=== PATIENT | female | born 1940 | race Caucasian/White ===

== ENCOUNTER → 2017-08-14 05:00 | Outpatient (REF) | payer MEDICARE, MEDICAID, SELFPAY ==
[2017-08-14 09:18] LABS: Color, Urine Yellow (Yellow); Glucose, Dipstick Normal (Normal); Ketone-Dipstick 5 mg/dl (Negative); Leukocyte Esterase-Dipstick 500 /ul (Negative); Nitrite-Dipstick Negative (Negative); Occult Blood-Urine 10 /ul (Negative); Protein-Dipstick 15 mg/dl (Negative); Urine Bilirubin Dipstick Negative (Negative); Urine Clarity Sl. Cloudy (Clear); Urine Urobilinogen Normal (Normal)
== END ==
LOC: OLS.WCC 05:00
PROVIDERS: Visit Provider Family Medicine
DX: I10 Essential (primary) hypertension (principal); E78.5 Hyperlipidemia, unspecified; R30.0 Dysuria
CPT/HCPCS: 81002; 87077; 87086; 87088; 87186

== ENCOUNTER → 2018-01-22 10:41 | Outpatient (CLI) | payer MEDICARE, MEDICAID, SELFPAY ==
--- NOTE | 2018-01-22 10:45 | BI_ITS ---
MAMMOGRAPHY - BILATERAL SCREENING REASON FOR EXAM: Female, 77 years old. Routine annual screening examination. PERTINENT HISTORY: Non-contributory. TECHNIQUE: Digital bilateral breast cristopher (3D mammographic acquisition) in the CC and MLO projections. 2-D mediolateral oblique (MLO) and craniocaudad (CC) views of both breasts were obtained. CAD: Full Field Digital Mammography with Computer Added Detection was performed. COMPARISON: Comparison is made with prior study dated January 08, 2017 and January 02, 2016. FINDINGS: Breast Composition: There are scattered areas of fibroglandular density. There are no dominant masses or suspicious calcifications. Stable appearance of the secretory calcifications bilaterally. No other significant abnormalities are identified. There has been no significant change since the prior study. BI/SCREENING MAMM (CAD), BILAT IMPRESSION: Stable bilateral screening mammogram. Yearly follow-up mammogram recommended. (A) ASSESSMENT CATEGORY: BIRADS Category 2: Benign. A letter regarding these results will be sent to the patient by the facility within 30 days. Approximately 10% of breast cancers are not detected by mammography. A normal mammogram should not delay biopsy of a clinically suspicious abnormality. [id number] Electronically Signed: Jose Barakat MD at 13:39 EDT Tel [phone], Service support ,
== END ==
PROVIDERS: Family Provider Family Medicine; PCP Family Medicine; Visit Provider Family Medicine
DX: Z12.31 Encounter for screening mammogram for malignant neoplasm of breast (principal)
CPT/HCPCS: 77063; 77067

== ENCOUNTER → 2018-01-29 04:00 | Outpatient (REF) | payer MEDICARE, MEDICAID, SELFPAY ==
[2018-01-29 07:17] LABS: Hematocrit 38.9 % (37-47); Hemoglobin 12.6 g/dl (12.0-15.0); Mean Corp Hgb Conc 32.4 g/gl (32-36); Mean Corpuscular Hgb 27.7 pg (27.0-32.0); Mean Corpuscular Volume 85.5 fL (81-99); Mean Platelet Vol. 10.7 fl (6.2-12.0); Platelet Count 328 K/mm3 (150-450); RBC Distribution Width CV 14.8 % (11.6-14.6); RBC Distribution Width SD 46.2 fl (35.1-43.9); Red Blood Count 4.55 M/mm3 (4.2-5.4)
[2018-01-29 07:23] LABS: Scan Indicated on CBC? Y/N NO
[2018-01-29 07:42] LABS: Anion Gap 10 (5-15); BUN 12 mg/dL (7-18); BUN/Creat Ratio 19.8 RATIO (10-20); Chloride 101 mmol/L (98-107); Cholesterol 125 mg/dL (200); Creatinine, Serum 0.61 mg/dL (0.55-1.02); EST Glomerular Filtration Rate 101 mL/min (>60); Est Glom Filt Rate - Afr Amer 123 mL/min (>60); Glucose 137 mg/dL (74-106); High Density Lipoprotein 48 mg/dL; Potassium 4.1 mmol/L (3.5-5.1); Sodium Level 136 mmol/L (136-145); Triglycerides 92 mg/dL; Very Low Density Lipoprotein 18 mg/dL (5-40)
[2018-01-29 08:39] LABS: Hemoglobin A1c 7.5 % (4.2-6.3)
== END ==
LOC: OLS.WCC 04:00
PROVIDERS: Visit Provider Family Medicine
DX: E11.9 Type 2 diabetes mellitus without complications (principal); I10 Essential (primary) hypertension; E78.5 Hyperlipidemia, unspecified; Z79.899 Other long term (current) drug therapy
CPT/HCPCS: 36415; 80048; 80061; 83036; 85027

== ENCOUNTER → 2018-04-28 05:00 | Outpatient (REF) | payer MEDICARE, MEDICAID, SELFPAY ==
[2018-04-28 09:55] LABS: Absolute Lymphocyte Count 1.49 X10^3/ul (0.83-4.51); Absolute Neutrophil Count 5.7 X10^3/uL (2.0-7.7); Basophil# 0.02 X10^3/uL; Basophil% 0.2 % (0-1); Eosinophil# 0.46 X10^3/uL; Eosinophils% 5.5 % (0-5); Hematocrit 36.9 % (37-47); Lymphocyte # 1.49 X10^3/ul (4.0); Mean Corp Hgb Conc 32.5 g/gl (32-36); Mean Corpuscular Hgb 28.3 pg (27.0-32.0); Mean Platelet Vol. 11.2 fl (6.2-12.0); Monocyte# 0.61 X10^3/uL; Monocyte% 7.4 % (0-10); Neutrophil # 5.69 X10^3/uL (2.7-7.7); Neutrophil % 68.7 % (47-70); Platelet Count 319 K/mm3 (150-450); RBC Distribution Width CV 14.9 % (11.6-14.6); RBC Distribution Width SD 46.7 fl (35.1-43.9); Red Blood Count 4.24 M/mm3 (4.2-5.4); White Blood Count 8.3 K/mm3 (4.4-11.0)
[2018-04-28 09:59] LABS: POSITIVE COUNT NO; POSITIVE DIFFERENTIAL NO; POSITIVE MORPHOLOGY NO
[2018-04-28 10:11] LABS: Thyroid Stim Hormone (TSH) 2.16 uIU/mL (0.358-3.74)
== END ==
LOC: OLS.WCC 05:00
PROVIDERS: Visit Provider Family Medicine
DX: R53.83 Other fatigue (principal)
CPT/HCPCS: 36415; 84443; 85025

== ENCOUNTER → 2018-07-15 05:00 | Outpatient (REF) | payer MEDICARE, SELFPAY ==
[2018-07-15 07:58] LABS: Hematocrit 38.3 % (37-47); Hemoglobin 12.5 g/dl (12.0-15.0); Mean Corp Hgb Conc 32.6 g/gl (32-36); Mean Corpuscular Hgb 28.2 pg (27.0-32.0); Mean Corpuscular Volume 86.3 fL (81-99); Mean Platelet Vol. 10.9 fl (6.2-12.0); Platelet Count 306 K/mm3 (150-450); RBC Distribution Width CV 14.6 % (11.6-14.6); RBC Distribution Width SD 45.1 fl (35.1-43.9); Red Blood Count 4.44 M/mm3 (4.2-5.4); White Blood Count 9.2 K/mm3 (4.4-11.0)
[2018-07-15 07:59] LABS: Scan Indicated on CBC? Y/N NO
[2018-07-15 08:14] LABS: Anion Gap 9 (5-15); BUN 16 mg/dL (7-18); BUN/Creat Ratio 22.7 RATIO (10-20); Calcium,Total 8.8 mg/dL (8.5-10.1); Chloride 103 mmol/L (98-107); Cholesterol 118 mg/dL (200); EST Glomerular Filtration Rate 85 mL/min (>60); Est Glom Filt Rate - Afr Amer 103 mL/min (>60); Glucose 170 mg/dL (74-106); High Density Lipoprotein 41 mg/dL; Potassium 4.2 mmol/L (3.5-5.1); Sodium Level 139 mmol/L (136-145); Triglycerides 91 mg/dL; Very Low Density Lipoprotein 18 mg/dL (5-40)
[2018-07-15 08:56] LABS: Hemoglobin A1c 8.5 % (4.2-6.3)
== END ==
LOC: OLS.WCC 05:00
PROVIDERS: Visit Provider Family Medicine
DX: E11.9 Type 2 diabetes mellitus without complications (principal); I10 Essential (primary) hypertension; E78.5 Hyperlipidemia, unspecified; Z79.899 Other long term (current) drug therapy
CPT/HCPCS: 36415; 80048; 80061; 83036; 85027

== ENCOUNTER 2018-07-27 18:11 | Emergency (ER) | payer MEDICARE, SELFPAY ==
[2018-07-27 18:12] VITALS: BP 158/76; PULSE 100; RESP 16; TEMP 36.4; O2SAT 97; BMI 25.1
--- NOTE | 2018-07-27 18:25 | ED.VISSUMM ---
- ER Visit Summary Date of Service: 07/27/18 Chief Complaint: Right wrist injury History of Present Illness: The patient is a 78 F presents to the emergency department with right wrist injury. Patient was trying walk with a walker. She lost her balance and fell. She caught herself with an outstretched right wrist. She does not think she had her head. She did not lose consciousness. She describes the fall as mechanical. The patient does have a history of dementia and is currently at [facility]. She is comfort care only. She is not on anticoagulants. She has had prior surgery on her right wrist for removal of a cyst and trigger finger release. Physical Examination: Exam is relatively unremarkable. She does have some swelling of the right wrist. There is no pain to the shoulder elbow or forearm. Her pulses are normal. Anterior interosseous, posterior interosseous, ulnar nerve preserved. The skin is intact. Test Results: [] Emergency Department Course and Treatment: X-rays were obtained of the right wrist. Patient has a dorsally displaced distal radius fracture. Hematoma block was done. The wrist was reduced and placed in a splint. Post x-rays demonstrate improvement of the fracture patient is resting comfortably. She has no evidence of nerve entrapment. She will be discharged to follow-up with orthopedics. Treatment Plan: [] Disposition: Discharge Impression: 1. Distal radius fracture 2. Fracture reduction 3. Splint by ED physician This note was generated with [employer] dictation software. It may contain incorrect words, spelling, and punctuation that were not noted in review of the chart prior to signing ED Disposition - Plan for ED Patient: Disposition: Home or Assisted Living Chief Complaint: Upper Extremity Injury Instructions: ED Fx Colles Wrist Redu Requ Referrals: Garo Waddell MD [STAFF PHYSICIAN] - 2 Days
--- NOTE | 2018-07-27 18:36 | RAD_ITS ---
STUDY: X-RAY - RIGHT WRIST REASON FOR EXAM: Female, 78 years old. Fell. Pain. TECHNIQUE: 3 view(s) of the wrist were obtained. COMPARISON: None. FINDINGS: There is a comminuted impacted and intra-articular fracture of the distal radius there is dorsal angulation of the distal radius. Normal distal radioulnar articulation. Normal carpal bones. Normal carpal articulations. There is degenerative arthrosis of the carpometacarpal articulation of the thumb. Normal second through fifth carpometacarpal articulations. Normal visualized metacarpal bones. There are vascular calcifications. RAD/Wrist min 3 Views IMPRESSION: Comminuted distal radial fracture. Electronically Signed: Alexa Parra MD at 19:39 EST Tel , Service support ,
--- NOTE | 2018-07-27 19:15 | RAD_ITS ---
STUDY: X-RAY - RIGHT WRIST REASON FOR EXAM: Female, 78 years old. Post reduction right wrist TECHNIQUE: 2 view(s) of the wrist were obtained. COMPARISON: 6:38 PM today FINDINGS: Fractures of the distal radius and ulna appear essentially unchanged although detail is obscured by a new plaster splint. Normal radiocarpal articulation. Normal distal radioulnar articulation. Normal carpal bones. Normal carpal articulations. Normal carpometacarpal articulation of the thumb. Normal second through fifth carpometacarpal articulations. Normal visualized metacarpal bones. The soft tissue structures are unremarkable. RAD/Wrist 2 Views IMPRESSION: Distal radial and ulnar fractures as above Electronically Signed: Markie Finney MD at 20:26 EST , Service support ,
[2018-07-27 19:45] VITALS: PULSE 98; RESP 16
== END 2018-07-27 19:47 | disposition home or self-care (01) ==
LOC: ED 19:22
PROVIDERS: Emergency Provider Emergency Medicine; Family Provider Family Medicine; PCP Family Medicine
DX: S52.571A Other intraarticular fracture of lower end of right radius, initial encounter for closed fracture (principal); W18.30XA Fall on same level, unspecified, initial encounter; Y93.01 Activity, walking, marching and hiking; Y92.9 Unspecified place or not applicable; Y99.9 Unspecified external cause status; F03.90 Unspecified dementia, unspecified severity, without behavioral disturbance, psychotic disturbance, mood disturbance, and anxiety; Z79.4 Long term (current) use of insulin; Z79.899 Other long term (current) drug therapy
CPT/HCPCS: 25605; 73100; 73110; 99282

== ENCOUNTER → 2018-08-31 13:45 | Outpatient (REF) | payer MEDICARE, SELFPAY | LOC: OLS.WCC 13:45 | PROVIDERS: Visit Provider Family Medicine | DX: N39.0 Urinary tract infection, site not specified (principal) | CPT/HCPCS: 87086; 87088; 87186 ==

== ENCOUNTER → 2019-01-23 | Outpatient (REF) | payer MEDICARE, SELFPAY ==
[2019-01-23 08:09] LABS: Hematocrit 41.5 % (37-47); Hemoglobin 13.6 g/dl (12.0-15.0); Mean Corp Hgb Conc 32.8 g/gl (32-36); Mean Corpuscular Hgb 28.7 pg (27.0-32.0); Mean Corpuscular Volume 87.6 fL (81-99); Mean Platelet Vol. 10.6 fl (6.2-12.0); Platelet Count 340 K/mm3 (150-450); RBC Distribution Width CV 14.2 % (11.6-14.6); RBC Distribution Width SD 45.5 fl (35.1-43.9); Red Blood Count 4.74 M/mm3 (4.2-5.4); White Blood Count 9.1 K/mm3 (4.4-11.0)
[2019-01-23 08:15] LABS: Scan Indicated on CBC? Y/N NO
[2019-01-23 08:35] LABS: Anion Gap 8 (5-15); BUN 15 mg/dL (7-18); BUN/Creat Ratio 19.2 RATIO (10-20); Calcium,Total 9.1 mg/dL (8.5-10.1); Chloride 103 mmol/L (98-107); Cholesterol 142 mg/dL (200); Creatinine, Serum 0.78 mg/dL (0.55-1.02); EST Glomerular Filtration Rate 76 mL/min (>60); Est Glom Filt Rate - Afr Amer 91 mL/min (>60); Glucose 175 mg/dL (74-106); High Density Lipoprotein 50 mg/dL; Potassium 4.1 mmol/L (3.5-5.1); Sodium Level 138 mmol/L (136-145); Triglycerides 115 mg/dL; Very Low Density Lipoprotein 23 mg/dL (5-40)
[2019-01-23 08:41] LABS: Hemoglobin A1c 8.4 % (4.2-6.3)
== END | disposition home or self-care (01) ==
LOC: OLS.WCC 05:00
PROVIDERS: Visit Provider Family Medicine
DX: E11.9 Type 2 diabetes mellitus without complications (principal); I10 Essential (primary) hypertension; E78.5 Hyperlipidemia, unspecified; Z79.899 Other long term (current) drug therapy; N32.81 Overactive bladder
CPT/HCPCS: 36415; 80048; 80061; 83036; 85027

== ENCOUNTER → 2019-02-17 | Outpatient (CLI) | payer MEDICARE, SELFPAY ==
--- NOTE | 2019-02-17 07:45 | BI_ITS ---
MAMMOGRAPHY - BILATERAL SCREENING REASON FOR EXAM: Female, 78 years old. Routine annual screening examination. PERTINENT HISTORY: Non-contributory. TECHNIQUE: Digital bilateral breast eulalia (3D mammographic acquisition) in the CC and MLO projections. 2-D mediolateral oblique (MLO) and craniocaudad (CC) views of both breasts were obtained. CAD: Full Field Digital Mammography with Computer Added Detection was performed. COMPARISON: Comparison is made with prior study dated January 22, 2018 and January 08, 2017. FINDINGS: Breast Composition: There are scattered areas of fibroglandular density. There are no dominant masses or suspicious calcifications. No other significant abnormalities are identified. There has been no significant change since the prior study. BI/SCREEN MAMM (CAD) W/EULALIA BILAT IMPRESSION: Stable bilateral screening mammogram. Yearly follow-up mammogram recommended. (A) ASSESSMENT CATEGORY: BIRADS Category 1: Negative. A letter regarding these results will be sent to the patient by the facility within 30 days. Approximately 10% of breast cancers are not detected by mammography. A normal mammogram should not delay biopsy of a clinically suspicious abnormality. [id number] Electronically Signed: Jose Barakat, at 9:15 EDT , Service support ,
== END | disposition home or self-care (01) ==
LOC: OPBI 07:44
PROVIDERS: PCP Family Medicine; Visit Provider Family Medicine
DX: Z12.31 Encounter for screening mammogram for malignant neoplasm of breast (principal)
CPT/HCPCS: 77063; 77067

== ENCOUNTER 2019-04-17 14:32 | Emergency (ER) | payer MEDICARE, SELFPAY ==
[2019-04-17 14:33] VITALS: BP 137/70; PULSE 99; RESP 18; TEMP 37.2; O2SAT 95; BMI 24.3
--- NOTE | 2019-04-17 14:39 | ED.DCSUM_ITS ---
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 Patient denies headache. She denies loss of conscious. Is not amnestic. She denies neck pain. Denies paresthesia, anesthesia or motor weakness. Prior similar symptoms: No Recent Illness/Hospitalization: No - Past Medical History (1) Closed left hip fracture Status: Acute Comment: Dr. Majano. OR 02/17/17 s/p L hip cephalomedullary nailing (2) Hyperlipidemia Status: Chronic (3) Hypertension Status: Chronic (4) Type 2 diabetes mellitus Status: Chronic Past Medical History - Allergies and Home Meds Allergies/Adverse Reactions: Allergies codeine Allergy (Verified 02/16/17 12:18) Other morphine Allergy (Verified 02/17/17 06:25) Vomiting tramadol Allergy (Verified 02/16/17 12:18) Other Primary Care Physician: Jake Waddell MD [Primary Care Provider] - Prior records reviewed: Yes Surgical History: appendectomy, - - History of left olecranon process fracture repair. Lives: [facility] Smoking Status: Never smoker Alcohol: None Drugs: None - Family History Maternal Family History: Reports: No pertinent history Paternal Family History: Reports: No pertinent history Review of Systems General: Denies: Chills, Fever, Sweats Eyes: Denies: Visual changes - bilaterally, Diplopia ENT: Denies: Bilateral ear pain, Rhinorrhea, Sore throat Cardiovascular: Denies: Chest pain, Palpitations Respiratory: Denies: Dyspnea, Cough, Dyspnea on exertion Gastrointestinal: Denies: Abdominal pain, Nausea, Vomiting, Diarrhea, Melena, Hematochezia Genitourinary: Denies: Dysuria, Hematuria, Frequency Musculoskeletal: Reports: Swelling - Left parietal occipital. Denies: Myalgias, Arthralgias, Neck pain, Back pain, Extremity Pain Skin: Denies: Rash, Abscess, Abrasions, Wounds Neurological: Denies: Headache, Weakness, Numbness Hematologic: Denies: Easy bruising, Easy bleeding Allergy: Denies: Uticaria, Swelling of the mouth Physical Exam Vital Signs/Narrative: Vital Signs Temp Pulse Resp BP Pulse Ox 04/17/19 14:33 98.9 F 99 18 137/70 H 95 Inital Vital Signs reviewed: Yes General: Well nourished, Well developed, No Acute Distress Head: Trauma - Subcutaneous hematoma left parietal occipital area. There is no palpable depression. There is no clinical findings of basal skull fracture. Eyes: Perrl, EOMI. Negative for: Pale conjunctiva, Scleral icterus ENT: Moist mucous membranes, No rhinorrhea, TM's clear, - - No hemotympanum. No CSF otorrhea or rhinorrhea. Neck: Supple, Nontender. Negative for: No lymphadenopathy, No JVD, - - C-spine was cleared per Nexus criteria Cardiovascular: Regular rate, Regular rhythm, No murmurs, Normal S1, Normal S2 Respiratory: No distress, CTA bilaterally, Chest nontender Abdomen: Soft, Nontender, Nondistended, Normal bowel sounds Back: Nontender, Normal Inspection Extremities: Nontender, No edema Skin: Normal color, No rash, Trauma - Cutaneous scalp hematoma. Negative for: Cyanosis, Diaphoresis, Jaundice Neurological: Alert, Oriented x3, Cranial nerves II-XII grossly intact, Normal Strength, Normal Sensation, Normal DTR - No clonus or Babinski sign. Psychological: Normal affect, Normal Mood Diagnostic/Tx/Re-eval - Medical Decision Making Patient has a signed DNR comfort care sheet and there is no loss of conscious or being dazed and on no anticoagulant per the [place] CT head rule radiologic imaging is not indicated. Patient was discharged to return to nursing facility. ED Disposition - Plan for ED Patient: Disposition: Home or Assisted Living Diagnosis: Hematoma of right parietal scalp, Fall at shelter Instructions: SCALP CONTUSION, No Wake Up Referrals: Jake Waddell MD [Primary Care Provider] - As Needed
--- NOTE | 2019-04-17 14:54 | ED.RN ---
[facility] called due to ED not receiving report. Spoke with Danna the director at the care center. Updated that patient does not meet criteria for CT and that she was being discharged a back to ECF. Staff there verbalized their concern that patient is in AL and not monitored over night. Explained pt is DNR CC and does not meet criteria per MD. ECF staff frustrated over the phone states well i guess we will just have to schedule checks on her over night Denies any further questions or needs. Yolanda (pt's sister) at bedside, verbalizes understanding of situation and states she is able to take patient back to ECF. Discharge instructions reviewed, both patient and sister denies questions. Pt taken out of ED in wheelchair to [employer] vehicle.
== END 2019-04-17 15:08 | disposition home or self-care (01) ==
LOC: ED 14:56
PROVIDERS: Emergency Provider Emergency Medicine; Family Provider Family Medicine; PCP Family Medicine
DX: S00.03XA Contusion of scalp, initial encounter (principal); W19.XXXA Unspecified fall, initial encounter; Y93.9 Activity, unspecified; Y92.129 Unspecified place in nursing home as the place of occurrence of the external cause; Y99.9 Unspecified external cause status; E11.9 Type 2 diabetes mellitus without complications; I10 Essential (primary) hypertension; E78.5 Hyperlipidemia, unspecified; Z66 Do not resuscitate; Z79.4 Long term (current) use of insulin; Z79.899 Other long term (current) drug therapy; Z88.8 Allergy status to other drugs, medicaments and biological substances; Z88.5 Allergy status to narcotic agent
CPT/HCPCS: 99284

== ENCOUNTER → 2019-04-20 17:00 | Outpatient (REF) | payer MEDICARE, SELFPAY ==
[2019-04-17 14:33] VITALS: BMI 24.3
[2019-04-21 08:14] LABS: Mucous, Urine 0 SEEN /hpf (<or=2+)
[2019-04-21 08:42] LABS: Color, Urine Yellow (Yellow); Glucose, Dipstick Normal (Normal); Ketone-Dipstick Negative (Negative); Leukocyte Esterase-Dipstick 500 /ul (Negative); Nitrite-Dipstick Negative (Negative); Occult Blood-Urine 50 /ul (Negative); Protein-Dipstick 100 mg/dl (Negative); Urine Bilirubin Dipstick Negative (Negative); Urine Clarity Sl. Cloudy (Clear); Urine Urobilinogen Normal (Normal)
[2019-04-21 08:48] LABS: Bacteria 2+ /hpf (None Seen); Red Blood Cells-Urine 0-5 SEEN /hpf (0-5); Squamous Epithelial Cells - UA 0-5 SEEN /hpf (5-10); White Blood Cells 25-50 SEEN /hpf (0-5)
== END ==
LOC: OLS.WCC 17:00
PROVIDERS: Visit Provider Family Medicine
DX: N39.0 Urinary tract infection, site not specified (principal); R50.9 Fever, unspecified
CPT/HCPCS: 81001; 87077; 87086; 87088; 87186

== ENCOUNTER 2019-05-15 06:43 | Observation (INO) | payer MEDICARE, SELFPAY ==
[2019-05-15] VITALS (8 sets, daily range): BP systolic 129–185; BP diastolic 63–86; PULSE 83–97; RESP 16–18; TEMP 36.4–37.2; O2SAT 96–98; BMI 22.4; BMI 23.9
--- NOTE | 2019-05-15 06:59 | RAD_ITS ---
HISTORY: FALL. PIN RIGHT SHOULDER ADDITIONAL HISTORY: None provided. COMPARISON: None TECHNIQUE: Right shoulder 2 views Number of images including paperwork: 2 FINDINGS: Evaluation limited by positioning and projection. BONES: There appears to be angulation of the humeral head neck junction on the scapular Y view with suspected overriding fracture on the AP view. JOINTS: No definite subluxation. SOFT TISSUES: No distinct foreign body. RAD/Shoulder min 2 Views IMPRESSION: Appearance concerning for humeral neck fracture, suboptimally evaluated due to positioning and projection. at 5929 Reported and signed by: Ashley Jones MD Electronically Signed: Ashley Jones MD at 7:28 EDT Tel , Service support ,
[2019-05-15] MEDS: HYDROmorphone 0.5 MG/0.5 ML SYRINGE SC (07:13)
--- NOTE | 2019-05-15 07:13 | ED.DCSUM_ITS ---
- ER Visit Summary Date of Service: 05/15/19 Chief Complaint: Shoulder injury History of Present Illness: The patient is a 78 F who presents from [facility]. She is DNR Comfort Care only. She fell today when making her bed and landed on her right shoulder. She complains of pain to the area. She did not hit her head or neck. Denies loss of consciousness. She is not on blood thinners. Denies any other pain or symptoms. Physical Examination: Head and neck atraumatic. Right shoulder is tender to palpation. Sensation intact. Neurovascular intact distally. Chest is nontender. Normal heart sounds and lung sounds. Abdomen soft and nontender. Hips and legs unremarkable. Left arm unremarkable. Test Results: X-rays show a proximal humerus fracture. This does not appear to be dislocated. Emergency Department Course and Treatment: Patient treated with subcutaneous Dilaudid while awaiting x-ray results. X-rays show a proximal humerus fracture without dislocation. Patient will be placed in a sling. Will prescribe pain meds. She is known to Dr. Majano and will be referred to that group for follow-up. I spoke with her family. She normally uses a walker to get around. It sounds like she can be moved to room at ground level and she can use a wheelchair at her care center, otherwise she will need placement for a higher level of care. Will call to confirm. pest control worker and at the care center said that patient will need to be admitted to the skilled unit. She will need a 72-hour hospitalization. Hospitalist was contacted for further care. Treatment Plan: As above Disposition: Admit Impression: 1. Right proximal humerus fracture This note was generated with [employer] dictation software. It may contain incorrect words, spelling, and punctuation that were not noted in review of the chart prior to signing ED Disposition - Plan for ED Patient: Instructions: Sling And Swathe Prescriptions: Oxycodone HCl/Acetaminophen [Percocet 5/325] 1 tab PO Q6H PRN PRN 3 Days #12 tab PRN Reason: Pain Prescription Printed Referrals: Carmen Weldon DO [STAFF PHYSICIAN] -
--- NOTE | 2019-05-15 07:52 | ED.DEP ---
ED Disposition - Plan for ED Patient: Instructions: Sling And Swathe Prescriptions: Oxycodone HCl/Acetaminophen [Percocet 5/325] 1 tab PO Q6H PRN PRN 3 Days #12 tab PRN Reason: Pain Prescription Printed Referrals: Carmen Weldon DO [STAFF PHYSICIAN] -
--- NOTE | 2019-05-15 09:07 | HP.PCM_ITS ---
History of Present Illness Date of Admission: 05/15/19 Chief Complaint: mechanical fall The patient is a 78 year old F with a past medical history as listed. She was admitted from her assisted living facility on 05/15/2019 with a complaint of mechanical fall. Patient states she was making her bed and slipped and tripped on the edge of her mat and fell down and landed on her right shoulder. She had severe pain in the right shoulder area. She denied any loss of consciousness, any dizziness or palpitations beforehand. Xrays done in the ED showed proximal right humerus fracture. The right upper extremity was placed in a sling. foundry worker general at her assisted living facility after discussion with the ED doctor stated the patient would need to be admitted to the skilled unit and will need a 72-hour hospitalization. She is therefore been admitted for right upper arm fracture due to mechanical fall. [] Past Medical History Past Medical History (Chronic Problems): Chronic Problems Hyperlipidemia (Chronic) Hypertension (Chronic) Type 2 diabetes mellitus (Chronic) Allergies codeine Allergy (Verified 02/16/17 12:18) Other morphine Allergy (Verified 02/17/17 06:25) Vomiting tramadol Allergy (Verified 02/16/17 12:18) Other Home Medications: Ambulatory Orders Medication Instructions Recorded Atorvastatin Calcium [Lipitor] 20 mg PO QHS 03/07/15 Amlodipine/Benazepril [Lotrel 1 capsule PO DAILY 03/16/15 10-20 MG Capsule] metFORMIN HCl [Glucophage] 500 mg PO BIDCM 03/16/15 Mirabegron [Myrbetriq] 50 mg PO DAILY 02/16/17 Duloxetine HCl 60 mg PO DAILY 04/29/17 Linagliptin [Tradjenta] 5 mg PO DAILY 07/27/18 Vit A/Vit C/Vit E/Zinc/Copper 1 each PO BID 07/27/18 [Preservision Areds Softgel] Acetaminophen 1 - 2 tab PO Q4H PRN PRN 05/15/19 Acetaminophen [Pain Relief] 650 mg PO QHS 05/15/19 Dextrose [Glutose 15] 37.5 gm PO X1 PRN 05/15/19 Glucagon,Human Recombinant 1 mg IJ X1 PRN 05/15/19 [Glucagon Emergency Kit] Insulin Detemir [Levemir FlexPen] 14 units SUBCUT BID 05/15/19 Sennosides/Docusate Sodium [Senna 2 ea PO DAILY PRN 05/15/19 Plus Tablet] Surgical History: appendectomy, - - History of left olecranon process fracture repair. 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 Smoking Status: Never smoker - *Family History Maternal History Items: No pertinent history Paternal History Items: No pertinent history Review of Systems Constitutional: Denies: Chills, Fever, Malaise, Weakness, Weight Change, Fatigue Eyes: Denies: Blurred vision HEENT: Denies: Head Aches, Sinus Congestion, Sinus Drainage Cardiovascular: Denies: Chest Pain, Palpitations Respiratory: Denies: Cough, Shortness of Breath, Shortness of breath at rest, Shortness of breath upon exertion, Sputum production Gastrointestinal: Denies: Abdominal Pain, Nausea, Vomiting Genitourinary: Denies: Dysuria Musculoskeletal: Reports: Arm Pain - RUE pain from fracture, Muscle pain. Denies: Foot Pain, Hand Pain, Joint Pain Skin: Denies: Rash, Wounds Neurological: Denies: Numbness, Tingling, Focal weakness Psychiatric: Denies: Anxiety, Depression, Homicidal Ideations, Suicidal Ideations Hematologic/ Lymphatic: Denies: Easy Bruising, Easy Bleeding VTE Information - Inpt Only VTE Present on Admission: No VTE Pharm Prophylaxis ordered?: Yes - Physical Exam General: Alert, Oriented x3, Cooperative, Lethargic HEENT: Atraumatic, PERRLA, EOMI, Normocephalic Oral: Dry Mucosa Neck: Supple, No JVD, Negative Carotid Bruits Lungs: Clear to auscultation, Normal air movement, No rhonchi, No wheeze, No rales Cardiovascular: Regular rate, Regular Rhythm, Normal S1, Normal S2, No murmurs Abdomen: Bowel Sounds Present, Soft, Non Tender, Non-Distended, No Hepato- splenomegaly Extremities: No edema, Capillary Refill Less than 3 Seconds Skin: No rashes, No breakdown Musculoskeletal: - - RUE in sling; able to resistor coater fingers with right hand; right radial pulse intact Lymphatic: No Cervical, Supraclavicular, or Inguinal Adenopathy Neurological: Cranial nerves II-XII grossly intact Psych/Mental Status: Normal Affect, Appropriate, Alert and oriented to time, place, person, mood and affect Vital Signs Temp Pulse Resp BP Pulse Ox 98.4 F 85 17 129/67 H 98 05/15/19 06:46 05/15/19 07:17 05/15/19 07:17 05/15/19 07:17 05/15/19 07:17 Oxygen Delivery Method Room Air Weight: 143 lb 8.335 oz Body Mass Index (BMI) 22.4 Finger Stick Blood Glucose 174 Diagnostic Data Shoulder X-Ray 05/15/19 06:59 IMPRESSION: Appearance concerning for humeral neck fracture, suboptimally evaluated due to positioning and projection. at 0729 Reported and signed by: Ashley Jones MD Electronically Signed: Ashley Jones MD at 7:28 EDT Tel , Service support , Assessment/Plan All Active Problems Closed left hip fracture (Acute) 38-year-old female admitted with complaint of mechanical fall and found to have a right proximal humeral fracture. 1. RIght traumatic proximal humeral fracture * due to mechanical fall * pain poorly controlled * patient not interested in having surgery; counselled that humeral fractures usually are treated conservatively,a nd she is ok with that, as she would rather avoid surgery if possible. * IV morphine and pO oxycodone as well as tylenol prn for pain * PT/OT consult * fall precautions * to follow up with orthopedic surgery on outpatient basis * 2. Debility due to mechanical fall: as under 1. 3. Type 2 diabetes mellitus: * On Levemir 14 units twice daily and linagliptin 5 mg daily as well as metformin 500mg bid. * Accu-Cheks before meals at bedtime. * Insulin sliding scale. * DVT prophylaxis: heparin Code status: DNRCC. * Patient counseled extensively about different types of CODE STATUS including full code, DNR CCA and DNR CCA. Patient elects to be DNRCC. This was confirmed by paperwork from SNF. * Total ptft-co-rwpe time 16 minutes. Code Visit OBSV E&M: 79858 Initial observation care L3 Procedures: 77775 Advncd Care Plan 30 Min
[2019-05-15] MEDS: HYDROmorphone 0.5 MG/0.5 ML SYRINGE IV (09:30)
[2019-05-15 10:10] LABS: Bedside Glucose 278 mg/dL (70-110)
--- NOTE | 2019-05-15 11:20 | CASEMGMT ---
Social Work Note WAI reviewed notes, pt is from [facility] side and plan is for pt to return to [facility] skilled side. WAI ordered PT/OT and asked PT/OT to evaluate pt early as pre-cert will be needed. Plan: Return to [facility] skilled pending pre-cert Amisha King MANAGING JEWELER, AGRICULTURE SCIENTIST
--- NOTE | 2019-05-15 11:57 | CASEMGMT ---
Addendum entered by Helena Jordan 05/15/19 12:29: SW faxed referral including PT/OT to [facility] so they can start precert. SW will fax H&P when completed. SW completed PAS/RR, attained results. SW will continue to follow. VERNON Acosta Original Note: SW met w/pt in room, pt just finished w/PT and OT. Pt confirmed that she is from [facility] assisted living, and is agreeable to go to the group home side for rehab at [facility]. Pt states she has been there before. SW explained that we will need a precert from insurance in order for her to go to the group home side for rehab, and SW will call [facility] to speak w/sancho in regard to this. SW asked pt if her family is aware or if there is anyone she would like SW to call in her family. She states her sister Yolanda just left and is aware of what is going on. WAI called [facility], spoke w/Yenny in admissions/social service. WAI let Yenny know that from here the plan would be for pt to return to the group home side rather than assisted living, they are in agreement with this. WAI educated Yenny that pt will need a precert in order to go to the group home side as she has [facility](she had communicated to someone in the ER that pt needed a 3 day stay). Yenny states understanding. WAI explained will fax over the clinicals once the PT/OT evaluations are completed so precert can be started. VERNON Acosta
[2019-05-15 12:06] LABS: Bedside Glucose 287 mg/dL (70-110)
[2019-05-15] MEDS: Insulin Lispro 100 UNIT/ML INSULN.PEN SC ×3 (13:20→22:44)
--- NOTE | 2019-05-15 13:47 | CASEMGMT ---
Social Work Note SW faxed completed H+P to [facility]. Plan: [facility] skilled pending pre-cert Amisha King SEWING PATTERN LAYOUT TECHNICIAN, VACUUM DRUM DRIER OPERATOR
[2019-05-15 16:10] LABS: Bedside Glucose 374 mg/dL (70-110)
[2019-05-15] MEDS: Glucerna Shake 120 ML LIQUID PO (16:39)
[2019-05-15] MEDS: metFORMIN HCl 500 MG Tablet PO (16:39)
[2019-05-15] MEDS: Atorvastatin Calcium 20 MG Tablet PO (22:31)
[2019-05-15] MEDS: Multivitamin (Healthy Eyes) Capsule 1 CAP PO (22:31)
[2019-05-15] MEDS: Acetaminophen 325 MG Tablet 650 MG PO (22:31)
[2019-05-15] MEDS: Heparin Injection (Vial) 5,000 UNIT/ML VIAL 5000 UNIT SC (22:46)
[2019-05-15 22:56] LABS: Bedside Glucose 367 mg/dL (70-110)
[2019-05-15] MEDS: oxyCODONE 5 MG Tablet PO (23:43)
[2019-05-16 02:43] VITALS: BP 171/66; PULSE 87; RESP 16; TEMP 36.9; O2SAT 96
[2019-05-16] MEDS: Insulin Lispro 100 UNIT/ML INSULN.PEN SC ×4 (05:56→21:39)
[2019-05-16 06:15] LABS: Bedside Glucose 247 mg/dL (70-110)
[2019-05-16 07:39] VITALS: BP 140/66; PULSE 84; RESP 14; TEMP 36.9; O2SAT 97
[2019-05-16] MEDS: Glucerna Shake 120 ML LIQUID PO (07:45)
[2019-05-16] MEDS: oxyCODONE 5 MG Tablet PO ×3 (07:45→21:43)
[2019-05-16] MEDS: metFORMIN HCl 500 MG Tablet PO ×2 (07:47→17:07)
[2019-05-16] MEDS: Mirabegron 50 MG TAB.ER.24H PO (07:47)
[2019-05-16] MEDS: DULoxetine Hcl 60 MG Capsule PO (07:47)
[2019-05-16] MEDS: amLODIPine 10 MG Tablet PO (07:47)
[2019-05-16] MEDS: Multivitamin (Healthy Eyes) Capsule 1 CAP PO ×2 (07:47→21:39)
[2019-05-16] MEDS: Lisinopril 20 MG Tablet PO (07:47)
[2019-05-16] MEDS: LINAGLIPTIN 5 MG TABLET PO (07:48)
[2019-05-16 08:08] LABS: Absolute Lymphocyte Count 1.44 X10^3/uL (0.83-4.51); Absolute Neutrophil Count 14.5 X10^3/uL (2.0-7.7); Basophil# 0.03 X10^3/uL; Basophil% 0.2 % (0-1); Eosinophil# 0.04 X10^3/uL; Eosinophils% 0.2 % (0-5); Hematocrit 35.5 % (37-47); Hemoglobin 11.4 g/dL (12.0-15.0); Lymphocyte # 1.44 X10^3/ul (4.0); Lymphocyte % 8.4 % (19-41); Mean Corp Hgb Conc 32.1 g/dL (32-36); Mean Corpuscular Hgb 27.7 pg (27.0-32.0); Mean Corpuscular Volume 86.2 fL (81-99); Monocyte# 1.05 X10^3/uL; Monocyte% 6.1 % (0-10); NRBC Flagged by Analyzer 0 % (0-5); Neutrophil # 14.54 X10^3/uL (2.7-7.7); Neutrophil % 84.7 % (47-70); Platelet Count 321 K/mm3 (150-450); RBC Distribution Width CV 15.1 % (11.6-14.6); RBC Distribution Width SD 47.6 fl (35.1-43.9); Red Blood Count 4.12 M/mm3 (4.2-5.4); White Blood Count 17.2 K/mm3 (4.4-11.0)
[2019-05-16 08:24] LABS: Anion Gap 7 (5-15); BUN 16 mg/dL (7-18); BUN/Creat Ratio 24.3 RATIO (10-20); Calcium,Total 8.7 mg/dL (8.5-10.1); Chloride 102 mmol/L (98-107); Creatinine, Serum 0.66 mg/dL (0.55-1.02); EST Glomerular Filtration Rate 92 mL/min (>60); Est Glom Filt Rate - Afr Amer 111 mL/min (>60); Estimated Creatinine Clearance 39.39 ml/min; Glucose 225 mg/dL (74-106); Potassium 3.7 mmol/L (3.5-5.1); Sodium Level 136 mmol/L (136-145)
--- NOTE | 2019-05-16 10:00 | PN_ITS ---
Subjective: Patient seen and examined. She has no complaints. Pain is well controlled. Review of systems otherwise negative. She is awaiting placement. Labs and vitals reviewed. Vitals/I&O's: Vital Signs Temp Pulse Resp BP Pulse Ox 98.5 F 84 14 140/66 H 97 05/16/19 07:39 05/16/19 07:39 05/16/19 07:39 05/16/19 07:39 05/16/19 07:39 Oxygen Delivery Method Room Air Weight: 139 lb 5.314 oz Body Mass Index (BMI) 23.9 Finger Stick Blood Glucose 174 Intake and Output for Last 24 Hours 05/14/19 05/15/19 05/16/19 23:59 23:59 23:59 Intake Total 950 / 1100 250 / 250 Balance 950 / 1100 250 / 250 General: Alert, Oriented x3, Cooperative, HEENT: Atraumatic, PERRLA, EOMI, Normocephalic Oral: Dry Mucosa Neck: Supple, No JVD, Negative Carotid Bruits Lungs: Clear to auscultation, Normal air movement, No rhonchi, No wheeze, No rales Cardiovascular: Regular rate, Regular Rhythm, Normal S1, Normal S2, No murmurs Abdomen: Bowel Sounds Present, Soft, Non Tender, Non-Distended, No Hepato- splenomegaly Extremities: No edema, Capillary Refill Less than 3 Seconds Skin: No rashes, No breakdown Musculoskeletal: - - RUE in sling; able to owner/photographer fingers with right hand; right radial pulse intact Lymphatic: No Cervical, Supraclavicular, or Inguinal Adenopathy Neurological: Cranial nerves II-XII grossly intact Psych/Mental Status: Normal Affect, Appropriate, Alert and oriented to time, place, person, mood and affect Laboratory Results 05/15/19 10:00: POC Glucose 278 H 05/15/19 12:02: POC Glucose 287 H 05/15/19 16:04: POC Glucose 374 H 05/15/19 22:38: POC Glucose 367 H 05/16/19 05:53: POC Glucose 247 H 05/16/19 06:55: WBC 17.2 H, RBC 4.12 L, Hgb 11.4 L, Hct 35.5 L, MCV 86.2, MCH 27.7, MCHC 32.1, RDW Std Deviation 47.6 H, RDW Coeff of Lata 15.1 H, Plt Count 321, MPV 11.0, Immature Gran % (Auto) 0.400, Neut % (Auto) 84.7 H, Lymph % (Auto) 8.4 L, Zavala % (Auto) 6.1, Eos % (Auto) 0.2, Baso % (Auto) 0.2, Absolute Neuts (auto) 14.5 H, Absolute Lymphs (auto) 1.44, Nucleated RBC % 0 05/16/19 06:55: Sodium 136, Potassium 3.7, Chloride 102, Carbon Dioxide 27.0, Anion Gap 7, BUN 16, Creatinine 0.66, Estim Creat Clear Calc 39.39, Est GFR (MDRD) Af Amer 111, Est GFR (MDRD) Non-Af 92, BUN/Creatinine Ratio 24.3 H, Glucose 225 H, Calcium 8.7 Diagnostic Data Shoulder X-Ray 05/15/19 06:59 IMPRESSION: Appearance concerning for humeral neck fracture, suboptimally evaluated due to positioning and projection. at 0729 Reported and signed by: Ashley Jones MD Electronically Signed: Ashley Jones MD at 7:28 EDT Tel , Service support , Current Medications Acetaminophen (Tylenol) 650 mg PO QHS [facility] Last Admin: 05/15/19 22:31 Dose: 650 mg Documented by: Amlodipine Besylate (Norvasc) 10 mg PO DAILY [facility] Last Admin: 05/16/19 07:47 Dose: 10 mg Documented by: Atorvastatin Calcium (Lipitor) 20 mg PO QHS [facility] Last Admin: 05/15/19 22:31 Dose: 20 mg Documented by: Dextrose (D50w Syringe) 0 gm IV X1 PRN; Protocol PRN Reason: Hypoglycemia Duloxetine HCl (Cymbalta) 60 mg PO DAILY [facility] Last Admin: 05/16/19 07:47 Dose: 60 mg Documented by: Glucagon () 1 mg IM .X1 PRN PRN Reason: Hypoglycemia Heparin Sodium (Porcine) (Heparin Na) 5,000 unit SC Q12 [facility] Last Admin: 05/15/19 22:46 Dose: 5,000 unit Documented by: Insulin Glargine (Lantus (Bk)) 14 units SC BID [facility] Last Admin: 05/15/19 22:44 Dose: 14 u Documented by: Insulin Human Lispro (Humalog Kwikpen ([facility])) 0 unit SC ACHS [facility]; Protocol Last Admin: 05/16/19 05:56 Dose: 3 units Documented by: Linagliptin (Tradjenta) 5 mg PO DAILY [facility] Last Admin: 05/16/19 07:48 Dose: 5 mg Documented by: Lisinopril (Zestril) 20 mg PO DAILY [facility] Last Admin: 05/16/19 07:47 Dose: 20 mg Documented by: [facility] Last Admin: 05/16/19 07:47 Dose: 500 mg Documented by: Mirabegron (Myrbetriq) 50 mg PO DAILY [facility] Last Admin: 05/16/19 07:47 Dose: 50 mg Documented by: Morphine Sulfate () 2 mg IV Q3H PRN PRN PRN Reason: Severe pain (7-10/10) Multivitamins/Minerals (Healthy Eyes) 1 capsule PO BID [facility] Last Admin: 05/16/19 07:47 Dose: 1 capsule Documented by: Nutritional Formula (Lactose Free) (Glucerna Shake) 120 ml PO TIDCM [facility] Last Admin: 05/16/19 07:45 Dose: 120 ml Documented by: Ondansetron HCl (Zofran) 4 mg IV Q8H PRN PRN PRN Reason: NAUSEA/VOMITING Oxycodone HCl (Oxyir) 5 mg PO Q4H PRN PRN PRN Reason: Moderate Pain (4-6/10) Last Admin: 05/16/19 07:45 Dose: 5 mg Documented by: Sodium Chloride () 10 - 40 ml IV UD PRN PRN Reason: SALINE FLUSH Medical Necessity - Tobacco Use Smoking Status: Never smoker Assessment/Plan All Active Problems Closed left hip fracture (Acute) 38-year-old female admitted with complaint of mechanical fall and found to have a right proximal humeral fracture. 1. RIght traumatic proximal humeral fracture * due to mechanical fall * pain better controlled today * on IV morphine nad PO oxycodone as well as tylenol prn for pain. * PT/OT consult * fall precautions * to follow up with orthopedic surgery on outpatient basis * 2. Debility due to mechanical fall: as under 1. 3. Type 2 diabetes mellitus: * On Levemir 14 units twice daily and linagliptin 5 mg daily as well as metformin 500mg bid. * Accu-CheksACHS * Insulin sliding scale. * DVT prophylaxis: heparin Disposition: awaiting SNF Code Visit OBSV E&M: 42454 Subsequent observation care L2
[2019-05-16 11:45] LABS: Bedside Glucose 312 mg/dL (70-110)
[2019-05-16] MEDS: Heparin Injection (Vial) 5,000 UNIT/ML VIAL 5000 UNIT SC ×2 (12:24→21:38)
[2019-05-16 13:40] VITALS: BP 173/76; PULSE 87; RESP 14; TEMP 36.9; O2SAT 95
[2019-05-16 16:00] VITALS: BP 131/59; PULSE 82; RESP 16; TEMP 36.8; O2SAT 96
[2019-05-16 17:35] LABS: Bedside Glucose 380 mg/dL (70-110)
[2019-05-16 20:25] VITALS: BP 128/62; PULSE 88; RESP 18; TEMP 36.8; O2SAT 96
[2019-05-16] MEDS: Acetaminophen 325 MG Tablet 650 MG PO (21:40)
[2019-05-16] MEDS: Atorvastatin Calcium 20 MG Tablet PO (21:40)
[2019-05-16 21:46] LABS: Bedside Glucose 374 mg/dL (70-110)
[2019-05-17 02:25] VITALS: BP 139/60; PULSE 84; RESP 18; TEMP 36.2; O2SAT 96
[2019-05-17] MEDS: Insulin Lispro 100 UNIT/ML INSULN.PEN SC ×4 (07:24→21:28)
[2019-05-17] MEDS: metFORMIN HCl 500 MG Tablet PO ×2 (07:25→16:59)
[2019-05-17] MEDS: DULoxetine Hcl 60 MG Capsule PO (07:25)
[2019-05-17] MEDS: Multivitamin (Healthy Eyes) Capsule 1 CAP PO ×2 (07:26→21:23)
[2019-05-17] MEDS: amLODIPine 10 MG Tablet PO (07:27)
[2019-05-17] MEDS: Mirabegron 50 MG TAB.ER.24H PO (07:27)
[2019-05-17] MEDS: LINAGLIPTIN 5 MG TABLET PO (07:27)
[2019-05-17] MEDS: Lisinopril 20 MG Tablet PO (07:28)
--- NOTE | 2019-05-17 07:34 | NURSING ---
am meds all given at this time per pts request as she normally does at home
[2019-05-17 08:00] VITALS: BP 145/75; PULSE 85; RESP 14; TEMP 36.9; O2SAT 95
[2019-05-17 08:16] LABS: Bedside Glucose 257 mg/dL (70-110)
--- NOTE | 2019-05-17 09:28 | PN_ITS ---
Subjective: Patient seen and examined. Pain is well controlled. He is wondering when she will be able to go home. Patient counseled that we are awaiting pre-CERT for her to go to the intermediate home. Review of systems otherwise negative. Vitals/I&O's: Vital Signs Temp Pulse Resp BP Pulse Ox 97.2 F L 84 18 139/60 H 96 05/17/19 02:25 05/17/19 02:25 05/17/19 02:25 05/17/19 02:25 05/17/19 02:25 Oxygen Delivery Method Room Air Weight: 139 lb 5.314 oz Body Mass Index (BMI) 23.9 Finger Stick Blood Glucose 174 Intake and Output for Last 24 Hours 05/15/19 05/16/19 05/17/19 23:59 23:59 23:59 Intake Total 950 / 1100 930 / 930 Balance 950 / 1100 930 / 930 General: Alert, Oriented x3, Cooperative, HEENT: Atraumatic, PERRLA, EOMI, Normocephalic Oral: Dry Mucosa Neck: Supple, No JVD, Negative Carotid Bruits Lungs: Clear to auscultation, Normal air movement, No rhonchi, No wheeze, No rales Cardiovascular: Regular rate, Regular Rhythm, Normal S1, Normal S2, No murmurs Abdomen: Bowel Sounds Present, Soft, Non Tender, Non-Distended, No Hepato- splenomegaly Extremities: No edema, Capillary Refill Less than 3 Seconds Skin: No rashes, No breakdown Musculoskeletal: - - RUE in sling; able to bearing maker fingers with right hand; right radial pulse intact Lymphatic: No Cervical, Supraclavicular, or Inguinal Adenopathy Neurological: Cranial nerves II-XII grossly intact Psych/Mental Status: Normal Affect, Appropriate, Alert and oriented to time, place, person, mood and affect Laboratory Results 05/16/19 11:40: POC Glucose 312 H 05/16/19 17:04: POC Glucose 380 H 05/16/19 21:37: POC Glucose 374 H 05/17/19 07:23: POC Glucose 257 H Current Medications Acetaminophen (Tylenol) 650 mg PO QHS [facility] Last Admin: 05/16/19 21:40 Dose: 650 mg Documented by: Amlodipine Besylate (Norvasc) 10 mg PO DAILY [facility] Last Admin: 05/17/19 07:27 Dose: 10 mg Documented by: Atorvastatin Calcium (Lipitor) 20 mg PO QHS [facility] Last Admin: 05/16/19 21:40 Dose: 20 mg Documented by: Dextrose (D50w Syringe) 0 gm IV X1 PRN; Protocol PRN Reason: Hypoglycemia Duloxetine HCl (Cymbalta) 60 mg PO DAILY [facility] Last Admin: 05/17/19 07:25 Dose: 60 mg Documented by: Glucagon () 1 mg IM .X1 PRN PRN Reason: Hypoglycemia Heparin Sodium (Porcine) (Heparin Na) 5,000 unit SC Q12 [facility] Last Admin: 05/16/19 21:38 Dose: 5,000 unit Documented by: Insulin Glargine (Lantus ([facility])) 14 units SC BID [facility] Last Admin: 05/17/19 07:26 Dose: 14 u Documented by: Insulin Human Lispro (Humalog Kwikpen ([facility])) 0 unit SC ACHS [facility]; Protocol Last Admin: 05/17/19 07:24 Dose: 3 units Documented by: Linagliptin (Tradjenta) 5 mg PO DAILY [facility] Last Admin: 05/17/19 07:27 Dose: 5 mg Documented by: Lisinopril (Zestril) 20 mg PO DAILY [facility] Last Admin: 05/17/19 07:28 Dose: 20 mg Documented by: [facility] Admin: 05/17/19 07:25 Dose: 500 mg Documented by: Mirabegron (Myrbetriq) 50 mg PO DAILY [facility] Last Admin: 05/17/19 07:27 Dose: 50 mg Documented by: Morphine Sulfate () 2 mg IV Q3H PRN PRN PRN Reason: Severe pain (7-10/10) Multivitamins/Minerals (Healthy Eyes) 1 capsule PO BID [facility] Last Admin: 05/17/19 07:26 Dose: 1 capsule Documented by: Ondansetron HCl (Zofran) 4 mg IV Q8H PRN PRN PRN Reason: NAUSEA/VOMITING Oxycodone HCl (Oxyir) 5 mg PO Q4H PRN PRN PRN Reason: Moderate Pain (4-6/10) Last Admin: 05/16/19 21:43 Dose: 5 mg Documented by: Sodium Chloride () 10 - 40 ml IV UD PRN PRN Reason: SALINE FLUSH Medical Necessity - Tobacco Use Smoking Status: Never smoker Assessment/Plan All Active Problems Closed left hip fracture (Acute) 38-year-old female admitted with complaint of mechanical fall and found to have a right proximal humeral fracture. 1. RIght traumatic proximal humeral fracture * due to mechanical fall * pain better controlled * on IV morphine and PO oxycodone as well as tylenol prn for pain. * PT/OT consult * fall precautions * to follow up with orthopedic surgery on outpatient basis * 2. Debility due to mechanical fall: as under 1. 3. Type 2 diabetes mellitus: * On Levemir 14 units twice daily and linagliptin 5 mg daily as well as metformin 500mg bid. * blod sugars have been poorly controlled, in the mid 200s and 300s * Accu-Checks ACHS * Insulin sliding scale; will increase sliding scale to high dose sliding scale * DVT prophylaxis: heparin Disposition: awaiting SNF Code Visit Inpatient E&M: 03109 Subs Hosp L2
[2019-05-17] MEDS: Heparin Injection (Vial) 5,000 UNIT/ML VIAL 5000 UNIT SC ×2 (10:07→21:27)
[2019-05-17] MEDS: oxyCODONE 5 MG Tablet PO ×2 (10:07→20:12)
[2019-05-17 12:26] LABS: Bedside Glucose 252 mg/dL (70-110)
[2019-05-17 13:55] VITALS: BP 125/58; PULSE 88; RESP 16; TEMP 37.1; O2SAT 94
[2019-05-17 17:05] LABS: Bedside Glucose 272 mg/dL (70-110)
[2019-05-17 20:00] VITALS: BP 136/61; PULSE 85; RESP 18; TEMP 36.8; O2SAT 95
[2019-05-17] MEDS: Atorvastatin Calcium 20 MG Tablet PO (21:23)
[2019-05-17] MEDS: Acetaminophen 325 MG Tablet 650 MG PO (21:27)
[2019-05-17 21:40] LABS: Bedside Glucose 322 mg/dL (70-110)
[2019-05-18] MEDS: oxyCODONE 5 MG Tablet PO (01:28)
[2019-05-18 02:00] VITALS: BP 166/67; PULSE 82; RESP 18; TEMP 36.5; O2SAT 98
[2019-05-18] MEDS: Insulin Lispro 100 UNIT/ML INSULN.PEN SC ×4 (06:59→16:27)
[2019-05-18 07:11] LABS: Bedside Glucose 228 mg/dL (70-110)
[2019-05-18 09:25] VITALS: BP 149/64; PULSE 86; RESP 18; TEMP 36.7; O2SAT 95
[2019-05-18] MEDS: Mirabegron 50 MG TAB.ER.24H PO (09:27)
[2019-05-18] MEDS: amLODIPine 10 MG Tablet PO (09:27)
[2019-05-18] MEDS: LINAGLIPTIN 5 MG TABLET PO (09:27)
[2019-05-18] MEDS: Lisinopril 20 MG Tablet PO (09:27)
[2019-05-18] MEDS: DULoxetine Hcl 60 MG Capsule PO (09:27)
[2019-05-18] MEDS: Multivitamin (Healthy Eyes) Capsule 1 CAP PO (09:27)
[2019-05-18] MEDS: metFORMIN HCl 500 MG Tablet PO (09:27)
[2019-05-18] MEDS: Heparin Injection (Vial) 5,000 UNIT/ML VIAL 5000 UNIT SC (09:28)
--- NOTE | 2019-05-18 10:34 | CASEMGMT ---
Addendum entered by Amisha King 05/18/19 11:31: Pt's sister Yolanda present at [facility]. SW met with pt, Yolanda and Yolanda's . SW informed Yolanda on insurance issues with pt returning to [facility] skilled and explained that pt could go to SNF in network and receive more therapy than if pt returns to [facility] skilled. Pt and Yolanda agreeable to pt going to an in network SNF and requested [facility]. SW explained referral process and that pt will need pre-cert. Yolanda's asked about transportation to SNF. SW explained that transportation could be arranged but pt would have to be transported via wheelchair van and that pt would get a bill as her insurance doesn't cover wheelchair van transportation. Yolanda states that she will likely be able to transport pt on discharge. SW placed a call to Robina at [facility] and left message regarding referral. SW faxed referral. Plan: [facility] pending acceptance and pre-cert Amisha King BUSHEL GIRL, SLOT TAG INSERTER Original Note: Social Work Note SW received message from Marcus at [facility] stating they are not in network with pt's insurance and pt has no out of network benefits. Marcus states that pt does have medicaid and states that this worker can do a prior-authorization for pt to return on medicaid. WAI discussed case with Tommy who states she spoke with Moe Ryder at [facility]. Pt does have medicaid and could return to [facility] skilled on her medicaid but [facility] would have to submit for the pre-cert under pt's medicaid. [facility] also [facility] to [facility] as they do accept pt's insurance. If pt were to return to [facility] skilled pt would only get around 15 minutes of therapy a day compared to if pt went to a facility in network with pt's insurance. WAI met with pt to discuss discharge plans. WAI introduced self and role at [facility]. Pt is alert and orientated. Pt confirms that she is from [facility] and feels she needs to reuturn to [facility] skilled for extra rehabilitation. WAI explained that if pt returns to [facility] skilled then pt would only receive around 15 minutes of therapy a day compared to if pt went to a SNF in network with her insurance, she would receive around at an hour of therapy a day. SW provided pt with list of area SNF that accept pt's insurance. SW also explained that pt could return to [facility] with [facility] but that [facility] would also come to [facility] around 2 times a day. Pt asked this worker to call her sister Yolanda to discuss discharge plans. SW placed a call to pt's sister Yolanda. Yolanda states she is on her way to [facility]. SW to speak with Yolanda once she is at [facility] to discuss discharge plans. Amisha King BUSHEL GIRL, SLOT TAG INSERTER
[2019-05-18 11:06] LABS: Bedside Glucose 347 mg/dL (70-110)
--- NOTE | 2019-05-18 11:30 | PN_ITS ---
Subjective: No acute events overnight, right arm is little bit sore but is doing well in the sling Vitals/I&O's: Vital Signs Temp Pulse Resp BP Pulse Ox 98.1 F 86 18 149/64 H 95 05/18/19 09:25 05/18/19 09:25 05/18/19 09:25 05/18/19 09:25 05/18/19 09:25 Oxygen Delivery Method Room Air Weight: 139 lb 5.314 oz Body Mass Index (BMI) 23.9 Finger Stick Blood Glucose 174 Intake and Output for Last 24 Hours 05/16/19 05/17/19 05/18/19 23:59 23:59 23:59 Intake Total 930 / 930 500 / 740 360 / 360 Balance 930 / 930 500 / 740 360 / 360 General: Alert, Oriented x3, Cooperative, No apparent distress HEENT: Atraumatic, PERRLA, EOMI, Normocephalic Oral: Moist Mucosa Neck: Supple, No JVD Lungs: Clear to auscultation, Normal air movement, No rhonchi, No wheeze, No rales Cardiovascular: Regular rate, Regular Rhythm, Normal S1, Normal S2, No murmurs Abdomen: Soft, Non Tender, Non-Distended, No Hepato-splenomegaly Extremities: No edema, Capillary Refill Less than 3 Seconds Skin: No rashes, No breakdown Musculoskeletal: - - Right upper extremity in the sling, good front desk host Neurological: Neuro grossly intact, Sensory exam intact to light touch and pain Psych/Mental Status: Normal Affect, Appropriate Laboratory Results 05/17/19 12:07: POC Glucose 252 H 05/17/19 16:57: POC Glucose 272 H 05/17/19 21:26: POC Glucose 322 H 05/18/19 06:58: POC Glucose 228 H 05/18/19 10:58: POC Glucose 347 H Current Medications Acetaminophen (Tylenol) 650 mg PO QHS [facility] Last Admin: 05/17/19 21:27 Dose: 650 mg Documented by: Amlodipine Besylate (Norvasc) 10 mg PO DAILY [facility] Last Admin: 05/18/19 09:27 Dose: 10 mg Documented by: Atorvastatin Calcium (Lipitor) 20 mg PO QHS [facility] Last Admin: 05/17/19 21:23 Dose: 20 mg Documented by: Dextrose (D50w Syringe) 0 gm IV X1 PRN; Protocol PRN Reason: Hypoglycemia Duloxetine HCl (Cymbalta) 60 mg PO DAILY [facility] Last Admin: 05/18/19 09:27 Dose: 60 mg Documented by: Glucagon () 1 mg IM .X1 PRN PRN Reason: Hypoglycemia Heparin Sodium (Porcine) (Heparin Na) 5,000 unit SC Q12 [facility] Last Admin: 05/18/19 09:28 Dose: 5,000 unit Documented by: Insulin Glargine (Lantus ([facility])) 14 units SC BID [facility] Last Admin: 05/18/19 09:28 Dose: 14 u Documented by: Insulin Human Lispro (Humalog Kwikpen ([facility])) 0 unit SC ACHS [facility]; Protocol Last Admin: 05/18/19 10:59 Dose: 12 units Documented by: Linagliptin (Tradjenta) 5 mg PO DAILY [facility] Last Admin: 05/18/19 09:27 Dose: 5 mg Documented by: Lisinopril (Zestril) 20 mg PO DAILY [facility] Last Admin: 05/18/19 09:27 Dose: 20 mg Documented by: Metformin HCl (Glucophage) 500 mg PO BIDCM [facility] Last Admin: 05/18/19 09:27 Dose: 500 mg Documented by: Mirabegron (Myrbetriq) 50 mg PO DAILY [facility] Last Admin: 05/18/19 09:27 Dose: 50 mg Documented by: Morphine Sulfate () 2 mg IV Q3H PRN PRN PRN Reason: Severe pain (7-10/10) Multivitamins/Minerals (Healthy Eyes) 1 capsule PO BID [facility] Last Admin: 05/18/19 09:27 Dose: 1 capsule Documented by: Ondansetron HCl (Zofran) 4 mg IV Q8H PRN PRN PRN Reason: NAUSEA/VOMITING Oxycodone HCl (Oxyir) 5 mg PO Q4H PRN PRN PRN Reason: Moderate Pain (4-6/10) Last Admin: 05/18/19 01:28 Dose: 5 mg Documented by: Sodium Chloride () 10 - 40 ml IV UD PRN PRN Reason: SALINE FLUSH Medical Necessity - Tobacco Use Smoking Status: Never smoker Assessment/Plan All Active Problems Closed left hip fracture (Acute) 1. Right traumatic proximal humeral fracture due to fall and debility -She is from an assisted living however the long-term facility attached that assisted living does not accept her insurance therefore will see if she can go back to her assisted living with PT/OT or if we need to place a different long-term facility -Pain management PRN -PT/OT -Fracture is nonoperative continue with sling -She will need to follow-up with outpatient orthopedic surgery in 2 to 4 weeks 2. DM 2 -We will hold her home oral hypoglycemics -Increase Levemir to 18 units twice daily, and will start a 5 units 3 times daily with meals. Continue with sliding scale insulin and Accu-Cheks AC at bedtime 3. HTN/HLD -Blood pressure stable -Continue with Norvasc and BENJAMÍN inhibitor -Continue with Lipitor 4. Anxiety/depression -Stable -Continue with Cymbalta 5. Leukocytosis -No signs of infection she is afebrile we will repeat CBC in the morning DVT: Heparin Code Visit OBSV E&M: 95413 Subsequent observation care L2
--- NOTE | 2019-05-18 13:32 | CASEMGMT ---
Social Work Note WAI received call from Robina at [facility] stating she is able to accept pt and sill submit for pre-cert. WAI informed Robina that pt is medically cleared once pre-cert is obtained. WAI placed a call to Marcus at [facility] and updated her that pt chose to go to [facility] for short term rehabilitation at discharge. Plan: [facility] pending pre-cert Amisha King SWEDGER, AGRICULTURE MANAGER
--- NOTE | 2019-05-18 14:42 | DCINST_ITS ---
Instructions: Sling And Swathe Allergies/Adverse Reactions: Allergies codeine Allergy (Verified 02/16/17 12:18) Other morphine Allergy (Verified 02/17/17 06:25) Vomiting tramadol Allergy (Verified 02/16/17 12:18) Other Medications to take at Discharge Atorvastatin Calcium [Lipitor] 20 mg PO QHS 03/07/15 Amlodipine/Benazepril [Lotrel 10-20 MG Capsule] 1 capsule PO DAILY 03/16/15 metFORMIN HCl [Glucophage] 500 mg PO BIDCM 03/16/15 Mirabegron [Myrbetriq] 50 mg PO DAILY 02/16/17 Duloxetine HCl 60 mg PO DAILY 04/29/17 Linagliptin [Tradjenta] 5 mg PO DAILY 07/27/18 Vit A/Vit C/Vit E/Zinc/Copper [Preservision Areds Softgel] 1 each PO BID 07/27/18 Acetaminophen 1 - 2 tab PO Q4H PRN PRN 05/15/19 Acetaminophen [Pain Relief] 650 mg PO QHS 05/15/19 Dextrose [Glutose-15] 37.5 gm PO X1 PRN 05/15/19 Glucagon,Human Recombinant [Glucagon Emergency Kit] 1 mg IJ X1 PRN 05/15/19 Insulin Detemir [Levemir FlexPen] 14 units SUBCUT BID 05/15/19 Sennosides/Docusate Sodium [Senna Plus Tablet] 2 ea PO DAILY PRN 05/15/19 Primary Care Physician: Carmen Weldon DO [STAFF PHYSICIAN] - Test Results: Test results from this visit will be discussed in further detail at your follow- up appointment, if applicable.
--- NOTE | 2019-05-18 14:47 | CASEMGMT ---
Intro role of CM to patient and [employer] form explained re: Observation status for treatment of R Humeral Fracture. Explained hospitalization will be paid per? insurance policy for Outpatient billing?and condition will continue to be evaluated for Inpt necessity. Also let pt know that [facility] sends paper in the billing packet with their phone number if questions arise. Discussed Pharmacy section of [employer] form and self administered medication guideline.? Pt verbalizes understanding and does not have further questions. Form signed and placed in chart, copy to pt. LAURENT HERNANDEZ BSN CM
[2019-05-18 14:50] VITALS: BP 156/73; PULSE 81; RESP 16; TEMP 36.9; O2SAT 98
[2019-05-18 15:18] LABS: Absolute Lymphocyte Count 1.61 X10^3/uL (0.83-4.51); Absolute Neutrophil Count 10.3 X10^3/uL (2.0-7.7); Basophil# 0.04 X10^3/uL; Basophil% 0.3 % (0-1); Eosinophil# 0.28 X10^3/uL; Eosinophils% 2.1 % (0-5); Hematocrit 33.8 % (37-47); Hemoglobin 11.1 g/dL (12.0-15.0); Lymphocyte # 1.61 X10^3/ul (4.0); Lymphocyte % 12.1 % (19-41); Mean Corp Hgb Conc 32.8 g/dL (32-36); Mean Corpuscular Hgb 28.6 pg (27.0-32.0); Mean Corpuscular Volume 87.1 fL (81-99); Mean Platelet Vol. 10.1 fl (6.2-12.0); Monocyte# 0.98 X10^3/uL; Monocyte% 7.4 % (0-10); NRBC Flagged by Analyzer 0 % (0-5); Neutrophil # 10.27 X10^3/uL (2.7-7.7); Neutrophil % 77.4 % (47-70); Platelet Count 271 K/mm3 (150-450); RBC Distribution Width CV 14.6 % (11.6-14.6); RBC Distribution Width SD 46.5 fl (35.1-43.9); Red Blood Count 3.88 M/mm3 (4.2-5.4); White Blood Count 13.3 K/mm3 (4.4-11.0)
--- NOTE | 2019-05-18 15:46 | PCM.TXEXTCAR ---
- Diet 05/15/19 12:35 Diet: Calorie Controlled Food consistency:: Regular Liquid Consistency:: Regular/Thin Type of Dietary Supplement:: Ensure Complete How many daily calories?: 1800 calorie - Routine Orders/Code Status Code Status: DNRCC - Therapies Extremity Affected:: Right Upper Physical Therapy: Eval and Treat Occupational Therapy: Eval and Treat - Allergies/Procedures Done in Hospital Allergies/Adverse Reactions: Allergies codeine Allergy (Verified 02/16/17 12:18) Other morphine Allergy (Verified 02/17/17 06:25) Vomiting tramadol Allergy (Verified 02/16/17 12:18) Other - Type of Care/Length of Stay Estimated LOS: Convalescent Care Less Than 30 days Type of Care Needed: Skilled Rehab Potential: Good Prognosis: Good - Additional Orders/Day of Discharge Day of Discharge: 05/18/19 - Follow Up Care Primary Care Physician: Carmen Weldon DO [STAFF PHYSICIAN] - Please follow up with your Primary Care Physician in: 3-5 days
--- NOTE | 2019-05-18 15:47 | PCM.DC.SUM ---
Discharge Date and Diagnosis Date of Admission: 05/15/19 Date of Discharge: 05/18/19 - Secondary Discharge Diagnosis Chronic Problems Hyperlipidemia (Chronic) Hypertension (Chronic) Type 2 diabetes mellitus (Chronic) Hospital Course and Treatment Imaging Results: Shoulder XR Right: IMPRESSION: Appearance concerning for humeral neck fracture, suboptimally evaluated due to positioning and projection. Operations: None Procedures: None Summary of Care Provided: Per HPI: The patient is a 78 year old F with a past medical history as listed. She was admitted from her assisted living facility on 05/15/2019 with a complaint of mechanical fall. Patient states she was making her bed and slipped and tripped on the edge of her mat and fell down and landed on her right shoulder. She had severe pain in the right shoulder area. She denied any loss of consciousness, any dizziness or palpitations beforehand. Xrays done in the ED showed proximal right humerus fracture. The right upper extremity was placed in a sling. 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 She is therefore been admitted for right upper arm fracture due to mechanical fall. Hospital Course: 1. Right traumatic proximal humeral fracture due to fall and debility -She is from an assisted living however the fpc facility attached that assisted living does not accept her insurance therefore will see if she can go back to her assisted living with PT/OT or if we need to place a different fpc facility -Pain management PRN -PT/OT -Fracture is nonoperative continue with sling -She will need to follow-up with outpatient orthopedic surgery in 2 to 4 weeks 2. DM 2 -BG was not well controlled while here she was increased to 18 U BID and with 5 U with meals as well as a slidingscale -She can resume her 14 Units BID of lantus at the SNF and would also try a SSI on top of her Tradjenta and metformin and see if better control can be obtained -HEr last A1c was 8.4 and should be below 8 3. HTN/HLD -Blood pressure stable -Continue with Norvasc and BENJAMÍN inhibitor -Continue with Lipitor 4. Anxiety/depression -Stable -Continue with Cymbalta 5. Leukocytosis -No signs of infection she is afebrile -Repeat CBC this afternoon demonstrated a decrease in WBC from 17k to 13.3k - Physical Exam Vital Signs Temp Pulse Resp BP Pulse Ox 98.5 F 81 16 156/73 H 98 05/18/19 14:50 05/18/19 14:50 05/18/19 14:50 05/18/19 14:50 05/18/19 14:50 Oxygen Delivery Method Room Air Weight: 139 lb 5.314 oz Body Mass Index (BMI) 23.9 Finger Stick Blood Glucose 174 Intake and Output for Last 24 Hours 05/16/19 05/17/19 05/18/19 23:59 23:59 23:59 Intake Total 930 / 930 500 / 740 810 / 810 Balance 930 / 930 500 / 740 810 / 810 Laboratory Tests Past 24 Hrs 05/18/19 15:08 WBC 13.3 H RBC 3.88 L Hgb 11.1 L Hct 33.8 L MCV 87.1 MCH 28.6 MCHC 32.8 RDW Std Deviation 46.5 H RDW Coeff of Lata 14.6 Plt Count 271 MPV 10.1 Immature Gran % (Auto) 0.700 Neut % (Auto) 77.4 H Lymph % (Auto) 12.1 L [place] % (Auto) 7.4 Eos % (Auto) 2.1 Baso % (Auto) 0.3 Absolute Neuts (auto) 10.3 H Absolute Lymphs (auto) 1.61 Nucleated RBC % 0 POC Glucose 05/18/19 05/18/19 05/17/19 10:58 06:58 21:26 POC Glucose 347 H 228 H 322 H 05/17/19 16:57 POC Glucose 272 H Home Medications: Medications to take at Discharge Atorvastatin Calcium [Lipitor] 20 mg PO QHS 03/07/15 Amlodipine/Benazepril [Lotrel 10-20 MG Capsule] 1 capsule PO DAILY 03/16/15 metFORMIN HCl [Glucophage] 500 mg PO BIDCM 03/16/15 Mirabegron [Myrbetriq] 50 mg PO DAILY 02/16/17 Duloxetine HCl 60 mg PO DAILY 04/29/17 Linagliptin [Tradjenta] 5 mg PO DAILY 07/27/18 Vit A/Vit C/Vit E/Zinc/Copper [Preservision Areds Softgel] 1 each PO BID 07/27/18 Acetaminophen 1 - 2 tab PO Q4H PRN PRN 05/15/19 Acetaminophen [Pain Relief] 650 mg PO QHS 05/15/19 Dextrose [Glutose-15] 37.5 gm PO X1 PRN 05/15/19 Glucagon,Human Recombinant [Glucagon Emergency Kit] 1 mg IJ X1 PRN 05/15/19 Insulin Detemir [Levemir FlexPen] 14 units SUBCUT BID 05/15/19 Sennosides/Docusate Sodium [Senna Plus Tablet] 2 ea PO DAILY PRN 05/15/19 Primary Care Physician: Carmen Weldon DO [STAFF PHYSICIAN] - Please follow up with your Primary Care Physician in: 3-5 days Patient Instructions: [facility] Disposition: Shelter facility Minutes spent on discharge:: 35 Patient Condition:: Stable Medical Necessity - Tobacco Use Smoking Status: Never smoker Meaningful Use Info Meaningful Use Diagnoses (Choose all that apply): None applicable Code Visit OBSV E&M: 43008 Observation care discharge
--- NOTE | 2019-05-18 16:30 | CASEMGMT ---
Social Work Note WAI received call from Robina at [facility] stating pre-cert has been obtained today and pt can discharge today. WAI updated physician and RN. RN updated pt and pt's sister Yolanda on acceptance and approval to go to [facility] today. WAI faxed discharge paperwork to [facility] including transfer to extended care facility, signed medication list and any scripts. Original in SNF folder and copy on pt's chart. PAS/RR was submitted Saturday for [facility] so this worker faxed paper copy of PAS/RR to [facility] and emailed [facility] help Desk to change SNF on PAS/RR. Original PAS/RR in SNF folder and copy on pt's chart. WAI met with pt and pt's sister Yolanda and Yolanda's present in room. Pt and Yolanda confirm that they were updated on approval to go to [facility]. Yolanda states that she will be transporting pt to [facility] in about an hour. WAI updated RN and Robina at [facility] on transportation time. Plan: [facility] skilled with pt's family transporting via family vehicle Amisha King [employer], [employer]TER
[2019-05-18 17:00] LABS: Bedside Glucose 220 mg/dL (70-110)
--- NOTE | 2019-05-18 17:23 | NURSING ---
report called to the [facility] for patient discharge.
== END 2019-05-18 17:34 | disposition skilled nursing facility (03) ==
LOC: ED 07:25 → MS3 10:42
PROVIDERS: Admitting Provider Student in an Organized Health Care Education/Training Program; Emergency Provider Emergency Medicine; Family Provider Family Medicine; PCP Family Medicine; Visit Provider Family Medicine
DX: S42.201A Unspecified fracture of upper end of right humerus, initial encounter for closed fracture (principal); W01.0XXA Fall on same level from slipping, tripping and stumbling without subsequent striking against object, initial encounter; Y93.E9 Activity, other interior property and clothing maintenance; Y92.099 Unspecified place in other non-institutional residence as the place of occurrence of the external cause; E78.5 Hyperlipidemia, unspecified; I10 Essential (primary) hypertension; E11.9 Type 2 diabetes mellitus without complications; F41.9 Anxiety disorder, unspecified; F32.9 Major depressive disorder, single episode, unspecified; Z79.899 Other long term (current) drug therapy; Z79.4 Long term (current) use of insulin; R32 Unspecified urinary incontinence; D72.829 Elevated white blood cell count, unspecified
CPT/HCPCS: 36415; 73030; 80048; 82962; 85025; 96372; 96374; 97110; 97116; 97163; 97166; 97530; 99218; 99285; A4216; G0378

== ENCOUNTER → 2019-07-06 05:00 | Outpatient (REF) | payer MEDICARE, SELFPAY ==
[2019-05-15 09:46] VITALS: BMI 23.9
[2019-07-06 08:04] LABS: Hematocrit 42.2 % (37-47); Hemoglobin 13.4 g/dL (12.0-15.0); Mean Corp Hgb Conc 31.8 g/dL (32-36); Mean Corpuscular Hgb 28.2 pg (27.0-32.0); Mean Corpuscular Volume 88.7 fL (81-99); Mean Platelet Vol. 11.3 fl (6.2-12.0); Platelet Count 309 K/mm3 (150-450); RBC Distribution Width CV 15.4 % (11.6-14.6); RBC Distribution Width SD 49.9 fl (35.1-43.9); Red Blood Count 4.76 M/mm3 (4.2-5.4); White Blood Count 10.3 K/mm3 (4.4-11.0)
[2019-07-06 08:25] LABS: Anion Gap 9 (5-15); BUN 11 mg/dL (7-18); BUN/Creat Ratio 18.1 RATIO (10-20); Calcium,Total 9.3 mg/dL (8.5-10.1); Chloride 103 mmol/L (98-107); Cholesterol 131 mg/dL (200); Creatinine, Serum 0.61 mg/dL (0.55-1.02); EST Glomerular Filtration Rate 101 mL/min (>60); Est Glom Filt Rate - Afr Amer 122 mL/min (>60); Glucose 115 mg/dL (74-106); High Density Lipoprotein 50 mg/dL; Potassium 4.1 mmol/L (3.5-5.1); Sodium Level 139 mmol/L (136-145); Triglycerides 107 mg/dL; Very Low Density Lipoprotein 21 mg/dL (5-40)
[2019-07-06 08:42] LABS: Hemoglobin A1c 7.9 % (4.2-6.3)
== END ==
LOC: OLS.WCC 05:00
PROVIDERS: Visit Provider Family Medicine
DX: E11.9 Type 2 diabetes mellitus without complications (principal); I10 Essential (primary) hypertension; E78.5 Hyperlipidemia, unspecified; Z79.899 Other long term (current) drug therapy
CPT/HCPCS: 36415; 80048; 80061; 83036; 85027

== ENCOUNTER → 2019-11-01 19:35 | Outpatient (REF) | payer MEDICARE, MEDICAID, SELFPAY ==
[2019-05-15 09:46] VITALS: BMI 23.9
== END ==
LOC: OLS.WCC 19:35
PROVIDERS: PCP Family Medicine; Visit Provider Family Medicine
DX: N39.0 Urinary tract infection, site not specified (principal); R50.9 Fever, unspecified
CPT/HCPCS: 87077; 87086; 87088; 87186

== ENCOUNTER → 2020-01-13 05:00 | Outpatient (REF) | payer MEDICARE, MEDICAID, SELFPAY ==
[2019-05-15 09:46] VITALS: BMI 23.9
[2020-01-13 08:19] LABS: Hematocrit 39.7 % (37-47); Hemoglobin 12.7 g/dL (12.0-15.0); Mean Corpuscular Hgb 28.6 pg (27.0-32.0); Mean Corpuscular Volume 89.4 fL (81-99); Platelet Count 288 K/mm3 (150-450); RBC Distribution Width CV 14.3 % (11.6-14.6); RBC Distribution Width SD 46.5 fl (35.1-43.9); Red Blood Count 4.44 M/mm3 (4.2-5.4); White Blood Count 8.8 K/mm3 (4.4-11.0)
[2020-01-13 08:37] LABS: Anion Gap 4 (5-15); BUN 15 mg/dL (7-18); BUN/Creat Ratio 19.8 RATIO (10-20); Chloride 103 mmol/L (98-107); Cholesterol 132 mg/dL (200); Creatinine, Serum 0.76 mg/dL (0.55-1.02); EST Glomerular Filtration Rate 78 mL/min (>60); Est Glom Filt Rate - Afr Amer 94 mL/min (>60); Glucose 161 mg/dL (74-106); High Density Lipoprotein 49 mg/dL; Potassium 4.4 mmol/L (3.5-5.1); Sodium Level 136 mmol/L (136-145); Triglycerides 99 mg/dL; Very Low Density Lipoprotein 20 mg/dL (5-40)
[2020-01-13 08:47] LABS: Hemoglobin A1c 8.8 % (4.2-6.3)
== END ==
LOC: OLS.WCC 05:00
PROVIDERS: PCP Family Medicine; Visit Provider Family Medicine
DX: E11.9 Type 2 diabetes mellitus without complications (principal); I10 Essential (primary) hypertension; E78.5 Hyperlipidemia, unspecified; Z79.899 Other long term (current) drug therapy
CPT/HCPCS: 36415; 80048; 80061; 83036; 85027

== ENCOUNTER → 2020-01-17 14:00 | Outpatient (REF) | payer MEDICARE, MEDICAID, SELFPAY ==
[2019-05-15 09:46] VITALS: BMI 23.9
[2020-01-18 07:47] LABS: Mucous, Urine 0 SEEN /hpf (<or=2+)
[2020-01-18 08:13] LABS: Color, Urine Yellow (Yellow); Glucose, Dipstick 1000 mg/dl (Normal); Ketone-Dipstick Negative (Negative); Leukocyte Esterase-Dipstick 500 /ul (Negative); Nitrite-Dipstick Negative (Negative); Occult Blood-Urine 25 /ul (Negative); Protein-Dipstick 30 mg/dl (Negative); Specific Gravity, Urine 1.015 (1.002-1.030); Urine Bilirubin Dipstick Negative (Negative); Urine Clarity Sl. Cloudy (Clear); Urine Urobilinogen Normal (Normal)
[2020-01-18 08:22] LABS: Bacteria 2+ /hpf (None Seen); Red Blood Cells-Urine 0-5 SEEN /hpf (0-5); Squamous Epithelial Cells - UA 0-5 SEEN /hpf (5-10); White Blood Cells 25-50 SEEN /hpf (0-5)
== END ==
LOC: OLS.WCC 14:00
PROVIDERS: PCP Family Medicine; Visit Provider Family Medicine
DX: N39.0 Urinary tract infection, site not specified (principal)
CPT/HCPCS: 81001; 87077; 87086; 87088; 87186

== ENCOUNTER → 2020-04-27 13:00 | Outpatient (REF) | payer MEDICARE, MEDICAID, SELFPAY ==
[2019-05-15 09:46] VITALS: BMI 23.9
== END ==
LOC: OLS.WCC 13:00
PROVIDERS: PCP Family Medicine; Referring Provider Family Medicine; Visit Provider Family Medicine
DX: Z20.828 Contact with and (suspected) exposure to other viral communicable diseases (principal)
CPT/HCPCS: 87635; U0003

== ENCOUNTER → 2020-05-04 19:55 | Outpatient (REF) | payer MEDICARE, MEDICAID, SELFPAY ==
[2019-05-15 09:46] VITALS: BMI 23.9
== END ==
LOC: OLS.WCC 19:55
PROVIDERS: PCP Family Medicine; Referring Provider Family Medicine; Visit Provider Family Medicine
DX: Z20.828 Contact with and (suspected) exposure to other viral communicable diseases (principal)
CPT/HCPCS: 87635; U0003

== ENCOUNTER → 2020-05-08 15:00 | Outpatient (REF) | payer MEDICARE, MEDICAID, SELFPAY ==
[2019-05-15 09:46] VITALS: BMI 23.9
[2020-05-08 18:31] LABS: Mucous, Urine 0 SEEN /hpf (<or=2+)
[2020-05-08 19:37] LABS: Color, Urine Straw (Yellow); Glucose, Dipstick 250 mg/dl (Normal); Ketone-Dipstick Negative (Negative); Leukocyte Esterase-Dipstick 500 /ul (Negative); Nitrite-Dipstick Negative (Negative); Occult Blood-Urine 150 /ul (Negative); Protein-Dipstick 30 mg/dl (Negative); Urine Bilirubin Dipstick Negative (Negative); Urine Clarity Sl. Cloudy (Clear); Urine Urobilinogen Normal (Normal)
[2020-05-08 19:48] LABS: Bacteria 2+ /hpf (None Seen); Red Blood Cells-Urine 0-5 SEEN /hpf (0-5); Renal Epithelial Cells 0-5 SEEN /hpf (0-5); Squamous Epithelial Cells - UA 0-5 SEEN /hpf (5-10); White Blood Cells >100 SEEN /hpf (0-5)
== END ==
LOC: OLS.WCC 15:00
PROVIDERS: PCP Family Medicine; Referring Provider Family Medicine; Visit Provider Family Medicine
DX: N39.0 Urinary tract infection, site not specified (principal)
CPT/HCPCS: 81001; 87086; 87088; 87186

== ENCOUNTER → 2020-05-18 | Outpatient (REF) | payer MEDICARE, MEDICAID, SELFPAY ==
[2019-05-15 09:46] VITALS: BMI 23.9
== END | disposition home or self-care (01) ==
LOC: LABSPEC 13:25
PROVIDERS: PCP Family Medicine; Referring Provider Family Medicine; Visit Provider Family Medicine
DX: Z20.828 Contact with and (suspected) exposure to other viral communicable diseases (principal)
CPT/HCPCS: 87635; U0003

== ENCOUNTER → 2020-05-25 12:48 | Outpatient (REF) | payer MEDICARE, MEDICAID, SELFPAY ==
[2019-05-15 09:46] VITALS: BMI 23.9
== END ==
LOC: OLS.WCC 12:48
PROVIDERS: PCP Family Medicine; Visit Provider Family Medicine
DX: Z20.828 Contact with and (suspected) exposure to other viral communicable diseases (principal)
CPT/HCPCS: 87635; U0003

== ENCOUNTER → 2020-06-15 14:00 | Outpatient (REF) | LOC: OLS.WCC 14:00 | PROVIDERS: PCP Family Medicine; Referring Provider Family Medicine; Visit Provider Family Medicine | DX: Z20.828 Contact with and (suspected) exposure to other viral communicable diseases (principal) | CPT/HCPCS: 87635; U0003 ==

== ENCOUNTER → 2020-06-20 12:08 | Outpatient (REF) | payer MEDICARE, MEDICAID, SELFPAY ==
[2019-05-15 09:46] VITALS: BMI 23.9
== END ==
LOC: OLS.WCC 12:08
PROVIDERS: PCP Family Medicine; Visit Provider Family Medicine
DX: Z20.828 Contact with and (suspected) exposure to other viral communicable diseases (principal)
CPT/HCPCS: 87635; U0003

== ENCOUNTER → 2020-06-27 11:43 | Outpatient (REF) | payer MEDICARE, MEDICAID, SELFPAY ==
[2019-05-15 09:46] VITALS: BMI 23.9
== END ==
LOC: OLS.WCC 11:43
PROVIDERS: PCP Family Medicine; Visit Provider Family Medicine
DX: Z20.828 Contact with and (suspected) exposure to other viral communicable diseases (principal)
CPT/HCPCS: 87635; U0003

== ENCOUNTER → 2020-06-30 12:10 | Outpatient (REF) | payer MEDICARE, MEDICAID, SELFPAY ==
[2019-05-15 09:46] VITALS: BMI 23.9
== END ==
LOC: OLS.WCC 12:10
PROVIDERS: PCP Family Medicine; Visit Provider Family Medicine
DX: Z20.828 Contact with and (suspected) exposure to other viral communicable diseases (principal)
CPT/HCPCS: 87635; U0003

== ENCOUNTER → 2020-07-15 05:00 | Outpatient (REF) | payer MEDICARE, MEDICAID, SELFPAY ==
[2019-05-15 09:46] VITALS: BMI 23.9
[2020-07-15 09:00] LABS: Hematocrit 43.1 % (37-47); Hemoglobin 13.8 g/dL (12.0-15.0); Mean Corpuscular Hgb 28.9 pg (27.0-32.0); Mean Corpuscular Volume 90.4 fL (81-99); Mean Platelet Vol. 11.6 fl (6.2-12.0); Platelet Count 304 K/mm3 (150-450); RBC Distribution Width CV 12.8 % (11.6-14.6); RBC Distribution Width SD 42.1 fl (35.1-43.9); Red Blood Count 4.77 M/mm3 (4.2-5.4); White Blood Count 10.9 K/mm3 (4.4-11.0)
[2020-07-15 09:21] LABS: Anion Gap 6 (5-15); BUN 11 mg/dL (7-18); BUN/Creat Ratio 13.5 RATIO (10-20); Calcium,Total 9.3 mg/dL (8.5-10.1); Chloride 102 mmol/L (98-107); Cholesterol 132 mg/dL (200); Creatinine, Serum 0.81 mg/dL (0.55-1.02); EST Glomerular Filtration Rate 72 mL/min (>60); Est Glom Filt Rate - Afr Amer 87 mL/min (>60); Glucose 214 mg/dL (74-106); High Density Lipoprotein 45 mg/dL; Potassium 4.3 mmol/L (3.5-5.1); Sodium Level 134 mmol/L (136-145); Triglycerides 143 mg/dL; Very Low Density Lipoprotein 29 mg/dL (5-40)
[2020-07-15 09:47] LABS: Hemoglobin A1c 9.8 % (3.8-5.6)
== END ==
LOC: OLS.WCC 05:00
PROVIDERS: PCP Family Medicine; Visit Provider Family Medicine
DX: E11.9 Type 2 diabetes mellitus without complications (principal); E78.5 Hyperlipidemia, unspecified; Z79.899 Other long term (current) drug therapy
CPT/HCPCS: 36415; 80048; 80061; 83036; 85027

== ENCOUNTER → 2021-01-04 05:00 | Outpatient (REF) | payer MEDICARE, MEDICAID, SELFPAY ==
[2019-05-15 09:46] VITALS: BMI 23.9
[2021-01-04 08:06] LABS: Hematocrit 43.9 % (37-47); Hemoglobin 13.8 g/dL (12.0-15.0); Mean Corp Hgb Conc 31.4 g/dL (32-36); Mean Platelet Vol. 10.8 fl (6.2-12.0); Platelet Count 389 K/mm3 (150-450); RBC Distribution Width CV 13.3 % (11.6-14.6); RBC Distribution Width SD 43.6 fl (35.1-43.9); Red Blood Count 4.93 M/mm3 (4.2-5.4); White Blood Count 11.2 K/mm3 (4.4-11.0)
[2021-01-04 08:28] LABS: Hemoglobin A1c 8.8 % (3.8-5.6)
[2021-01-04 08:31] LABS: Anion Gap 7 (5-15); BUN 14 mg/dL (7-18); BUN/Creat Ratio 16.5 RATIO (10-20); Calcium,Total 9.2 mg/dL (8.5-10.1); Chloride 102 mmol/L (98-107); Cholesterol 157 mg/dL (200); Creatinine, Serum 0.85 mg/dL (0.55-1.02); EST Glomerular Filtration Rate 68 mL/min (>60); Est Glom Filt Rate - Afr Amer 83 mL/min (>60); Glucose 171 mg/dL (74-106); High Density Lipoprotein 51 mg/dL; Potassium 3.9 mmol/L (3.5-5.1); Sodium Level 136 mmol/L (136-145); Triglycerides 121 mg/dL; Very Low Density Lipoprotein 24 mg/dL (5-40)
== END ==
LOC: OLS.WCC 05:00
PROVIDERS: Visit Provider Family Medicine
DX: E11.9 Type 2 diabetes mellitus without complications (principal); I10 Essential (primary) hypertension; E78.5 Hyperlipidemia, unspecified
CPT/HCPCS: 36415; 80048; 80061; 83036; 85027

== ENCOUNTER → 2021-06-30 18:50 | Outpatient (REF) | payer MEDICARE, MEDICAID, SELFPAY ==
[2021-07-01 09:49] LABS: Color, Urine Yellow (Yellow); Glucose, Dipstick 1000 mg/dl (Normal); Ketone-Dipstick 15 mg/dl (Negative); Leukocyte Esterase-Dipstick 500 /ul (Negative); Nitrite-Dipstick Negative (Negative); Occult Blood-Urine 25 /ul (Negative); Protein-Dipstick 30 mg/dl (Negative); Urine Bilirubin Dipstick Negative (Negative); Urine Clarity Cloudy (Clear); Urine Urobilinogen Normal (Normal)
== END ==
LOC: OLS.WCC 18:50
PROVIDERS: PCP Family Medicine; Visit Provider Family Medicine
DX: R35.0 Frequency of micturition (principal); R30.0 Dysuria
CPT/HCPCS: 81002; 87077; 87086; 87088

== ENCOUNTER 2021-07-01 17:44 | Inpatient (IN) | payer MEDICARE, MEDICAID, SELFPAY ==
[2021-07-01] VITALS (15 sets, daily range): BP systolic 101–177; BP diastolic 48–74; PULSE 87–105; RESP 12–28; TEMP 36.4–38.6; O2SAT 91–99; BMI 25.4; BMI 23.8
--- NOTE | 2021-07-01 18:03 | EKG12_ITS ---
Test Reason : Blood Pressure : / mmHG Vent. Rate : 099 BPM Atrial Rate : 099 BPM P-R Int : 134 ms QRS Dur : 086 ms QT Int : 348 ms P-R-T Axes : 052 -36 044 degrees QTc Int : 446 ms Normal sinus rhythm Left axis deviation Abnormal ECG Confirmed by JEZ CHAUDHRY, MISTY ([id number]), industrial editor KAITLYNN DENNIS ([id number]) on 07/04/2021 9:30:35 AM Referred By: RADHA Confirmed By:MISTY STORY MD
--- NOTE | 2021-07-01 18:06 | EDS_ITS ---
HPI History of Present Illness Chief Complaint: Fever Informant: patient and SNF Onset/Context/Timing Onset: Days Narrative Narrative: Patient presents via EMS secondary to increased weakness, fever, UTI. Patient reported had some difficulty urinating the last several days. UTI was diagnosed yesterday and patient started on Keflex. She is a continued fever today with weakness and was sent to the ER for evaluation. Patient reports some intermittent nausea but denies currently. No vomiting or diarrhea. She does feel as though she is been able to urinate okay today. Patient was reportedly given Tylenol an hour and a half prior to arrival. [facility] Medical History Closed left hip fracture Hyperlipidemia Hypertension Type 2 diabetes mellitus Home Medications atorvastatin 20 mg PO QHS 03/07/15 [History Last Taken 05/14/19] Myrbetriq 50 mg PO DAILY 02/16/17 [History Last Taken 05/14/19] duloxetine 60 mg PO DAILY 04/29/17 [History Last Taken 05/14/19] PreserVision AREDS 1 ea PO BID 07/27/18 [History Last Taken 05/14/19] Tradjenta 5 mg PO DAILY 07/27/18 [History Last Taken 05/14/19] acetaminophen 650 mg PO QHS 05/15/19 [History Last Taken 05/14/19] glucagon (human recombinant) 1 mg IJ X1 PRN 05/15/19 [History Last Taken Unknown] insulin detemir U-100 24 units SUBCUT BID 05/15/19 [History Last Taken 05/14/19] sennosides-docusate sodium 2 ea PO DAILY PRN 05/15/19 [History Last Taken Unknown] amlodipine 10 mg PO DAILY 07/01/21 [History Last Taken Unknown] lisinopril 20 mg PO DAILY 07/01/21 [History Last Taken Unknown] melatonin 3 mg PO QHS 07/01/21 [History Last Taken Unknown] metformin 500 mg PO BID 07/01/21 [History Last Taken Unknown] Allergy/AdvReac Type Severity Reaction Status Date / Time codeine Allergy Other Verified 07/01/21 18:35 morphine Allergy Vomiting Verified 07/01/21 18:35 tramadol Allergy Other Verified 07/01/21 18:35 Social History Smoking Status: Never smoker ROS ROS ED Constitutional Constitutional ED: Reports fever(s); Denies chills Eyes Eyes: Denies change in vision ENT ENT ED: Denies sore throat Cardiovascular Cardiovascular: Denies chest pain Respiratory/Chest Respiratory/Chest: Denies cough or dyspnea Gastrointestinal Gastrointestinal: Reports abdominal pain and nausea; Denies diarrhea or vomiting Genitourinary Genitourinary ED: Reports other Details: Difficulty urinating ; Denies dysuria Musculoskeletal Musculoskeletal: Denies back pain Integumentary Denies rash Neurologic Neurologic: Reports weakness; Denies headache(s) Allergic/Immunologic Allergic/Immunologic ED: Denies urticaria EXAM Physical Exam Const Vital Signs: 07/01/21 17:45 07/01/21 17:47 07/01/21 18:10 Temperature 101.4 F H 101.4 F H Temperature Source Oral Oral Pulse Rate 104 H 104 H Respiratory Rate 22 H 22 H Respiratory Effort Respiratory Pattern Blood Pressure 134/63 H 134/63 H Blood Pressure Mean 86 86 Pulse Ox 93 93 95 Oxygen Delivery Method Room Air Room Air Room Air 07/01/21 18:24 07/01/21 18:44 07/01/21 19:45 Temperature 99.4 F H Temperature Source Oral Pulse Rate 96 90 Respiratory Rate 20 H 12 Respiratory Effort Normal Respiratory Pattern Normal Blood Pressure 123/52 H 101/48 L Blood Pressure Mean 75 65 Pulse Ox 95 95 Oxygen Delivery Method Room Air Room Air 07/01/21 19:48 Temperature 98.4 F Temperature Source Oral Pulse Rate 90 Respiratory Rate 12 Respiratory Effort Respiratory Pattern Blood Pressure 101/48 L Blood Pressure Mean 65 Pulse Ox 95 Oxygen Delivery Method Room Air Positive well nourished and well developed General Appearance ED: well developed HEENT Reports moist mucous membranes Eyes PERRL and EOMs intact bilaterally Neck supple Resp normal respiratory effort and clear to auscultation bilaterally Cardio regular rhythm Rate: tachycardic GI normal to inspection, nondistended, normoactive bowel sounds and non-tender Palpation: soft Extremity normal to inspection Neuro oriented x3 Sensorium / Orientation: alert Psych mental status grossly normal Skin no rashes or lesions noted MDM MDM MDM Narrative Medical decision making narrative: Sepsis work-up initiated. Patient had been given Tylenol shortly prior to arrival. Lab Data Attestation: I reviewed the patient's lab results. Labs: Laboratory Results - last 24 hr 07/01/21 07/01/21 07/01/21 18:00 18:00 18:00 WBC 19.8 H RBC 4.30 Hgb 12.3 Hct 36.1 L MCV 84.0 MCH 28.6 MCHC 34.1 RDW Std Deviation 39.7 RDW Coeff of Lata 13.0 Plt Count 267 MPV 10.4 Immature Gran % (Auto) 0.700 Neut % (Auto) 88.5 H Lymph % (Auto) 3.4 L [place] % (Auto) 7.2 Eos % (Auto) 0.0 Baso % (Auto) 0.2 Absolute Neuts (auto) 17.6 H Absolute Lymphs (auto) 0.67 L Nucleated RBC % 0 PT 14.3 INR 1.2 APTT 30.9 Sodium 122 L Potassium 3.4 L Chloride 89 L Carbon Dioxide 22.0 Anion Gap 11 BUN 15 Creatinine 0.92 Estim Creat Clear Calc 44.13 Est GFR (MDRD) Af Amer 75 Est GFR (MDRD) Non-Af 62 BUN/Creatinine Ratio 16.2 Glucose 295 H Lactic Acid Calcium 8.3 L Total Bilirubin 0.50 AST 16 ALT 24 Alkaline Phosphatase 110 Total Protein 7.2 Albumin 2.8 L Globulin 4.4 H Albumin/Globulin Ratio 0.6 L Urine Color Urine Clarity Urine pH Ur Specific [place] Urine Protein Urine Glucose (UA) Urine Ketones Urine Occult Blood Urine Nitrite Urine Bilirubin Urine Urobilinogen Ur Leukocyte Esterase Urine RBC Urine WBC Ur Squamous Epith Cells Urine Bacteria Urine Mucus 07/01/21 07/01/21 18:00 18:20 WBC RBC Hgb Hct MCV MCH MCHC RDW Std Deviation RDW Coeff of Lata Plt Count MPV Immature Gran % (Auto) Neut % (Auto) Lymph % (Auto) [place] % (Auto) Eos % (Auto) Baso % (Auto) Absolute Neuts (auto) Absolute Lymphs (auto) Nucleated RBC % PT INR APTT Sodium Potassium Chloride Carbon Dioxide Anion Gap BUN Creatinine Estim Creat Clear Calc Est GFR (MDRD) Af Amer Est GFR (MDRD) Non-Af BUN/Creatinine Ratio Glucose Lactic Acid 1.5 Calcium Total Bilirubin AST ALT Alkaline Phosphatase Total Protein Albumin Globulin Albumin/Globulin Ratio Urine Color Yellow Urine Clarity Clear Urine pH 6.0 Ur Specific [place] 1.015 Urine Protein 100 H Urine Glucose (UA) 1000 H Urine Ketones 15 H Urine Occult Blood 50 H Urine Nitrite Positive H Urine Bilirubin Negative Urine Urobilinogen Normal Ur Leukocyte Esterase 500 H Urine RBC 0 SEEN Urine WBC >100 SEEN Ur Squamous Epith Cells 0 SEEN Urine Bacteria 1+ Urine Mucus 0 SEEN Radiography Chest X-Ray - ED: 1 View, Read by ED Physician and Chronic Changes Diagnostic Testing: Clinical Impression(s) from Imaging Studies Chest X-Ray 07/01/21 18:27 IMPRESSION: Stable, nonacute portable x-ray examination of the chest. Electronically Signed: Kevin Gorman MD ([place]) at 19:06 EDT , Service support , EKG Initial EKG: Attestation: I personally reviewed and interpreted this EKG as follows: Interpretation: Sinus Rhythm (Sinus at 99 with no acute ischemia.) Treatment and Re-Evaluation Comments:: Patient's lab work reviewed. She is hyponatremic with a sodium of 122. It appears she has had hyponatremia in the past most recently had been normal. White count is significantly elevated at 19.8. Lactic acid unremarkable. Urinalysis does confirm infection. Cultures have been sent. Covid test is negative. Patient is reportedly in assisted living but has had to use a wheelchair and is unable to care for herself in assisted living at this time. I will speak with hospitalist regarding admission for hydration, correction of sodium, and antibiotics for her UTI. Discharge Plan Triage Chief Complaint: Fever ED Provider: Jory Ng Dx/Rx/DC Orders Clinical Impression: Hyponatremia, Acute UTI, Generalized weakness Prescriptions: No Action atorvastatin 20 MG tablet 20 mg PO QHS RF: 0 Myrbetriq 50 MG tablet extended release 24 hr 50 mg PO DAILY RF: 0 duloxetine 30 MG capsule,delayed release(DR/EC) 60 mg PO DAILY RF: 0 PreserVision AREDS 1 EACH capsule 1 ea PO BID RF: 0 Tradjenta 5 MG tablet 5 mg PO DAILY RF: 0 acetaminophen 650 MG tablet extended release 650 mg PO QHS RF: 0 insulin detemir U-100 100 UNITS/ML insulin pen 24 units subcut BID RF: 0 sennosides-docusate sodium 1 EACH tablet 2 ea PO DAILY PRN (Reason: Constipation) RF: 0 glucagon (human recombinant) 1 MG recon soln 1 mg IJ X1 PRN (Reason: hypoglycemic episode) RF: 0 metformin 500 mg Tablet 500 mg PO BID RF: 0 lisinopril 20 mg Tablet 20 mg PO DAILY RF: 0 amlodipine 10 mg Tablet 10 mg PO DAILY RF: 0 melatonin 3 mg Capsule 3 mg PO QHS RF: 0 Primary Care Provider: Jake Waddell Referrals: Jake Waddell MD [Primary Care Provider] - Disposition Disposition: Acute Care Hospital [facility]
[2021-07-01 18:22] LABS: Absolute Lymphocyte Count 0.67 X10^3/uL (0.83-4.51); Absolute Neutrophil Count 17.6 X10^3/uL (2.0-7.7); Basophil# 0.04 X10^3/uL; Basophil% 0.2 % (0-1); Hematocrit 36.1 % (37-47); Hemoglobin 12.3 g/dL (12.0-15.0); Lymphocyte # 0.67 X10^3/ul (0.83-4.51); Lymphocyte % 3.4 % (19-41); Mean Corp Hgb Conc 34.1 g/dL (32-36); Mean Corpuscular Hgb 28.6 pg (27.0-32.0); Mean Platelet Vol. 10.4 fl (6.2-12.0); Monocyte# 1.42 X10^3/uL; Monocyte% 7.2 % (0-10); NRBC Flagged by Analyzer 0 % (0-5); Neutrophil # 17.56 X10^3/uL (2.7-7.7); Neutrophil % 88.5 % (47-70); Platelet Count 267 K/mm3 (150-450); RBC Distribution Width SD 39.7 fl (35.1-43.9); White Blood Count 19.8 K/mm3 (4.4-11.0)
--- NOTE | 2021-07-01 18:27 | RAD_ITS ---
STUDY: X-RAY CHEST REASON FOR EXAM: Female, 81 years old. fever TECHNIQUE: AP COMPARISON: 02/16/2017 FINDINGS: EKG leads project over the chest. The lungs are clear and expanded. There is no demonstrated pleural abnormality. Normal size heart. Normal mediastinum and lexi. Normal visualized pulmonary arteries. There is atherosclerotic calcification of the aortic arch with tortuosity. No acute bony process. There is no demonstrated abnormality of the visualized soft tissue structures of the upper abdomen. RAD/Chest 1 View (Portable) IMPRESSION: Stable, nonacute portable x-ray examination of the chest. Electronically Signed: Kevin Gorman MD ([place]) at 19:06 EDT , Service support ,
[2021-07-01 18:37] LABS: Mucous, Urine 0 SEEN /hpf (<or=2+); Red Blood Cells-Urine 0 SEEN /hpf (0-5); Squamous Epithelial Cells - UA 0 SEEN /hpf (5-10)
[2021-07-01 18:37] LABS: International Normalized Ratio 1.2; Partial Thromboplast Time 30.9 Seconds (24.1-36.2); Prothrombin Time (Protime)PT. 14.3 SECONDS (11.7-14.9)
[2021-07-01 18:41] LABS: Lactic Acid 1.5 mmol/L (0.4-1.9)
[2021-07-01 18:44] LABS: Color, Urine Yellow (Yellow); Glucose, Dipstick 1000 mg/dl (Normal); Ketone-Dipstick 15 mg/dl (Negative); Leukocyte Esterase-Dipstick 500 /ul (Negative); Nitrite-Dipstick Positive (Negative); Occult Blood-Urine 50 /ul (Negative); Protein-Dipstick 100 mg/dl (Negative); Specific Gravity, Urine 1.015 (1.002-1.030); Urine Bilirubin Dipstick Negative (Negative); Urine Clarity Clear (Clear); Urine Urobilinogen Normal (Normal)
[2021-07-01 18:49] LABS: ALB/GLOB Ratio 0.6 RATIO (0.9-2.4); AST(SGOT) 16 U/L (15-37); Alanine Aminotransfer ALT/SGPT 24 U/L (13-56); Albumin, Serum 2.8 g/dL (3.2-5.0); Alkaline Phosphatase 110 U/L (45-117); Anion Gap 11 (5-15); BUN 15 mg/dL (7-18); BUN/Creat Ratio 16.2 RATIO (10-20); Calcium,Total 8.3 mg/dL (8.5-10.1); Chloride 89 mmol/L (98-107); Creatinine, Serum 0.92 mg/dL (0.55-1.02); EST Glomerular Filtration Rate 62 mL/min (>60); Est Glom Filt Rate - Afr Amer 75 mL/min (>60); Estimated Creatinine Clearance 44.13 ml/min; Globulin 4.4 g/dL (2.2-4.2); Glucose 295 mg/dL (74-106); Potassium 3.4 mmol/L (3.5-5.1); Protein, Total 7.2 g/dL (6.4-8.2); Sodium Level 122 mmol/L (136-145)
[2021-07-01 19:10] LABS: Bacteria 1+ /hpf (None Seen); White Blood Cells >100 SEEN /hpf (0-5)
[2021-07-01] MEDS: 0.9% Normal Saline 1,000 ML 150 ML IV (19:24)
[2021-07-01] MEDS: Ceftriaxone 1 GM/50 ML BAG IV (19:24)
--- NOTE | 2021-07-01 19:52 | NURSING ---
pt expressed concern for not wanting to be admitted to hospital. pt states she would like to go home and was wondering how much longer she would be in the hospital. has been notified and is speaking to patient currently.
--- NOTE | 2021-07-01 21:02 | PCM.HP.STD ---
HPI - General General Date of Admission: 07/01/21 HPI Narrative NICHOLE AYERS, is a 81 F with a significant history of diabetes mellitus hypertension and who lives at an assisted nursing facility presenting with dysuria x1 week. Patient reports incontinence on the day of presentation. Patient was diagnosed with UTI a day before presentation. She developed progressively worsening weakness to the point where she cannot walk so she was sent to the emergency department. [facility] Medical History Closed left hip fracture Hyperlipidemia Hypertension Type 2 diabetes mellitus Home Medications atorvastatin 20 mg PO QHS 03/07/15 [History Last Taken 05/14/19] Myrbetriq 50 mg PO DAILY 02/16/17 [History Last Taken 05/14/19] duloxetine 60 mg PO DAILY 04/29/17 [History Last Taken 05/14/19] PreserVision AREDS 1 ea PO BID 07/27/18 [History Last Taken 05/14/19] Tradjenta 5 mg PO DAILY 07/27/18 [History Last Taken 05/14/19] acetaminophen 650 mg PO QHS 05/15/19 [History Last Taken 05/14/19] glucagon (human recombinant) 1 mg IJ X1 PRN 05/15/19 [History Last Taken Unknown] insulin detemir U-100 24 units SUBCUT BID 05/15/19 [History Last Taken 05/14/19] sennosides-docusate sodium 2 ea PO DAILY PRN 05/15/19 [History Last Taken Unknown] amlodipine 10 mg PO DAILY 07/01/21 [History Last Taken Unknown] lisinopril 20 mg PO DAILY 07/01/21 [History Last Taken Unknown] melatonin 3 mg PO QHS 07/01/21 [History Last Taken Unknown] metformin 500 mg PO BID 07/01/21 [History Last Taken Unknown] Allergy/AdvReac Type Severity Reaction Status Date / Time codeine Allergy Other Verified 07/01/21 18:35 morphine Allergy Vomiting Verified 07/01/21 18:35 tramadol Allergy Other Verified 07/01/21 18:35 Family History Other Diabetes Surgical History (Updated 07/02/21 @ 00:[address] Segundo Joe MD) Hx of appendectomy Hx of tonsillectomy Social History Smoking Status: Never smoker ROS ROS Narrative Constitutional: Reports fever and anorexia. Denies chills and change in weight Eyes: Denies blurry vision, change in eye color, change in vision, discharge from eye(s), double vision, erythema, eye pain, loss of vision or other HEENT: Denies abnormal hearing, dysphagia, ear pain, epistaxis, headache(s), hearing loss, nasal congestion, nasal discharge, post nasal drip, sinus pressure, sore throat or other Cardiovascular: Denies chest pain or palpitations. Denies dyspnea on exertion, orthopnea and paroxysmal nocturnal dyspnea Respiratory/Chest: Denies cough, excessive phlegm production, shortness of breath with exertion and wheezing Gastrointestinal: Denies abdominal pain, coffee ground emesis, constipation, diarrhea, dyspepsia, hematemesis, hematochezia, loose stools, melena, nausea, vomiting or other Genitourinary: Reports dysuria and incontinence. Denies hematuria urinary hesitancy, urinary incontinence, urinary urgency or other Musculoskeletal: Denies arthralgias, back pain, joint pain, joint stiffness, joint swelling, myalgias, neck pain or other Neurologic: Denies abnormal gait, abnormal speech, confusion, disequilibrium, dizziness, focal weakness, headache(s), numbness, paresthesias, seizure-like activity, seizures, syncope, tingling, tremor(s) or other Psychiatric: Denies anxiety, depression, homicidal ideation, suicidal ideation or other Endocrinology: Denies change in body appearance, cold intolerance, excessive sweating, heat intolerance, polydipsia, polyuria or other Hematologic/Lymphatic: Denies anemia, easy bleeding, easy bruising, lymphadenopathy or other Integumentary: Denies rashes Allergic/Immunologic: Denies rhinitis, hives, eczema, asthma or other Vital Signs Vital Signs Vital Signs: 07/01/21 17:45 07/01/21 17:47 07/01/21 18:10 Temperature 101.4 F H 101.4 F H Temperature Source Oral Oral Pulse Rate 104 H 104 H Respiratory Rate 22 H 22 H Respiratory Effort Respiratory Pattern Blood Pressure 134/63 H 134/63 H Blood Pressure Mean 86 86 Pulse Ox 93 93 95 Oxygen Delivery Method Room Air Room Air Room Air 07/01/21 18:24 07/01/21 18:44 07/01/21 19:45 Temperature 99.4 F H Temperature Source Oral Pulse Rate 96 90 Respiratory Rate 20 H 12 Respiratory Effort Normal Respiratory Pattern Normal Blood Pressure 123/52 H 101/48 L Blood Pressure Mean 75 65 Pulse Ox 95 95 Oxygen Delivery Method Room Air Room Air 07/01/21 19:48 07/01/21 20:06 Temperature 98.4 F Temperature Source Oral Pulse Rate 90 87 Respiratory Rate 12 20 H Respiratory Effort Respiratory Pattern Blood Pressure 101/48 L 116/53 L Blood Pressure Mean 65 74 Pulse Ox 95 91 Oxygen Delivery Method Room Air Room Air Weight Weight: 71.4 kg Body Mass Index (BMI) 25.4 Physical Exam Narrative Physical exam: General: Well-nourished, well-developed. Head: Normocephalic, atraumatic, no tenderness Eyes: PERRLA, EOMI ENT, no trauma, moist mucous membranes, no rhinorrhea Neck: Nontender, full range of motion, no spinal tenderness, deformities, step-off CVS: Regular rate and rhythm. S1-S2 present. No murmur, gallop or rub. Respiratory : clear to auscultation bilaterally, chest wall nontender, no wheezing Abdomen: Soft, nontender, nondistended, normal bowel sounds, no masses : Deferred Back: Nontender, no CVA tenderness, no midline spinal tenderness, deformities, step-offs Extremities: Nontender full range of motion, no trauma Skin: Normal color, no trauma, abrasions Neuro: Alert, oriented, cranial nerves II through XII grossly intact. Psychiatry: Normal mood. Normal affect. Not depressed. Not anxious. Results Lab / Micro Data Result Diagrams: 07/01/21 18:00 07/01/21 18:00 Labs: Laboratory Results - last 24 hr 07/01/21 18:00: WBC 19.8 H, RBC 4.30, Hgb 12.3, Hct 36.1 L, MCV 84.0, MCH 28.6, MCHC 34.1, RDW Std Deviation 39.7, RDW Coeff of Lata 13.0, Plt Count 267, MPV 10.4, Immature Gran % (Auto) 0.700, Neut % (Auto) 88.5 H, Lymph % (Auto) 3.4 L, [place] % (Auto) 7.2, Eos % (Auto) 0.0, Baso % (Auto) 0.2, Absolute Neuts (auto) 17.6 H, Absolute Lymphs (auto) 0.67 L, Nucleated RBC % 0 07/01/21 18:00: PT 14.3, INR 1.2, APTT 30.9 07/01/21 18:00: Sodium 122 L, Potassium 3.4 L, Chloride 89 L, Carbon Dioxide 22.0, Anion Gap 11, BUN 15, Creatinine 0.92, Estim Creat Clear Calc 44.13, Est GFR (MDRD) Af Amer 75, Est GFR (MDRD) Non-Af 62, BUN/Creatinine Ratio 16.2, Glucose 295 H, Calcium 8.3 L, Total Bilirubin 0.50, AST 16, ALT 24, Alkaline Phosphatase 110, Total Protein 7.2, Albumin 2.8 L, Globulin 4.4 H, Albumin/Globulin Ratio 0.6 L 07/01/21 18:00: Lactic Acid 1.5 07/01/21 18:20: Urine Color Yellow, Urine Clarity Clear, Urine pH 6.0, Ur Specific [place] 1.015, Urine Protein 100 H, Urine Glucose (UA) 1000 H, Urine Ketones 15 H, Urine Occult Blood 50 H, Urine Nitrite Positive H, Urine Bilirubin Negative, Urine Urobilinogen Normal, Ur Leukocyte Esterase 500 H, Urine RBC 0 SEEN, Urine WBC >100 SEEN, Ur Squamous Epith Cells 0 SEEN, Urine Bacteria 1+, Urine Mucus 0 SEEN Micro: Microbiology 07/01/21 18:30 Nasal Secretion SARS-CoV-2 Antigen (Rapid) - Final Radiology Impression Chest X-Ray 07/01/21 18:27 IMPRESSION: Stable, nonacute portable x-ray examination of the chest. Electronically Signed: Kevin Gorman MD ([place]) at 19:06 EDT , Service support , Assessment & Plan Assessment/Plan (1) Acute UTI: (2) Hyponatremia: PLAN: UTI White count of 19.8 with neutrophilic predominance; and lymphopenia. Lactic acid on presentation was 1.5. Patient meets SIRS criteria with heart rate of more than 90; respiratory rate of more than 20 and leukocytosis with white count of more than twelve thousand. However there is no organ dysfunction. qSOFA is one (respiratory rate of more equal to twenty-two). Urinalysis was positive for nitrites; leukocyte Esterase; urine WBC was more than one hundred. Urine protein was a hundred. Urine culture was obtained on presentation. Blood culture x2 was obtained on presentation. Radiologist impression impression of chest x-ray is as above. Chest x-ray was independently interpreted and I agree with radiologist interpretation Rapid Covid antigen on presentation was negative. Patient symptomatology does not look like Covid. Review of old records showed that on 05/08/2020 urine culture shows Streptococcus agalactiae which was pansensitive. Received ceftriaxone at the emergency department and continued. Hyponatremia Sodium is 122 Check uric acid Check urine osmolarity Check urine sodium Check serum osmolality Check TSH and a.m. cortisol. Gentle IV hydration. Trend BMP. Hypertension Blood pressure is not within goal Lisinopril continued. As needed hydralazine ordered. Trend blood pressure and adjust blood pressure medications. Diabetes mellitus Patient with hyperglycemia on presentation DPP -IV inhibitor continued. Basal insulin continued Accu-Chek QA CHS with correction scale insulin ordered. Overreactive bladder Myrbetriq continued Age-related macular degeneration PreserVision AREDS continued Hyperlipidemia Elected to continue DVT prophylaxis: Subcutaneous Lovenox ordered Charges/Coding Visit Charges Inpatient E&M: 33054 Init Hosp L3
[2021-07-01 21:28] LABS: Urine Sodium 19 mmol/L (Not Establ.)
[2021-07-01 21:51] LABS: Osmolality, Serum 272 mOsm/KG (280-301)
[2021-07-01 21:52] LABS: Osmolality, Urine 437 mOsm/KG
[2021-07-01] MEDS: 0.9% Saline Lock 10 ML Syringe IV (23:46)
[2021-07-01] MEDS: 0.9% Normal Saline 1,000 ML 75 ML IV (23:48)
[2021-07-02] VITALS (13 sets, daily range): BP systolic 125–177; BP diastolic 58–74; PULSE 89–105; RESP 16–18; TEMP 36.7–37.6; O2SAT 94–99
[2021-07-02] MEDS: Ondansetron 4 MG/2 ML Vial IV (00:08)
[2021-07-02] MEDS: Acetaminophen 325 MG Tablet 650 MG PO ×2 (00:12→19:43)
[2021-07-02] MEDS: MELATONIN 3 MG TABLET PO ×2 (00:12→22:19)
[2021-07-02] MEDS: Multivitamin (Healthy Eyes) Capsule 1 CAP PO ×3 (00:12→22:19)
[2021-07-02] MEDS: Atorvastatin Calcium 20 MG Tablet PO ×2 (00:12→22:19)
[2021-07-02 00:35] LABS: Bedside Glucose 125 mg/dL (70-110)
[2021-07-02] MEDS: hydrALAZINE 20 MG/ML Vial 5 MG IV (00:41)
--- NOTE | 2021-07-02 00:47 | PCS.PANDOC ---
PANDEMIC DOCUMENTATION INITIATED: Date: 04/17/2021 Time: 190
--- NOTE | 2021-07-02 05:49 | NURSING ---
rafa removed, verbal order from dr. Joe. Switched to supriya. Pt denies any discomfort at this time, call light within reach.
[2021-07-02 05:56] LABS: Absolute Lymphocyte Count 0.98 X10^3/uL (0.83-4.51); Absolute Neutrophil Count 15.5 X10^3/uL (2.0-7.7); Basophil# 0.03 X10^3/uL; Basophil% 0.2 % (0-1); Hematocrit 37.2 % (37-47); Hemoglobin 12.4 g/dL (12.0-15.0); Lymphocyte # 0.98 X10^3/ul (0.83-4.51); Lymphocyte % 5.4 % (19-41); Mean Corp Hgb Conc 33.3 g/dL (32-36); Mean Corpuscular Hgb 28.4 pg (27.0-32.0); Mean Corpuscular Volume 85.3 fL (81-99); Mean Platelet Vol. 10.7 fl (6.2-12.0); Monocyte# 1.41 X10^3/uL; Monocyte% 7.8 % (0-10); NRBC Flagged by Analyzer 0 % (0-5); Neutrophil # 15.53 X10^3/uL (2.7-7.7); Neutrophil % 86.1 % (47-70); Platelet Count 256 K/mm3 (150-450); RBC Distribution Width SD 40.7 fl (35.1-43.9); Red Blood Count 4.36 M/mm3 (4.2-5.4)
[2021-07-02 06:30] LABS: Anion Gap 10 (5-15); BUN 12 mg/dL (7-18); Calcium,Total 8.4 mg/dL (8.5-10.1); Chloride 98 mmol/L (98-107); Creatinine, Serum 0.67 mg/dL (0.55-1.02); EST Glomerular Filtration Rate 90 mL/min (>60); Est Glom Filt Rate - Afr Amer 109 mL/min (>60); Estimated Creatinine Clearance 42.18 ml/min; Glucose 95 mg/dL (74-106); Potassium 3.1 mmol/L (3.5-5.1); Sodium Level 131 mmol/L (136-145); Thyroid Stim Hormone (TSH) 1.33 uIU/mL (0.358-3.74)
--- NOTE | 2021-07-02 06:38 | NURSING ---
This RN spoke to a staff member from [facility], gave pt current updates.
[2021-07-02 07:01] LABS: Bedside Glucose 100 mg/dL (70-110)
[2021-07-02 07:34] LABS: Uric Acid 3.3 mg/dL (2.6-6.0)
[2021-07-02] MEDS: Potassium Chloride Oral Tablet 20 MEQ 60 MEQ PO (08:18)
[2021-07-02] MEDS: Mirabegron 50 MG TAB.ER.24H PO (08:18)
[2021-07-02] MEDS: DULoxetine Hcl 60 MG Capsule PO (08:18)
[2021-07-02] MEDS: LINAGLIPTIN 5 MG TABLET PO (08:18)
[2021-07-02] MEDS: Lisinopril 20 MG Tablet PO (08:19)
[2021-07-02] MEDS: amLODIPine 10 MG Tablet PO (08:19)
[2021-07-02] MEDS: Enoxaparin 40 MG/0.4 ML Syringe SC (08:19)
[2021-07-02] MEDS: Insulin Lispro 100 UNIT/ML INSULN.PEN SC ×3 (11:39→22:30)
[2021-07-02 11:51] LABS: Bedside Glucose 182 mg/dL (70-110)
--- NOTE | 2021-07-02 12:19 | PN.HOSP_ITS ---
Documented by User: Jake COLMENARES 07/02/21 12:29 Subjective Subjective Patient is an 81-year-old female comfortably resting in bed, alert and orient x3. Provement in her dysuria since admission, denies development of any new symptoms overnight. Does not appear in acute distress and would like to be disc harged today. Objective Data Objective Data Vital Signs: Vital Signs Temp Pulse Resp BP Pulse Ox 99.4 F H 95 18 129/58 H 98 07/02/21 11:15 07/02/21 11:15 07/02/21 11:15 07/02/21 11:15 07/02/21 11:15 Oxygen Delivery Method Room Air Weight: 152 lb 1.903 oz Body Mass Index (BMI) 23.8 Intake & Output: Intake and Output for Last 24 Hours 06/30/21 07/01/21 07/02/21 23:59 23:59 23:59 Intake Total 1369.15 / 1369.15 1358.75 / 1358.75 Output Total 925 / 925 775 / 775 Balance 444.15 / 444.15 583.75 / 583.75 Lab / Micro Data Result Diagrams: 07/02/21 05:28 07/02/21 05:28 Labs: Laboratory Results - last 24 hr 07/01/21 05:28: Uric Acid 3.3 07/01/21 18:00: WBC 19.8 H, RBC 4.30, Hgb 12.3, Hct 36.1 L, MCV 84.0, MCH 28.6, MCHC 34.1, RDW Std Deviation 39.7, RDW Coeff of Lata 13.0, Plt Count 267, MPV 10.4, Immature Gran % (Auto) 0.700, Neut % (Auto) 88.5 H, Lymph % (Auto) 3.4 L, [place] % (Auto) 7.2, Eos % (Auto) 0.0, Baso % (Auto) 0.2, Absolute Neuts (auto) 17.6 H, Absolute Lymphs (auto) 0.67 L, Nucleated RBC % 0 07/01/21 18:00: PT 14.3, INR 1.2, APTT 30.9 07/01/21 18:00: Sodium 122 L, Potassium 3.4 L, Chloride 89 L, Carbon Dioxide 22.0, Anion Gap 11, BUN 15, Creatinine 0.92, Estim Creat Clear Calc 44.13, Est GFR (MDRD) Af Amer 75, Est GFR (MDRD) Non-Af 62, BUN/Creatinine Ratio 16.2, Glucose 295 H, Calcium 8.3 L, Total Bilirubin 0.50, AST 16, ALT 24, Alkaline Phosphatase 110, Total Protein 7.2, Albumin 2.8 L, Globulin 4.4 H, A lbumin/Globulin Ratio 0.6 L 07/01/21 18:00: Lactic Acid 1.5 07/01/21 18:00: Serum Osmolality 272 L 07/01/21 18:20: Urine Color Yellow, Urine Clarity Clear, Urine pH 6.0, Ur Specific [place] 1.015, Urine Protein 100 H, Urine Glucose (UA) 1000 H, Urine Ketones 15 H, Urine Occult Blood 50 H, Urine Nitrite Positive H, Urine Bilirubin Negative, Urine Urobilinogen Normal, Ur Leukocyte Esterase 500 H, Urine RBC 0 SEEN, Urine WBC >100 SEEN, Ur Squamous Epith Cells 0 SEEN, Urine Bacteria 1+, Urine Mucus 0 SEEN 07/01/21 18:20: Urine Osmolality 437, Ur Random Sodium 19 07/02/21 00:04: POC Glucose 125 H 07/02/21 05:28: WBC 18.0 H, RBC 4.36, Hgb 12.4, Hct 37.2, MCV 85.3, MCH 28.4, MCHC 33.3, RDW Std Deviation 40.7, RDW Coeff of Lata 13.0, Plt Count 256, MPV 10.7, Immature Gran % (Auto) 0.500, Neut % (Auto) 86.1 H, Lymph % (Auto) 5.4 L, [place] % (Auto) 7.8, Eos % (Auto) 0.0, Baso % (Auto) 0.2, Absolute Neuts (auto) 15.5 H, Absolute Lymphs (auto) 0.98, Nucleated RBC % 0 07/02/21 05:28: Sodium 131 L, Potassium 3.1 L, Chloride 98, Carbon Dioxide 23.0, Anion Gap 10, BUN 12, Creatinine 0.67, Estim Creat Clear Calc 42.18, Est GFR (MDRD) Af Amer 109, Est GFR (MDRD) Non-Af 90, BUN/Creatinine Ratio 18.0, Glucose 95, Calcium 8.4 L, TSH 1.33 07/02/21 05:28: Cortisol 29.80 H 07/02/21 06:53: POC Glucose 100 07/02/21 11:36: POC Glucose 182 H Micro: Microbiology 07/01/21 18:20 Urine Catheter - Desai Urine Culture - Preliminary Gram negative bhavin 07/01/21 18:30 Nasal Secretion SARS-CoV-2 Antigen (Rapid) - Final Radiography Diagnostic Testing: Radiology Impression Chest X-Ray 07/01/21 18:27 IMPRESSION: Stable, nonacute portable x-ray examination of the chest. Electronically Signed: Kevin Gorman MD ([place]) at 19:06 EDT , Service support , Physical Exam Const alert, oriented x3 and no apparent distress HEENT head/scalp atraumatic and moist oral mucous membranes Head and Scalp: normocephalic Eyes PERRL, EOMs intact bilaterally and conjunctivae normal Neck no lymphadenopathy, supple and no JVD Resp normal respiratory effort, no retractions, no use of accessory muscles and clear to auscultation bilaterally Cardio regular rate, regular rhythm, no murmurs and no JVD GI normal to inspection, nondistended, normoactive bowel sounds, soft to palpation and non-tender Extremity normal to inspection, full ROM and no clubbing, cyanosis or edema Peripheral Pulses: Yes pulses 2+ throughout Skin no rashes or lesions noted, no wounds, skin turgor normal and no jaundice Neuro CN's II-XII intact bilaterally Psych affect normal Assessment & Plan Assessment/Plan (1) Generalized weakness: (2) Acute UTI: (3) Hyponatremia: PLAN: Day 1 Discharge planning: Patient is a long-term resident of [facility] and will return when medically ready. 1) acute cystitis Patient reports objective improvement in dysuria from admission. Vital signs are stable and patient is currently afebrile. White count is still elevated at 18,000, although improved from admission. Urine culture demonstrates gram- negative rods, possibly Pseudomonas. Blood culture pending. Rapid Covid negative. Plan; remain admitted for monitoring and speciation for appropriate antibiotic selection, continue ceftriaxone. 2) hyponatremia Urine sodium is currently 131, was 122 on admission. Urine and serum osmolalities within normal limits. TSH within normal limits. Sodium corrected too quickly and fluids were discontinued, will continue to monitor BMP. 3) HTN Currently 129/58, stable. Continue lisinopril, as needed hydralazine ordered, continue to trend BPs. 4) DM2 Continue home diabetic regimen, Accu-Cheks with sliding scale insulin ordered. DVT prophylaxis - Lovenox Patient seen by Jake Schuster PA-C, under the supervision of Dr. Loera. Documented by User: Dr. Staci Loera MD 07/02/21 12:48 Objective Data Lab / Micro Data Result Diagrams: 07/02/21 05:28 07/02/21 05:28 Charges/Coding Addendum Addendum: This patient was seen in conjunction with DEDRA Jacobson. I have independently interviewed and examined the patient and reviewed pertinent historical, laboratory, and other data. Please refer to DEDRA Jacobson's note for his patient's presentation, findings, and recommendations. I have reviewed and his note and concur with his documentation Patient was seen and examined. She feels improved. No acute events overnight. Physical Exam: Gen: Appeared frail, not pale, not jaundiced CVS:HS I +II, regular, no murmurs RESP: CTA GI: BS present and normal, soft, nontender, no palpable organs EXT:No edema ASSESSMENT: 1. Acute gram-negative bhavin possibly pseudomonas UTI 2. Hypokalemia 3. Hyponatremia 4. Type II DM 5. Hypertension Plan: Will switch to IV Levaquin DC IVF Follow-up on urine cultures Repeat blood work in am Visit Charges Inpatient E&M: 92965 Subs Hosp L2
[2021-07-02] MEDS: levoFLOXacin IV 500 MG/100 ML BAG 100 MG IV (15:42)
[2021-07-02 17:00] LABS: Bedside Glucose 261 mg/dL (70-110)
[2021-07-02 22:40] LABS: Bedside Glucose 202 mg/dL (70-110)
[2021-07-02] MEDS: Senna/Docusate Sodium 1 Tablet 2 TABLET PO (22:41)
[2021-07-03] VITALS (13 sets, daily range): BP systolic 112–145; BP diastolic 48–69; PULSE 81–91; RESP 16–20; TEMP 36.7–37; O2SAT 93–98
[2021-07-03] MEDS: Acetaminophen 325 MG Tablet 650 MG PO ×2 (02:10→21:25)
[2021-07-03 06:44] LABS: Absolute Lymphocyte Count 1.03 X10^3/uL (0.83-4.51); Absolute Neutrophil Count 10.5 X10^3/uL (2.0-7.7); Basophil# 0.02 X10^3/uL; Basophil% 0.2 % (0-1); Eosinophil# 0.07 X10^3/uL; Eosinophils% 0.5 % (0-5); Hematocrit 35.9 % (37-47); Hemoglobin 12.1 g/dL (12.0-15.0); Lymphocyte # 1.03 X10^3/ul (0.83-4.51); Lymphocyte % 7.8 % (19-41); Mean Corp Hgb Conc 33.7 g/dL (32-36); Mean Corpuscular Hgb 28.3 pg (27.0-32.0); Mean Corpuscular Volume 83.9 fL (81-99); Mean Platelet Vol. 10.9 fl (6.2-12.0); Monocyte# 1.57 X10^3/uL; Monocyte% 11.9 % (0-10); NRBC Flagged by Analyzer 0 % (0-5); Neutrophil # 10.46 X10^3/uL (2.7-7.7); POSITIVE DIFFERENTIAL YES; Platelet Count 294 K/mm3 (150-450); RBC Distribution Width CV 13.1 % (11.6-14.6); RBC Distribution Width SD 40.1 fl (35.1-43.9); Red Blood Count 4.28 M/mm3 (4.2-5.4); White Blood Count 13.2 K/mm3 (4.4-11.0)
[2021-07-03 06:54] LABS: Anion Gap 8 (5-15); BUN 12 mg/dL (7-18); Calcium,Total 8.2 mg/dL (8.5-10.1); Chloride 100 mmol/L (98-107); EST Glomerular Filtration Rate 85 mL/min (>60); Est Glom Filt Rate - Afr Amer 102 mL/min (>60); Estimated Creatinine Clearance 42.18 ml/min; Glucose 122 mg/dL (74-106); Potassium 3.8 mmol/L (3.5-5.1); Sodium Level 130 mmol/L (136-145)
[2021-07-03 06:55] LABS: Bedside Glucose 118 mg/dL (70-110)
[2021-07-03 07:15] LABS: Differential Indicated SCAN CRITERIA MET
[2021-07-03] MEDS: levoFLOXacin IV 500 MG/100 ML BAG 100 MG IV (08:29)
[2021-07-03] MEDS: Lisinopril 20 MG Tablet PO (08:34)
[2021-07-03] MEDS: Multivitamin (Healthy Eyes) Capsule 1 CAP PO ×2 (08:34→21:26)
[2021-07-03] MEDS: Enoxaparin 40 MG/0.4 ML Syringe SC (08:34)
[2021-07-03] MEDS: amLODIPine 10 MG Tablet PO (08:34)
[2021-07-03] MEDS: LINAGLIPTIN 5 MG TABLET PO (08:34)
[2021-07-03] MEDS: Mirabegron 50 MG TAB.ER.24H PO (08:34)
[2021-07-03] MEDS: DULoxetine Hcl 60 MG Capsule PO (08:34)
--- NOTE | 2021-07-03 09:52 | CASEMGMT ---
Patient is from [facility]. [facility] faxed updates to [facility]. [facility] also called [facility] and left a voice mail for admissions requesting a return call. Yolanda LAURA
--- NOTE | 2021-07-03 10:49 | DS.PCM_ITS ---
Documented by User: Jake COLMENARES 07/03/21 12:47 Providers Date of Admission: 07/01/21 Primary Care Physician: Dr. Jake Waddell MD Reason For Visit: PNEUMONIA, HYPONATREMIA Diagnosis Discharge Diagnosis (1) Generalized weakness: Status: Acute Code(s): R53.1 - Weakness (2) Acute UTI: Status: Acute Code(s): N39.0 - Urinary tract infection, site not specified (3) Hyponatremia: Status: Acute Code(s): E87.1 - Hypo-osmolality and hyponatremia Medications at Discharge Home Medications atorvastatin 20 mg PO QHS 03/07/15 Myrbetriq 50 mg PO DAILY 02/16/17 duloxetine 60 mg PO DAILY 04/29/17 PreserVision AREDS 1 ea PO BID 07/27/18 Tradjenta 5 mg PO DAILY 07/27/18 acetaminophen 650 mg PO QHS 05/15/19 glucagon (human recombinant) 1 mg IJ X1 PRN 05/15/19 insulin detemir U-100 24 units SUBCUT BID 05/15/19 sennosides-docusate sodium 2 ea PO DAILY PRN 05/15/19 amlodipine 10 mg PO DAILY 07/01/21 lisinopril 20 mg PO DAILY 07/01/21 melatonin 3 mg PO QHS 07/01/21 metformin 500 mg PO BID 07/01/21 levofloxacin 500 mg PO DAILY #6 tab 07/03/21 Hospital Course Summary of Care Provided Minutes Spent on Discharge: 35 Hospital Course: Disposition: Patient to discharge back to the assisted living section of the [facility]. 1) acute cystitis Patient reports objective improvement in dysuria from admission. Vital signs are stable and patient is currently afebrile. White count has improved and is currently 13,000. Urine culture demonstrates Pseudomonas. Patient transition to levofloxacin due to cultures. Blood culture pending. Rapid Covid negative. Plan; continue levofloxacin 5 mg p.o. twice daily x6 days, follow-up with primary care provider within the next 2 weeks. 2) hyponatremia Stable, currently 130. Urine and serum osmolalities within normal limits. TSH within normal limits. Sodium corrected too quickly from admission and fluids were discontinued. No acute mental status changes or neurological deficits were observed. 3) HTN Stable, continue home BP regimen. 4) DM2 Continue home diabetic regimen. Patient seen by Jake Schuster PA-C, under the supervision of Dr. To. Physical Exam Narrative Patient is an 81-year-old female comfortably resting in a chair, alert and or ient x3. Patient reports that her dysuria from admission has resolved and she reports feeling strong enough to return home. Patient denies development of any new symptoms overnight. Does not appear to be in acute distress. Const alert, oriented x3 and no apparent distress HEENT normocephalic, head/scalp atraumatic and hearing grossly normal bilaterally Eyes PERRL, EOMs intact bilaterally and conjunctivae normal Neck no lymphadenopathy, supple and no JVD Resp normal respiratory effort, no retractions, no use of accessory muscles and clear to auscultation bilaterally Cardio regular rate, regular rhythm, no murmurs and no JVD GI normal to inspection, nondistended, normoactive bowel sounds, soft to palpation and non-tender Extremity normal to inspection, full ROM and no clubbing, cyanosis or edema Skin no rashes or lesions noted, no wounds and skin turgor normal Neuro CN's II-XII intact bilaterally Psych affect normal Weight / BMI Weight Weight: 152 lb 1.903 oz Body Mass Index (BMI) 23.8 ABG / Lab / Microbiology Data Result Diagrams: 07/03/21 06:05 07/03/21 06:05 Laboratory: Laboratory Results - last 24 hr 07/02/21 11:36: POC Glucose 182 H 07/02/21 16:52: POC Glucose 261 H 07/02/21 22:27: POC Glucose 202 H 07/03/21 06:05: WBC 13.2 H, RBC 4.28, Hgb 12.1, Hct 35.9 L, MCV 83.9, MCH 28.3, MCHC 33.7, RDW Std Deviation 40.1, RDW Coeff of Lata 13.1, Plt Count 294, MPV 10.9, Immature Gran % (Auto) 0.600, Neut % (Auto) 79.0 H, Lymph % (Auto) 7.8 L, Todd % (Auto) 11.9 H, Eos % (Auto) 0.5, Baso % (Auto) 0.2, Absolute Neuts (auto) 10.5 H, Absolute Lymphs (auto) 1.03, Nucleated RBC % 0, Diff Path Review December21 06:05: Sodium 130 L, Potassium 3.8, Chloride 100, Carbon Dioxide 22.0, Anion Gap 8, BUN 12, Creatinine 0.70, Estim Creat Clear Calc 42.18, Est GFR (MDRD) Af Amer 102, Est GFR (MDRD) Non-Af 85, BUN/Creatinine Ratio 17.0, Glucose 122 H, Calcium 8.2 L 07/03/21 06:47: POC Glucose 118 H Microbiology: Microbiology 07/01/21 18:20 Urine Catheter - Desai Urine Culture - Preliminary Pseudomonas aeroginosa 07/01/21 18:30 Nasal Secretion SARS-CoV-2 Antigen (Rapid) - Final Meaningful Use Info Meaningful Use Diagnoses (Choose all that apply): None applicable Discharge Plan Admission Admit Date/Time: 07/01/21 20:49 Primary Reason for Your Visit: Urinatry tract infection Attending Provider: Devonet To Primary Care Provider: Jake Waddell Discharge Orders/Prescriptions Prescriptions: New levofloxacin 500 mg tablet 500 mg PO DAILY Qty: 6 RF: 0 Continued atorvastatin 20 MG tablet 20 mg PO QHS RF: 0 Myrbetriq 50 MG tablet extended release 24 hr 50 mg PO DAILY RF: 0 duloxetine 30 MG capsule,delayed release(DR/EC) 60 mg PO DAILY RF: 0 PreserVision AREDS 1 EACH capsule 1 ea PO BID RF: 0 Tradjenta 5 MG tablet 5 mg PO DAILY RF: 0 acetaminophen 650 MG tablet extended release 650 mg PO QHS RF: 0 insulin detemir U-100 100 UNITS/ML insulin pen 24 units subcut BID RF: 0 sennosides-docusate sodium 1 EACH tablet 2 ea PO DAILY PRN (Reason: Constipation) RF: 0 glucagon (human recombinant) 1 MG recon soln 1 mg IJ X1 PRN (Reason: hypoglycemic episode) RF: 0 metformin 500 mg Tablet 500 mg PO BID RF: 0 lisinopril 20 mg Tablet 20 mg PO DAILY RF: 0 amlodipine 10 mg Tablet 10 mg PO DAILY RF: 0 melatonin 3 mg Capsule 3 mg PO QHS RF: 0 Referrals / Follow Up: Jake Waddell MD [Primary Care Provider] - Within 2 Weeks Disposition Disposition (needs filled in before D/C Order can be placed): Home, Self Care Documented by User: Dr. Devonte To MD 07/03/21 12:53 Providers Date of Admission: 07/01/21 Reason For Visit: PNEUMONIA, HYPONATREMIA Medications at Discharge Home Medications atorvastatin 20 mg PO QHS 03/07/15 Myrbetriq 50 mg PO DAILY 02/16/17 duloxetine 60 mg PO DAILY 04/29/17 PreserVision AREDS 1 ea PO BID 07/27/18 Tradjenta 5 mg PO DAILY 07/27/18 acetaminophen 650 mg PO QHS 05/15/19 glucagon (human recombinant) 1 mg IJ X1 PRN 05/15/19 insulin detemir U-100 24 units SUBCUT BID 05/15/19 sennosides-docusate sodium 2 ea PO DAILY PRN 05/15/19 amlodipine 10 mg PO DAILY 07/01/21 lisinopril 20 mg PO DAILY 07/01/21 melatonin 3 mg PO QHS 07/01/21 metformin 500 mg PO BID 07/01/21 levofloxacin 500 mg PO DAILY #6 tab 07/03/21 Hospital Course Operations None Summary of Care Provided Hospital Course: This patient was seen in conjunction with Jake Schuster PA-C. I have independently interviewed and examined the patient and reviewed pertinent historical, laboratory, and other data. Please refer to Jake Schuster PA-C's note for details of this patient's presentation, findings, and recommendations. I have reviewed Jake Schuster PA-C's note and concur with documented findings. In brief, patient is an 81-year-old lady admitted with fever. She was found to have acute cystitis. She was also found to have acute hyponatremia. Admitted to regular nursing floor where patient was managed Hospital course; as documented ABG / Lab / Microbiology Data Result Diagrams: 07/03/21 06:05 07/03/21 06:05 Discharge Plan Admission Admit Date/Time: 07/01/21 20:49 Primary Reason for Your Visit: Urinatry tract infection Attending Provider: Devonte To Primary Care Provider: Jake Waddell Discharge Orders/Prescriptions Prescriptions: New levofloxacin 500 mg tablet 500 mg PO DAILY Qty: 6 RF: 0 Continued atorvastatin 20 MG tablet 20 mg PO QHS RF: 0 Myrbetriq 50 MG tablet extended release 24 hr 50 mg PO DAILY RF: 0 duloxetine 30 MG capsule,delayed release(DR/EC) 60 mg PO DAILY RF: 0 PreserVision AREDS 1 EACH capsule 1 ea PO BID RF: 0 Tradjenta 5 MG tablet 5 mg PO DAILY RF: 0 acetaminophen 650 MG tablet extended release 650 mg PO QHS RF: 0 insulin detemir U-100 100 UNITS/ML insulin pen 24 units subcut BID RF: 0 sennosides-docusate sodium 1 EACH tablet 2 ea PO DAILY PRN (Reason: Constipation) RF: 0 glucagon (human recombinant) 1 MG recon soln 1 mg IJ X1 PRN (Reason: hypoglycemic episode) RF: 0 metformin 500 mg Tablet 500 mg PO BID RF: 0 lisinopril 20 mg Tablet 20 mg PO DAILY RF: 0 amlodipine 10 mg Tablet 10 mg PO DAILY RF: 0 melatonin 3 mg Capsule 3 mg PO QHS RF: 0 Referrals / Follow Up: Jake Waddell MD [Primary Care Provider] - Within 2 Weeks Disposition Disposition (needs filled in before D/C Order can be placed): Home, Self Care Charges/Coding Visit Charges Inpatient E&M: 23680 Disch Hosp Hospital Course Operations None
--- NOTE | 2021-07-03 10:49 | PCM.TXEXTCAR ---
Diet 07/01/21 23:38 Diet: Cardiac: Calorie-Controlled Food consistency:: Regular Liquid Consistency:: Regular/Thin Dietary Modifications:: Consistent Carbohydrate Type of Dietary Supplement:: Glucerna Shake Diet Comments: 120ml glucerna shake TID w/ meals How many daily calories?: 1800 calorie Therapies Physical Therapy: Eval and Treat Occupational Therapy: Eval and Treat Problem/Diagnosis (1) Generalized weakness: Status: Acute (2) Acute UTI: Status: Acute (3) Hyponatremia: Status: Acute Allergies/Procedures Done in Hospital Allergies codeine Allergy (Verified 07/01/21 18:35) Other morphine Allergy (Verified 07/01/21 18:35) Vomiting tramadol Allergy (Verified 07/01/21 18:35) Other Type of Care/Length of Stay Estimated LOS: More Than 30 Days Type of Care Needed: Skilled Rehab Potential: Fair Prognosis: Fair Additional Orders/Day of Discharge Day of Discharge: 07/03/21 Dietary and Speech Recommendations Dietitian Recommendations/Changes: Will continue 1800 samaria/cardiac diet as ordered. Will add 120ml glucerna shake TID w/ meals. Discharge Plan Admission Admit Date/Time: 07/01/21 20:49 Primary Reason for Your Visit: Urinatry tract infection Attending Provider: Devonte To Primary Care Provider: Jake Waddell Discharge Orders/Prescriptions Prescriptions: New levofloxacin 500 mg tablet 500 mg PO DAILY Qty: 6 RF: 0 Continued atorvastatin 20 MG tablet 20 mg PO QHS RF: 0 Myrbetriq 50 MG tablet extended release 24 hr 50 mg PO DAILY RF: 0 duloxetine 30 MG capsule,delayed release(DR/EC) 60 mg PO DAILY RF: 0 PreserVision AREDS 1 EACH capsule 1 ea PO BID RF: 0 Tradjenta 5 MG tablet 5 mg PO DAILY RF: 0 acetaminophen 650 MG tablet extended release 650 mg PO QHS RF: 0 insulin detemir U-100 100 UNITS/ML insulin pen 24 units subcut BID RF: 0 sennosides-docusate sodium 1 EACH tablet 2 ea PO DAILY PRN (Reason: Constipation) RF: 0 glucagon (human recombinant) 1 MG recon soln 1 mg IJ X1 PRN (Reason: hypoglycemic episode) RF: 0 metformin 500 mg Tablet 500 mg PO BID RF: 0 lisinopril 20 mg Tablet 20 mg PO DAILY RF: 0 amlodipine 10 mg Tablet 10 mg PO DAILY RF: 0 melatonin 3 mg Capsule 3 mg PO QHS RF: 0 Referrals / Follow Up: Jake Waddell MD [Primary Care Provider] - Within 2 Weeks Disposition Disposition (needs filled in before D/C Order can be placed): Home, Self Care
--- NOTE | 2021-07-03 10:57 | CASEMGMT ---
SW called [facility] again and unit secretary will have the admissions person call SW back. WAI needs to check to see if patient can return to [place] or if she needs the [facility] side. Yolanda LAURA
[2021-07-03 11:05] LABS: Bedside Glucose 291 mg/dL (70-110)
--- NOTE | 2021-07-03 11:09 | PHA.DC.MR ---
Pharmacy Service has performed discharge medication reconciliation for this patient. The patient's discharge medication list was reviewed for discrepancies and discrepancies were resolved. Home Medications atorvastatin 20 mg PO QHS 03/07/15 Myrbetriq 50 mg PO DAILY 02/16/17 duloxetine 60 mg PO DAILY 04/29/17 PreserVision AREDS 1 ea PO BID 07/27/18 Tradjenta 5 mg PO DAILY 07/27/18 acetaminophen 650 mg PO QHS 05/15/19 glucagon (human recombinant) 1 mg IJ X1 PRN 05/15/19 insulin detemir U-100 24 units SUBCUT BID 05/15/19 sennosides-docusate sodium 2 ea PO DAILY PRN 05/15/19 amlodipine 10 mg PO DAILY 07/01/21 lisinopril 20 mg PO DAILY 07/01/21 melatonin 3 mg PO QHS 07/01/21 metformin 500 mg PO BID 07/01/21 levofloxacin 500 mg PO DAILY #6 tab 07/03/21
[2021-07-03] MEDS: Insulin Lispro 100 UNIT/ML INSULN.PEN SC ×3 (11:36→21:25)
--- NOTE | 2021-07-03 11:51 | PCM.DC ---
Discharge Instructions Diet Discharge Diet: No restrictions Activity Discharge Activity: Return to Normal Activity Weight Bearing Status: Weight bearing as tolerated Dressing / Incision Call your doctor if you observe: Fever of 101 or Higher, Numbness or Tingling, Shortness of breath, Dizziness, Chest pain, Increased palpitations (irregular heartbeat) and Calf discomfort Follow Up Care Please Follow Up With: Primary care provider When: Within the next two weeks. Test Results: Test results from this visit will be discussed in further detail at your follow-up appointment, if applicable. Discharge Plan Admission Admit Date/Time: 07/01/21 20:49 Primary Reason for Your Visit: Urinatry tract infection Attending Provider: Devonte To Primary Care Provider: Jake Waddell Discharge Orders/Prescriptions Prescriptions: New levofloxacin 500 mg tablet 500 mg PO DAILY Qty: 6 RF: 0 Continued atorvastatin 20 MG tablet 20 mg PO QHS RF: 0 Myrbetriq 50 MG tablet extended release 24 hr 50 mg PO DAILY RF: 0 duloxetine 30 MG capsule,delayed release(DR/EC) 60 mg PO DAILY RF: 0 PreserVision AREDS 1 EACH capsule 1 ea PO BID RF: 0 Tradjenta 5 MG tablet 5 mg PO DAILY RF: 0 acetaminophen 650 MG tablet extended release 650 mg PO QHS RF: 0 insulin detemir U-100 100 UNITS/ML insulin pen 24 units subcut BID RF: 0 sennosides-docusate sodium 1 EACH tablet 2 ea PO DAILY PRN (Reason: Constipation) RF: 0 glucagon (human recombinant) 1 MG recon soln 1 mg IJ X1 PRN (Reason: hypoglycemic episode) RF: 0 metformin 500 mg Tablet 500 mg PO BID RF: 0 lisinopril 20 mg Tablet 20 mg PO DAILY RF: 0 amlodipine 10 mg Tablet 10 mg PO DAILY RF: 0 melatonin 3 mg Capsule 3 mg PO QHS RF: 0 Referrals / Follow Up: Jake Waddell MD [Primary Care Provider] - Within 2 Weeks Disposition Disposition (needs filled in before D/C Order can be placed): Home, Self Care
--- NOTE | 2021-07-03 12:22 | CASEMGMT ---
Addendum entered by Helena Jordan 07/03/21 14:10: Pt now needs to go to a fci, SW called [facility] and cancelled the transport. VERNON Acosta Original Note: SW called to schedule transport through [employer], informed will be about 3pm, but they are to call SW back with the exact time. Nobody has called yet, SW called to find out the time. Their computer shows pt transport for 3:01 however it is not actually set up with a company yet. VERNON Acosta
[2021-07-03 13:37] LABS: Pathologist Review Reviewed
[2021-07-03 14:05] LABS: Bedside Glucose 203 mg/dL (70-110)
--- NOTE | 2021-07-03 14:10 | NURSING ---
Updated pt's sister that pt slid out of chair onto floor while being assisted to get up to go to the bathroom. Family member thanked this nurse for the update.
--- NOTE | 2021-07-03 14:34 | PN.HOSP_ITS ---
Documented by User: Jake COLMENARES 07/03/21 14:37 Subjective Subjective Patient is a 89-year-old female comfortably resting in chair, alert and orient x3. Patient reports significant improvement in her dysuria from admission. Denies development of any new symptoms. Does not appear to be in acute distres s. Objective Data Objective Data Vital Signs: Vital Signs Temp Pulse Resp BP Pulse Ox 98.1 F 90 16 145/66 H 98 07/03/21 13:40 07/03/21 13:40 07/03/21 13:40 07/03/21 13:40 07/03/21 13:40 Oxygen Delivery Method Room Air Weight: 152 lb 1.903 oz Body Mass Index (BMI) 23.8 Intake & Output: Intake and Output for Last 24 Hours 07/01/21 07/02/21 07/03/21 23:59 23:59 23:59 Intake Total 1369.15 / 1369.15 1818.75 / 1818.75 440 / 440 Output Total 925 / 925 775 / 975 650 / 650 Balance 444.15 / 444.15 1043.75 / 843.75 -210 / -210 Lab / Micro Data Result Diagrams: 07/03/21 06:05 07/03/21 06:05 Labs: Laboratory Results - last 24 hr 07/02/21 16:52: POC Glucose 261 H 07/02/21 22:27: POC Glucose 202 H 07/03/21 06:05: WBC 13.2 H, RBC 4.28, Hgb 12.1, Hct 35.9 L, MCV 83.9, MCH 28.3, MCHC 33.7, RDW Std Deviation 40.1, RDW Coeff of Lata 13.1, Plt Count 294, MPV 10.9, Immature Gran % (Auto) 0.600, Neut % (Auto) 79.0 H, Lymph % (Auto) 7.8 L, [place] % (Auto) 11.9 H, Eos % (Auto) 0.5, Baso % (Auto) 0.2, Absolute Neuts (auto) 10.5 H, Absolute Lymphs (auto) 1.03, Nucleated RBC % 0, Diff Path Review Reviewed 07/03/21 06:05: Sodium 130 L, Potassium 3.8, Chloride 100, Carbon Dioxide 22.0, Anion Gap 8, BUN 12, Creatinine 0.70, Estim Creat Clear Calc 42.18, Est GFR (MDRD) Af Amer 102, Est GFR (MDRD) Non-Af 85, BUN/Creatinine Ratio 17.0, Glucose 122 H, Calcium 8.2 L 07/03/21 06:47: POC Glucose 118 H 07/03/21 11:02: POC Glucose 291 H 07/03/21 14:01: POC Glucose 203 H Micro: Microbiology 07/01/21 18:20 Urine Catheter - Desai Urine Culture - Preliminary Pseudomonas aeroginosa 07/01/21 18:30 Nasal Secretion SARS-CoV-2 Antigen (Rapid) - Final Physical Exam Const alert, oriented x3 and no apparent distress HEENT head/scalp atraumatic, moist oral mucous membranes and oropharynx normal Head and Scalp: normocephalic Eyes PERRL, EOMs intact bilaterally and conjunctivae normal Neck no lymphadenopathy, supple and no JVD Resp normal respiratory effort, no retractions, no use of accessory muscles and clear to auscultation bilaterally Cardio regular rate, regular rhythm, no murmurs and no JVD GI normal to inspection, nondistended, normoactive bowel sounds, soft to palpation and non-tender Extremity normal to inspection, full ROM and no clubbing, cyanosis or edema Skin no rashes or lesions noted, no wounds, skin turgor normal and no jaundice Neuro CN's II-XII intact bilaterally Psych affect normal Assessment & Plan Assessment/Plan (1) Hyponatremia: (2) Acute UTI: (3) Generalized weakness: PLAN: Day 2 Discharge planning: Plan was for patient to discharge today 07/03, however patient slipped out of her chair onto the floor. Assisted living denied to except patient back into the facility given her instability. Attempted to pace patient into SNF of her choice. Case management social work following. 1) acute cystitis Patient reports objective improvement in dysuria from admission. Vital signs are stable and patient is currently afebrile. White count is still elevated at 18,000, although improved from admission. Urine culture demonstrates gram- negative rods, possibly Pseudomonas. Blood culture pending. Rapid Covid negat roxana. Plan; remain admitted with 1 and be placed, continue levofloxacin. Continue to trend CBC and BMP. 2) hyponatremia Urine sodium is currently 130, was 122 on admission. Urine and serum osmolali ties within normal limits. TSH within normal limits. Sodium corrected too quickly and fluids were discontinued, will continue to monitor BMP. 3) HTN Currently 129/58, stable. Continue lisinopril, as needed hydralazine ordered, continue to trend BPs. 4) DM2 Continue home diabetic regimen, Accu-Cheks with sliding scale insulin ordered. DVT prophylaxis - Lovenox Patient seen by Jake Schuster PA-C, under the supervision of Dr. To. Documented by User: Dr. Devonte To MD 07/03/21 14:43 Objective Data Lab / Micro Data Result Diagrams: 07/03/21 06:05 07/03/21 06:05 Assessment & Plan Addt'l Comments This patient was seen in conjunction with Jake Schuster PA-C. I have independently interviewed and examined the patient and reviewed pertinent historical, laboratory, and other data. Please refer to Jake Schuster PA-C's note for details of this patient's presentation, findings, and recommendations. I have reviewed Jake Schuster PA-C's note and concur with documented findings. In brief, patient is an 81-year-old lady admitted with fever. She was found to have acute cystitis. She was also found to have acute hyponatremia. Admitted to regular nursing floor where patient was managed Plan also patient have been discharged back to her ECF however she did experience a fall resulting in her discharge being discontinued Plan; as documented above Charges/Coding Visit Charges Inpatient E&M: 55220 Subs Hosp L3
--- NOTE | 2021-07-03 14:54 | NURSING ---
This RN reviewed all SN charting
[2021-07-03] MEDS: Senna/Docusate Sodium 1 Tablet 2 TABLET PO (15:09)
--- NOTE | 2021-07-03 15:21 | CHAPLAIN ---
Type of Pastoral Visit _x__ Initial Visit ___ Follow-up Visit ___ On-call Visit ___ General Patient Visit ___ Spiritual Assessment ___ Family Conference ___ Bereavement ___ Rapid Response ___ Code Blue ___ Other (describe below) Pastoral Care Referral From _x__ Patient ___ Family ___ Nurse ___ Physician ___ Superintendent Police ___ Sanitation Officer ___ Other (describe below) Sacrament/Intervention _x__ Active listening ___ Anointing ___ Protestant ___ Bereavement ___ Communion ___ Nallely exploration ___ ___ Life review _x__ Prayer ___ Reconciliation ___ Sacrament of Sick _x__ Supportive presence ___ Wedding ___ Other (describe below) Pastoral Comments patient calmly resting in bed and stated that she is expecting to be discharged today but not sure when;
--- NOTE | 2021-07-03 15:29 | CASEMGMT ---
WAI spoke with Enma from [facility]. The clinical team said they can take patient back. They are a little apprehensive as patient is from their assisted living and there is not a lot of staff. WAI then was informed patient slid to the floor. SW called Enma back and let her know. They are not comfortable taking patient in their [place]. They are not in network with her insurance for the shelter. SW spoke with patient. WAI explained above. SW provided patient with a list of SNF providers including quality and resource use data and consistent with the patient?s preferred geographic region, medical needs, and insurance network. Patient called her sister and put SW on the phone with her. WAI explained that [facility] is not comfortable taking patient in [place] due to her recent fall. Patient and her sister agreed on a referral to [facility]. SW called [facility] with referral and also faxed information. Await their response. Yolanda Harp COLOR MAKER FORMULATOR VALENTÍN
--- NOTE | 2021-07-03 15:50 | CASEMGMT ---
WAI received call from Robina with [facility] and they are able to accept patient. Robina will start the pre-cert. Yolanda LAURA
[2021-07-03 16:20] LABS: Bedside Glucose 186 mg/dL (70-110)
[2021-07-03] MEDS: Atorvastatin Calcium 20 MG Tablet PO (21:25)
[2021-07-03] MEDS: 0.9% Saline Lock 10 ML Syringe IV (21:26)
[2021-07-03] MEDS: MELATONIN 3 MG TABLET PO (21:26)
[2021-07-03 22:46] LABS: Bedside Glucose 175 mg/dL (70-110)
[2021-07-04] VITALS (13 sets, daily range): BP systolic 116–150; BP diastolic 57–79; PULSE 79–103; RESP 18; TEMP 36.3–36.8; O2SAT 97–100
[2021-07-04] MEDS: Senna/Docusate Sodium 1 Tablet 2 TABLET PO (05:46)
[2021-07-04 06:08] LABS: Absolute Lymphocyte Count 1.02 X10^3/uL (0.83-4.51); Absolute Neutrophil Count 7.8 X10^3/uL (2.0-7.7); Basophil# 0.02 X10^3/uL; Basophil% 0.2 % (0-1); Eosinophil# 0.22 X10^3/uL; Eosinophils% 2.2 % (0-5); Hematocrit 36.8 % (37-47); Hemoglobin 12.4 g/dL (12.0-15.0); Lymphocyte # 1.02 X10^3/ul (0.83-4.51); Mean Corp Hgb Conc 33.7 g/dL (32-36); Mean Corpuscular Hgb 28.2 pg (27.0-32.0); Mean Corpuscular Volume 83.8 fL (81-99); Mean Platelet Vol. 10.4 fl (6.2-12.0); Monocyte% 10.8 % (0-10); NRBC Flagged by Analyzer 0 % (0-5); Neutrophil # 7.75 X10^3/uL (2.7-7.7); Neutrophil % 76.3 % (47-70); Platelet Count 339 K/mm3 (150-450); RBC Distribution Width CV 13.2 % (11.6-14.6); RBC Distribution Width SD 41.3 fl (35.1-43.9); Red Blood Count 4.39 M/mm3 (4.2-5.4); White Blood Count 10.2 K/mm3 (4.4-11.0)
[2021-07-04] MEDS: Insulin Lispro 100 UNIT/ML INSULN.PEN SC ×4 (06:27→21:15)
[2021-07-04 06:46] LABS: Bedside Glucose 168 mg/dL (70-110)
[2021-07-04] MEDS: amLODIPine 10 MG Tablet PO (07:42)
[2021-07-04] MEDS: Lisinopril 20 MG Tablet PO (07:42)
[2021-07-04] MEDS: Mirabegron 50 MG TAB.ER.24H PO (07:42)
[2021-07-04] MEDS: Enoxaparin 40 MG/0.4 ML Syringe SC (07:43)
[2021-07-04] MEDS: LINAGLIPTIN 5 MG TABLET PO (07:43)
[2021-07-04] MEDS: Multivitamin (Healthy Eyes) Capsule 1 CAP PO ×2 (07:43→21:06)
[2021-07-04] MEDS: DULoxetine Hcl 60 MG Capsule PO (07:43)
[2021-07-04] MEDS: levoFLOXacin IV 500 MG/100 ML BAG 100 MG IV (07:49)
--- NOTE | 2021-07-04 09:46 | CASEMGMT ---
WAI received a call from patient's sister, Yolanda. Yolanda said, I want to know what is going on. WAI explained to Yolanda that patient needs insurance to authorize [facility] before patient can go. WAI told Yolanda sometimes this can take a day or two. WAI will let Yolanda know as soon as WAI hears something. Plan: d/c to [facility] pending pre-cert. Yolanda Harp PLATE CUTTER VALENTÍN
[2021-07-04 09:55] LABS: Anion Gap 9 (5-15); BUN 12 mg/dL (7-18); BUN/Creat Ratio 16.6 RATIO (10-20); Calcium,Total 8.6 mg/dL (8.5-10.1); Chloride 102 mmol/L (98-107); Creatinine, Serum 0.72 mg/dL (0.55-1.02); EST Glomerular Filtration Rate 82 mL/min (>60); Est Glom Filt Rate - Afr Amer 99 mL/min (>60); Estimated Creatinine Clearance 42.18 ml/min; Glucose 150 mg/dL (74-106); Magnesium 2.2 mg/dL (1.6-2.6); Sodium Level 132 mmol/L (136-145)
[2021-07-04 12:10] LABS: Bedside Glucose 274 mg/dL (70-110)
--- NOTE | 2021-07-04 14:38 | PCM.PN.HOSP ---
Documented by User: Jake COLMENARES 07/04/21 14:45 Subjective Subjective Patient is an 81-year-old female comfortably resting in bed, alert and orient x3. Patient denies development of any new symptoms overnight or pain from slip out of chair yesterday. Does not appear in acute distress. Objective Data Objective Data Vital Signs: Vital Signs Temp Pulse Resp BP Pulse Ox 98.0 F 79 18 128/63 H 100 07/04/21 11:40 07/04/21 11:40 07/04/21 11:40 07/04/21 11:40 07/04/21 11:40 Oxygen Delivery Method Room Air Weight: 152 lb 1.903 oz Body Mass Index (BMI) 23.8 Intake & Output: Intake and Output for Last 24 Hours 07/02/21 07/03/21 07/04/21 23:59 23:59 23:59 Intake Total 1818.75 / 1818.75 680 / 680 340 / 340 Output Total 775 / 975 1250 / 1250 900 / 900 Balance 1043.75 / 843.75 -570 / -570 -560 / -560 Lab / Micro Data Result Diagrams: 07/04/21 05:38 07/04/21 06:00 Labs: Laboratory Results - last 24 hr 07/03/21 15:59: POC Glucose 186 H 07/03/21 21:23: POC Glucose 175 H 07/04/21 05:38: WBC 10.2, RBC 4.39, Hgb 12.4, Hct 36.8 L, MCV 83.8, MCH 28.2, MCHC 33.7, RDW Std Deviation 41.3, RDW Coeff of Lata 13.2, Plt Count 339, MPV 10.4, Immature Gran % (Auto) 0.500, Neut % (Auto) 76.3 H, Lymph % (Auto) 10.0 L, [place] % (Auto) 10.8 H, Eos % (Auto) 2.2, Baso % (Auto) 0.2, Absolute Neuts (auto) 7.8 H, Absolute Lymphs (auto) 1.02, Nucleated RBC % 0 07/04/21 06:00: Sodium 132 L, Potassium 4.0, Chloride 102, Carbon Dioxide 21.0, Anion Gap 9, BUN 12, Creatinine 0.72, Estim Creat Clear Calc 42.18, Est GFR (MDRD) Af Amer 99, Est GFR (MDRD) Non-Af 82, BUN/Creatinine Ratio 16.6, Glucose 150 H, Calcium 8.6, Magnesium 2.2 07/04/21 06:26: POC Glucose 168 H 07/04/21 11:48: POC Glucose 274 H Micro: Microbiology 07/01/21 18:20 Urine Catheter - Desai Urine Culture - Final Pseudomonas aeroginosa 07/01/21 18:00 Blood Culture (Wb) - Left Forearm Blood Culture - Preliminary No growth in 48 hours. 07/01/21 18:03 Blood Culture (Wb) - Right Hand Blood Culture - Preliminary No growth in 48 hours. 07/01/21 18:30 Nasal Secretion SARS-CoV-2 Antigen (Rapid) - Final Physical Exam Const alert, oriented x3 and no apparent distress HEENT head/scalp atraumatic and moist oral mucous membranes Head and Scalp: normocephalic Eyes PERRL, EOMs intact bilaterally and conjunctivae normal Neck no lymphadenopathy, supple and no JVD Resp normal respiratory effort, no retractions, no use of accessory muscles and clear to auscultation bilaterally Cardio regular rate, regular rhythm, no murmurs and no JVD GI normal to inspection, nondistended, normoactive bowel sounds, soft to palpation and non-tender Extremity normal to inspection, full ROM and no clubbing, cyanosis or edema Peripheral Pulses: Yes pulses 2+ throughout Skin no rashes or lesions noted, no wounds, skin turgor normal and no jaundice Neuro CN's II-XII intact bilaterally Psych affect normal Assessment & Plan Assessment/Plan (1) Hyponatremia: (2) Acute UTI: (3) Generalized weakness: PLAN: Day 3 Discharge planning: Discharge to the [facility] pending pre-CERT. initial plan was for patient to discharge today 07/03, however patient slipped out of her chair onto the floor. Assisted living denied to except patient back into the facility given her instability. 1) acute cystitis Patient reports objective improvement in dysuria from admission. Vital signs are stable and patient is currently afebrile. White count has resolved from admission, currently 10,000. Urine culture grew Pseudomonas, with susceptibility to levofloxacin. Blood cultures demonstrate no growth. Rapid Covid negative. Plan; remain admitted until can be placed, continue levofloxacin (day 3/5). Continue to trend CBC and BMP. 2) hyponatremia Urine sodium is currently 132, was 122 on admission. Urine and serum osmolalities within normal limits. TSH within normal limits. Sodium corrected too quickly and fluids were discontinued, will continue to monitor BMP. 3) HTN Currently 129/58, stable. Continue lisinopril, as needed hydralazine ordered, continue to trend BPs. 4) DM2 Continue home diabetic regimen, Accu-Cheks with sliding scale insulin ordered. DVT prophylaxis - Lovenox Patient seen by Jake Schuster PA-C, under the supervision of Dr. To. Documented by User: Dr. Devonte To MD 07/04/21 15:15 Objective Data Lab / Micro Data Result Diagrams: 07/04/21 05:38 07/04/21 06:00 Assessment & Plan Addt'l Comments This patient was seen in conjunction with Jake Schuster PA-C. I have independently interviewed and examined the patient and reviewed pertinent historical, laboratory, and other data. Please refer to Jake Schuster PA-C's note for details of this patient's presentation, findings, and recommendations. I have reviewed Jake Schuster PA-C's note and concur with documented findings. In brief, patient is an 81-year-old lady admitted with fever. She was found to have acute cystitis. She was also found to have acute hyponatremia. Admitted to regular nursing floor where patient was managed Plan also patient have been discharged back to her ECF however she did experience a fall resulting in her discharge being discontinued 07/04/2021; awaiting insurance precertification plan prior to patient being transferred to alf facility Plan; as documented above Charges/Coding Visit Charges Inpatient E&M: 95877 Subs Hosp L2
--- NOTE | 2021-07-04 16:26 | CASEMGMT ---
SW called patient's sister, Yolanda and left her a message letting her know SW has not heard from insurance yet. WAI let Yolanda know that patient will stay in the hospital again tonight waiting on the authorization. SW also let patient know this information. Yolanda Harp BRIDGE GAME DIRECTOR VALENTÍN
[2021-07-04 17:40] LABS: Bedside Glucose 264 mg/dL (70-110)
[2021-07-04] MEDS: Atorvastatin Calcium 20 MG Tablet PO (21:05)
[2021-07-04] MEDS: MELATONIN 3 MG TABLET PO (21:05)
[2021-07-04] MEDS: Acetaminophen 325 MG Tablet 650 MG PO (21:05)
[2021-07-04 22:25] LABS: Bedside Glucose 333 mg/dL (70-110)
[2021-07-05] VITALS (8 sets, daily range): BP systolic 145–155; BP diastolic 56–69; PULSE 88–102; RESP 15–20; TEMP 36.5–36.8; O2SAT 97–98
[2021-07-05 06:50] LABS: Bedside Glucose 134 mg/dL (70-110)
[2021-07-05] MEDS: levoFLOXacin IV 500 MG/100 ML BAG 100 MG IV (10:32)
[2021-07-05] MEDS: DULoxetine Hcl 60 MG Capsule PO (10:33)
[2021-07-05] MEDS: Multivitamin (Healthy Eyes) Capsule 1 CAP PO ×2 (10:33→21:14)
[2021-07-05] MEDS: amLODIPine 10 MG Tablet PO (10:34)
[2021-07-05] MEDS: Lisinopril 20 MG Tablet PO (10:34)
[2021-07-05] MEDS: LINAGLIPTIN 5 MG TABLET PO (10:34)
[2021-07-05] MEDS: Enoxaparin 40 MG/0.4 ML Syringe SC (10:34)
[2021-07-05] MEDS: Mirabegron 50 MG TAB.ER.24H PO (10:34)
--- NOTE | 2021-07-05 11:30 | PCM.TXEXTCAR ---
Diet 07/01/21 23:38 Diet: Cardiac: Calorie-Controlled Food consistency:: Regular Liquid Consistency:: Regular/Thin Dietary Modifications:: Consistent Carbohydrate Type of Dietary Supplement:: Glucerna Shake Diet Comments: 120ml glucerna shake TID w/ meals How many daily calories?: 1800 calorie Therapies Physical Therapy: Eval and Treat Occupational Therapy: Eval and Treat Problem/Diagnosis (1) Hyponatremia: Status: Acute (2) Acute UTI: Status: Acute (3) Generalized weakness: Status: Acute Allergies/Procedures Done in Hospital Allergies codeine Allergy (Verified 07/01/21 18:35) Other morphine Allergy (Verified 07/01/21 18:35) Vomiting tramadol Allergy (Verified 07/01/21 18:35) Other Type of Care/Length of Stay Estimated LOS: More Than 30 Days Type of Care Needed: Skilled Rehab Potential: Fair Prognosis: Fair Additional Orders/Day of Discharge Day of Discharge: 07/03/21 Dietary and Speech Recommendations Dietitian Recommendations/Changes: Will continue 1800 samaria/cardiac diet as ordered. Will add 120ml glucerna shake TID w/ meals. Follow Up Care Please Follow Up With: Primary care provider Discharge Plan Admission Admit Date/Time: 07/01/21 20:49 Primary Reason for Your Visit: Urinatry tract infection Attending Provider: Devonte To Primary Care Provider: Jake Waddell Discharge Orders/Prescriptions Prescriptions: New levofloxacin 500 mg tablet 500 mg PO DAILY Qty: 3 RF: 0 Continued atorvastatin 20 MG tablet 20 mg PO QHS RF: 0 Myrbetriq 50 MG tablet extended release 24 hr 50 mg PO DAILY RF: 0 duloxetine 30 MG capsule,delayed release(DR/EC) 60 mg PO DAILY RF: 0 PreserVision AREDS 1 EACH capsule 1 ea PO BID RF: 0 Tradjenta 5 MG tablet 5 mg PO DAILY RF: 0 acetaminophen 650 MG tablet extended release 650 mg PO QHS RF: 0 insulin detemir U-100 100 UNITS/ML insulin pen 24 units subcut BID RF: 0 sennosides-docusate sodium 1 EACH tablet 2 ea PO DAILY PRN (Reason: Constipation) RF: 0 glucagon (human recombinant) 1 MG recon soln 1 mg IJ X1 PRN (Reason: hypoglycemic episode) RF: 0 metformin 500 mg Tablet 500 mg PO BID RF: 0 lisinopril 20 mg Tablet 20 mg PO DAILY RF: 0 amlodipine 10 mg Tablet 10 mg PO DAILY RF: 0 melatonin 3 mg Capsule 3 mg PO QHS RF: 0 Referrals / Follow Up: Jake Waddell MD [Primary Care Provider] - Within 2 Weeks Disposition Disposition (needs filled in before D/C Order can be placed): Home, Self Care
[2021-07-05] MEDS: Insulin Lispro 100 UNIT/ML INSULN.PEN SC ×2 (11:33→21:14)
[2021-07-05 11:56] LABS: Bedside Glucose 317 mg/dL (70-110)
--- NOTE | 2021-07-05 13:33 | CASEMGMT ---
WAI received a call this am from [facility] and patient was approved. SW notified physician and patient will be discharged today. WAI faxed the orders to [facility]. WAI called [facility] to arrange transportation. SW will receive a call once transport has been arranged. [place] #[place] [id number]. DEDRA Joseph called patient's sister and let her know patient was approved and will go today. Once SW has a brick picker time WAI will notify patient and her sister. WAI completed a convalescent on . Await return call from [facility] or [facility]. Yolanda Harp RETAIL SPECIALIST VALENTÍN
--- NOTE | 2021-07-05 14:07 | CASEMGMT ---
WAI called [facility] to check on the status of transport arrangements. WAI was told it has not been arranged yet. Yolanda Harp FONDANT PUFF MAKER CUSTOMER INSIGHT ANALYST
--- NOTE | 2021-07-05 14:11 | DS.PCM_ITS ---
Documented by User: Jake COLMENARES 07/05/21 14:15 Providers Date of Admission: 07/01/21 Primary Care Physician: Dr. Jake Waddell MD Reason For Visit: PNEUMONIA, HYPONATREMIA Diagnosis Discharge Diagnosis (1) Hyponatremia: Status: Acute Code(s): E87.1 - Hypo-osmolality and hyponatremia (2) Acute UTI: Status: Acute Code(s): N39.0 - Urinary tract infection, site not specified (3) Generalized weakness: Status: Acute Code(s): R53.1 - Weakness Medications at Discharge Home Medications atorvastatin 20 mg PO QHS 03/07/15 Myrbetriq 50 mg PO DAILY 02/16/17 duloxetine 60 mg PO DAILY 04/29/17 PreserVision AREDS 1 ea PO BID 07/27/18 Tradjenta 5 mg PO DAILY 07/27/18 acetaminophen 650 mg PO QHS 05/15/19 glucagon (human recombinant) 1 mg IJ X1 PRN 05/15/19 insulin detemir U-100 24 units SUBCUT BID 05/15/19 sennosides-docusate sodium 2 ea PO DAILY PRN 05/15/19 amlodipine 10 mg PO DAILY 07/01/21 lisinopril 20 mg PO DAILY 07/01/21 melatonin 3 mg PO QHS 07/01/21 metformin 500 mg PO BID 07/01/21 levofloxacin 500 mg PO DAILY #3 tab 07/05/21 Hospital Course Summary of Care Provided Minutes Spent on Discharge: 35 Hospital Course: Disposition: Patient to discharge to [facility]. 1) acute cystitis Patient reports objective improvement in dysuria from admission. Vital signs are stable and patient is currently afebrile. White count has resolved from admission, currently 10,000. Urine culture grew Pseudomonas, with susceptibility to levofloxacin. Blood cultures demonstrate no growth. Rapid Covid negative. Continue levofloxacin for another 4 days on discharge to complete a 7-day course. Patient is to follow-up with primary care provider within the next 2 weeks. 2) hyponatremia Stable, currently 132. Urine and serum osmolalities within normal limits. TSH within normal limits. Sodium corrected too quickly and fluids were discontinued. 3) HTN Continue home BP regimen. 4) DM2 Continue home diabetic regimen. Patient seen by Jake Schuster PA-C, under the supervision of Dr. Kittoe. Physical Exam Narrative Patient is an 81-year-old female comfortably resting in bed, alert and orient x3. Patient reports improvement in her dysuria from admission, denies development of any new symptoms overnight. Does not appear in acute distress. Const alert, oriented x3 and no apparent distress HEENT normocephalic, head/scalp atraumatic and hearing grossly normal bilaterally Eyes PERRL, EOMs intact bilaterally and conjunctivae normal Neck no lymphadenopathy, supple and no JVD Resp normal respiratory effort, no retractions, no use of accessory muscles and clear to auscultation bilaterally Cardio regular rate, regular rhythm, no murmurs and no JVD GI normal to inspection, nondistended, normoactive bowel sounds, soft to palpation and non-tender Extremity normal to inspection, full ROM and no clubbing, cyanosis or edema Skin no rashes or lesions noted, no wounds and skin turgor normal Neuro CN's II-XII intact bilaterally Psych affect normal Weight / BMI Weight Weight: 152 lb 1.903 oz Body Mass Index (BMI) 23.8 ABG / Lab / Microbiology Data Result Diagrams: 07/04/21 05:38 07/04/21 06:00 Laboratory: Laboratory Results - last 24 hr 07/04/21 17:16: POC Glucose 264 H 07/04/21 21:14: POC Glucose 333 H 07/05/21 06:29: POC Glucose 134 H 07/05/21 11:32: POC Glucose 317 H Microbiology: Microbiology 07/01/21 18:20 Urine Catheter - Desai Urine Culture - Final Pseudomonas aeroginosa 07/01/21 18:00 Blood Culture (Wb) - Left Forearm Blood Culture - Preliminary No growth in 48 hours. 07/01/21 18:03 Blood Culture (Wb) - Right Hand Blood Culture - Preliminary No growth in 48 hours. 07/01/21 18:30 Nasal Secretion SARS-CoV-2 Antigen (Rapid) - Final D/C Instructions Discharge Diet: No restrictions Weight Bearing Status: Weight bearing as tolerated Call your doctor if you observe: Fever of 101 or Higher, Numbness or Tingling, Shortness of breath, Dizziness, Chest pain, Increased palpitations (irregular heartbeat) and Calf discomfort Please Follow Up With: Primary care provider When: Within the next two weeks. Meaningful Use Info Meaningful Use Diagnoses (Choose all that apply): None applicable Discharge Plan Admission Admit Date/Time: 07/01/21 20:49 Primary Reason for Your Visit: Urinatry tract infection Attending Provider: Devonte To Primary Care Provider: Jake Waddell Discharge Orders/Prescriptions Prescriptions: New levofloxacin 500 mg tablet 500 mg PO DAILY Qty: 3 RF: 0 Continued atorvastatin 20 MG tablet 20 mg PO QHS RF: 0 Myrbetriq 50 MG tablet extended release 24 hr 50 mg PO DAILY RF: 0 duloxetine 30 MG capsule,delayed release(DR/EC) 60 mg PO DAILY RF: 0 PreserVision AREDS 1 EACH capsule 1 ea PO BID RF: 0 Tradjenta 5 MG tablet 5 mg PO DAILY RF: 0 acetaminophen 650 MG tablet extended release 650 mg PO QHS RF: 0 insulin detemir U-100 100 UNITS/ML insulin pen 24 units subcut BID RF: 0 sennosides-docusate sodium 1 EACH tablet 2 ea PO DAILY PRN (Reason: Constipation) RF: 0 glucagon (human recombinant) 1 MG recon soln 1 mg IJ X1 PRN (Reason: hypoglycemic episode) RF: 0 metformin 500 mg Tablet 500 mg PO BID RF: 0 lisinopril 20 mg Tablet 20 mg PO DAILY RF: 0 amlodipine 10 mg Tablet 10 mg PO DAILY RF: 0 melatonin 3 mg Capsule 3 mg PO QHS RF: 0 Referrals / Follow Up: Jake Waddell MD [Primary Care Provider] - Within 2 Weeks Disposition Disposition (needs filled in before D/C Order can be placed): Home, Self Care Documented by User: Dr. Devonte To MD 07/05/21 14:26 Providers Date of Admission: 07/01/21 Reason For Visit: PNEUMONIA, HYPONATREMIA Medications at Discharge Home Medications atorvastatin 20 mg PO QHS 03/07/15 Myrbetriq 50 mg PO DAILY 02/16/17 duloxetine 60 mg PO DAILY 04/29/17 PreserVision AREDS 1 ea PO BID 07/27/18 Tradjenta 5 mg PO DAILY 07/27/18 acetaminophen 650 mg PO QHS 05/15/19 glucagon (human recombinant) 1 mg IJ X1 PRN 05/15/19 insulin detemir U-100 24 units SUBCUT BID 05/15/19 sennosides-docusate sodium 2 ea PO DAILY PRN 05/15/19 amlodipine 10 mg PO DAILY 07/01/21 lisinopril 20 mg PO DAILY 07/01/21 melatonin 3 mg PO QHS 07/01/21 metformin 500 mg PO BID 07/01/21 levofloxacin 500 mg PO DAILY #3 tab 07/05/21 Hospital Course Operations None Summary of Care Provided Minutes Spent on Discharge: 35 Hospital Course: This patient was seen in conjunction with Jake Schuster PA-C. I have independently interviewed and examined the patient and reviewed pertinent historical, laboratory, and other data. Please refer to Jake Schuster PA-C's note for details of this patient's presentation, findings, and recommendations. I have reviewed Jake Schuster PA-C's note and concur with documented findi ngs. In brief, patient is an 81-year-old lady admitted with fever. She was found to have acute cystitis. She was also found to have acute hyponatremia. Admitted to regular nursing floor where patient was managed Plan; as documented above ABG / Lab / Microbiology Data Result Diagrams: 07/04/21 05:38 07/04/21 06:00 Discharge Plan Admission Admit Date/Time: 07/01/21 20:49 Primary Reason for Your Visit: Urinatry tract infection Attending Provider: Devonte To Primary Care Provider: Jake Waddell Discharge Orders/Prescriptions Prescriptions: New levofloxacin 500 mg tablet 500 mg PO DAILY Qty: 3 RF: 0 Continued atorvastatin 20 MG tablet 20 mg PO QHS RF: 0 Myrbetriq 50 MG tablet extended release 24 hr 50 mg PO DAILY RF: 0 duloxetine 30 MG capsule,delayed release(DR/EC) 60 mg PO DAILY RF: 0 PreserVision AREDS 1 EACH capsule 1 ea PO BID RF: 0 Tradjenta 5 MG tablet 5 mg PO DAILY RF: 0 acetaminophen 650 MG tablet extended release 650 mg PO QHS RF: 0 insulin detemir U-100 100 UNITS/ML insulin pen 24 units subcut BID RF: 0 sennosides-docusate sodium 1 EACH tablet 2 ea PO DAILY PRN (Reason: Constipation) RF: 0 glucagon (human recombinant) 1 MG recon soln 1 mg IJ X1 PRN (Reason: hypoglycemic episode) RF: 0 metformin 500 mg Tablet 500 mg PO BID RF: 0 lisinopril 20 mg Tablet 20 mg PO DAILY RF: 0 amlodipine 10 mg Tablet 10 mg PO DAILY RF: 0 melatonin 3 mg Capsule 3 mg PO QHS RF: 0 Referrals / Follow Up: Jake Waddell MD [Primary Care Provider] - Within 2 Weeks Disposition Disposition (needs filled in before D/C Order can be placed): Home, Self Care Charges/Coding Visit Charges Inpatient E&M: 26369 Disch Hosp Hospital Course Operations None
--- NOTE | 2021-07-05 15:23 | CASEMGMT ---
WAI called [facility] to check on the status of transport. WAI was told there is nothing set up yet. WAI told medical detail representative that was told [facility] has 3 hours to set up transport and it has been 3 hours. WAI was told again nothing is set up. Await transport arrangements to be made by [facility]. Yolanda Harp RADIOLOGIC TECHNOLOGIST MAMMOGRAM VALENTÍN
--- NOTE | 2021-07-05 15:50 | CASEMGMT ---
[facility] called [facility]. WAI was still told nothing has been set up yet. WAI asked to speak with a paper mill supervisor because it has been almost 4 hours since the transport was requested. WAI was on hold for awhile and then WAI was told a paper mill supervisor will call WAI back. Yolanda LAURA
--- NOTE | 2021-07-05 16:36 | CASEMGMT ---
No transportation has been set up yet for patient. No supervisors from [facility] have called SW back yet. SW called patient's sister and explained the situation. She said she would not be able to take patient. SW then let patient know the situation as well. Yolanda Harp FLY TIER VALENTÍN
--- NOTE | 2021-07-05 16:42 | CASEMGMT ---
WAI received a phone call from Milton at [facility]. Milton was informed by her leadership that patient's insurance does not allow a wheelchair to be provided if patient can walk. 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 WAI is not comfortable sending patient to [facility] via cab. Patient is elderly and gets anxious easily which is evidenced by her crying. After more discussion it was decided a cot through [facility] be arranged. Await cot transport to be arranged. Yolanda Harp GREASE MAKER HEAD VALENTÍN
--- NOTE | 2021-07-05 17:01 | CASEMGMT ---
Cot transportation was set up by [facility] for 930p. SW notified charge account clerk, Robina at [facility], and RN. Plan: d/c to [facility] under skilled level of care. [facility] transported via cot. Yolanda LAURA
[2021-07-05 17:15] LABS: Bedside Glucose 135 mg/dL (70-110)
[2021-07-05] MEDS: Atorvastatin Calcium 20 MG Tablet PO (21:14)
[2021-07-05] MEDS: MELATONIN 3 MG TABLET PO (21:14)
[2021-07-05] MEDS: Acetaminophen 325 MG Tablet 650 MG PO (21:14)
[2021-07-05 21:16] LABS: Bedside Glucose 279 mg/dL (70-110)
--- NOTE | 2021-07-05 23:44 | NURSING ---
Called [facility], gave report to nurse Quarles around 2155. Pt left with a bag of personal belongings.
== END 2021-07-05 23:30 | disposition skilled nursing facility (03) | DRG 690 ==
LOC: ED 20:38 → PCU 22:21
PROVIDERS: Internal Medicine; Physician Assistant; Admitting Provider Hospitalist; Emergency Provider Emergency Medicine; PCP Family Medicine; Visit Provider Internal Medicine
DX: N30.00 Acute cystitis without hematuria (principal); E87.1 Hypo-osmolality and hyponatremia; B96.5 Pseudomonas (aeruginosa) (mallei) (pseudomallei) as the cause of diseases classified elsewhere; I10 Essential (primary) hypertension; E11.65 Type 2 diabetes mellitus with hyperglycemia; N32.81 Overactive bladder; E87.6 Hypokalemia; E78.5 Hyperlipidemia, unspecified; R26.89 Other abnormalities of gait and mobility; R26.2 Difficulty in walking, not elsewhere classified; Z79.4 Long term (current) use of insulin; Z79.84 Long term (current) use of oral hypoglycemic drugs; Z79.899 Other long term (current) drug therapy
CPT/HCPCS: 36415; 51702; 71045; 80048; 80053; 81001; 81002; 82533; 82962; 83605; 83735; 83930; 83935; 84300; 84443; 84550; 85025; 85610; 85730; 87040; 87077; 87086; 87088; 87184; 87186; 87426; 93005; 97162; 97165; 97530; 97535; 99285; J7030; A4216; J2405

== ENCOUNTER → 2021-08-16 | Outpatient (REF) | payer MEDICARE, MEDICAID, SELFPAY ==
[2021-08-16 08:17] LABS: Hemoglobin 13.9 g/dL (12.0-15.0); Mean Corp Hgb Conc 32.3 g/dL (32-36); Mean Corpuscular Hgb 28.5 pg (27.0-32.0); Mean Corpuscular Volume 88.1 fL (81-99); Mean Platelet Vol. 11.2 fl (6.2-12.0); Platelet Count 357 K/mm3 (150-450); RBC Distribution Width CV 13.9 % (11.6-14.6); RBC Distribution Width SD 44.9 fl (35.1-43.9); Red Blood Count 4.88 M/mm3 (4.2-5.4); White Blood Count 11.7 K/mm3 (4.4-11.0)
[2021-08-16 08:38] LABS: Hemoglobin A1c 8.1 % (3.8-5.6)
[2021-08-16 08:42] LABS: Anion Gap 9 (5-15); BUN 14 mg/dL (7-18); BUN/Creat Ratio 18.4 RATIO (10-20); Calcium,Total 9.4 mg/dL (8.5-10.1); Chloride 103 mmol/L (98-107); Cholesterol 124 mg/dL (200); Creatinine, Serum 0.76 mg/dL (0.55-1.02); EST Glomerular Filtration Rate 78 mL/min (>60); Est Glom Filt Rate - Afr Amer 94 mL/min (>60); Glucose 143 mg/dL (74-106); High Density Lipoprotein 46 mg/dL; Potassium 4.1 mmol/L (3.5-5.1); Sodium Level 137 mmol/L (136-145); Triglycerides 124 mg/dL; Very Low Density Lipoprotein 25 mg/dL (5-40)
== END | disposition home or self-care (01) ==
LOC: OLS.WCC 04:00
PROVIDERS: PCP Family Medicine; Visit Provider Family Medicine
DX: E11.9 Type 2 diabetes mellitus without complications (principal); I10 Essential (primary) hypertension; E78.5 Hyperlipidemia, unspecified
CPT/HCPCS: 36415; 80048; 80061; 83036; 85027

== ENCOUNTER → 2021-09-20 | Outpatient (REF) | payer MEDICARE, MEDICAID, SELFPAY ==
[2021-09-20 11:37] LABS: Hematocrit 39.2 % (37-47); Hemoglobin 12.6 g/dL (12.0-15.0); Mean Corp Hgb Conc 32.1 g/dL (32-36); Mean Corpuscular Hgb 27.5 pg (27.0-32.0); Mean Corpuscular Volume 85.4 fL (81-99); Mean Platelet Vol. 11.1 fl (6.2-12.0); Platelet Count 370 K/mm3 (150-450); RBC Distribution Width CV 13.8 % (11.6-14.6); Red Blood Count 4.59 M/mm3 (4.2-5.4); White Blood Count 11.4 K/mm3 (4.4-11.0)
[2021-09-20 12:03] LABS: Anion Gap 10 (5-15); BUN 17 mg/dL (7-18); BUN/Creat Ratio 15.5 RATIO (10-20); Chloride 98 mmol/L (98-107); EST Glomerular Filtration Rate 51 mL/min (>60); Est Glom Filt Rate - Afr Amer 61 mL/min (>60); Glucose 287 mg/dL (74-106); Potassium 4.4 mmol/L (3.5-5.1); Sodium Level 132 mmol/L (136-145)
== END | disposition home or self-care (01) ==
LOC: OLS.WCC 10:30
PROVIDERS: PCP Family Medicine; Visit Provider Family Medicine
DX: E11.9 Type 2 diabetes mellitus without complications (principal); I10 Essential (primary) hypertension; E78.5 Hyperlipidemia, unspecified; R33.9 Retention of urine, unspecified
CPT/HCPCS: 36415; 80048; 85027

== ENCOUNTER → 2021-09-25 | Outpatient (REF) | payer MEDICARE, MEDICAID, SELFPAY | END | disposition home or self-care (01) | LOC: OLS.WCC 15:56 | PROVIDERS: PCP Family Medicine; Visit Provider Family Medicine | DX: Z20.822 Contact with and (suspected) exposure to COVID-19 (principal) | CPT/HCPCS: 87635; U0003; U0005 ==

== ENCOUNTER 2021-09-26 08:06 | Outpatient (CLI) | payer MEDICAID, SELFPAY ==
--- NOTE | 2021-09-26 08:12 | BI_ITS ---
MAMMOGRAPHY - BILATERAL SCREENING REASON FOR EXAM: Female, 81 years old. Routine annual screening examination. PERTINENT HISTORY: Non-contributory. TECHNIQUE: Digital bilateral breast eulalia (3D mammographic acquisition) in the CC and MLO projections. 2-D mediolateral oblique (MLO) and craniocaudad (CC) views of both breasts were obtained. CAD: Full Field Digital Mammography with Computer Added Detection was performed. COMPARISON: Comparison is made with prior study dated 02/17/2019 and 01/22/2018. FINDINGS: Breast Composition: There are scattered areas of fibroglandular density. There are no dominant masses or suspicious calcifications. Stable scattered bilateral calcifications. No other significant abnormalities are identified. There has been no significant change since the prior study. BI/SCRN MAMM (CAD)W/EULALIA BILAT IMPRESSION: Stable bilateral screening mammogram. Yearly follow-up mammogram recommended. (A) ASSESSMENT CATEGORY: BIRADS Category 2: Benign. A letter regarding these results will be sent to the patient by the facility within 30 days. Approximately 10% of breast cancers are not detected by mammography. A normal mammogram should not delay biopsy of a clinically suspicious abnormality. [id number] Electronically Signed: Jose Barakat MD at 12:23 EST ,
== END 2021-09-26 23:59 | disposition short-term general hospital (02) ==
PROVIDERS: PCP Family Medicine; Visit Provider Family Medicine
DX: Z12.31 Encounter for screening mammogram for malignant neoplasm of breast (principal)
CPT/HCPCS: 77063; 77067

== ENCOUNTER → 2021-10-17 | Outpatient (REF) | payer MEDICARE, MEDICAID, SELFPAY ==
[2021-10-17 09:02] LABS: Hematocrit 39.6 % (37-47); Mean Corp Hgb Conc 32.8 g/dL (32-36); Mean Corpuscular Hgb 28.2 pg (27.0-32.0); Mean Corpuscular Volume 85.9 fL (81-99); Mean Platelet Vol. 10.9 fl (6.2-12.0); Platelet Count 359 K/mm3 (150-450); RBC Distribution Width SD 44.1 fl (35.1-43.9); Red Blood Count 4.61 M/mm3 (4.2-5.4); White Blood Count 9.9 K/mm3 (4.4-11.0)
[2021-10-17 09:24] LABS: Anion Gap 7 (5-15); BUN 18 mg/dL (7-18); BUN/Creat Ratio 21.4 RATIO (10-20); Calcium,Total 8.9 mg/dL (8.5-10.1); Chloride 104 mmol/L (98-107); Cholesterol 125 mg/dL (200); Creatinine, Serum 0.84 mg/dL (0.55-1.02); EST Glomerular Filtration Rate 69 mL/min (>60); Est Glom Filt Rate - Afr Amer 83 mL/min (>60); Glucose 156 mg/dL (74-106); High Density Lipoprotein 47 mg/dL; Potassium 4.4 mmol/L (3.5-5.1); Sodium Level 134 mmol/L (136-145); Triglycerides 130 mg/dL; Very Low Density Lipoprotein 26 mg/dL (5-40)
[2021-10-17 09:55] LABS: Hemoglobin A1c 8.2 % (3.8-5.6)
== END | disposition home or self-care (01) ==
LOC: OLS.WCC 05:00
PROVIDERS: PCP Family Medicine; Visit Provider Family Medicine
DX: E11.9 Type 2 diabetes mellitus without complications (principal); I10 Essential (primary) hypertension; E78.5 Hyperlipidemia, unspecified; Z79.899 Other long term (current) drug therapy
CPT/HCPCS: 36415; 80048; 80061; 83036; 85027

== ENCOUNTER → 2021-11-13 | Outpatient (REF) | payer MEDICARE, MEDICAID, SELFPAY ==
[2021-11-13 08:40] LABS: Hematocrit 40.3 % (37-47); Hemoglobin 13.2 g/dL (12.0-15.0); Mean Corp Hgb Conc 32.8 g/dL (32-36); Mean Corpuscular Hgb 27.9 pg (27.0-32.0); Mean Corpuscular Volume 85.2 fL (81-99); Mean Platelet Vol. 11.2 fl (6.2-12.0); Platelet Count 374 K/mm3 (150-450); RBC Distribution Width SD 43.7 fl (35.1-43.9); Red Blood Count 4.73 M/mm3 (4.2-5.4); White Blood Count 12.8 K/mm3 (4.4-11.0)
[2021-11-13 08:56] LABS: Anion Gap 8 (5-15); BUN 18 mg/dL (7-18); BUN/Creat Ratio 22.4 RATIO (10-20); Chloride 101 mmol/L (98-107); EST Glomerular Filtration Rate 73 mL/min (>60); Est Glom Filt Rate - Afr Amer 88 mL/min (>60); Glucose 83 mg/dL (74-106); Potassium 4.1 mmol/L (3.5-5.1); Sodium Level 134 mmol/L (136-145)
== END | disposition home or self-care (01) ==
LOC: OLS.WCC 05:00
PROVIDERS: PCP Family Medicine; Visit Provider Family Medicine
DX: E11.9 Type 2 diabetes mellitus without complications (principal); I10 Essential (primary) hypertension
CPT/HCPCS: 36415; 80048; 85027

== ENCOUNTER → 2021-12-14 | Outpatient (REF) | payer MEDICARE, MEDICAID, SELFPAY ==
[2021-12-14 08:18] LABS: Hematocrit 39.9 % (37-47); Hemoglobin 13.2 g/dL (12.0-15.0); Mean Corp Hgb Conc 33.1 g/dL (32-36); Mean Corpuscular Hgb 28.6 pg (27.0-32.0); Mean Corpuscular Volume 86.6 fL (81-99); Mean Platelet Vol. 11.2 fl (6.2-12.0); Platelet Count 368 K/mm3 (150-450); RBC Distribution Width SD 44.2 fl (35.1-43.9); Red Blood Count 4.61 M/mm3 (4.2-5.4); White Blood Count 10.8 K/mm3 (4.4-11.0)
[2021-12-14 08:25] LABS: Anion Gap 5 (5-15); BUN 20 mg/dL (7-18); BUN/Creat Ratio 23.1 RATIO (10-20); Chloride 103 mmol/L (98-107); Creatinine, Serum 0.87 mg/dL (0.55-1.02); EST Glomerular Filtration Rate 66 mL/min (>60); Est Glom Filt Rate - Afr Amer 80 mL/min (>60); Glucose 157 mg/dL (74-106); Potassium 4.2 mmol/L (3.5-5.1); Sodium Level 135 mmol/L (136-145)
== END | disposition home or self-care (01) ==
LOC: OLS.WCC 04:00
PROVIDERS: PCP Family Medicine; Referring Provider Family Medicine; Visit Provider Family Medicine
DX: I10 Essential (primary) hypertension (principal); E11.9 Type 2 diabetes mellitus without complications; E78.5 Hyperlipidemia, unspecified
CPT/HCPCS: 36415; 80048; 85027

== ENCOUNTER → 2022-01-15 | Outpatient (REF) | payer MEDICARE, MEDICAID, SELFPAY ==
[2022-01-15 09:08] LABS: Hematocrit 48.4 % (37-47); Hemoglobin 14.8 g/dL (12.0-15.0); Mean Corp Hgb Conc 30.6 g/dL (32-36); Mean Corpuscular Hgb 28.2 pg (27.0-32.0); Mean Corpuscular Volume 92.2 fL (81-99); Mean Platelet Vol. 10.3 fl (6.2-12.0); Platelet Count 348 K/mm3 (150-450); RBC Distribution Width CV 14.2 % (11.6-14.6); RBC Distribution Width SD 48.4 fl (35.1-43.9); Red Blood Count 5.25 M/mm3 (4.2-5.4); White Blood Count 10.4 K/mm3 (4.4-11.0)
[2022-01-15 09:26] LABS: Anion Gap 10 (5-15); BUN 19 mg/dL (7-18); BUN/Creat Ratio 23.9 RATIO (10-20); Calcium,Total 9.7 mg/dL (8.5-10.1); Chloride 102 mmol/L (98-107); EST Glomerular Filtration Rate 73 mL/min (>60); Est Glom Filt Rate - Afr Amer 89 mL/min (>60); Glucose 77 mg/dL (74-106); Potassium 4.3 mmol/L (3.5-5.1); Sodium Level 134 mmol/L (136-145)
== END | disposition home or self-care (01) ==
LOC: OLS.WCC 05:00
PROVIDERS: PCP Family Medicine; Visit Provider Family Medicine
DX: I10 Essential (primary) hypertension (principal); E11.9 Type 2 diabetes mellitus without complications; R53.83 Other fatigue; E78.5 Hyperlipidemia, unspecified
CPT/HCPCS: 36415; 80048; 85027

== ENCOUNTER → 2022-02-14 | Outpatient (REF) | payer MEDICARE, MEDICAID, SELFPAY ==
[2022-02-14 08:04] LABS: Hematocrit 40.4 % (37-47); Hemoglobin 13.3 g/dL (12.0-15.0); Mean Corp Hgb Conc 32.9 g/dL (32-36); Mean Corpuscular Hgb 28.6 pg (27.0-32.0); Mean Corpuscular Volume 86.9 fL (81-99); Mean Platelet Vol. 10.9 fl (6.2-12.0); Platelet Count 348 K/mm3 (150-450); RBC Distribution Width CV 14.3 % (11.6-14.6); RBC Distribution Width SD 45.5 fl (35.1-43.9); Red Blood Count 4.65 M/mm3 (4.2-5.4); White Blood Count 9.9 K/mm3 (4.4-11.0)
[2022-02-14 08:43] LABS: Vitamin B12 331 pg/mL (211-911)
[2022-02-14 10:12] LABS: Anion Gap 7 (5-15); BUN 20 mg/dL (7-18); BUN/Creat Ratio 25.1 RATIO (10-20); Calcium,Total 9.1 mg/dL (8.5-10.1); Chloride 104 mmol/L (98-107); EST Glomerular Filtration Rate 73 mL/min (>60); Est Glom Filt Rate - Afr Amer 89 mL/min (>60); Glucose 86 mg/dL (74-106); Sodium Level 137 mmol/L (136-145)
== END | disposition home or self-care (01) ==
LOC: OLS.WCC 04:00
PROVIDERS: PCP Family Medicine; Referring Provider Family Medicine; Visit Provider Family Medicine
DX: D64.9 Anemia, unspecified (principal); E11.9 Type 2 diabetes mellitus without complications; R53.83 Other fatigue; I10 Essential (primary) hypertension; E78.5 Hyperlipidemia, unspecified; Z79.899 Other long term (current) drug therapy
CPT/HCPCS: 36415; 80048; 82607; 82746; 85027

== ENCOUNTER → 2022-03-14 | Outpatient (REF) | payer MEDICARE, MEDICAID, SELFPAY ==
[2022-03-14 08:53] LABS: Hematocrit 40.3 % (37-47); Hemoglobin 13.1 g/dL (12.0-15.0); Mean Corp Hgb Conc 32.5 g/dL (32-36); Mean Corpuscular Hgb 28.4 pg (27.0-32.0); Mean Corpuscular Volume 87.4 fL (81-99); Mean Platelet Vol. 10.6 fl (6.2-12.0); Platelet Count 328 K/mm3 (150-450); RBC Distribution Width CV 14.1 % (11.6-14.6); RBC Distribution Width SD 45.2 fl (35.1-43.9); Red Blood Count 4.61 M/mm3 (4.2-5.4); White Blood Count 9.2 K/mm3 (4.4-11.0)
[2022-03-14 09:02] LABS: Anion Gap 7 (5-15); BUN 15 mg/dL (7-18); BUN/Creat Ratio 19.5 RATIO (10-20); Calcium,Total 8.9 mg/dL (8.5-10.1); Chloride 103 mmol/L (98-107); Creatinine, Serum 0.77 mg/dL (0.55-1.02); EST Glomerular Filtration Rate 76 mL/min (>60); Est Glom Filt Rate - Afr Amer 92 mL/min (>60); Glucose 108 mg/dL (74-106); Potassium 3.8 mmol/L (3.5-5.1); Sodium Level 136 mmol/L (136-145)
== END | disposition home or self-care (01) ==
LOC: OLS.WCC 04:00
PROVIDERS: PCP Family Medicine; Visit Provider Family Medicine
DX: I10 Essential (primary) hypertension (principal); F03.90 Unspecified dementia, unspecified severity, without behavioral disturbance, psychotic disturbance, mood disturbance, and anxiety; E11.9 Type 2 diabetes mellitus without complications; Z79.899 Other long term (current) drug therapy
CPT/HCPCS: 36415; 80048; 85027

== ENCOUNTER → 2022-04-16 | Outpatient (REF) | payer MEDICARE, MEDICAID, SELFPAY ==
[2022-04-16 08:19] LABS: Hematocrit 41.4 % (37-47); Hemoglobin 13.8 g/dL (12.0-15.0); Mean Corp Hgb Conc 33.3 g/dL (32-36); Mean Corpuscular Hgb 29.5 pg (27.0-32.0); Mean Corpuscular Volume 88.5 fL (81-99); Mean Platelet Vol. 10.9 fl (6.2-12.0); Platelet Count 372 K/mm3 (150-450); RBC Distribution Width CV 13.9 % (11.6-14.6); RBC Distribution Width SD 45.2 fl (35.1-43.9); Red Blood Count 4.68 M/mm3 (4.2-5.4); White Blood Count 11.6 K/mm3 (4.4-11.0)
[2022-04-16 08:34] LABS: Hemoglobin A1c 9.2 % (3.8-5.6)
[2022-04-16 08:48] LABS: Anion Gap 10 (5-15); BUN 19 mg/dL (7-18); BUN/Creat Ratio 23.4 RATIO (10-20); Calcium,Total 9.4 mg/dL (8.5-10.1); Chloride 104 mmol/L (98-107); Cholesterol 118 mg/dL (200); Creatinine, Serum 0.81 mg/dL (0.55-1.02); EST Glomerular Filtration Rate 72 mL/min (>60); Est Glom Filt Rate - Afr Amer 87 mL/min (>60); Glucose 74 mg/dL (74-106); High Density Lipoprotein 44 mg/dL; Sodium Level 138 mmol/L (136-145); Triglycerides 113 mg/dL; Very Low Density Lipoprotein 23 mg/dL (5-40)
== END ==
LOC: OLS.WCC 04:00
PROVIDERS: PCP Family Medicine; Referring Provider Family Medicine; Visit Provider Family Medicine
DX: E11.9 Type 2 diabetes mellitus without complications (principal); E78.5 Hyperlipidemia, unspecified
CPT/HCPCS: 36415; 80048; 80061; 83036; 85027

== ENCOUNTER → 2022-05-08 | Outpatient (REF) | payer MEDICARE, MEDICAID, SELFPAY | LOC: OLS.WCC 22:44 | PROVIDERS: PCP Family Medicine; Referring Provider Family Medicine; Visit Provider Family Medicine | DX: N39.0 Urinary tract infection, site not specified (principal); R30.0 Dysuria | CPT/HCPCS: 87077; 87086; 87088; 87186 ==

== ENCOUNTER → 2022-05-16 | Outpatient (REF) | payer MEDICARE, MEDICAID, SELFPAY ==
[2022-05-16 08:43] LABS: Hematocrit 40.9 % (37-47); Hemoglobin 13.4 g/dL (12.0-15.0); Mean Corp Hgb Conc 32.8 g/dL (32-36); Mean Corpuscular Hgb 28.9 pg (27.0-32.0); Mean Corpuscular Volume 88.1 fL (81-99); Mean Platelet Vol. 10.8 fl (6.2-12.0); Platelet Count 382 K/mm3 (150-450); RBC Distribution Width SD 44.8 fl (35.1-43.9); Red Blood Count 4.64 M/mm3 (4.2-5.4)
[2022-05-16 08:48] LABS: Anion Gap 7 (5-15); BUN 16 mg/dL (7-18); BUN/Creat Ratio 20.3 RATIO (10-20); Calcium,Total 9.4 mg/dL (8.5-10.1); Chloride 102 mmol/L (98-107); Creatinine, Serum 0.79 mg/dL (0.55-1.02); EST Glomerular Filtration Rate 74 mL/min (>60); Est Glom Filt Rate - Afr Amer 90 mL/min (>60); Glucose 71 mg/dL (74-106); Potassium 4.4 mmol/L (3.5-5.1); Sodium Level 135 mmol/L (136-145)
== END ==
LOC: OLS.WCC 05:00
PROVIDERS: PCP Family Medicine; Visit Provider Family Medicine
DX: F03.90 Unspecified dementia, unspecified severity, without behavioral disturbance, psychotic disturbance, mood disturbance, and anxiety (principal); E11.9 Type 2 diabetes mellitus without complications; I10 Essential (primary) hypertension; Z79.899 Other long term (current) drug therapy
CPT/HCPCS: 36415; 80048; 85027

== ENCOUNTER → 2022-06-15 | Outpatient (REF) | payer MEDICARE, MEDICAID, SELFPAY ==
[2022-06-15 06:46] LABS: Hematocrit 40.3 % (37-47); Hemoglobin 13.1 g/dL (12.0-15.0); Mean Corp Hgb Conc 32.5 g/dL (32-36); Mean Corpuscular Hgb 28.1 pg (27.0-32.0); Mean Corpuscular Volume 86.5 fL (81-99); Platelet Count 553 K/mm3 (150-450); RBC Distribution Width CV 14.3 % (11.6-14.6); RBC Distribution Width SD 45.6 fl (35.1-43.9); Red Blood Count 4.66 M/mm3 (4.2-5.4); White Blood Count 13.9 K/mm3 (4.4-11.0)
[2022-06-15 07:16] LABS: Anion Gap 10 (5-15); BUN 9 mg/dL (7-18); BUN/Creat Ratio 12.8 RATIO (10-20); Calcium,Total 9.2 mg/dL (8.5-10.1); Chloride 102 mmol/L (98-107); EST Glomerular Filtration Rate 85 mL/min (>60); Est Glom Filt Rate - Afr Amer 103 mL/min (>60); Glucose 54 mg/dL (74-106); Potassium 3.9 mmol/L (3.5-5.1); Sodium Level 137 mmol/L (136-145)
== END ==
LOC: OLS.WCC 05:00
PROVIDERS: PCP Family Medicine; Visit Provider Family Medicine
DX: F03.90 Unspecified dementia, unspecified severity, without behavioral disturbance, psychotic disturbance, mood disturbance, and anxiety (principal); E11.9 Type 2 diabetes mellitus without complications; I10 Essential (primary) hypertension; Z79.899 Other long term (current) drug therapy
CPT/HCPCS: 36415; 80048; 85027

== ENCOUNTER → 2022-06-29 | Outpatient (REF) | payer MEDICARE, MEDICAID, SELFPAY ==
[2022-06-29 07:54] LABS: Absolute Lymphocyte Count 1.85 X10^3/uL (0.83-4.51); Basophil# 0.04 X10^3/uL; Basophil% 0.4 % (0-1); Eosinophil# 0.38 X10^3/uL; Eosinophils% 4.2 % (0-5); Hematocrit 38.7 % (37-47); Lymphocyte # 1.85 X10^3/ul (0.83-4.51); Lymphocyte % 20.4 % (19-41); Mean Corp Hgb Conc 33.6 g/dL (32-36); Mean Corpuscular Hgb 29.1 pg (27.0-32.0); Mean Corpuscular Volume 86.6 fL (81-99); Mean Platelet Vol. 10.8 fl (6.2-12.0); Monocyte# 0.77 X10^3/uL; Monocyte% 8.5 % (0-10); NRBC Flagged by Analyzer 0 % (0-5); Neutrophil # 6.02 X10^3/uL (2.7-7.7); Neutrophil % 66.2 % (47-70); Platelet Count 372 K/mm3 (150-450); RBC Distribution Width CV 15.3 % (11.6-14.6); RBC Distribution Width SD 48.4 fl (35.1-43.9); Red Blood Count 4.47 M/mm3 (4.2-5.4); White Blood Count 9.1 K/mm3 (4.4-11.0)
== END ==
LOC: OLS.WCC 05:00
PROVIDERS: PCP Family Medicine; Visit Provider Family Medicine
DX: F03.90 Unspecified dementia, unspecified severity, without behavioral disturbance, psychotic disturbance, mood disturbance, and anxiety (principal); E11.9 Type 2 diabetes mellitus without complications; I10 Essential (primary) hypertension; E78.5 Hyperlipidemia, unspecified
CPT/HCPCS: 36415; 85025

== ENCOUNTER → 2022-07-16 | Outpatient (REF) | payer MEDICARE, MEDICAID, SELFPAY ==
[2022-07-16 08:23] LABS: Hematocrit 41.6 % (37-47); Mean Corp Hgb Conc 33.7 g/dL (32-36); Mean Corpuscular Hgb 29.2 pg (27.0-32.0); Mean Corpuscular Volume 86.8 fL (81-99); Mean Platelet Vol. 10.8 fl (6.2-12.0); Platelet Count 408 K/mm3 (150-450); RBC Distribution Width CV 15.9 % (11.6-14.6); RBC Distribution Width SD 50.3 fl (35.1-43.9); Red Blood Count 4.79 M/mm3 (4.2-5.4); White Blood Count 9.8 K/mm3 (4.4-11.0)
[2022-07-16 08:37] LABS: Anion Gap 9 (5-15); BUN 14 mg/dL (7-18); BUN/Creat Ratio 23.5 RATIO (10-20); Calcium,Total 9.1 mg/dL (8.5-10.1); Chloride 102 mmol/L (98-107); EST Glomerular Filtration Rate 102 mL/min (>60); Est Glom Filt Rate - Afr Amer 124 mL/min (>60); Glucose 65 mg/dL (74-106); Potassium 4.2 mmol/L (3.5-5.1); Sodium Level 136 mmol/L (136-145)
== END ==
LOC: OLS.WCC 04:00
PROVIDERS: PCP Family Medicine; Referring Provider Family Medicine; Visit Provider Family Medicine
DX: I10 Essential (primary) hypertension (principal); F03.90 Unspecified dementia, unspecified severity, without behavioral disturbance, psychotic disturbance, mood disturbance, and anxiety; E11.9 Type 2 diabetes mellitus without complications; Z79.899 Other long term (current) drug therapy
CPT/HCPCS: 36415; 80048; 85027

== ENCOUNTER → 2022-08-15 | Outpatient (REF) | payer MEDICARE, MEDICAID, SELFPAY ==
[2022-08-15 08:35] LABS: Hematocrit 41.6 % (37-47); Hemoglobin 13.1 g/dL (12.0-15.0); Mean Corp Hgb Conc 31.5 g/dL (32-36); Mean Corpuscular Hgb 28.9 pg (27.0-32.0); Mean Corpuscular Volume 91.6 fL (81-99); Mean Platelet Vol. 11.2 fl (6.2-12.0); Platelet Count 409 K/mm3 (150-450); RBC Distribution Width CV 16.3 % (11.6-14.6); RBC Distribution Width SD 54.9 fl (35.1-43.9); Red Blood Count 4.54 M/mm3 (4.2-5.4); White Blood Count 9.8 K/mm3 (4.4-11.0)
[2022-08-15 09:02] LABS: Anion Gap 8 (5-15); BUN 20 mg/dL (7-18); BUN/Creat Ratio 21.9 RATIO (10-20); Calcium,Total 9.5 mg/dL (8.5-10.1); Chloride 104 mmol/L (98-107); Creatinine, Serum 0.91 mg/dL (0.55-1.02); EST Glomerular Filtration Rate 62 mL/min (>60); Est Glom Filt Rate - Afr Amer 76 mL/min (>60); Glucose 104 mg/dL (74-106); Potassium 4.6 mmol/L (3.5-5.1); Sodium Level 137 mmol/L (136-145)
== END ==
LOC: OLS.WCC 05:00
PROVIDERS: PCP Family Medicine; Visit Provider Family Medicine
DX: F03.90 Unspecified dementia, unspecified severity, without behavioral disturbance, psychotic disturbance, mood disturbance, and anxiety (principal); E11.9 Type 2 diabetes mellitus without complications; I10 Essential (primary) hypertension; Z79.899 Other long term (current) drug therapy
CPT/HCPCS: 36415; 80048; 85027

== ENCOUNTER → 2022-09-17 | Outpatient (REF) | payer MEDICARE, MEDICAID, SELFPAY ==
[2022-09-17 09:45] LABS: Hematocrit 44.9 % (37-47); Hemoglobin 14.2 g/dL (12.0-15.0); Mean Corp Hgb Conc 31.6 g/dL (32-36); Mean Corpuscular Hgb 28.6 pg (27.0-32.0); Mean Corpuscular Volume 90.3 fL (81-99); Mean Platelet Vol. 11.3 fl (6.2-12.0); Platelet Count 388 K/mm3 (150-450); RBC Distribution Width CV 14.6 % (11.6-14.6); RBC Distribution Width SD 48.2 fl (35.1-43.9); Red Blood Count 4.97 M/mm3 (4.2-5.4); White Blood Count 12.1 K/mm3 (4.4-11.0)
[2022-09-17 09:58] LABS: Anion Gap 7 (5-15); BUN 19 mg/dL (7-18); BUN/Creat Ratio 20.6 RATIO (10-20); Calcium,Total 9.4 mg/dL (8.5-10.1); Chloride 104 mmol/L (98-107); Creatinine, Serum 0.92 mg/dL (0.55-1.02); EST Glomerular Filtration Rate 62 mL/min (>60); Est Glom Filt Rate - Afr Amer 75 mL/min (>60); Glucose 152 mg/dL (74-106); Potassium 4.7 mmol/L (3.5-5.1); Sodium Level 135 mmol/L (136-145)
== END ==
LOC: OLS.WCC 05:00
PROVIDERS: PCP Family Medicine; Visit Provider Family Medicine
DX: F03.90 Unspecified dementia, unspecified severity, without behavioral disturbance, psychotic disturbance, mood disturbance, and anxiety (principal); E11.9 Type 2 diabetes mellitus without complications; I10 Essential (primary) hypertension; Z79.899 Other long term (current) drug therapy
CPT/HCPCS: 36415; 80048; 85027

== ENCOUNTER → 2022-10-17 | Outpatient (REF) | payer MEDICARE, MEDICAID, SELFPAY ==
[2022-10-17 08:44] LABS: Hematocrit 42.9 % (37-47); Hemoglobin 13.9 g/dL (12.0-15.0); Mean Corp Hgb Conc 32.4 g/dL (32-36); Mean Corpuscular Hgb 29.6 pg (27.0-32.0); Mean Corpuscular Volume 91.3 fL (81-99); Mean Platelet Vol. 10.7 fl (6.2-12.0); Platelet Count 355 K/mm3 (150-450); RBC Distribution Width CV 13.7 % (11.6-14.6); RBC Distribution Width SD 46.4 fl (35.1-43.9); White Blood Count 10.3 K/mm3 (4.4-11.0)
[2022-10-17 09:03] LABS: Hemoglobin A1c 7.8 % (3.8-5.6)
[2022-10-17 09:04] LABS: Anion Gap 10 (5-15); BUN 24 mg/dL (7-18); BUN/Creat Ratio 25.4 RATIO (10-20); Calcium,Total 9.8 mg/dL (8.5-10.1); Chloride 103 mmol/L (98-107); Cholesterol 148 mg/dL (200); Creatinine, Serum 0.95 mg/dL (0.55-1.02); EST Glomerular Filtration Rate 60 mL/min (>60); Est Glom Filt Rate - Afr Amer 73 mL/min (>60); Glucose 109 mg/dL (74-106); High Density Lipoprotein 51 mg/dL; Potassium 4.3 mmol/L (3.5-5.1); Sodium Level 137 mmol/L (136-145); Triglycerides 143 mg/dL; Very Low Density Lipoprotein 29 mg/dL (5-40)
== END ==
LOC: OLS.WCC 05:00
PROVIDERS: PCP Family Medicine; Visit Provider Family Medicine
DX: F03.90 Unspecified dementia, unspecified severity, without behavioral disturbance, psychotic disturbance, mood disturbance, and anxiety (principal); E11.9 Type 2 diabetes mellitus without complications; I10 Essential (primary) hypertension; E78.5 Hyperlipidemia, unspecified
CPT/HCPCS: 36415; 80048; 80061; 83036; 85027

== ENCOUNTER → 2023-04-15 | Outpatient (REF) | payer MEDICARE, MEDICAID, SELFPAY ==
[2023-04-15 09:02] LABS: Hematocrit 43.3 % (37-47); Hemoglobin 13.9 g/dL (12.0-15.0); Mean Corp Hgb Conc 32.1 g/dL (32-36); Mean Corpuscular Hgb 28.8 pg (27.0-32.0); Mean Corpuscular Volume 89.6 fL (81-99); Mean Platelet Vol. 10.8 fl (6.2-12.0); Platelet Count 357 K/mm3 (150-450); RBC Distribution Width CV 14.1 % (11.6-14.6); RBC Distribution Width SD 46.2 fl (35.1-43.9); Red Blood Count 4.83 M/mm3 (4.2-5.4)
[2023-04-15 09:19] LABS: Anion Gap 7 (5-15); BUN 19 mg/dL (7-18); BUN/Creat Ratio 19.3 RATIO (10-20); Calcium,Total 9.1 mg/dL (8.5-10.1); Chloride 102 mmol/L (98-107); Cholesterol 118 mg/dL (200); Creatinine, Serum 0.98 mg/dL (0.55-1.02); EST Glomerular Filtration Rate 57 mL/min (>60); Est Glom Filt Rate - Afr Amer 69 mL/min (>60); Glucose 236 mg/dL (74-106); High Density Lipoprotein 42 mg/dL; Potassium 4.5 mmol/L (3.5-5.1); Sodium Level 135 mmol/L (136-145); Triglycerides 119 mg/dL; Very Low Density Lipoprotein 24 mg/dL (5-40)
[2023-04-15 10:01] LABS: Hemoglobin A1c 9.7 % (3.8-5.6)
== END ==
LOC: OLS.WCC 04:00
PROVIDERS: PCP Family Medicine; Referring Provider Family Medicine; Visit Provider Family Medicine
DX: F03.90 Unspecified dementia, unspecified severity, without behavioral disturbance, psychotic disturbance, mood disturbance, and anxiety (principal); E11.9 Type 2 diabetes mellitus without complications; I10 Essential (primary) hypertension; E78.5 Hyperlipidemia, unspecified; Z79.899 Other long term (current) drug therapy
CPT/HCPCS: 36415; 80048; 80061; 83036; 85027

== ENCOUNTER → 2023-10-17 | Outpatient (REF) | payer MEDICARE, MEDICAID, SELFPAY ==
--- OUTSIDE RECORDS SUMMARY | 2023-10-17 03:42 | XMS RPT_ITS | CCD ---
Author Name Unknown Address [address] [place] [address] Organization [facility] Care Team Providers Care Supervisor Pile Driving Name Role Phone Carl Majano Unavailable Medications Completed/Discontinued Medications Medication Drug Class(es) Dates Sig (Normalized) Sig (Original) amLODIPine 10 mg / benazepril hydrochloride 20 mg oral capsule (6 sources) Dihydropyridine Calcium Channel Ken, Angiotensin Converting Enzyme Inhibitor Start: 03-14-2015 AMLODIPINE BESY-BENAZEPRIL HCL 10-20 MG CAPS daily AMLODIPINE BESY-BENAZEPRIL HCL 67393442671 Aubree E Frase atorvastatin 20 mg oral tablet (6 sources) HMG-CoA Reductase Inhibitor Start: 03-14-2015 ATORVASTATIN CALCIUM 20 MG TABS daily ATORVASTATIN CALCIUM [id number] Aubree E Frase glimepiride 4 mg oral tablet (6 sources) Sulfonylurea Start: 03-14-2015 GLIMEPIRIDE 4 MG TABS daily GLIMEPIRIDE [id number] Aubree E Frase metFORMIN hydrochloride 850 mg oral tablet (6 sources) Biguanide Start: 03-14-2015 METFORMIN HCL 850 MG TABS 1 tab twice daily METFORMIN HCL [id number] Aubree E Frase pioglitazone 30 mg oral tablet (6 sources) Peroxisome Proliferator Receptor alpha Agonist, Peroxisome Proliferator Receptor gamma Agonist, Thiazolidinedione Start: 03-14-2015 PIOGLITAZONE HCL 30 MG TABS daily PIOGLITAZONE HCL [id number] Aubree E Frase SITagliptin 100 mg oral tablet (6 sources) Dipeptidyl Peptidase 4 Inhibitor Start: 03-14-2015 JANUVIA 100 MG TABS daily SITAGLIPTIN PHOSPHATE [id number] Aubree E Frase solifenacin succinate 10 mg oral tablet (6 sources) Cholinergic Muscarinic Antagonist Start: 03-14-2015 VESICARE 10 MG TABS daily SOLIFENACIN SUCCINATE [id number] Aubree Cole Problems Problem Classification Problem Date Documented Date Episodic/Chronic Fracture of neck of femur (hip) (4 sources) Displaced intertrochanteric fracture of left femur, subsequent encounter for closed fracture with routine healing; Translations: [Displaced intertrochanteric fracture of left femur, subsequent encounter for closed fracture with routine healing] Onset: 03-06-2017 03-13-2017 Episodic Fracture of upper limb (12 sources) Other and unspecified closed fractures of proximal end of radius (alone); Translations: [Closed fracture of olecranon process of ulna] Onset: 03-14-2015 03-16-2015 Episodic Other aftercare (6 sources) Follow-up orthopedic assessment; Translations: [Encounter for other orthopedic aftercare] Onset: 03-28-2015 04-01-2015 Episodic Other non-traumatic joint disorders (4 sources) Hip pain; Translations: [Pain in left hip] Onset: 03-06-2017 03-06-2017 Episodic Results Test Name Value Interpretation Reference Range Facil ity Vital Signs Date Time Vital Sign Value Performing Clinician Rm camacho 03-14-2015 09:05-0400 Height 165.[address] [facility] Work Phone: 03-14-2015 09:05-0400 Weight 68.[address] [facility] Work Phone: Procedures Date Procedure Procedure Detail Performing Clinician Start: 04-13-2015 End: 02-28-2017 X-ray exam of elbow Carl Majano Work Phone: Start: 03-14-2015 End: 03-16-2015 Documentation of current medications Aubree Cole Plan of Treatment Date Care Activity Detail Author Start: 05-22-2017 End: 05-22-2017 Appointment Appointment [facility] Work Phone: Start: 04-03-2017 End: 04-03-2017 Appointment Appointment [facility] Work Phone: Start: 04-03-2017 End: 04-03-2017 X-Ray, Hip Unilateral X-Ray, Hip Unilateral [facility] Work Phone: Start: 03-06-2017 End: 03-06-2017 Appointment Appointment [facility] Work Phone: Start: 03-06-2017 End: 03-06-2017 Appointment Appointment [facility] Work Phone: Start: 03-06-2017 End: 03-06-2017 X-Ray, Hip, unilateral, with pelvis; 2-3 views X-Ray, Hip, unilateral, with pelvis; 2-3 views [facility] Work Phone: Start: 04-25-2015 End: 05-04-2015 Ct upper extremity w/o dye CT Upper Extremity [facility] Work Phone: Start: 04-25-2015 End: 05-10-2015 Postop follow-up visit Post Operative Visit [facility] Work Phone: Start: 04-25-2015 End: 04-25-2015 X-ray exam of elbow X-Ray, Elbow [facility] Work Phone: Start: 04-13-2015 End: 04-13-2015 Occupational Therapy General Occupational Therapy [facility], [address] [place] [address], [id number] [facility] Work Phone: Start: 04-13-2015 End: 02-28-2017 X-ray exam of elbow X-Ray, Elbow [facility] Work Phone: Start: 03-28-2015 End: 04-04-2015 Postop follow-up visit Post Operative Visit [facility] Work Phone: Start: 03-28-2015 End: 03-28-2015 X-ray exam of elbow X-Ray, Elbow [facility] Work Phone: Patient Education ELBOW%20FRACTU RE%20IN%2 0ADULTS [facility] Work Phone: Additional Source Comments FOR RECORDS PERTAINING TO PATIENTS WHO ARE OR HAVE BEEN ENROLLED IN A CHEMICAL DEPENDENCY/SUBSTANCEABUSE PROGRAM, SOME INFORMATION MAY BE OMITTED. This clinical summary was aggregated from multiple sources. Caution should be exercised in using it in the provision of clinical care. This summary normalizes information from multiple sources, and as a consequence, information in this document may materially change the coding, format and clinical context of patient data. In addition, data may be omitted in some cases. CLINICAL DECISIONS SHOULD BE BASED ON THE PRIMARY CLINICAL RECORDS. [facility]. provides no warranty or guarantee of the accuracy or completeness of information in this document.
[2023-10-17 08:28] LABS: Hematocrit 41.1 % (37-47); Hemoglobin 13.2 g/dL (12.0-15.0); Mean Corp Hgb Conc 32.1 g/dL (32-36); Mean Corpuscular Hgb 28.1 pg (27.0-32.0); Mean Corpuscular Volume 87.6 fL (81-99); Mean Platelet Vol. 11.2 fl (6.2-12.0); Platelet Count 344 K/mm3 (150-450); RBC Distribution Width CV 13.9 % (11.6-14.6); RBC Distribution Width SD 43.9 fl (35.1-43.9); Red Blood Count 4.69 M/mm3 (4.2-5.4); White Blood Count 9.6 K/mm3 (4.4-11.0)
[2023-10-17 08:53] LABS: Anion Gap 8 (5-15); BUN 15 mg/dL (7-18); BUN/Creat Ratio 18.1 RATIO (10-20); Calcium,Total 8.9 mg/dL (8.5-10.1); Chloride 106 mmol/L (98-107); Cholesterol 114 mg/dL (200); Creatinine, Serum 0.83 mg/dL (0.55-1.02); EST Glomerular Filtration Rate 70 mL/min (>60); Est Glom Filt Rate - Afr Amer 85 mL/min (>60); Glucose 198 mg/dL (74-106); High Density Lipoprotein 44 mg/dL; Potassium 4.3 mmol/L (3.5-5.1); Sodium Level 138 mmol/L (136-145); Triglycerides 89 mg/dL; Very Low Density Lipoprotein 18 mg/dL (5-40)
[2023-10-17 09:25] LABS: Hemoglobin A1c 8.5 % (3.8-5.6)
== END ==
LOC: OLS.WCC 04:00
PROVIDERS: PCP Family Medicine; Referring Provider Family Medicine; Visit Provider Family Medicine
DX: F03.90 Unspecified dementia, unspecified severity, without behavioral disturbance, psychotic disturbance, mood disturbance, and anxiety (principal); E11.9 Type 2 diabetes mellitus without complications; I10 Essential (primary) hypertension; Z79.899 Other long term (current) drug therapy
CPT/HCPCS: 36415; 80048; 80061; 83036; 85027

== ENCOUNTER → 2024-01-13 | Outpatient (REF) | payer MEDICARE, MEDICAID, SELFPAY ==
[2024-01-13 14:56] LABS: Hemoglobin A1c 10.1 % (3.8-5.6)
== END ==
LOC: OLS.WCC 04:00
PROVIDERS: PCP Family Medicine; Referring Provider Family Medicine; Visit Provider Family Medicine
DX: E11.9 Type 2 diabetes mellitus without complications (principal)
CPT/HCPCS: 36415; 83036

== ENCOUNTER → 2024-02-02 | Outpatient (REF) | payer MEDICARE, MEDICAID, SELFPAY | LOC: OLS.WCC 08:40 | PROVIDERS: PCP Family Medicine; Referring Provider Family Medicine; Visit Provider Family Medicine | DX: N39.0 Urinary tract infection, site not specified (principal) | CPT/HCPCS: 87086; 87088 ==

== ENCOUNTER → 2024-02-06 | Outpatient (REF) | payer MEDICARE, MEDICAID, SELFPAY ==
[2024-02-07 07:55] LABS: Mucous, Urine 0 SEEN /hpf (<or=2+)
[2024-02-07 08:03] LABS: Color, Urine Yellow (Yellow); Glucose, Dipstick Normal (Normal); Ketone-Dipstick 5 mg/dl (Negative); Leukocyte Esterase-Dipstick 500 /ul (Negative); Nitrite-Dipstick Negative (Negative); Occult Blood-Urine 25 /ul (Negative); Protein-Dipstick 30 mg/dl (Negative); Specific Gravity, Urine 1.015 (1.002-1.030); Urine Bilirubin Dipstick Negative (Negative); Urine Clarity Cloudy (Clear); Urine Urobilinogen Normal (Normal)
[2024-02-07 08:39] LABS: Bacteria 4+ /hpf (None Seen); Squamous Epithelial Cells - UA 5-10 SEEN /hpf (5-10); White Blood Cells >100 SEEN /hpf (0-5)
[2024-02-07 08:40] LABS: Red Blood Cells-Urine 0-5 SEEN /hpf (0-5)
== END ==
LOC: OLS.WCC 18:00
PROVIDERS: PCP Family Medicine; Visit Provider Family Medicine
DX: N39.0 Urinary tract infection, site not specified (principal)
CPT/HCPCS: 81001; 87086; 87088

== ENCOUNTER → 2024-02-20 | Outpatient (REF) | payer MEDICARE, MEDICAID, SELFPAY ==
[2024-02-20 11:04] LABS: Valproic Acid (Depakene) Level 30 ug/mL (50-100)
== END ==
LOC: OLS.WCC 05:49
PROVIDERS: PCP Family Medicine; Referring Provider Family Medicine; Visit Provider Family Medicine
DX: Z79.899 Other long term (current) drug therapy (principal)
CPT/HCPCS: 36415; 80164

== ENCOUNTER 2024-03-13 18:21 | Emergency (ER) | payer MEDICARE, MEDICAID, SELFPAY ==
[2024-03-13 18:24] VITALS: BP 150/54; PULSE 90; RESP 14; TEMP 36.8; O2SAT 100; BMI 27.3
[2024-03-13] MEDS: Lidocaine/Epi/Tetracaine 50 ML 1 APPLIC TOPICAL (18:55)
--- NOTE | 2024-03-13 19:00 | EDS_ITS ---
<Statement entered by Mo Zapien MD - 03/14/24 01:50> Pt seen & evaluated w/CHRIS. I personally interviewed & exam the pt. I was involved in all aspects of pt's orders, interpretation of results & treatment HPI <GUERA Reece - Last Filed: 03/13/24 19:48> History of Present Illness Chief Complaint: Fall Narrative Narrative: Patient is 83-year-old female with history of dementia, hypertension hyperlipidemia, diabetes who presents to the emergency department after mechanical fall. Patient she was in the bathroom, she was reaching for her walker when she lost her balance falling backward striking the back of her head, patient is a laceration to the occiput. She denies any LOC. Patient denies any chest pain, dizziness. [facility] <GUERA Reece - Last Filed: 03/13/24 19:48> [facility] Medical History (Updated 03/13/24 @ 19:48 by GUERA Reece) Dementia Closed left hip fracture Hyperlipidemia Hypertension Type 2 diabetes mellitus Home Medications ?Medication ?Instructions ?Recorded ?Last Taken ?Type atorvastatin 20 mg tablet 20 mg PO QHS cholesterol 03/07/15 05/14/19 History mirabegron 50 mg tablet,extended 50 mg PO DAILY bladder 02/16/17 05/14/19 History release 24 hr (Myrbetriq) duloxetine 30 mg capsule,delayed 60 mg PO DAILY mental health 04/29/17 05/14/19 History release linagliptin 5 mg tablet (Tradjenta) 5 mg PO DAILY diabetes 07/27/18 05/14/19 History vitamins A,C,M-vrrc-qkoodd 4,296 1 ea PO BID eye health 07/27/18 05/14/19 History mcg-226 mg-90 mg capsule (PreserVision AREDS) acetaminophen 650 mg 650 mg PO QHS pain 05/15/19 05/14/19 History tablet,extended release glucagon (human recombinant) 1 mg 1 mg IJ X1 PRN hypoglycemic episode 05/15/19 Unknown History solution for injection insulin detemir U-100 100 unit/mL 24 units subcut BID diabetes 05/15/19 05/14/19 History (3 mL) subcutaneous pen sennosides 8.6 mg-docusate sodium 2 ea PO DAILY PRN Constipation 05/15/19 Unknown History 50 mg tablet amlodipine 10 mg tablet 10 mg PO DAILY blood pressure 07/01/21 Unknown History lisinopril 20 mg tablet 20 mg PO DAILY blood pressure 07/01/21 Unknown History melatonin 3 mg capsule 3 mg PO QHS sleep 07/01/21 Unknown History metformin 500 mg tablet 500 mg PO BID diabetes 07/01/21 Unknown History levofloxacin 500 mg tablet 500 mg PO DAILY #3 tabs 07/05/21 Unknown Rx Allergy/AdvReac Type Severity Reaction Status Date / Time codeine Allergy Other Verified 03/13/24 18:33 morphine Allergy Vomiting Verified 03/13/24 18:33 tramadol Allergy Other Verified 03/13/24 18:33 Family History Other Diabetes Surgical History (System 02/05/24 @ 09:40 by Claudia Wakefield) Hx of appendectomy Hx of tonsillectomy Social History (System 02/05/24 @ 09:40 by Claudia Wakefield) Smoking Status: Never smoker ROS <GUERA Reece - Last Filed: 03/13/24 19:48> ROS ED ROS Narrative Constitutional: Negative for fever, chills, weight loss, weakness Eyes: Negative for vision loss, vision change, double vision ENT: Negative for any sore throat, ear pain, congestion Cardiovascular: Negative for any chest pain, tightness, palpitations Respiratory: Negative for any cough, sputum production, hemoptysis, dyspnea, dyspnea on exertion, orthopnea Gastrointestinal: Negative for any abdominal pain, nausea, vomiting, diarrhea, constipation, blood in stool, blood in vomit : Negative for any urinary frequency, dysuria, retention, blood in urine Muscle skeletal: Negative for any neck pain, back pain Neurological: Negative for any headache, syncope, dizziness Skin: Negative for any rashes, itching, abrasions. Positive for laceration to the left occipital scalp Psychiatric: Negative for any depression, anxiety, stress, suicidal ideation, homicidal ideation Hematologic: Negative for any excessive bruising, easy bleeding EXAM <GUERA Reece - Last Filed: 03/13/24 19:48> Physical Exam Narrative Exam Narrative: Vital signs reviewed. HEET: Head normocephalic atraumatic, TMs clear bilaterally. Posterior pharynx is clear, moist mucous membranes. Nares clear bilaterally. Pupils are equal round reactive to light, no for any hemotympanum or septal hematoma. Patient has a 2 cm horizontal laceration that is full-thickness to the left-sided occipital scalp. Neck: Supple with no lymphadenopathy or tenderness. No signs of meningismus. Cardiac: Regular rate and rhythm no murmurs gallops or rubs, equal peripheral pulses bilaterally. Respiratory: Lungs clear to auscultation bilaterally. No chest tenderness. Abdomen: Soft, nontender, nondistended. No abdominal bruit or pulsatile masses. No hepatosplenomegaly Extremities: No peripheral edema, no signs of gross trauma or deformity. Active full range of motion of all extremities. Neuro: Cranial nerves II through XII intact, no focal neurological deficits. Skin: Clean dry and intact with no rash, purpura, petechiae, vesicles or pustules. Backs/flank: No CVA tenderness, no midline spinal tenderness, no deformity. Psych: Normal mood and affect. No SI, HI or acute psychosis. Const Vital Signs: 03/13/24 18:24 03/13/24 18:35 03/13/24 19:54 Temperature 98.3 F 97 F L Temperature Source Temporal Pulse Rate 90 95 Respiratory Rate 14 16 Respiratory Effort Normal Non-Labored Blood Pressure 150/54 H 132/67 H Blood Pressure Mean 86 88 Pulse Ox 100 97 Oxygen Delivery Method Room Air <Dr. Mo Zapien MD - Last Filed: 03/14/24 01:51> Physical Exam Const Vital Signs: 03/13/24 18:24 03/13/24 18:35 03/13/24 19:54 Temperature 98.3 F 97 F L Temperature Source Temporal Pulse Rate 90 95 Respiratory Rate 14 16 Respiratory Effort Normal Non-Labored Blood Pressure 150/54 H 132/67 H Blood Pressure Mean 86 88 Pulse Ox 100 97 Oxygen Delivery Method Room Air MDM <GUERA Reece - Last Filed: 03/13/24 19:48> [facility] Treatment and Re-Evaluation :: Differential diagnosis includes however is not limited to: Depressed skull fracture, intracranial hemorrhage, scalp laceration Patient appears to be in no obvious distress vital signs are stable. Patient presents to the emergency department after mechanical fall striking the back of her head. Patient's laceration to the occipital scalp is roughly 2 cm in length. Let will be applied. CT scan would not be indicated at this time. On reevaluation, the patient was acting appropriate. Patient does have a 2 cm horizontal laceration to the left side of the occiput. Let was applied. I was able to place 4 shalini, the edges approximated nicely. Patient will now be discharged home. Tetanus vaccination was up-to-date. She instructed return for any worsening symptoms. Patient is stable for discharge and have these removed in 7 days. <Dr. Mo Zapien MD - Last Filed: 03/14/24 01:51> [facility] Narrative Medical decision making narrative: I have personally performed a face to face assessment of the patient and have reviewed the [facility]RIS Note. I performed a substantive portion of the visit including all aspects of the following. My zarate findings include: History is remarkable for mechanical fall. Patient was stretching fell striking the back of her head. She denies loss conscious. Denies headache. Denies neck pain. Denies paresthesia, anesthesia motors. Presently she is alert orient x 3. She is on no antithrombotic or anticoagulant. She denies double vision blurred vision loss of vision. No trouble speech or swallowing. She denies any other symptoms Exam is remarkable for laceration left occipital region. There is no palpable pression. Chandler complains of basilar skull fracture. There is no posterior central neck pain. She has full active range of motion. As previously noted she is alert orient x 3. Cranials 2-12 intact. Motor sensor intact. There is no clonus Babinski sign noted. There is no dysmetria. Medical Decision Making the fact the patient has no headache no loss of conscious was not dazed per the [place] CT head rule imaging is not required. Will have let applied to the laceration and laceration will be stapled. Other additions or changes: [None] Discharge Plan Triage Chief Complaint: Fall ED Midlevel Provider: Kamran Gomez ED Provider: Mo Zapien Dx/Rx/DC Orders Clinical Impression: Fall, Laceration of scalp, Head injury Instructions: Concussion Dc, ED Laceration, All Closures Prescriptions: No Action atorvastatin 20 MG tablet 20 mg PO QHS Patient Comments: cholesterol Myrbetriq 50 MG tablet extended release 24 hr 50 mg PO DAILY Patient Comments: bladder control duloxetine 30 MG capsule,delayed release(DR/EC) 60 mg PO DAILY PreserVision AREDS 1 EACH capsule 1 ea PO BID Tradjenta 5 MG tablet 5 mg PO DAILY acetaminophen 650 MG tablet extended release 650 mg PO QHS insulin detemir U-100 100 UNITS/ML insulin pen 24 units subcut BID sennosides-docusate sodium 1 EACH tablet 2 ea PO DAILY PRN (Reason: Constipation) glucagon (human recombinant) 1 MG recon soln 1 mg IJ X1 PRN (Reason: hypoglycemic episode) metformin 500 mg Tablet 500 mg PO BID lisinopril 20 mg Tablet 20 mg PO DAILY amlodipine 10 mg Tablet 10 mg PO DAILY melatonin 3 mg Capsule 3 mg PO QHS levofloxacin 500 mg tablet 500 mg PO DAILY Qty: 3 0RF Primary Care Provider: Jake Waddell Referrals: Jake Waddell MD [Primary Care Provider] - Activity Restrictions/Additional Instructions: You have a 4 shalini placed to your wound on the back of your head. Have these removed in 7 days. Print Language: Hungarian Disposition Disposition: Home, Self Care Discharge Date/Time: 03/13/24 21:36
--- NOTE | 2024-03-13 19:51 | NURSING ---
Pt d/c back to [facility]. Report called and notified of sierra.
[2024-03-13 19:54] VITALS: BP 132/67; PULSE 95; RESP 16; TEMP 36.1; O2SAT 97
== END 2024-03-13 21:36 | disposition home or self-care (01) ==
PROVIDERS: Emergency Provider Emergency Medicine; PCP Family Medicine; Visit Provider Emergency Medicine
DX: S01.01XA Laceration without foreign body of scalp, initial encounter (principal); F03.90 Unspecified dementia, unspecified severity, without behavioral disturbance, psychotic disturbance, mood disturbance, and anxiety; E11.9 Type 2 diabetes mellitus without complications; Z79.4 Long term (current) use of insulin; W18.39XA Other fall on same level, initial encounter; Y93.89 Activity, other specified; Y99.8 Other external cause status; I10 Essential (primary) hypertension; E78.5 Hyperlipidemia, unspecified; Z79.84 Long term (current) use of oral hypoglycemic drugs; Z79.899 Other long term (current) drug therapy
CPT/HCPCS: 12001; 99282

== ENCOUNTER → 2024-03-16 | Outpatient (REF) | payer MEDICARE, MEDICAID, SELFPAY ==
[2024-03-16 08:16] LABS: Hematocrit 33.8 % (37-47); Hemoglobin 11.4 g/dL (12.0-15.0); Mean Corp Hgb Conc 33.7 g/dL (32-36); Mean Corpuscular Hgb 28.7 pg (27.0-32.0); Mean Corpuscular Volume 85.1 fL (81-99); Mean Platelet Vol. 10.4 fl (6.2-12.0); Platelet Count 397 K/mm3 (150-450); RBC Distribution Width CV 13.4 % (11.6-14.6); RBC Distribution Width SD 42.1 fl (35.1-43.9); Red Blood Count 3.97 M/mm3 (4.2-5.4); White Blood Count 21.8 K/mm3 (4.4-11.0)
[2024-03-16 08:28] LABS: Anion Gap 7 (5-15); BUN 20 mg/dL (7-18); BUN/Creat Ratio 19.6 RATIO (10-20); Calcium,Total 8.6 mg/dL (8.5-10.1); Chloride 92 mmol/L (98-107); Creatinine, Serum 1.02 mg/dL (0.55-1.02); EST Glomerular Filtration Rate 55 mL/min (>60); Est Glom Filt Rate - Afr Amer 66 mL/min (>60); Glucose 123 mg/dL (74-106); Potassium 3.8 mmol/L (3.5-5.1); Sodium Level 124 mmol/L (136-145)
== END ==
LOC: OLS.WCC 04:00
PROVIDERS: PCP Family Medicine; Referring Provider Family Medicine; Visit Provider Family Medicine
DX: I10 Essential (primary) hypertension (principal); N39.0 Urinary tract infection, site not specified; Z79.899 Other long term (current) drug therapy
CPT/HCPCS: 36415; 80048; 85027; 87077; 87086; 87088; 87186

== ENCOUNTER → 2024-03-23 | Outpatient (REF) | payer MEDICARE, MEDICAID, SELFPAY ==
[2024-03-23 08:42] LABS: Absolute Lymphocyte Count 1.72 X10^3/uL (0.83-4.51); Absolute Neutrophil Count 10.1 X10^3/uL (2.0-7.7); Basophil# 0.07 X10^3/uL; Basophil% 0.5 % (0-1); Eosinophil# 0.21 X10^3/uL; Eosinophils% 1.6 % (0-5); Hematocrit 36.6 % (37-47); Hemoglobin 12.2 g/dL (12.0-15.0); Lymphocyte # 1.72 X10^3/ul (0.83-4.51); Lymphocyte % 12.8 % (19-41); Mean Corp Hgb Conc 33.3 g/dL (32-36); Mean Corpuscular Hgb 28.9 pg (27.0-32.0); Mean Corpuscular Volume 86.7 fL (81-99); Mean Platelet Vol. 10.3 fl (6.2-12.0); Monocyte% 6.7 % (0-10); NRBC Flagged by Analyzer 0 % (0-5); Neutrophil # 10.12 X10^3/uL (2.7-7.7); Neutrophil % 75.6 % (47-70); Platelet Count 564 K/mm3 (150-450); RBC Distribution Width CV 14.2 % (11.6-14.6); RBC Distribution Width SD 44.9 fl (35.1-43.9); Red Blood Count 4.22 M/mm3 (4.2-5.4); White Blood Count 13.4 K/mm3 (4.4-11.0)
== END ==
LOC: OLS.WCC 04:00
PROVIDERS: PCP Family Medicine; Referring Provider Family Medicine; Visit Provider Family Medicine
DX: I10 Essential (primary) hypertension (principal); E11.9 Type 2 diabetes mellitus without complications; E78.5 Hyperlipidemia, unspecified; N39.0 Urinary tract infection, site not specified
CPT/HCPCS: 36415; 85025

== ENCOUNTER → 2024-04-02 | Outpatient (REF) | payer MEDICARE, MEDICAID, SELFPAY ==
[2024-04-02 07:46] LABS: Hematocrit 38.1 % (37-47); Hemoglobin 12.5 g/dL (12.0-15.0); Mean Corp Hgb Conc 32.8 g/dL (32-36); Mean Corpuscular Hgb 28.4 pg (27.0-32.0); Mean Corpuscular Volume 86.6 fL (81-99); Mean Platelet Vol. 10.2 fl (6.2-12.0); Platelet Count 438 K/mm3 (150-450); RBC Distribution Width CV 14.3 % (11.6-14.6); RBC Distribution Width SD 45.1 fl (35.1-43.9); White Blood Count 13.4 K/mm3 (4.4-11.0)
[2024-04-02 08:05] LABS: Anion Gap 9 (5-15); BUN 18 mg/dL (7-18); BUN/Creat Ratio 18.5 RATIO (10-20); Calcium,Total 9.2 mg/dL (8.5-10.1); Chloride 97 mmol/L (98-107); Creatinine, Serum 0.97 mg/dL (0.55-1.02); EST Glomerular Filtration Rate 58 mL/min (>60); Est Glom Filt Rate - Afr Amer 70 mL/min (>60); Glucose 200 mg/dL (74-106); Potassium 4.5 mmol/L (3.5-5.1); Sodium Level 130 mmol/L (136-145)
== END ==
LOC: OLS.WCC 05:00
PROVIDERS: PCP Family Medicine; Visit Provider Family Medicine
DX: E11.9 Type 2 diabetes mellitus without complications (principal); E78.5 Hyperlipidemia, unspecified; I10 Essential (primary) hypertension
CPT/HCPCS: 36415; 80048; 85027

== ENCOUNTER → 2024-04-16 | Outpatient (REF) | payer MEDICARE, MEDICAID, SELFPAY ==
[2024-04-16 07:52] LABS: Hemoglobin 13.1 g/dL (12.0-15.0); Mean Corp Hgb Conc 32.8 g/dL (32-36); Mean Corpuscular Hgb 28.4 pg (27.0-32.0); Mean Corpuscular Volume 86.8 fL (81-99); Mean Platelet Vol. 10.2 fl (6.2-12.0); Platelet Count 466 K/mm3 (150-450); RBC Distribution Width CV 14.6 % (11.6-14.6); RBC Distribution Width SD 46.1 fl (35.1-43.9); Red Blood Count 4.61 M/mm3 (4.2-5.4); White Blood Count 16.2 K/mm3 (4.4-11.0)
[2024-04-16 08:21] LABS: Anion Gap 12 (5-15); BUN 16 mg/dL (7-18); BUN/Creat Ratio 15.4 RATIO (10-20); Calcium,Total 9.3 mg/dL (8.5-10.1); Chloride 99 mmol/L (98-107); Cholesterol 104 mg/dL (200); Creatinine, Serum 1.04 mg/dL (0.55-1.02); EST Glomerular Filtration Rate 54 mL/min (>60); Est Glom Filt Rate - Afr Amer 65 mL/min (>60); Glucose 148 mg/dL (74-106); High Density Lipoprotein 41 mg/dL; Potassium 4.4 mmol/L (3.5-5.1); Sodium Level 133 mmol/L (136-145); Triglycerides 143 mg/dL; Very Low Density Lipoprotein 29 mg/dL (5-40)
[2024-04-16 08:23] LABS: Hemoglobin A1c 9.2 % (3.8-5.6)
== END ==
LOC: OLS.WCC 05:00
PROVIDERS: PCP Family Medicine; Visit Provider Family Medicine
DX: F03.90 Unspecified dementia, unspecified severity, without behavioral disturbance, psychotic disturbance, mood disturbance, and anxiety (principal); E11.9 Type 2 diabetes mellitus without complications; E78.5 Hyperlipidemia, unspecified; I10 Essential (primary) hypertension; Z79.899 Other long term (current) drug therapy
CPT/HCPCS: 36415; 80048; 80061; 83036; 85027

== ENCOUNTER → 2024-04-29 05:00 | Outpatient (REF) | payer MEDICARE, MEDICAID, SELFPAY ==
[2024-04-29 09:01] LABS: Absolute Lymphocyte Count 0.93 X10^3/uL (0.83-4.51); Absolute Neutrophil Count 13.5 X10^3/uL (2.0-7.7); Basophil# 0.05 X10^3/uL; Basophil% 0.3 % (0-1); Eosinophil# 0.01 X10^3/uL; Eosinophils% 0.1 % (0-5); Hematocrit 37.9 % (37-47); Hemoglobin 12.3 g/dL (12.0-15.0); Lymphocyte # 0.93 X10^3/ul (0.83-4.51); Mean Corp Hgb Conc 32.5 g/dL (32-36); Mean Corpuscular Hgb 28.9 pg (27.0-32.0); Mean Corpuscular Volume 89.2 fL (81-99); Mean Platelet Vol. 10.7 fl (6.2-12.0); Monocyte# 0.86 X10^3/uL; Monocyte% 5.6 % (0-10); NRBC Flagged by Analyzer 0 % (0-5); Neutrophil # 13.51 X10^3/uL (2.7-7.7); Neutrophil % 87.3 % (47-70); Platelet Count 378 K/mm3 (150-450); RBC Distribution Width CV 15.4 % (11.6-14.6); RBC Distribution Width SD 50.3 fl (35.1-43.9); Red Blood Count 4.25 M/mm3 (4.2-5.4); White Blood Count 15.5 K/mm3 (4.4-11.0)
== END ==
LOC: OLS.WCC 05:00
PROVIDERS: PCP Family Medicine; Visit Provider Family Medicine
DX: I10 Essential (primary) hypertension (principal); E78.5 Hyperlipidemia, unspecified; F03.90 Unspecified dementia, unspecified severity, without behavioral disturbance, psychotic disturbance, mood disturbance, and anxiety; E11.9 Type 2 diabetes mellitus without complications
CPT/HCPCS: 36415; 85025

== ENCOUNTER → 2024-04-30 | Outpatient (REF) | payer MEDICARE, MEDICAID, SELFPAY ==
[2024-04-30 13:57] LABS: Mucous, Urine 0 SEEN /hpf (<or=2+)
[2024-04-30 14:09] LABS: Color, Urine Yellow (Yellow); Glucose, Dipstick Normal (Normal); Ketone-Dipstick Negative (Negative); Leukocyte Esterase-Dipstick 500 /ul (Negative); Nitrite-Dipstick Positive (Negative); Occult Blood-Urine 50 /ul (Negative); Protein-Dipstick 30 mg/dl (Negative); Urine Bilirubin Dipstick Negative (Negative); Urine Clarity Cloudy (Clear); Urine Urobilinogen Normal (Normal)
[2024-04-30 14:21] LABS: White Blood Cells >100 SEEN /hpf (0-5)
[2024-04-30 14:22] LABS: Bacteria 3+ /hpf (None Seen); Red Blood Cells-Urine 0-5 SEEN /hpf (0-5); Squamous Epithelial Cells - UA 0-5 SEEN /hpf (5-10)
== END ==
LOC: OLS.WCC 07:46
PROVIDERS: PCP Family Medicine; Visit Provider Family Medicine
DX: N39.0 Urinary tract infection, site not specified (principal); Z79.899 Other long term (current) drug therapy
CPT/HCPCS: 81001; 87077; 87086; 87088; 87186

== ENCOUNTER → 2024-07-14 | Outpatient (REF) | payer MEDICARE, MEDICAID, SELFPAY ==
[2024-07-15 06:49] LABS: Mucous, Urine 0 SEEN /hpf (<or=2+)
[2024-07-15 06:56] LABS: Color, Urine Yellow (Yellow); Glucose, Dipstick 1000 mg/dl (Normal); Ketone-Dipstick 5 mg/dl (Negative); Leukocyte Esterase-Dipstick 100 /ul (Negative); Nitrite-Dipstick Negative (Negative); Occult Blood-Urine 150 /ul (Negative); Protein-Dipstick 500 mg/dl (Negative); Specific Gravity, Urine 1.015 (1.002-1.030); Urine Bilirubin Dipstick Negative (Negative); Urine Clarity Cloudy (Clear); Urine Urobilinogen Normal (Normal)
[2024-07-15 07:54] LABS: Red Blood Cells-Urine 50-100 SEEN /hpf (0-5); White Blood Cells >100 SEEN /hpf (0-5)
[2024-07-15 07:55] LABS: Bacteria 2+ /hpf (None Seen); Squamous Epithelial Cells - UA 10-25 SEEN /hpf (5-10)
== END ==
LOC: OLS.WCC 22:00
PROVIDERS: PCP Family Medicine; Visit Provider Family Medicine
DX: N39.0 Urinary tract infection, site not specified (principal)
CPT/HCPCS: 81001; 87086; 87088; 87186

== ENCOUNTER → 2024-07-16 | Outpatient (REF) | payer MEDICARE, MEDICAID, SELFPAY ==
[2024-07-16 10:05] LABS: Hemoglobin A1c 7.1 % (3.8-5.6)
== END ==
LOC: OLS.WCC 05:00
PROVIDERS: PCP Family Medicine; Visit Provider Family Medicine
DX: E11.9 Type 2 diabetes mellitus without complications (principal)
CPT/HCPCS: 36415; 83036

== ENCOUNTER → 2024-08-21 | Outpatient (REF) | payer MEDICARE, MEDICAID, SELFPAY ==
[2024-08-21 08:25] LABS: Valproic Acid (Depakene) Level 26 ug/mL (50-100)
== END ==
LOC: OLS.WCC 04:00
PROVIDERS: PCP Family Medicine; Referring Provider Family Medicine; Visit Provider Family Medicine
DX: Z79.899 Other long term (current) drug therapy (principal)
CPT/HCPCS: 36415; 80164

== ENCOUNTER → 2024-10-16 05:00 | Outpatient (REF) | payer MEDICARE, MEDICAID, SELFPAY ==
[2024-10-16 08:36] LABS: Hematocrit 41.2 % (37-47); Hemoglobin 13.4 g/dL (12.0-15.0); Mean Corp Hgb Conc 32.5 g/dL (32-36); Mean Corpuscular Hgb 28.3 pg (27.0-32.0); Mean Corpuscular Volume 86.9 fL (81-99); Mean Platelet Vol. 10.8 fl (6.2-12.0); Platelet Count 310 K/mm3 (150-450); RBC Distribution Width CV 15.2 % (11.6-14.6); RBC Distribution Width SD 48.8 fl (35.1-43.9); Red Blood Count 4.74 M/mm3 (4.2-5.4); White Blood Count 11.8 K/mm3 (4.4-11.0)
[2024-10-16 08:56] LABS: Anion Gap 10 (5-15); BUN 19 mg/dL (7-18); BUN/Creat Ratio 20.1 RATIO (10-20); Calcium,Total 9.5 mg/dL (8.5-10.1); Chloride 97 mmol/L (98-107); Cholesterol 106 mg/dL (200); Creatinine, Serum 0.95 mg/dL (0.55-1.02); EST Glomerular Filtration Rate 60 mL/min (>60); Est Glom Filt Rate - Afr Amer 72 mL/min (>60); Glucose 146 mg/dL (74-106); High Density Lipoprotein 52 mg/dL; Potassium 4.4 mmol/L (3.5-5.1); Sodium Level 131 mmol/L (136-145); Triglycerides 118 mg/dL; Very Low Density Lipoprotein 24 mg/dL (5-40)
[2024-10-16 08:57] LABS: Hemoglobin A1c 6.7 % (3.8-5.6)
== END ==
LOC: OLS.WCC 05:00
PROVIDERS: PCP Family Medicine; Visit Provider Family Medicine
DX: F03.90 Unspecified dementia, unspecified severity, without behavioral disturbance, psychotic disturbance, mood disturbance, and anxiety (principal); E11.9 Type 2 diabetes mellitus without complications; I10 Essential (primary) hypertension; E78.5 Hyperlipidemia, unspecified; Z79.899 Other long term (current) drug therapy
CPT/HCPCS: 36415; 80048; 80061; 83036; 85027

== ENCOUNTER → 2025-01-14 | Outpatient (REF) | payer MEDICARE, MEDICAID, SELFPAY ==
[2025-01-14 09:06] LABS: Hemoglobin A1c 6.7 % (<=5.6)
== END ==
LOC: OLS.WCC 05:00
PROVIDERS: PCP Family Medicine; Visit Provider Family Medicine
DX: E11.9 Type 2 diabetes mellitus without complications (principal); Z79.899 Other long term (current) drug therapy
CPT/HCPCS: 36415; 83036

== ENCOUNTER → 2025-02-22 | Outpatient (REF) | payer MEDICARE, MEDICAID, SELFPAY ==
--- OUTSIDE RECORDS SUMMARY | 2025-02-22 03:35 | XMS RPT_ITS | CCD ---
Author Organization [facility] [place] [facility] Care Team Providers Care V/[employer] [place] Signal Officer Name Role Phone Carl Majano Unavailable WaddellJake Primary Care Unavailable Waddell OLS, Jake K Attending Unavailable Waddell OLS, Jake K Attending Unavailable Waddell, Jake K Primary Care Unavailable Waddell OLS, Jake K Attending Unavailable Waddell, Jake K Primary Care Unavailable Waddell OLS, Jake K Attending Unavailable Waddell, Jake K Primary Care Unavailable Waddell OLS, Jake K Attending Unavailable Waddell, Jake K Primary Care Unavailable Waddell OLS, Jake K Attending Unavailable Waddell, Jake K Primary Care Unavailable Waddell, Jake K Primary Care Unavailable Waddell OLS, Jake K Referring Unavailable Waddell OLS, Jake K Attending Unavailable Waddell, Jake K Primary Care Unavailable Zapien, Mo Attending Unavailable Waddell, Jake K Primary Care Unavailable Waddell OLS, Jake K Attending Unavailable Waddell, Jake K Primary Care Unavailable Waddell OLS, Jake K Attending Unavailable Waddell OLS, Jake K Attending Unavailable Waddell OLS, Jake K Referring Unavailable Waddell OLS, Jake K Primary Care Unavailable Waddell, Jake K Primary Care Unavailable Waddell OLS, Jake K Attending Unavailable Waddell OLS, Jake K Referring Unavailable Allergies Allergy Classification Reported Allergen(s) Allergy Type Date of Onset Reaction(s) Facility (17 sources) Codeine Drug Allergy 07-01-2021 Other [facility] (17 sources) Morphine Drug Allergy 07-01-2021 Vomiting [facility] (17 sources) traMADol Drug Allergy 07-01-2021 Other [facility] (1 source) Codeine Drug Allergy 03-13-2024 [facility] (1 source) Morphine Drug Allergy 03-13-2024 [facility] (1 source) traMADol Drug Allergy 03-13-2024 [facility] Medications Current Medications Medication Drug Class(es) Dates Sig (Normalized) Sig (Original) 8 hr acetaminophen 650 mg extended release oral tablet (20 sources) Start: 05-15-2019 take 650 mg by mouth at bedtime Acetaminophen Active 650 MG PO AT BEDTIME May 14, 2019 11:00pm Start: 02-16-2017 End: 02-19-2017 take 650 mg by mouth every four hours Acetaminophen Discontinued 650 MG PO Q4H February 15, 2017 11:00pm February 19, 2017 9:04am amLODIPine 10 mg oral tablet (17 sources) Dihydropyridine Calcium Channel Ken Start: 07-01-2021 take 10 mg by mouth once daily Amlodipine Active 10 MG PO DAILY June 30, 2021 11:00pm docusate sodium 50 mg / sennosides, retirement 8.6 mg oral tablet (17 sources) Start: 05-15-2019 Sennosides-Docu sate Sodium Active 2 EACH PO DAILY May 14, 2019 11:00pm DULoxetine 30 mg delayed release oral capsule (17 sources) Serotonin and Norepinephrine Reuptake Inhibitor Start: 04-29-2017 take 60 mg by mouth once daily Duloxetine Active 60 MG PO DAILY April 28, 2017 11:00pm glucagon (rdna) 1 mg injection (17 sources) Antihypoglycemic Agent Start: 05-15-2019 Glucagon (Human Recombinant) Active 1 MG IJ ONE TIME May 14, 2019 11:00pm 3 ml insulin detemir 100 unt/ml pen injector (20 sources) Insulin Analog Start: 05-15-2019 inject 24 [IU] by subcutaneous injection twice daily Insulin Detemir U-100 Active 24 UNITS subcut TWICE A DAY May 15, 2019 5:54am Start: 02-19-2017 End: 05-15-2019 Insulin Detemir U-100 (Levem ir Flextouch U100 Insulin) 100 UNITS/ML Insuln.Pen Discontinued 10 UNITS SC TWICE A DAY 60 February 18, 2017 11:00pm May 15, 2019 5:55am Start: 02-19-2017 End: 05-15-2019 Insulin Detemir U-100 (Levem ir Flextouch U-100 Insuln) 100 UNITS/ML Insuln.Pen Discontinued 10 UNITS SC TWICE A DAY 60 February 19, 2017 12:00am May 15, 2019 6:55am levoFLOXacin 500 mg oral tablet (17 sources) Quinolone Antimicrobial Start: 07-05-2021 take 500 mg by mouth once daily Levofloxacin Active 500 MG PO DAILY July 04, 2021 11:00pm linagliptin 5 mg oral tablet (17 sources) Dipeptidyl Peptidase 4 Inhibitor Start: 07-27-2018 take 1 tablet by mouth once daily Linagliptin (Tradjenta) 5 MG tablet Active 5 MG PO DAILY July 27, 2018 12:00am lisinopril 20 mg oral tablet (17 sources) Angiotensin Converting Enzyme Inhibitor Start: 07-01-2021 take 20 mg by mouth once daily Lisinopril Active 20 MG PO DAILY June 30, 2021 11:00pm melatonin 3 mg oral capsule (17 sources) Start: 07-01-2021 take 3 mg by mouth at bedtime Melatonin Active 3 MG PO AT BEDTIME June 30, 2021 11:00pm metFORMIN hydrochloride 500 mg oral tablet (20 sources) Biguanide Start: 07-01-2021 take 500 mg by mouth twice daily Metformin Active 500 MG PO TWICE A DAY June 30, 2021 11:00pm Start: 03-14-2015 METFORMIN HCL 850 MG TABS 1 tab twice daily METFORMIN HCL [id number] Aubree Cole 24 hr mirabegron 50 mg extended release oral tablet (17 sources) beta3-Adrenergic Agonist Start: 02-16-2017 take 1 tablet by mouth once daily Mirabegron (Myrbetriq) 50 MG tablet extended release 24 hr Active 50 MG PO DAILY February 15, 2017 11:00pm Vitamins A,C,D-Drul-Gligdt (Preservision Areds) 1 EACH capsule (17 sources) Start: 07-27-2018 take 1 capsule by mouth twice daily Vitamins A,C,V-Nizp-Iwmexs (Preservision Areds) 1 EACH capsule Active 1 EACH PO TWICE A DAY July 27, 2018 7:58pm Start: 07-27-2018 [facility] capsule [facility] daily Vitamins A,C,L-Yklw-Nmrqca (Preservision Areds) 1 EACH capsule Active 1 EACH PO TWICE A DAY July 27, 2018 12:00am Start: 07-27-2018 take 1 capsule by [facility] daily Vitamins A,C,L-Noee-Htlovi (Preservision Areds) 1 EACH capsule Active 1 EACH PO TWICE A DAY July 27, 2018 1:00am Completed/Discontinued Medications Medication Drug Class(es) Dates Sig (Normalized) Sig (Original) amLODIPine 10 mg / benazepril hydrochloride 20 mg oral capsule (6 sources) Dihydropyridine Calcium Channel Ken, Angiotensin Converting Enzyme Inhibitor Start: 03-14-2015 AMLODIPINE BESY-BENAZEPRIL HCL 10-20 MG CAPS daily AMLODIPINE BESY-BENAZEPRIL HCL [id number] Aubree E Frase atorvastatin 20 mg oral tablet (20 sources) HMG-CoA Reductase Inhibitor Start: 03-14-2015 ATORVASTATIN CALCIUM 20 MG TABS daily ATORVASTATIN CALCIUM [id number] Aubree E Frase Start: 03-07-2015 take 20 mg by mouth at bedtime Atorvastatin Active 20 MG PO AT BEDTIME March 06, 2015 11:00pm glimepiride 4 mg oral tablet (6 sources) Sulfonylurea Start: 03-14-2015 GLIMEPIRIDE 4 MG TABS daily GLIMEPIRIDE [id number] Aubree E Frase pioglitazone 30 mg oral tablet (6 sources) Peroxisome Proliferator Receptor alpha Agonist, Peroxisome Proliferator Receptor gamma Agonist, Thiazolidinedione Start: 03-14-2015 PIOGLITAZONE HCL 30 MG TABS daily PIOGLITAZONE HCL [id number] Aubree E Frase SITagliptin 100 mg oral tablet (6 sources) Dipeptidyl Peptidase 4 Inhibitor Start: 03-14-2015 JANUVIA 100 MG TABS daily SITAGLIPTIN PHOSPHATE [id number] Aubree E Frase solifenacin succinate 10 mg oral tablet (6 sources) Cholinergic Muscarinic Antagonist Start: 03-14-2015 VESICARE 10 MG TABS daily SOLIFENACIN SUCCINATE [id number] Aubree Jenningsse Problems Active Problems Problem Classification Problem Date Documented Date Episodic/Chronic Delirium, dementia, and amnestic and other cognitive disorders (2 sources) Unspecified dementia without behavioral disturbance; Translations: [Unspecified dementia, unspecified severity, without behavioral disturbance, psychotic disturbance, mood disturbance, and anxiety] Onset: 05-13-2024 Chronic Diabetes mellitus without complication (19 sources) Type 2 diabetes mellitus; Translations: [Type 2 diabetes mellitus without complications] Onset: 08-28-2024 07-01-2021 Chronic Disorders of lipid metabolism (19 sources) Hyperlipidemia; Translations: [Hyperlipidemia, unspecified] Onset: 05-13-2024 07-01-2021 Chronic E Codes: Fall (17 sources) Fall in halfway; Translations: [Unspecified fall, initial encounter] 04-18-2019 Episodic Essential hypertension (19 sources) Hypertensive disorder; Translations: [Essential (primary) hypertension] Onset: 05-13-2024 07-01-2021 Chronic Fluid and electrolyte disorders (17 sources) Hyponatremia; Translations: [Hypo-osmolality and hyponatremia] 07-13-2021 Episodic Fracture of neck of femur (hip) (20 sources) Displaced intertrochanteric fracture of left femur, subsequent encounter for closed fracture with routine healing; Translations: [Closed fracture of hip] Onset: 03-06-2017 03-13-2017 Episodic Malaise and fatigue (17 sources) Asthenia; Translations: [Weakness] 07-13-2021 Episodic Mood disorders (17 sources) Depressive disorder; Translations: [Depression] 04-30-2017 Chronic Other aftercare (2 sources) 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; Translations: [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] Onset: 08-28-2024 Episodic Superficial injury; contusion (17 sources) Hematoma of scalp; Translations: [Contusion of scalp, initial encounter] 04-18-2019 Episodic Past or Other Problems Problem Classification Problem Date Documented Da te Episodic/Chronic Fracture of upper limb (12 sources) Other and unspecified closed fractures of proximal end of radius (alone); Translations: [Closed fracture of olecranon process of ulna] Onset: 03-14-2015 03-16-2015 Episodic Open wounds of head; neck; and trunk (1 source) Laceration without foreign body of scalp, initial encounter; Translations: [Laceration without foreign body of scalp, initial encounter] Onset: 03-27-2024 Episodic Other aftercare (6 sources) Follow-up orthopedic assessment; Translations: [Encounter for other orthopedic aftercare] Onset: 03-28-2015 04-01-2015 Episodic Other non-traumatic joint disorders (4 sources) Hip pain; Translations: [Pain in left hip] Onset: 03-06-2017 03-06-2017 Episodic Urinary tract infections (18 sources) Acute urinary tract infection; Translations: [Urinary tract infection, site not specified] Onset: 08-28-2024 07-13-2021 Episodic Results Test Name Value Interpretation Reference Range Facility Hemoglobin A1con 01-14-2025 HbA1c (Bld) [Mass fraction] 6.7 % High <=5.6 [facility] Comment on above: Order Comment: 112.2 Result Comment: Norm al < 5.7 % Prediabetic 5.7 - 6.4 % Diabetic >or= 6.5 % Please note range changes. Performed By: #### L 500.2500, L501.9985, L500.4100, L100.0500 #### [facility] [address] [place], [address] Basic Metabolic Profile (BMP )on 10-16-2024 BUN/CRE 20.1 RATIO High 10-20 [facility] Comment on above: Order Comment: 112.2 Performed By: #### L 500.2500, L501.9985, L500.4100, L100.0500 #### [facility] [address] [place], [address] CA,Total 9.5 mg/dL Normal 8.5-10.1 [facility] Comment on above: Order Comment: 112.2 Performed By: #### L 500.2500, L501.9985, L500.4100, L100.0500 #### [facility] [address] [place], [address] Chloride [Moles/Vol] 97 mmol/L Low 98-107 [facility] Comment on above: Order Comment: 112.2 Performed By: #### L 500.2500, L501.9985, L500.4100, L100.0500 #### [facility] [address] [place], [address] CO2 [Moles/Vol] 24.0 mmol/L Normal 21.0-32.0 [facility] Comment on above: Order Comment: 112.2 Performed By: #### L 500.2500, L501.9985, L500.4100, L100.0500 #### [facility] [address] [place], [address] Creatinine [Mass/Vol] 0.95 mg/dL Normal 0.55-1.02 [facility] Comment on above: Order Comment: 112.2 Result Comment: The validity of the calculated GFR GFRAA in patients over 70 years has not been determined. Clinical correlation is essential. Performed By: #### L 500.2500, L501.9985, L500.4100, L100.0500 #### [facility] [address] [place], [address] EST GFR - AA 72 mL/min Normal >60 [facility] Comment on above: Order Comment: 112.2 Result Comment: Afri can Japanese GFR Calc Performed By: #### L 500.2500, L501.9985, L500.4100, L100.0500 #### [facility] [address] [place], [address] GAP 10 Normal 5-15 [facility] Comment on above: Order Comment: 112.2 Performed By: #### L 500.2500, L501.9985, L500.4100, L100.0500 #### [facility] [address] [place], [address] GFR/1.73 sq M.predicted among non-blacks MDRD (S/P/Bld) [Vol rate/Area] 60 mL/min/{1.73_m2} Normal >60 [facility] Comment on above: Order Comment: 112.2 Result Comment: Non- GFR Calc Performed By: #### L 500.2500, L501.9985, L500.4100, L100.0500 #### [facility] [address] [place], [address] Glucose [Mass/Vol] 146 mg/dL High 74-106 [facility] Comment on above: Order Comment: 112.2 Result Comment: Fast ing Glucose result greater than or equal to 126 mg/dL suggests DIABETES MELLITUS per A.D.A. criteria. Performed By: #### L 500.2500, L501.9985, L500.4100, L100.0500 #### [facility] [address] [place], [address] Potassium [Moles/Vol] 4.4 mmol/L Normal 3.5-5.1 [facility] Comment on above: Order Comment: 112.2 Performed By: #### L 500.2500, L501.9985, L500.4100, L100.0500 #### [facility] [address] [place], [address] Sodium [Moles/Vol] 131 mmol/L Low 136-145 [facility] Comment on above: Order Comment: 112.2 Performed By: #### L 500.2500, L501.9985, L500.4100, L100.0500 #### [facility] [address] [place], [address] Urea nitrogen [Mass/Vol] 19 mg/dL High 7-18 [facility] Comment on above: Order Comment: 112.2 Performed By: #### L 500.2500, L501.9985, L500.4100, L100.0500 #### [facility] [address] [place], [address] CBC-Complete Blood Cnt No Di ffon 10-16-2024 Erythrocyte distribution width (RBC) [Ratio] 15.2 % High 11.6-14.6 [facility] Comment on above: Order Comment: 112.2 Performed By: #### L 500.2500, L501.9985, L500.4100, L100.0500 #### [facility] [address] [place], [address] Hematocrit (Bld) [Volume fraction] 41.2 % Normal 37-47 [facility] Comment on above: Order Comment: 112.2 Performed By: #### L 500.2500, L501.9985, L500.4100, L100.0500 #### [facility] [address] [place], [address] Hemoglobin (Bld) [Mass/Vol] 13.4 g/dL Normal 12.0-15.0 [facility] Comment on above: Order Comment: 112.2 Performed By: #### L 500.2500, L501.9985, L500.4100, L100.0500 #### [facility] [address] [place], [address] MCH (RBC) [Entitic mass] 28.3 pg Normal 27.0-32.0 [facility] Comment on above: Order Comment: 112.2 Performed By: #### L 500.2500, L501.9985, L500.4100, L100.0500 #### [facility] [address] [place], [address] MCHC (RBC) [Mass/Vol] 32.5 g/dL Normal 32-36 [facility] Comment on above: Order Comment: 112.2 Performed By: #### L 500.2500, L501.9985, L500.4100, L100.0500 #### [facility] [address] [place], [address] MCV (RBC) [Entitic vol] 86.9 fL Normal 81-99 [facility] Comment on above: Order Comment: 112.2 Performed By: #### L 500.2500, L501.9985, L500.4100, L100.0500 #### [facility] [address] [place], [address] Platelet mean volume (Bld) [Entitic vol] 10.8 fL Normal 6.2-12.0 [facility] Comment on above: Order Comment: 112.2 Performed By: #### L 500.2500, L501.9985, L500.4100, L100.0500 #### [facility] [address] [place], [address] Platelets (Bld) [#/Vol] 310 10*3/uL Normal 150-450 [facility] Comment on above: Order Comment: 112.2 Performed By: #### L 500.2500, L501.9985, L500.4100, L100.0500 #### [facility] [address] [place], [address] RBC (Bld) [#/Vol] 4.74 10*6/uL Normal 4.2-5.4 [facility] Comment on above: Order Comment: 112.2 Performed By: #### L 500.2500, L501.9985, L500.4100, L100.0500 #### [facility] [address] [place], [address] RDW SD 48.8 fl High 35.1-43.9 [facility] Comment on above: Order Comment: 112.2 Performed By: #### L 500.2500, L501.9985, L500.4100, L100.0500 #### [facility] [address] [place], [address] WBC (Bld) [#/Vol] 11.8 10*3/uL High 4.4-11.0 [facility] Comment on above: Order Comment: 112.2 Performed By: #### L 500.2500, L501.9985, L500.4100, L100.0500 #### [facility] [address] [place], [address] Hemoglobin A1con 10-16-2024 HbA1c (Bld) [Mass fraction] 6.7 % High 3.8-5.6 [facility] Comment on above: Order Comment: 112.2 Result Comment: Norm al < 5.7 % Prediabetic 5.7 - 6.4 % Diabetic >or= 6.5 % Please note range changes. Performed By: #### L 500.2500, L501.9985, L500.4100, L100.0500 #### [facility] [address] [place], [address] Lipid Profileon 10-16-2024 Cholesterol [Mass/Vol] 106 mg/dL Normal 200 [facility] Comment on above: Order Comment: 112.2 Result Comment: <200 mg/dL Desirable 200-240 mg/dL Borderline >240 mg/dL High Risk Performed By: #### L 500.2500, L501.9985, L500.4100, L100.0500 #### [facility] [address] [place], [address] Cholesterol in HDL [Mass/Vol] 52 mg/dL Normal [facility] Comment on above: Order Comment: 112.2 Result Comment: The drugs N-Acetylcysteine and Metamizole may falsely depress this assay. Reference Range HDL <40 mg/dL Low HDL Cholesterol HDL >or= 60 mg/dL High HDL Cholesterol Performed By: #### L 500.2500, L501.9985, L500.4100, L100.0500 #### [facility] [address] [place], [address] Cholesterol in LDL [Mass/Vol] 30 mg/dL Normal 0-130 [facility] Comment on above: Order Comment: 112.2 Performed By: #### L 500.2500, L501.9985, L500.4100, L100.0500 #### [facility] [address] [place], [address] Cholesterol in VLDL [Mass/Vol] 24 mg/dL Normal 5-40 [facility] Comment on above: Order Comment: 112.2 Performed By: #### L 500.2500, L501.9985, L500.4100, L100.0500 #### [facility] [address] [place], [address] Triglyceride [Mass/Vol] 118 mg/dL Normal [facility] Comment on above: Order Comment: 112.2 Result Comment: The drugs N-Acetylcysteine and Metamizole may falsely depress this assay. Serum Triglycerides Reference Interval Normal <150 mg/dL Borderline high 150 - 199 mg/dL High 200 - 499 mg/dL Very High > or = 500 mg/dL Performed By: #### L 500.2500, L501.9985, L500.4100, L100.0500 #### [facility] [address] [place], [address] Valproic Acid (Depakene) Lev melissa 08-21-2024 VALPROIC ACID 26 ug/mL Low 50-100 [facility] Comment on above: Order Comment: 112.2 Performed By: #### M 100.2200 #### [facility] [address] [place], [address] Urine Cultureon 07-17-2024 [facility] Presumptive E. coli [place] Count 11,000-25,000 Presumptive E. coli: REACTION Ampicillin Islt MENDY >=32 Ampicillin+Sulbac Islt MENDY 8 S ceFAZolin Islt MENDY <=4 S Cefepime Islt MENDY <=0.12 S cefTRIAXone Islt MENDY <=0.25 S Ciprofloxacin Islt MENDY <=0.25 S B-Lactamase Extended Susc Islt NEG Gentamicin Islt MENDY <=1 S Imipenem Islt MENDY <=0.25 S levoFLOXacin Islt MENDY <=0.12 S Nitrofurantoin Islt MENDY <=16 S Pip+Tazo Islt MENDY <=4 S Tobramycin Islt MENDY <=1 S TMP SMX Islt MENDY >=320 R Normal [facility] Comment on above: Performed By: #### M 100.2200 #### [facility] [address] [place], [address] Hemoglobin A1con 07-16-2024 HbA1c (Bld) [Mass fraction] 7.1 % High 3.8-5.6 [facility] Comment on above: Order Comment: 112.2 Result Comment: Norm al < 5.7 % Prediabetic 5.7 - 6.4 % Diabetic >or= 6.5 % Please note range changes. Performed By: #### L 500.2500, L501.9985, L500.4100, L100.0500 #### [facility] [address] [place], [address] Urinalysis, Completeon 07-15 BACTERIA 2+ /hpf Normal None Seen [facility] Comment on above: Order Comment: CLEAN CATCH Performed By: #### M 100.2200 #### [facility] [address] [place], [address] EPI,SQUAMOUS 10-25 SEEN Normal 5-10 [facility] Comment on above: Order Comment: CLEAN CATCH Performed By: #### M 100.2200 #### [facility] [address] [place], [address] RBC 50-100 SEEN Normal 0-5 [facility] Comment on above: Order Comment: CLEAN CATCH Performed By: #### M 100.2200 #### [facility] [address] [place], [address] WBC >100 SEEN Normal 0-5 [facility] Comment on above: Order Comment: CLEAN CATCH Performed By: #### M 100.2200 #### [facility] [address] [place], [address] Mucus Ql (Urine sed) 0 SEEN Normal [facility] Comment on above: Order Comment: CLEAN CATCH Performed By: #### M 100.2200 #### [facility] [address] [place], [address] Urine Cultureon 05-02-2024 [facility] Klebsiella pneumoniae sp pneum [place] Count >100,000 Klebsiella pneumoniae sp pneum: REACTION Ampicillin Islt MENDY R Ampicillin+Sulbac Islt MENDY 4 S ceFAZolin Islt MENDY <=4 S Cefepime Islt MENDY <=0.12 S cefTRIAXone Islt MENDY <=0.25 S Ciprofloxacin Islt MENDY <=0.25 S Ertapenem Islt MENDY <=0.12 S B-Lactamase Extended Susc Islt NEG Gentamicin Islt MENDY <=1 S Imipenem Islt MENDY <=0.25 S levoFLOXacin Islt MENDY <=0.12 S Nitrofurantoin Islt MENDY <=16 S Pip+Tazo Islt MENDY <=4 S Tobramycin Islt MENDY <=1 S TMP SMX Islt MENDY <=20 S Normal [facility] Comment on above: Performed By: #### L 400.0001, M100.2200 #### [facility] [address] [place], [address] Urinalysis, Completeon 04-30 BACTERIA 3+ /hpf Normal None Seen [facility] Comment on above: Order Comment: Urine , Random Performed By: #### L 400.0001, M100.2200 #### [facility] [address] [place], [address] EPI,SQUAMOUS 0-5 SEEN Normal 5-10 [facility] Comment on above: Order Comment: Urine , Random Performed By: #### L 400.0001, M100.2200 #### [facility] [address] [place], [address] RBC 0-5 SEEN Normal 0-5 [facility] Comment on above: Order Comment: Urine , Random Performed By: #### L 400.0001, M100.0 #### [facility] [address] [place], [address] WBC >100 SEEN Normal 0-5 [facility] Comment on above: Order Comment: Urine , Random Performed By: #### L 400.0001, M100.2200 #### [facility] [address] [place], [address] Mucus Ql (Urine sed) 0 SEEN Normal [facility] Comment on above: Order Comment: Urine , Random Performed By: #### L 400.0001, M100.2200 #### [facility] [address] [place], [address] CBC W/Diff, Automatedon 04-03 Absolute Lymph 0.93 X10 3/uL Normal 0.83-4.51 [facility] [facility] Comment on above: Order Comment: 112.2 Performed By: #### L 500.2500, L501.9985, L500.4100, L100.0500 #### [facility] [address] [place], [address] Absolute Neut 13.5 X10 3/uL High 2.0-7.7 [facility] Comment on above: Order Comment: 112.2 Performed By: #### L 500.2500, L501.9985, L500.4100, L100.0500 #### [facility] [address] [place], [address] Basophils/100 WBC (Bld) 0.3 % Normal 0-1 [facility] Comment on above: Order Comment: 112.2 Performed By: #### L 500.2500, L501.9985, L500.4100, L100.0500 #### [facility] [address] [place], [address] Eosinophils/100 WBC (Bld) 0.1 % Normal 0-5 [facility] Comment on above: Order Comment: 112.2 Performed By: #### L 500.2500, L501.9985, L500.4100, L100.0500 #### [facility] [address] [place], [address] Erythrocyte distribution width (RBC) [Ratio] 15.4 % High 11.6-14.6 [facility] Comment on above: Order Comment: 112.2 Performed By: #### L 500.2500, L501.9985, L500.4100, L100.0500 #### [facility] [address] [place], [address] Hematocrit (Bld) [Volume fraction] 37.9 % Normal 37-47 [facility] Comment on above: Order Comment: 112.2 Performed By: #### L 500.2500, L501.9985, L500.4100, L100.0500 #### [facility] [address] [place], [address] Hemoglobin (Bld) [Mass/Vol] 12.3 g/dL Normal 12.0-15.0 [facility] Comment on above: Order Comment: 112.2 Performed By: #### L 500.2500, L501.9985, L500.4100, L100.0500 #### [facility] [address] [place], [address] IG% 0.700 Normal 0.0-0.9 [facility] Comment on above: Order Comment: 112.2 Result Comment: IG% - Immature Granulocytes (promyelocytes, myelocytes and metamyelocytes) > 1% indicates that a LEFT SHIFT is Present. Performed By: #### L 500.2500, L501.9985, L500.4100, L100.0500 #### [facility] [address] [place], [address] Lymphocytes/100 WBC (Bld) 6.0 % Low 19-41 [facility] Comment on above: Order Comment: 112.2 Performed By: #### L 500.2500, L501.9985, L500.4100, L100.0500 #### [facility] [address] [place], [address] MCH (RBC) [Entitic mass] 28.9 pg Normal 27.0-32.0 [facility] Comment on above: Order Comment: 112.2 Performed By: #### L 500.2500, L501.9985, L500.4100, L100.0500 #### [facility] [address] [place], [address] MCHC (RBC) [Mass/Vol] 32.5 g/dL Normal 32-36 [facility] Comment on above: Order Comment: 112.2 Performed By: #### L 500.2500, L501.9985, L500.4100, L100.0500 #### [facility] [address] [place], [address] MCV (RBC) [Entitic vol] 89.2 fL Normal 81-99 [facility] Comment on above: Order Comment: 112.2 Performed By: #### L 500.2500, L501.9985, L500.4100, L100.0500 #### [facility] [address] [place], [address] Monocytes/100 WBC (Bld) 5.6 % Normal 0-10 [facility] Comment on above: Order Comment: 112.2 Performed By: #### L 500.2500, L501.9985, L500.4100, L100.0500 #### [facility] [address] [place], [address] Neutrophils/100 WBC (Bld) 87.3 % High 47-70 [facility] Comment on above: Order Comment: 112.2 Performed By: #### L 500.2500, L501.9985, L500.4100, L100.0500 #### [facility] [address] [place], [address] Nucleated RBC (Bld) [#/Vol] 0 10*3/uL Normal 0-5 [facility] Comment on above: Order Comment: 112.2 Performed By: #### L 500.2500, L501.9985, L500.4100, L100.0500 #### [facility] [address] [place], [address] Platelet mean volume (Bld) [Entitic vol] 10.7 fL Normal 6.2-12.0 [facility] Comment on above: Order Comment: 112.2 Performed By: #### L 500.2500, L501.9985, L500.4100, L100.0500 #### [facility] [address] [place], [address] Platelets (Bld) [#/Vol] 378 10*3/uL Normal 150-450 [facility] Comment on above: Order Comment: 112.2 Performed By: #### L 500.2500, L501.9985, L500.4100, L100.0500 #### [facility] [address] [place], [address] RBC (Bld) [#/Vol] 4.25 10*6/uL Normal 4.2-5.4 [facility] Comment on above: Order Comment: 112.2 Performed By: #### L 500.2500, L501.9985, L500.4100, L100.0500 #### [facility] [address] [place], [address] RDW SD 50.3 fl High 35.1-43.9 [facility] Comment on above: Order Comment: 112.2 Performed By: #### L 500.2500, L501.9985, L500.4100, L100.0500 #### [facility] [address] [place], [address] WBC (Bld) [#/Vol] 15.5 10*3/uL High 4.4-11.0 [facility] Comment on above: Order Comment: 112.2 Performed By: #### L 500.2500, L501.9985, L500.4100, L100.0500 #### [facility] [address] [place], [address] Basic Metabolic Profile (BMP )on 04-16-2024 BUN/CRE 15.4 RATIO Normal 10-20 [facility] Comment on above: Order Comment: 112.2 Performed By: #### M 100.2200 #### [facility] [address] [place], [address] CA,Total 9.3 mg/dL Normal 8.5-10.1 [facility] Comment on above: Order Comment: 112.2 Performed By: #### M 100.2200 #### [facility] [address] [place], [address] Chloride [Moles/Vol] 99 mmol/L Normal 98-107 [facility] Comment on above: Order Comment: 112.2 Performed By: #### M 100.0 #### [facility] [address] [place], [address] CO2 [Moles/Vol] 22.0 mmol/L Normal 21.0-32.0 [facility] Comment on above: Order Comment: 112.2 Performed By: #### M 100.2200 #### [facility] [address] [place], [address] Creatinine [Mass/Vol] 1.04 mg/dL High 0.55-1.02 [facility] Comment on above: Order Comment: 112.2 Result Comment: The validity of the calculated GFR GFRAA in patients over 70 years has not been determined. Clinical correlation is essential. Performed By: #### M 100.0 #### [facility] [address] [place], [address] EST GFR - AA 65 mL/min Normal >60 [facility] Comment on above: Order Comment: 112.2 Result Comment: Afri can Japanese GFR Calc Performed By: #### M 100.0 #### [facility] [address] [place], [address] GAP 12 Normal 5-15 [facility] Comment on above: Order Comment: 112.2 Performed By: #### M 100.0 #### [facility] [address] [place], [address] GFR/1.73 sq M.predicted among non-blacks MDRD (S/P/Bld) [Vol rate/Area] 54 mL/min/{1.73_m2} Low >60 [facility] Comment on above: Order Comment: 112.2 Result Comment: Non- GFR Calc Performed By: #### M 100.2200 #### [facility] [address] [place], [address] Glucose [Mass/Vol] 148 mg/dL High 74-106 [facility] Comment on above: Order Comment: 112.2 Result Comment: Fast ing Glucose result greater than or equal to 126 mg/dL suggests DIABETES MELLITUS per A.D.A. criteria. Performed By: #### M 100.2200 #### [facility] [address] [place], [address] Potassium [Moles/Vol] 4.4 mmol/L Normal 3.5-5.1 [facility] Comment on above: Order Comment: 112.2 Performed By: #### M 100.2200 #### [facility] [address] [place], [address] Sodium [Moles/Vol] 133 mmol/L Low 136-145 [facility] Comment on above: Order Comment: 112.2 Performed By: #### M 100.2200 #### [facility] [address] [place], [address] Urea nitrogen [Mass/Vol] 16 mg/dL Normal 7-18 [facility] Comment on above: Order Comment: 112.2 Performed By: #### M 100.2200 #### [facility] [address] [place], [address] CBC-Complete Blood Cnt No Di ffon 04-16-2024 Erythrocyte distribution width (RBC) [Ratio] 14.6 % Normal 11.6-14.6 [facility] Comment on above: Order Comment: 112.2 Performed By: #### M 100.2200 #### [facility] [address] [place], [address] Hematocrit (Bld) [Volume fraction] 40.0 % Normal 37-47 [facility] Comment on above: Order Comment: 112.2 Performed By: #### M 100.2200 #### [facility] [address] [place], [address] Hemoglobin (Bld) [Mass/Vol] 13.1 g/dL Normal 12.0-15.0 [facility] Comment on above: Order Comment: 112.2 Performed By: #### M 100.2200 #### [facility] [address] [place], [address] MCH (RBC) [Entitic mass] 28.4 pg Normal 27.0-32.0 [facility] Comment on above: Order Comment: 112.2 Performed By: #### M 100.2200 #### [facility] [address] [place], [address] MCHC (RBC) [Mass/Vol] 32.8 g/dL Normal 32-36 [facility] Comment on above: Order Comment: 112.2 Performed By: #### M 100.2200 #### [facility] [address] [place], [address] MCV (RBC) [Entitic vol] 86.8 fL Normal 81-99 [facility] Comment on above: Order Comment: 112.2 Performed By: #### M 100.2200 #### [facility] [address] [place], [address] Platelet mean volume (Bld) [Entitic vol] 10.2 fL Normal 6.2-12.0 [facility] Comment on above: Order Comment: 112.2 Performed By: #### M 100.2200 #### [facility] [address] [place], [address] Platelets (Bld) [#/Vol] 466 10*3/uL High 150-450 [facility] Comment on above: Order Comment: 112.2 Performed By: #### M 100.2200 #### [facility] [address] [place], [address] RBC (Bld) [#/Vol] 4.61 10*6/uL Normal 4.2-5.4 [facility] Comment on above: Order Comment: 112.2 Performed By: #### M 100.2200 #### [facility] [address] [place], [address] RDW SD 46.1 fl High 35.1-43.9 [facility] Comment on above: Order Comment: 112.2 Performed By: #### M 100.2200 #### [facility] [address] [place], [address] WBC (Bld) [#/Vol] 16.2 10*3/uL High 4.4-11.0 [facility] Comment on above: Order Comment: 112.2 Performed By: #### M 100.2200 #### [facility] [address] [place], [address] Hemoglobin A1con 04-16-2024 HbA1c (Bld) [Mass fraction] 9.2 % High 3.8-5.6 [facility] Comment on above: Order Comment: 112.2 Result Comment: Norm al < 5.7 % Prediabetic 5.7 - 6.4 % Diabetic >or= 6.5 % Please note range changes. Performed By: #### M 100.2200 #### [facility] [address] [place], [address] Lipid Profileon 04-16-2024 Cholesterol [Mass/Vol] 104 mg/dL Normal 200 [facility] Comment on above: Order Comment: 112.2 Result Comment: <200 mg/dL Desirable 200-240 mg/dL Borderline >240 mg/dL High Risk Performed By: #### M 100.2200 #### [facility] [address] [place], [address] Cholesterol in HDL [Mass/Vol] 41 mg/dL Normal [facility] Comment on above: Order Comment: 112.2 Result Comment: The drugs N-Acetylcysteine and Metamizole may falsely depress this assay. Reference Range HDL <40 mg/dL Low HDL Cholesterol HDL >or= 60 mg/dL High HDL Cholesterol Performed By: #### M 100.2200 #### [facility] [address] [place], [address] Cholesterol in LDL [Mass/Vol] 34 mg/dL Normal 0-130 [facility] Comment on above: Order Comment: 112.2 Performed By: #### M 100.2200 #### [facility] [address] [place], [address] Cholesterol in VLDL [Mass/Vol] 29 mg/dL Normal 5-40 [facility] Comment on above: Order Comment: 112.2 Performed By: #### M 100.2200 #### [facility] [address] [place], [address] Triglyceride [Mass/Vol] 143 mg/dL Normal [facility] Comment on above: Order Comment: 112.2 Result Comment: The drugs N-Acetylcysteine and Metamizole may falsely depress this assay. Serum Triglycerides Reference Interval Normal <150 mg/dL Borderline high 150 - 199 mg/dL High 200 - 499 mg/dL Very High > or = 500 mg/dL Performed By: #### M 100.2200 #### [facility] [address] [place], [address] Basic Metabolic Profile (BMP )on 04-02-2024 BUN/CRE 18.5 RATIO Normal 10-20 [facility] Comment on above: Order Comment: 112.2 Performed By: #### M 100.2200 #### [facility] [address] [place], [address] CA,Total 9.2 mg/dL Normal 8.5-10.1 [facility] Comment on above: Order Comment: 112.2 Performed By: #### M 100.0 #### [facility] [address] [place], [address] Chloride [Moles/Vol] 97 mmol/L Low 98-107 [facility] Comment on above: Order Comment: 112.2 Performed By: #### M 100.2200 #### [facility] [address] [place], [address] CO2 [Moles/Vol] 24.0 mmol/L Normal 21.0-32.0 [facility] Comment on above: Order Comment: 112.2 Performed By: #### M 100.2200 #### [facility] [address] [place], [address] Creatinine [Mass/Vol] 0.97 mg/dL Normal 0.55-1.02 [facility] Comment on above: Order Comment: 112.2 Result Comment: The validity of the calculated GFR GFRAA in patients over 70 years has not been determined. Clinical correlation is essential. Performed By: #### M 100.2200 #### [facility] [address] [place], [address] EST GFR - AA 70 mL/min Normal >60 [facility] Comment on above: Order Comment: 112.2 Result Comment: Afri can Japanese GFR Calc Performed By: #### M 100.2200 #### [facility] [address] [place], [address] GAP 9 Normal 5-15 [facility] Comment on above: Order Comment: 112.2 Performed By: #### M 100.2200 #### [facility] [address] [place], [address] GFR/1.73 sq M.predicted among non-blacks MDRD (S/P/Bld) [Vol rate/Area] 58 mL/min/{1.73_m2} Low >60 [facility] Comment on above: Order Comment: 112.2 Result Comment: Non- GFR Calc Performed By: #### M 100.2200 #### [facility] [address] [place], [address] Glucose [Mass/Vol] 200 mg/dL High 74-106 [facility] Comment on above: Order Comment: 112.2 Result Comment: Gluc ose result greater than or equal to 200 mg/dL suggests DIABETES MELLITUS per A.D.A. criteria. Performed By: #### M 100.2200 #### [facility] [address] [place], [address] Potassium [Moles/Vol] 4.5 mmol/L Normal 3.5-5.1 [facility] Comment on above: Order Comment: 112.2 Performed By: #### M 100.2200 #### [facility] [address] [place], [address] Sodium [Moles/Vol] 130 mmol/L Low 136-145 [facility] Comment on above: Order Comment: 112.2 Performed By: #### M 100.2200 #### [facility] [address] [place], [address] Urea nitrogen [Mass/Vol] 18 mg/dL Normal 7-18 [facility] Comment on above: Order Comment: 112.2 Performed By: #### M 100.2200 #### [facility] [address] [place], [address] CBC-Complete Blood Cnt No Di ffon 04-02-2024 Erythrocyte distribution width (RBC) [Ratio] 14.3 % Normal 11.6-14.6 [facility] Comment on above: Order Comment: 112.2 Performed By: #### M 100.2200 #### [facility] [address] [place], [address] Hematocrit (Bld) [Volume fraction] 38.1 % Normal 37-47 [facility] Comment on above: Order Comment: 112.2 Performed By: #### M 100.2200 #### [facility] [address] [place], [address] Hemoglobin (Bld) [Mass/Vol] 12.5 g/dL Normal 12.0-15.0 [facility] Comment on above: Order Comment: 112.2 Performed By: #### M 100.2200 #### [facility] [address] [place], [address] MCH (RBC) [Entitic mass] 28.4 pg Normal 27.0-32.0 [facility] Comment on above: Order Comment: 112.2 Performed By: #### M 100.2200 #### [facility] [address] [place], [address] MCHC (RBC) [Mass/Vol] 32.8 g/dL Normal 32-36 [facility] Comment on above: Order Comment: 112.2 Performed By: #### M 100.2200 #### [facility] [address] [place], [address] MCV (RBC) [Entitic vol] 86.6 fL Normal 81-99 [facility] Comment on above: Order Comment: 112.2 Performed By: #### M 100.0 #### [facility] [address] [place], [address] Platelet mean volume (Bld) [Entitic vol] 10.2 fL Normal 6.2-12.0 [facility] Comment on above: Order Comment: 112.2 Performed By: #### M 100.0 #### [facility] [address] [place], [address] Platelets (Bld) [#/Vol] 438 10*3/uL Normal 150-450 [facility] Comment on above: Order Comment: 112.2 Performed By: #### M 100.2200 #### [facility] [address] [place], [address] RBC (Bld) [#/Vol] 4.40 10*6/uL Normal 4.2-5.4 [facility] Comment on above: Order Comment: 112.2 Performed By: #### M 100.2200 #### [facility] [address] [place], [address] RDW SD 45.1 fl High 35.1-43.9 [facility] Comment on above: Order Comment: 112.2 Performed By: #### M 100.0 #### [facility] [address] [place], [address] WBC (Bld) [#/Vol] 13.4 10*3/uL High 4.4-11.0 [facility] Comment on above: Order Comment: 112.2 Performed By: #### M 100.2200 #### [facility] [address] [place], [address] CBC W/Diff, Automatedon 07-10 04-2023 Absolute Lymph 1.72 X10 3/uL Normal 0.83-4.51 [facility] Comment on above: Order Comment: 112.2 Performed By: #### M 100.2199 #### [facility] [address] [place], [address] Absolute Neut 10.1 X10 3/uL High 2.0-7.7 [facility] Comment on above: Order Comment: 112.2 Performed By: #### M 100.0 #### [facility] [address] [place], [address] Basophils/100 WBC (Bld) 0.5 % Normal 0-1 [facility] Comment on above: Order Comment: 112.2 Performed By: #### M 100.2200 #### [facility] [address] [place], [address] Eosinophils/100 WBC (Bld) 1.6 % Normal 0-5 [facility] Comment on above: Order Comment: 112.2 Performed By: #### M 100.2200 #### [facility] [address] [place], [address] Erythrocyte distribution width (RBC) [Ratio] 14.2 % Normal 11.6-14.6 [facility] Comment on above: Order Comment: 112.2 Performed By: #### M 100.2200 #### [facility] [address] [place], [address] Hematocrit (Bld) [Volume fraction] 36.6 % Low 37-47 [facility] Comment on above: Order Comment: 112.2 Performed By: #### M 100.2200 #### [facility] [address] [place], [address] Hemoglobin (Bld) [Mass/Vol] 12.2 g/dL Normal 12.0-15.0 [facility] Comment on above: Order Comment: 112.2 Performed By: #### M 100.2200 #### [facility] [address] [place], [address] IG% 2.800 High 0.0-0.9 [facility] Comment on above: Order Comment: 112.2 Result Comment: IG% - Immature Granulocytes (promyelocytes, myelocytes and metamyelocytes) > 1% indicates that a LEFT SHIFT is Present. Performed By: #### M 100.2200 #### [facility] [address] [place], [address] Lymphocytes/100 WBC (Bld) 12.8 % Low 19-41 [facility] Comment on above: Order Comment: 112.2 Performed By: #### M 100.2200 #### [facility] [address] [place], [address] MCH (RBC) [Entitic mass] 28.9 pg Normal 27.0-32.0 [facility] Comment on above: Order Comment: 112.2 Performed By: #### M 100.2200 #### [facility] [address] [place], [address] MCHC (RBC) [Mass/Vol] 33.3 g/dL Normal 32-36 [facility] Comment on above: Order Comment: 112.2 Performed By: #### M 100.2200 #### [facility] [address] [place], [address] MCV (RBC) [Entitic vol] 86.7 fL Normal 81-99 [facility] Comment on above: Order Comment: 112.2 Performed By: #### M 100.2200 #### [facility] [address] [place], [address] Monocytes/100 WBC (Bld) 6.7 % Normal 0-10 [facility] Comment on above: Order Comment: 112.2 Performed By: #### M 100.0 #### [facility] [address] [place], [address] Neutrophils/100 WBC (Bld) 75.6 % High 47-70 [facility] Comment on above: Order Comment: 112.2 Performed By: #### M 100.2199 #### [facility] [address] [place], [address] Nucleated RBC (Bld) [#/Vol] 0 10*3/uL Normal 0-5 [facility] Comment on above: Order Comment: 112.2 Performed By: #### M 100.2199 #### [facility] [address] [place], [address] Platelet mean volume (Bld) [Entitic vol] 10.3 fL Normal 6.2-12.0 [facility] Comment on above: Order Comment: 112.2 Performed By: #### M 100.2200 #### [facility] [address] [place], [address] Platelets (Bld) [#/Vol] 564 10*3/uL High 150-450 [facility] Comment on above: Order Comment: 112.2 Performed By: #### M 100.220 #### [facility] [address] [place], [address] RBC (Bld) [#/Vol] 4.22 10*6/uL Normal 4.2-5.4 [facility] Comment on above: Order Comment: 112.2 Performed By: #### M 100.2200 #### [facility] [address] [place], [address] RDW SD 44.9 fl High 35.1-43.9 [facility] [facility] Comment on above: Order Comment: 112.2 Performed By: #### M 100.2200 #### [facility] [address] [place], [address] WBC (Bld) [#/Vol] 13.4 10*3/uL High 4.4-11.0 [facility] Comment on above: Order Comment: 112.2 Performed By: #### M 100.2200 #### [facility] [address] [place], [address] Urine Cultureon 03-19-2024 [facility]RC Klebsiella oxytoca [place] Count >100,000 Klebsiella oxytoca: REACTION Ampicillin Islt MENDY R Ampicillin+Sulbac Islt MENDY 4 S ceFAZolin Islt MENDY <=4 S Cefepime Islt MENDY <=0.12 S cefTRIAXone Islt MENDY <=0.25 S Ciprofloxacin Islt MENDY <=0.25 S B-Lactamase Extended Susc Islt NEG Gentamicin Islt MENDY <=1 S Imipenem Islt MENDY <=0.25 S levoFLOXacin Islt MENDY <=0.12 S Nitrofurantoin Islt MENDY <=16 S Tobramycin Islt MENDY <=1 S TMP SMX Islt MENDY <=20 S Normal [facility] Comment on above: Performed By: #### M 100.2200 #### [facility] [address] [place], [address] Basic Metabolic Profile (BMP )on 03-16-2024 BUN/CRE 19.6 RATIO Normal 10-20 [facility] Comment on above: Order Comment: 112.2 Performed By: #### L 100.0500, L500.2500 #### [facility] [address] [place], [address] CA,Total 8.6 mg/dL Normal 8.5-10.1 [facility] Comment on above: Order Comment: 112.2 Performed By: #### L 100.0500, L500.2500 #### [facility] [address] [place], [address] Chloride [Moles/Vol] 92 mmol/L Low 98-107 [facility] Comment on above: Order Comment: 112.2 Performed By: #### L 100.0500, L500.2500 #### [facility] [address] [place], [address] CO2 [Moles/Vol] 25.0 mmol/L Normal 21.0-32.0 [facility] Comment on above: Order Comment: 112.2 Performed By: #### L 100.0500, L500.2500 #### [facility] [address] [place], [address] Creatinine [Mass/Vol] 1.02 mg/dL Normal 0.55-1.02 [facility] Comment on above: Order Comment: 112.2 Result Comment: The validity of the calculated GFR GFRAA in patients over 70 years has not been determined. Clinical correlation is essential. Performed By: #### L 100.0500, L500.2500 #### [facility] [address] [place], [address] EST GFR - AA 66 mL/min Normal >60 [facility] Comment on above: Order Comment: 112.2 Result Comment: Afri can Japanese GFR Calc Performed By: #### L 100.0500, L500.2500 #### [facility] [address] [place], [address] GAP 7 Normal 5-15 [facility] Comment on above: Order Comment: 112.2 Performed By: #### L 100.0500, L500.2500 #### [facility] [address] [place], [address] GFR/1.73 sq M.predicted among non-blacks MDRD (S/P/Bld) [Vol rate/Area] 55 mL/min/{1.73_m2} Low >60 [facility] Comment on above: Order Comment: 112.2 Result Comment: Non- GFR Calc Performed By: #### L 100.0500, L500.2500 #### [facility] [address] [place], [address] Glucose [Mass/Vol] 123 mg/dL High 74-106 [facility] Comment on above: Order Comment: 112.2 Result Comment: Fast ing Glucose result from 100 to 125 mg/dL suggests IMPAIRED HOMEOSTASIS per A.D.A. criteria. Performed By: #### L 100.0500, L500.2500 #### [facility] [address] [place], [address] Potassium [Moles/Vol] 3.8 mmol/L Normal 3.5-5.1 [facility] Comment on above: Order Comment: 112.2 Performed By: #### L 100.0500, L500.2500 #### [facility] [address] [place], [address] Sodium [Moles/Vol] 124 mmol/L Low 136-145 [facility] Comment on above: Order Comment: 112.2 Performed By: #### L 100.0500, L500.2500 #### [facility] [address] [place], [address] Urea nitrogen [Mass/Vol] 20 mg/dL High 7-18 [facility] Comment on above: Order Comment: 112.2 Performed By: #### L 100.0500, L500.2500 #### [facility] [address] [place], [address] CBC-Complete Blood Cnt No Di ffon 03-16-2024 Erythrocyte distribution width (RBC) [Ratio] 13.4 % Normal 11.6-14.6 [facility] Comment on above: Order Comment: 112.2 Performed By: #### L 100.0500, L500.2500 #### [facility] [address] [place], [address] Hematocrit (Bld) [Volume fraction] 33.8 % Low 37-47 [facility] Comment on above: Order Comment: 112.2 Performed By: #### L 100.0500, L500.2500 #### [facility] [address] [place], [address] Hemoglobin (Bld) [Mass/Vol] 11.4 g/dL Low 12.0-15.0 [facility] Comment on above: Order Comment: 112.2 Performed By: #### L 100.0500, L500.2500 #### [facility] [address] [place], [address] MCH (RBC) [Entitic mass] 28.7 pg Normal 27.0-32.0 [facility] Comment on above: Order Comment: 112.2 Performed By: #### L 100.0500, L500.2500 #### [facility] [address] [place], [address] MCHC (RBC) [Mass/Vol] 33.7 g/dL Normal 32-36 [facility] Comment on above: Order Comment: 112.2 Performed By: #### L 100.0500, L500.2500 #### [facility] [address] [place], [address] MCV (RBC) [Entitic vol] 85.1 fL Normal 81-99 [facility] Comment on above: Order Comment: 112.2 Performed By: #### L 100.0500, L500.2500 #### [facility] [address] [place], [address] Platelet mean volume (Bld) [Entitic vol] 10.4 fL Normal 6.2-12.0 [facility] Comment on above: Order Comment: 112.2 Performed By: #### L 100.0500, L500.2500 #### [facility] [address] [place], [address] Platelets (Bld) [#/Vol] 397 10*3/uL Normal 150-450 [facility] Comment on above: Order Comment: 112.2 Performed By: #### L 100.0500, L500.2500 #### [facility] [address] [place], [address] RBC (Bld) [#/Vol] 3.97 10*6/uL Low 4.2-5.4 [facility] Comment on above: Order Comment: 112.2 Performed By: #### L 100.0500, L500.2500 #### [facility] [address] [place], [address] RDW SD 42.1 fl Normal 35.1-43.9 [facility] Comment on above: Order Comment: 112.2 Performed By: #### L 100.0500, L500.2500 #### [facility] [address] [place], [address] WBC (Bld) [#/Vol] 21.8 10*3/uL High 4.4-11.0 [facility] Comment on above: Order Comment: 112.2 Performed By: #### L 100.0500, L500.2500 #### [facility] [address] [place], [address] Emergency Department Summary on 03-13-2024 Emergency Department Summary [facility] Medical Records Department [address] [place] [address] Emergency Department Summary 03/13/24 MR#: [id number] Acct: [id number] Name: NICHOLE AYERS Rep #: [id number] : 1940 83 From: Kamran LYNNE PCP: Dr. Jake Waddell MD Status:DEP ER Location: ED Pt seen evaluated w/CHRIS. I personally interviewed exam the pt. I was involved in all aspects of pt's orders, interpretation of results treatment HPI History of Present Illness Chief Complaint: Fall Narrative Narrative: Patient is 83-year-old female with history of dementia, hypertension hyperlipidemia, diabetes who presents to the emergency department after mechanical fall. Patient she was in the bathroom, she was reaching for her walker when she lost her balance falling backward striking the back of her head, patient is a laceration to the occiput. She denies any LOC. Patient denies any chest pain, dizziness. [facility] Medical History (Updated 03/13/24 @ 19:48 by Kamran Gomez, RAYSA-C) Dementia Closed left hip fracture Hyperlipidemia Hypertension Type 2 diabetes mellitus Home Medications ???Medication ???Instructions ???Recorded ???Last Taken ???Type atorvastatin 20 mg tablet 20 mg PO QHS cholesterol 03/07/15 05/14/19 History mirabegron 50 mg tablet,extended 50 mg PO DAILY bladder 02/16/17 05/14/19 History release 24 hr (Myrbetriq) duloxetine 30 mg capsule,delayed 60 mg PO DAILY mental health 04/29/17 05/14/19 History release linagliptin 5 mg tablet (Tradjenta) 5 mg PO DAILY diabetes 07/27/18 05/14/19 History vitamins A,C,S-mynj-zewdez 4,296 1 ea PO BID eye health 07/27/18 05/14/19 History mcg-226 mg-90 mg capsule (PreserVision AREDS) acetaminophen 650 mg 650 mg PO QHS pain 05/15/19 05/14/19 History tablet,extended release glucagon (human recombinant) 1 mg 1 mg IJ X1 PRN hypoglycemic episode 05/15/19 Unknown History solution for injection insulin detemir U-100 100 unit/mL 24 units subcut BID diabetes 05/15/19 05/14/19 History (3 mL) subcutaneous pen sennosides 8.6 mg-docusate sodium 2 ea PO DAILY PRN Constipation 05/15/19 Unknown History 50 mg tablet amlodipine 10 mg tablet 10 mg PO DAILY blood pressure 07/01/21 Unknown History lisinopril 20 mg tablet 20 mg PO DAILY blood pressure 07/01/21 Unknown History melatonin 3 mg capsule 3 mg PO QHS sleep 07/01/21 Unknown History metformin 500 mg tablet 500 mg PO BID diabetes 07/01/21 Unknown History levofloxacin 500 mg tablet 500 mg PO DAILY #3 tabs 07/05/21 Unknown Rx Allergy/AdvReac Type Severity Reaction Status Date / Time codeine Allergy Other Verified 03/13/24 18:33 morphine Allergy Vomiting Verified 03/13/24 18:33 tramadol Allergy Other Verified 03/13/24 18:33 Family History Other Diabetes Surgical History (System 02/05/24 @ 09:40 by Claudia Wakefield) Hx of appendectomy Hx of tonsillectomy Social History (System 02/05/24 @ 09:40 by Claudia Wakefield) Smoking Status: Never smoker ROS ROS ED ROS Narrative Constitutional: Negative for fever, chills, weight loss, weakness Eyes: Negative for vision loss, vision change, double vision ENT: Negative for any sore throat, ear pain, congestion Cardiovascular: Negative for any chest pain, tightness, palpitations Respiratory: Negative for any cough, sputum production, hemoptysis, dyspnea, dyspnea on exertion, orthopnea Gastrointestinal: Negative for any abdominal pain, nausea, vomiting, diarrhea, constipation, blood in stool, blood in vomit : Negative for any urinary frequency, dysuria, retention, blood in urine Muscle skeletal: Negative for any neck pain, back pain Neurological: Negative for any headache, syncope, dizziness Skin: Negative for any rashes, itching, abrasions. Positive for laceration to the left occipital scalp Psychiatric: Negative for any depression, anxiety, stress, suicidal ideation, homicidal ideation Hematologic: Negative for any excessive bruising, easy bleeding EXAM Physical Exam Narrative Exam Narrative: Vital signs reviewed. HEET: Head normocephalic atraumatic, TMs clear bilaterally. Posterior pharynx is clear, moist mucous membranes. Nares clear bilaterally. Pupils are equal round reactive to light, no for any hemotympanum or septal hematoma. Patient has a 2 cm horizontal laceration that is full-thickness to the left-sided occipital scalp. Neck: Supple with no lymphadenopathy or tenderness. No signs of meningismus. Cardiac: Regular rate and rhythm no murmurs gallops or rubs, equal peripheral pulses bilaterally. Respiratory: Lungs clear to auscultation bilaterally. No chest tenderness. Abdomen: Soft, nontender, nondistended. No abdominal bruit or pulsatile masses. No hepatosplenomegaly Extremities: No peripheral edema, no si (more content not included)... Normal [facility] Basophil percentageOrdered B y: Jake Waddell on 10-17-2023 Chloride [Moles/Vol] 106 mmol/L 98-107 [facility] Cholesterol [Mass/Vol] 114 mg/dL <200 [facility] Comment on above: <200 mg/dL Desirable 200-240 mg/dL Borderline >240 mg/dL High Risk Glucose [Mass/Vol] 198 mg/dL 74-106 [facility] Comment on above: Fasting Glucose resu lt greater than or equal to 126 mg/dL suggests DIABETES MELLITUS per A.D.A. criteria. Hemoglobin (Bld) [Mass/Vol] 13.2 g/dL 12.0-15.0 [facility] Potassium [Moles/Vol] 4.3 mmol/L 3.5-5.1 [facility] Sodium [Moles/Vol] 138 mmol/L 136-145 [facility] Triglyceride [Mass/Vol] 89 mg/dL <199 [facility] Comment on above: The drugs N-Acetylcy steine and Metamizole may falsely depress this assay.Serum Triglycerides Reference Interval Normal <150 mg/dL Borderline high 150 - 199 mg/dL High 200 - 499 mg/dL Very High > or = 500 mg/dL WBC (Bld) [#/Vol] 9.6 10*3/uL 4.4-11.0 [facility] Determination of erythrocyte mean corpuscular volume (MCV)Ordered By: Jake Waddell on 10-17-2023 MCV (RBC) [Entitic vol] 87.6 fL 81-99 [facility] Erythrocyte distribution wid th ratioOrdered By: Jake Waddell on 10-17-2023 Erythrocyte distribution width (RBC) [Ratio] 13.9 % 11.6-14.6 [facility] Erythrocyte distribution wid th standard deviationOrdered By: Jake Waddell on 10-17-2023 Erythrocyte distribution width (RBC) [Entitic vol] 43.9 fL 35.1-43.9 [facility] Hematocrit Auto (Bld) [Volum e fraction]Ordered By: Jake Waddell on 10-17-2023 Hematocrit (Bld) [Volume fraction] 41.1 % 37-47 [facility] - Chemistry and C hemistry - challengeOrdered By: Jake Waddell on 10-17-2023 Cholesterol in HDL [Mass/Vol] 44 mg/dL >40 [facility] Comment on above: The drugs N-Acetylcy steine and Metamizole may falsely depress this assay. Reference Range HDL <40 mg/dL Low HDL Cholesterol HDL >or= 60 mg/dL High HDL Cholesterol Cholesterol in LDL [Mass/Vol] 52 mg/dL 0-130 [facility] CO2 [Moles/Vol] 24.0 mmol/L 21.0-32.0 [facility] Urea nitrogen/Creatinine [Mass ratio] 18.1 mg/mg 10-20 [facility] - Hematology and Cell countsOrdered By: Jake Waddell on 10-17-2023 MCH (RBC) [Entitic mass] 28.1 pg 27.0-32.0 [facility] MCHC (RBC) [Mass/Vol] 32.1 g/dL 32-36 [facility] Platelet mean volume (Bld) [Entitic vol] 11.2 fL 6.2-12.0 [facility] Platelets (Bld) [#/Vol] 344 10*3/uL 150-450 [facility] No Panel InformationOrdered By: Jake Waddell on 10-17-2023 Estimated GFR (MDRD) Amer 85 mL/min >60 [facility] Comment on above: GFR Calc Estimated GFR (MDRD) Non-Af Amer 70 mL/min >60 [facility] Comment on above: Non- GFR Calc VLDL Cholesterol 18 mg/dL 5-40 [facility] RBC Auto (Bld) [#/Vol]Ordere d By: Jake Waddell on 10-17-2023 RBC (Bld) [#/Vol] 4.69 10*6/uL 4.2-5.4 [facility] Serum or plasma calcium becki urement (mass/volume)Ordered By: Jake Waddell on 10-17-2023 Calcium [Mass/Vol] 8.9 mg/dL 8.5-10.1 [facility] Serum or plasma creatinine m easurement (mass/volume)Ordered By: Jake Waddell on 10-17-2023 Creatinine [Mass/Vol] 0.83 mg/dL 0.55-1.02 [facility] Comment on above: The validity of the calculated GFR & GFRAA in patients over 70 years has not been determined. Clinical correlation is essential. Serum or plasma urea nitroge n measurement (mass/volume)Ordered By: Jake Waddell on 10-17-2023 Urea nitrogen [Mass/Vol] 15 mg/dL 7-18 [facility] Thin prep Papanicolaou smear with manual screeningOrdered By: Jake Waddell on 10-17-2023 Thin prep Papanicolaou smear with manual screening 8 -15 [facility] Whole blood hemoglobin A1c/t otal hemoglobin ratio (mass fraction)Ordered By: Jake Waddell on 10-17-2023 HbA1c (Bld) [Mass fraction] 8.5 % 3.8-5.6 [facility] Comment on above: Normal < 5.7 % Predi abetic 5.7 - 6.4 % Diabetic >or= 6.5 % Please note range changes. Basophil percentageOrdered B y: Jake Waddell on 04-15-2023 Chloride [Moles/Vol] 102 mmol/L 98-107 [facility] Cholesterol [Mass/Vol] 118 mg/dL <200 [facility] Comment on above: <200 mg/dL Desirable 200-240 mg/dL Borderline >240 mg/dL High Risk Glucose [Mass/Vol] 236 mg/dL 74-106 [facility] Comment on above: Glucose result great er than or equal to 200 mg/dLsuggests DIABETES MELLITUS per A.D.A. criteria. Potassium [Moles/Vol] 4.5 mmol/L 3.5-5.1 [facility] Sodium [Moles/Vol] 135 mmol/L 136-145 [facility] Triglyceride [Mass/Vol] 119 mg/dL <199 [facility] Comment on above: The drugs N-Acetylcy steine and Metamizole may falsely depress this assay.Serum Triglycerides Reference Interval Normal <150 mg/dL Borderline high 150 - 199 mg/dL High 200 - 499 mg/dL Very High > or = 500 mg/dL WBC (Bld) [#/Vol] 10.0 10*3/uL 4.4-11.0 [facility] Blood erythrocytes count (nu mber/volume)Ordered By: Jake Waddell on 04-15-2023 RBC (Bld) [#/Vol] 4.83 10*6/uL 4.2-5.4 [facility] Blood hemoglobin measurement (mass/volume)Ordered By: Jake Waddell on 04-15-2023 Hemoglobin (Bld) [Mass/Vol] 13.9 g/dL 12.0-15.0 [facility] Blood platelet mean volumeOr dered By: Jake Waddell on 04-15-2023 Platelet mean volume (Bld) [Entitic vol] 10.8 fL 6.2-12.0 [facility] Determination of erythrocyte mean corpuscular volume (MCV)Ordered By: Jake Waddell on 04-15-2023 MCV (RBC) [Entitic vol] 89.6 fL 81-99 [facility] Hematocrit Auto (Bld) [Volum e fraction]Ordered By: Jake Waddell on 04-15-2023 Hematocrit (Bld) [Volume fraction] 43.3 % 37-47 [facility] - Chemistry and C hemistry - challengeOrdered By: Jake Waddell on 04-15-2023 CO2 [Moles/Vol] 26.0 mmol/L 21.0-32.0 [facility] Urea nitrogen/Creatinine [Mass ratio] 19.3 mg/mg 10-20 [facility] - Hematology and Cell countsOrdered By: Jake Waddell on 04-15-2023 Erythrocyte distribution width (RBC) [Entitic vol] 46.2 fL 35.1-43.9 [facility] Erythrocyte distribution width (RBC) [Ratio] 14.1 % 11.6-14.6 [facility] MCH (RBC) [Entitic mass] 28.8 pg 27.0-32.0 [facility] MCHC Auto (RBC) [Mass/Vol]Or dered By: Jake Waddell on 04-15-2023 MCHC (RBC) [Mass/Vol] 32.1 g/dL 32-36 [facility] No Panel InformationOrdered By: Jake Waddell on 04-15-2023 Estimated GFR (MDRD) Amer 69 mL/min >60 [facility] Comment on above: GFR Calc Estimated GFR (MDRD) Non-Af Amer 57 mL/min >60 [facility] Comment on above: Non- GFR Calc Platelets bldOrdered By: Delmer Waddell on 04-15-2023 Platelets (Bld) [#/Vol] 357 10*3/uL 150-450 [facility] Serum or plasma calcium becki urement (mass/volume)Ordered By: Jake Waddell on 04-15-2023 Calcium [Mass/Vol] 9.1 mg/dL 8.5-10.1 [facility] Serum or plasma cholesterol in HDL measurement (mass/volume)Ordered By: Jake Waddell on 04-15-2023 Cholesterol in HDL [Mass/Vol] 42 mg/dL >40 [facility] Comment on above: The drugs N-Acetylcy steine and Metamizole may falsely depress this assay. Reference Range HDL <40 mg/dL Low HDL Cholesterol HDL >or= 60 mg/dL High HDL Cholesterol Serum or plasma cholesterol in VLDL measurement (mass/volume)Ordered By: Jake Waddell on 04-15-2023 Cholesterol in VLDL [Mass/Vol] 24 mg/dL 5-40 [facility] Serum or plasma creatinine m easurement (mass/volume)Ordered By: Jake Waddell on 04-15-2023 Creatinine [Mass/Vol] 0.98 mg/dL 0.55-1.02 [facility] Comment on above: The validity of the calculated GFR & GFRAA in patients over 70 years has not been determined. Clinical correlation is essential. Serum or plasma low density lipoprotein (LDL) cholesterol measurement (mass/volume)Ordered By: Jake Waddell on 04-15-2023 Cholesterol in LDL [Mass/Vol] 52 mg/dL 0-130 [facility] Serum or plasma urea nitroge n measurement (mass/volume)Ordered By: Jake Waddell on 04-15-2023 Urea nitrogen [Mass/Vol] 19 mg/dL 7-18 [facility] Thin prep Papanicolaou smear with manual screeningOrdered By: Jake Waddell on 04-15-2023 Thin prep Papanicolaou smear with manual screening 7 5-15 [facility] Whole blood hemoglobin A1c/t otal hemoglobin ratio (mass fraction)Ordered By: Jake Waddell on 04-15-2023 HbA1c (Bld) [Mass fraction] 9.7 % 3.8-5.6 [facility] Comment on above: Normal < 5.7 % Predi abetic 5.7 - 6.4 % Diabetic >or= 6.5 % Please note range changes. Basophil percentageOrdered B y: Jake Waddell on 10-17-2022 Chloride [Moles/Vol] 103 mmol/L 98-107 [facility] Cholesterol [Mass/Vol] 148 mg/dL <200 [facility] Comment on above: <200 mg/dL Desirable 200-240 mg/dL Borderline >240 mg/dL High Risk Glucose [Mass/Vol] 109 mg/dL 74-106 [facility] Comment on above: Fasting Glucose resu lt from 100 to 125 mg/dL suggests IMPAIRED HOMEOSTASIS per A.D.A. criteria. Potassium [Moles/Vol] 4.3 mmol/L 3.5-5.1 [facility] Sodium [Moles/Vol] 137 mmol/L 136-145 [facility] Triglyceride [Mass/Vol] 143 mg/dL <199 [facility] Comment on above: The drugs N-Acetylcy steine and Metamizole may falsely depress this assay.Serum Triglycerides Reference Interval Normal <150 mg/dL Borderline high 150 - 199 mg/dL High 200 - 499 mg/dL Very High > or = 500 mg/dL WBC (Bld) [#/Vol] 10.3 10*3/uL 4.4-11.0 [facility] Blood erythrocytes count (nu mber/volume)Ordered By: Jake Waddell on 10-17-2022 RBC (Bld) [#/Vol] 4.70 10*6/uL 4.2-5.4 [facility] Blood hemoglobin measurement (mass/volume)Ordered By: Jake Waddell on 10-17-2022 Hemoglobin (Bld) [Mass/Vol] 13.9 g/dL 12.0-15.0 [facility] Blood platelet mean volumeOr dered By: Jake Waddell on 10-17-2022 Platelet mean volume (Bld) [Entitic vol] 10.7 fL 6.2-12.0 [facility] Determination of erythrocyte mean corpuscular volume (MCV)Ordered By: Jake Waddell on 10-17-2022 MCV (RBC) [Entitic vol] 91.3 fL 81-99 [facility] Hematocrit Auto (Bld) [Volum e fraction]Ordered By: Jake Waddell on 10-17-2022 Hematocrit (Bld) [Volume fraction] 42.9 % 37-47 [facility] - Chemistry and C hemistry - challengeOrdered By: Jake Waddell on 10-17-2022 CO2 [Moles/Vol] 24.0 mmol/L 21.0-32.0 [facility] Urea nitrogen/Creatinine [Mass ratio] 25.4 mg/mg 10-20 [facility] - Hematology and Cell countsOrdered By: Jake Waddell on 10-17-2022 Erythrocyte distribution width (RBC) [Entitic vol] 46.4 fL 35.1-43.9 [facility] Erythrocyte distribution width (RBC) [Ratio] 13.7 % 11.6-14.6 [facility] MCH (RBC) [Entitic mass] 29.6 pg 27.0-32.0 [facility] MCHC Auto (RBC) [Mass/Vol]Or dered By: Jake Waddell on 10-17-2022 MCHC (RBC) [Mass/Vol] 32.4 g/dL 32-36 [facility] No Panel InformationOrdered By: Jake Waddell on 10-17-2022 Estimated GFR (MDRD) Amer 73 mL/min >60 [facility] Comment on above: GFR Calc Estimated GFR (MDRD) Non-Af Amer 60 mL/min >60 [facility] Comment on above: Non- GFR Calc Platelets bldOrdered By: Delmer Waddell on 10-17-2022 Platelets (Bld) [#/Vol] 355 10*3/uL 150-450 [facility] Serum or plasma calcium becki urement (mass/volume)Ordered By: Jake Waddell on 10-17-2022 Calcium [Mass/Vol] 9.8 mg/dL 8.5-10.1 [facility] Serum or plasma cholesterol in HDL measurement (mass/volume)Ordered By: Jake Waddell on 10-17-2022 Cholesterol in HDL [Mass/Vol] 51 mg/dL >40 [facility] Comment on above: The drugs N-Acetylcy steine and Metamizole may falsely depress this assay. Reference Range HDL <40 mg/dL Low HDL Cholesterol HDL >or= 60 mg/dL High HDL Cholesterol Serum or plasma cholesterol in VLDL measurement (mass/volume)Ordered By: Jake Waddell on 10-17-2022 Cholesterol in VLDL [Mass/Vol] 29 mg/dL 5-40 [facility] Serum or plasma creatinine m easurement (mass/volume)Ordered By: Jake Waddell on 10-17-2022 Creatinine [Mass/Vol] 0.95 mg/dL 0.55-1.02 [facility] Comment on above: The validity of the calculated GFR & GFRAA in patients over 70 years has not been determined. Clinical correlation is essential. Serum or plasma low density lipoprotein (LDL) cholesterol measurement (mass/volume)Ordered By: Jake Waddell on 10-17-2022 Cholesterol in LDL [Mass/Vol] 68 mg/dL 0-130 [facility] Serum or plasma urea nitroge n measurement (mass/volume)Ordered By: Jake Waddell on 10-17-2022 Urea nitrogen [Mass/Vol] 24 mg/dL 7-18 [facility] Thin prep Papanicolaou smear with manual screeningOrdered By: Jake Waddell on 10-17-2022 Thin prep Papanicolaou smear with manual screening 10 5-15 [facility] Whole blood hemoglobin A1c/t otal hemoglobin ratio (mass fraction)Ordered By: Jake Waddell on 10-17-2022 HbA1c (Bld) [Mass fraction] 7.8 % 3.8-5.6 [facility] Comment on above: Normal < 5.7 % Predi abetic 5.7 - 6.4 % Diabetic >or= 6.5 % Please note range changes. Basophil percentageOrdered B y: Jake Waddell on 09-17-2022 Chloride [Moles/Vol] 104 mmol/L 98-107 [facility] Glucose [Mass/Vol] 152 mg/dL 74-106 [facility] Comment on above: Fasting Glucose resu lt greater than or equal to 126 mg/dL suggests DIABETES MELLITUS per A.D.A. criteria. Potassium [Moles/Vol] 4.7 mmol/L 3.5-5.1 [facility] Sodium [Moles/Vol] 135 mmol/L 136-145 [facility] WBC (Bld) [#/Vol] 12.1 10*3/uL 4.4-11.0 [facility] Blood erythrocytes count (nu mber/volume)Ordered By: Jake Waddell on 09-17-2022 RBC (Bld) [#/Vol] 4.97 10*6/uL 4.2-5.4 [facility] Blood hemoglobin measurement (mass/volume)Ordered By: Jake Waddell on 09-17-2022 Hemoglobin (Bld) [Mass/Vol] 14.2 g/dL 12.0-15.0 [facility] Blood platelet mean volumeOr dered By: Jake Waddell on 09-17-2022 Platelet mean volume (Bld) [Entitic vol] 11.3 fL 6.2-12.0 [facility] Determination of erythrocyte mean corpuscular volume (MCV)Ordered By: Jake Waddell on 09-17-2022 MCV (RBC) [Entitic vol] 90.3 fL 81-99 [facility] Hematocrit Auto (Bld) [Volum e fraction]Ordered By: Jake Waddell on 09-17-2022 Hematocrit (Bld) [Volume fraction] 44.9 % 37-47 [facility] Laboratory - Chemistry and C hemistry - challengeOrdered By: Jake Waddell on 09-17-2022 CO2 [Moles/Vol] 24.0 mmol/L 21.0-32.0 [facility] Urea nitrogen/Creatinine [Mass ratio] 20.6 mg/mg 10-20 [facility] Laboratory - Hematology and Cell countsOrdered By: Jake Waddell on 09-17-2022 Erythrocyte distribution width (RBC) [Entitic vol] 48.2 fL 35.1-43.9 [facility] Erythrocyte distribution width (RBC) [Ratio] 14.6 % 11.6-14.6 [facility] MCH (RBC) [Entitic mass] 28.6 pg 27.0-32.0 [facility] MCHC Auto (RBC) [Mass/Vol]Or dered By: Jake Waddell on 09-17-2022 MCHC (RBC) [Mass/Vol] 31.6 g/dL 32-36 [facility] No Panel InformationOrdered By: Jake Waddell on 09-17-2022 Estimated GFR (MDRD) Amer 75 mL/min >60 [facility] Comment on above: GFR Calc Estimated GFR (MDRD) Non-Af Amer 62 mL/min >60 [facility] Comment on above: Non- GFR Calc Platelets bldOrdered By: Delmer Waddell on 09-17-2022 Platelets (Bld) [#/Vol] 388 10*3/uL 150-450 [facility] Serum or plasma calcium becki urement (mass/volume)Ordered By: Jake Waddell on 09-17-2022 Calcium [Mass/Vol] 9.4 mg/dL 8.5-10.1 [facility] Serum or plasma creatinine m easurement (mass/volume)Ordered By: Jake Waddell on 09-17-2022 Creatinine [Mass/Vol] 0.92 mg/dL 0.55-1.02 [facility] Comment on above: The validity of the calculated GFR & GFRAA in patients over 70 years has not been determined. Clinical correlation is essential. Serum or plasma urea nitroge n measurement (mass/volume)Ordered By: Jake Waddell on 09-17-2022 Urea nitrogen [Mass/Vol] 19 mg/dL 7-18 [facility] Thin prep Papanicolaou smear with manual screeningOrdered By: Jake Waddell on 09-17-2022 Thin prep Papanicolaou smear with manual screening 7 5-15 [facility] Basophil percentageOrdered B y: Jake Waddell on 08-15-2022 Chloride [Moles/Vol] 104 mmol/L 98-107 [facility] Glucose [Mass/Vol] 104 mg/dL 74-106 [facility] Comment on above: Fasting Glucose resu lt from 100 to 125 mg/dL suggests IMPAIRED HOMEOSTASIS per A.D.A. criteria. Potassium [Moles/Vol] 4.6 mmol/L 3.5-5.1 [facility] Sodium [Moles/Vol] 137 mmol/L 136-145 [facility] WBC (Bld) [#/Vol] 9.8 10*3/uL 4.4-11.0 [facility] Blood erythrocytes count (nu mber/volume)Ordered By: Jake Waddell on 08-15-2022 RBC (Bld) [#/Vol] 4.54 10*6/uL 4.2-5.4 [facility] Blood hemoglobin measurement (mass/volume)Ordered By: Jake Waddell on 08-15-2022 Hemoglobin (Bld) [Mass/Vol] 13.1 g/dL 12.0-15.0 [facility] Blood platelet mean volumeOr dered By: Jake Waddell on 08-15-2022 Platelet mean volume (Bld) [Entitic vol] 11.2 fL 6.2-12.0 [facility] Determination of erythrocyte mean corpuscular volume (MCV)Ordered By: Jake Waddell on 08-15-2022 MCV (RBC) [Entitic vol] 91.6 fL 81-99 [facility] Hematocrit Auto (Bld) [Volum e fraction]Ordered By: Jake Waddell on 08-15-2022 Hematocrit (Bld) [Volume fraction] 41.6 % 37-47 [facility] Laboratory - Chemistry and C hemistry - challengeOrdered By: Jaek Waddell on 08-15-2022 CO2 [Moles/Vol] 25.0 mmol/L 21.0-32.0 [facility] Urea nitrogen/Creatinine [Mass ratio] 21.9 mg/mg 10-20 [facility] Laboratory - Hematology and Cell countsOrdered By: Jake Waddell on 08-15-2022 Erythrocyte distribution width (RBC) [Entitic vol] 54.9 fL 35.1-43.9 [facility] Erythrocyte distribution width (RBC) [Ratio] 16.3 % 11.6-14.6 [facility] MCH (RBC) [Entitic mass] 28.9 pg 27.0-32.0 [facility] MCHC Auto (RBC) [Mass/Vol]Or dered By: Jake Waddell on 08-15-2022 MCHC (RBC) [Mass/Vol] 31.5 g/dL 32-36 [facility] No Panel InformationOrdered By: Jake Waddell on 08-15-2022 Estimated GFR (MDRD) Amer 76 mL/min >60 [facility] Comment on above: GFR Calc Estimated GFR (MDRD) Non-Af Amer 62 mL/min >60 [facility] Comment on above: Non- GFR Calc Platelets bldOrdered By: Delmer Waddell on 08-15-2022 Platelets (Bld) [#/Vol] 409 10*3/uL 150-450 [facility] Serum or plasma calcium becki urement (mass/volume)Ordered By: Jake Waddell on 08-15-2022 Calcium [Mass/Vol] 9.5 mg/dL 8.5-10.1 [facility] Serum or plasma creatinine m easurement (mass/volume)Ordered By: Jake Waddell on 08-15-2022 Creatinine [Mass/Vol] 0.91 mg/dL 0.55-1.02 [facility] Comment on above: The validity of the calculated GFR & GFRAA in patients over 70 years has not been determined. Clinical correlation is essential. Serum or plasma urea nitroge n measurement (mass/volume)Ordered By: Jake Waddell on 08-15-2022 Urea nitrogen [Mass/Vol] 20 mg/dL 7-18 [facility] Thin prep Papanicolaou smear with manual screeningOrdered By: Jake Waddell on 08-15-2022 Thin prep Papanicolaou smear with manual screening 8 5-15 [facility] Basophil percentageOrdered B y: Jake Waddell on 07-16-2022 Chloride [Moles/Vol] 102 mmol/L 98-107 [facility] Glucose [Mass/Vol] 65 mg/dL 74-106 [facility] Potassium [Moles/Vol] 4.2 mmol/L 3.5-5.1 [facility] Sodium [Moles/Vol] 136 mmol/L 136-145 [facility] WBC (Bld) [#/Vol] 9.8 10*3/uL 4.4-11.0 [facility] Blood erythrocytes count (nu mber/volume)Ordered By: Jake Waddell on 07-16-2022 RBC (Bld) [#/Vol] 4.79 10*6/uL 4.2-5.4 [facility] Blood hemoglobin measurement (mass/volume)Ordered By: Jake Waddell on 07-16-2022 Hemoglobin (Bld) [Mass/Vol] 14.0 g/dL 12.0-15.0 [facility] Blood platelet mean volumeOr dered By: Jake Waddell on 07-16-2022 Platelet mean volume (Bld) [Entitic vol] 10.8 fL 6.2-12.0 [facility] Determination of erythrocyte mean corpuscular volume (MCV)Ordered By: Jake Waddell on 07-16-2022 MCV (RBC) [Entitic vol] 86.8 fL 81-99 [facility] Hematocrit Auto (Bld) [Volum e fraction]Ordered By: Jake Waddell on 07-16-2022 Hematocrit (Bld) [Volume fraction] 41.6 % 37-47 [facility] Laboratory - Chemistry and C hemistry - challengeOrdered By: Jake Waddell on 07-16-2022 CO2 [Moles/Vol] 25.0 mmol/L 21.0-32.0 [facility] Urea nitrogen/Creatinine [Mass ratio] 23.5 mg/mg 10-20 [facility] Laboratory - Hematology and Cell countsOrdered By: Jake Waddell on 07-16-2022 Erythrocyte distribution width (RBC) [Entitic vol] 50.3 fL 35.1-43.9 [facility] Erythrocyte distribution width (RBC) [Ratio] 15.9 % 11.6-14.6 [facility] MCH (RBC) [Entitic mass] 29.2 pg 27.0-32.0 [facility] MCHC Auto (RBC) [Mass/Vol]Or dered By: Jake Waddell on 07-16-2022 MCHC (RBC) [Mass/Vol] 33.7 g/dL 32-36 [facility] No Panel InformationOrdered By: Jake Waddell on 07-16-2022 Estimated GFR (MDRD) Amer 124 mL/min >60 [facility] Comment on above: GFR Calc Estimated GFR (MDRD) Non-Af Amer 102 mL/min >60 [facility] Comment on above: Non- GFR Calc Platelets bldOrdered By: Delmer Waddell on 07-16-2022 Platelets (Bld) [#/Vol] 408 10*3/uL 150-450 [facility] Serum or plasma calcium becki urement (mass/volume)Ordered By: Jake Waddell on 07-16-2022 Calcium [Mass/Vol] 9.1 mg/dL 8.5-10.1 [facility] Serum or plasma creatinine m easurement (mass/volume)Ordered By: Jake Waddell on 07-16-2022 Creatinine [Mass/Vol] 0.60 mg/dL 0.55-1.02 [facility] Comment on above: The validity of the calculated GFR & GFRAA in patients over 70 years has not been determined. Clinical correlation is essential. Serum or plasma urea nitroge n measurement (mass/volume)Ordered By: Jaek Waddell on 07-16-2022 Urea nitrogen [Mass/Vol] 14 mg/dL 7-18 [facility] Thin prep Papanicolaou smear with manual screeningOrdered By: Jake Waddell on 07-16-2022 Thin prep Papanicolaou smear with manual screening 9 5-15 [facility] Absolute lymphocyte countOrd ered By: Jake Waddell on 06-29-2022 Lymphocytes Auto (Unsp spec) [#/Vol] 1.85 10*3/uL 0.83-4.51 [facility] Basophil percentageOrdered B y: Jake Waddell on 06-29-2022 Basophils/100 WBC (Bld) 0.4 % 0-1 [facility] Eosinophils/100 WBC (Bld) 4.2 % 0-5 [facility] Neutrophils (Bld) [#/Vol] 6.0 10*3/uL 2.0-7.7 [facility] Neutrophils/100 WBC (Bld) 66.2 % 47-70 [facility] WBC (Bld) [#/Vol] 9.1 10*3/uL 4.4-11.0 [facility] Blood erythrocytes count (nu mber/volume)Ordered By: Jake Waddell on 06-29-2022 RBC (Bld) [#/Vol] 4.47 10*6/uL 4.2-5.4 [facility] Blood hemoglobin measurement (mass/volume)Ordered By: Jake Waddell on 06-29-2022 Hemoglobin (Bld) [Mass/Vol] 13.0 g/dL 12.0-15.0 [facility] Blood lymphocytes/100 leukoc ytesOrdered By: Jake Waddell on 06-29-2022 Lymphocytes/100 WBC (Bld) 20.4 % 19-41 [facility] Blood monocytes/100 leukocyt esOrdered By: Jake Waddell on 06-29-2022 Monocytes/100 WBC (Bld) 8.5 % 0-10 [facility] Blood platelet mean volumeOr dered By: Jake Waddell on 06-29-2022 Platelet mean volume (Bld) [Entitic vol] 10.8 fL 6.2-12.0 [facility] Determination of erythrocyte mean corpuscular volume (MCV)Ordered By: Jake Waddell on 06-29-2022 MCV (RBC) [Entitic vol] 86.6 fL 81-99 [facility] Hematocrit Auto (Bld) [Volum e fraction]Ordered By: Jake Waddell on 06-29-2022 Hematocrit (Bld) [Volume fraction] 38.7 % 37-47 [facility] Laboratory - Hematology and Cell countsOrdered By: Jake Waddell on 06-29-2022 Erythrocyte distribution width (RBC) [Entitic vol] 48.4 fL 35.1-43.9 [facility] Erythrocyte distribution width (RBC) [Ratio] 15.3 % 11.6-14.6 [facility] Immature granulocytes/100 WBC (Bld) 0.300 % 0.0-0.9 [facility] Comment on above: IG% - Immature Granu locytes (promyelocytes, myelocytes and metamyelocytes) > 1% indicates that a LEFT SHIFT is Present. MCH (RBC) [Entitic mass] 29.1 pg 27.0-32.0 [facility] Nucleated RBC/100 WBC (Bld) [Ratio] 0 % 0-5 [facility] MCHC Auto (RBC) [Mass/Vol]Or dered By: Jake Waddell on 06-29-2022 MCHC (RBC) [Mass/Vol] 33.6 g/dL 32-36 [facility] Platelets bldOrdered By: Delmer Waddell on 06-29-2022 Platelets (Bld) [#/Vol] 372 10*3/uL 150-450 [facility] Basophil percentageOrdered B y: Jake Waddell on 06-15-2022 Chloride [Moles/Vol] 102 mmol/L 98-107 [facility] Glucose [Mass/Vol] 54 mg/dL 74-106 [facility] Potassium [Moles/Vol] 3.9 mmol/L 3.5-5.1 [facility] Sodium [Moles/Vol] 137 mmol/L 136-145 [facility] WBC (Bld) [#/Vol] 13.9 10*3/uL 4.4-11.0 [facility] Blood erythrocytes count (nu mber/volume)Ordered By: Jake Waddell on 06-15-2022 RBC (Bld) [#/Vol] 4.66 10*6/uL 4.2-5.4 [facility] Blood hemoglobin measurement (mass/volume)Ordered By: Jake Waddell on 06-15-2022 Hemoglobin (Bld) [Mass/Vol] 13.1 g/dL 12.0-15.0 [facility] Blood platelet mean volumeOr dered By: Jake Waddell on 06-15-2022 Platelet mean volume (Bld) [Entitic vol] 10.0 fL 6.2-12.0 [facility] Determination of erythrocyte mean corpuscular volume (MCV)Ordered By: Jake Waddell on 06-15-2022 MCV (RBC) [Entitic vol] 86.5 fL 81-99 [facility] Hematocrit Auto (Bld) [Volum e fraction]Ordered By: Jake Waddell on 06-15-2022 Hematocrit (Bld) [Volume fraction] 40.3 % 37-47 [facility] Laboratory - Chemistry and C hemistry - challengeOrdered By: Jake Waddell on 06-15-2022 CO2 [Moles/Vol] 25.0 mmol/L 21.0-32.0 [facility] Urea nitrogen/Creatinine [Mass ratio] 12.8 mg/mg 10-20 [facility] Laboratory - Hematology and Cell countsOrdered By: Jake Waddell on 06-15-2022 Erythrocyte distribution width (RBC) [Entitic vol] 45.6 fL 35.1-43.9 [facility] Erythrocyte distribution width (RBC) [Ratio] 14.3 % 11.6-14.6 [facility] MCH (RBC) [Entitic mass] 28.1 pg 27.0-32.0 [facility] MCHC Auto (RBC) [Mass/Vol]Or dered By: Jake Waddell on 06-15-2022 MCHC (RBC) [Mass/Vol] 32.5 g/dL 32-36 [facility] No Panel InformationOrdered By: Jake Waddell on 06-15-2022 Estimated GFR (MDRD) Amer 103 mL/min >60 [facility] Comment on above: GFR Calc Estimated GFR (MDRD) Non-Af Amer 85 mL/min >60 [facility] Comment on above: Non- GFR Calc Platelets bldOrdered By: Delmer Waddell on 06-15-2022 Platelets (Bld) [#/Vol] 553 10*3/uL 150-450 [facility] Serum or plasma calcium becki urement (mass/volume)Ordered By: Jake Waddell on 06-15-2022 Calcium [Mass/Vol] 9.2 mg/dL 8.5-10.1 [facility] Serum or plasma creatinine m easurement (mass/volume)Ordered By: Jake Waddell on 06-15-2022 Creatinine [Mass/Vol] 0.70 mg/dL 0.55-1.02 [facility] Comment on above: The validity of the calculated GFR & GFRAA in patients over 70 years has not been determined. Clinical correlation is essential. Serum or plasma urea nitroge n measurement (mass/volume)Ordered By: Jake Waddell on 06-15-2022 Urea nitrogen [Mass/Vol] 9 mg/dL 7-18 [facility] Thin prep Papanicolaou smear with manual screeningOrdered By: Jake Waddell on 06-15-2022 Thin prep Papanicolaou smear with manual screening 10 5-15 [facility] Basophil percentageon 2021 Chloride [Moles/Vol] 102 mmol/L 98-107 [facility] Work Phone: Glucose [Mass/Vol] 71 mg/dL 74-106 [facility] Work Phone: Potassium [Moles/Vol] 4.4 mmol/L 3.5-5.1 [facility] Work Phone: Sodium [Moles/Vol] 135 mmol/L 136-145 [facility] Work Phone: WBC (Bld) [#/Vol] 11.0 10*3/uL 4.4-11.0 [facility] Work Phone: Blood erythrocytes count (nu mber/volume)on 05-16-2022 RBC (Bld) [#/Vol] 4.64 10*6/uL 4.2-5.4 [facility] Work Phone: Blood hemoglobin measurement (mass/volume)on 05-16-2022 Hemoglobin (Bld) [Mass/Vol] 13.4 g/dL 12.0-15.0 [facility] Work Phone: Blood platelet mean volumeon 05-16-2022 Platelet mean volume (Bld) [Entitic vol] 10.8 fL 6.2-12.0 [facility] Work Phone: Determination of erythrocyte mean corpuscular volume (MCV)on 05-16-2022 MCV (RBC) [Entitic vol] 88.1 fL 81-99 [facility] Work Phone: Hematocrit Auto (Bld) [Volum e fraction]on 05-16-2022 Hematocrit (Bld) [Volume fraction] 40.9 % 37-47 [facility] Work Phone: Laboratory - Chemistry and C hemistry - challengeon 05-16-2022 CO2 [Moles/Vol] 26.0 mmol/L 21.0-32.0 [facility] Work Phone: Urea nitrogen/Creatinine [Mass ratio] 20.3 mg/mg 10-20 [facility] Work Phone: Laboratory - Hematology and Cell countson 05-16-2022 Erythrocyte distribution width (RBC) [Entitic vol] 44.8 fL 35.1-43.9 [facility] Work Phone: Erythrocyte distribution width (RBC) [Ratio] 14.0 % 11.6-14.6 [facility] Work Phone: MCH (RBC) [Entitic mass] 28.9 pg 27.0-32.0 [facility] Work Phone: MCHC Auto (RBC) [Mass/Vol]on 05-16-2022 MCHC (RBC) [Mass/Vol] 32.8 g/dL 32-36 [facility] Work Phone: No Panel Informationon 05-16 Estimated GFR (MDRD) Amer 90 mL/min >60 [facility] Work Phone: Comment on above: GFR Calc Estimated GFR (MDRD) Non-Af Amer 74 mL/min >60 [facility] Work Phone: Comment on above: Non- GFR Calc Platelets bldon 05-16-2022 Platelets (Bld) [#/Vol] 382 10*3/uL 150-450 [facility] Work Phone: Serum or plasma calcium becki urement (mass/volume)on 05-16-2022 Calcium [Mass/Vol] 9.4 mg/dL 8.5-10.1 [facility] Work Phone: Serum or plasma creatinine m easurement (mass/volume)on 05-16-2022 Creatinine [Mass/Vol] 0.79 mg/dL 0.55-1.02 [facility] Work Phone: Comment on above: The validity of the calculated GFR & GFRAA in patients over 70 years has not been determined. Clinical correlation is essential. Serum or plasma urea nitroge n measurement (mass/volume)on 05-16-2022 Urea nitrogen [Mass/Vol] 16 mg/dL 7-18 [facility] Work Phone: Thin prep Papanicolaou smear with manual screeningon 05-16-2022 Thin prep Papanicolaou smear with manual screening 7 -15 [facility] Work Phone: Basophil percentageon 2021 Chloride [Moles/Vol] 104 mmol/L 98-107 [facility] Work Phone: Cholesterol [Mass/Vol] 118 mg/dL <200 [facility] Work Phone: Comment on above: <200 mg/dL Desirable 200-240 mg/dL Borderline >240 mg/dL High Risk Glucose [Mass/Vol] 74 mg/dL 74-106 [facility] Work Phone: Potassium [Moles/Vol] 4.0 mmol/L 3.5-5.1 [facility] Work Phone: Sodium [Moles/Vol] 138 mmol/L 136-145 [facility] Work Phone: Triglyceride [Mass/Vol] 113 mg/dL <199 [facility] Work Phone: Comment on above: The drugs N-Acetylcy steine and Metamizole may falsely depress this assay.Serum Triglycerides Reference Interval Normal <150 mg/dL Borderline high 150 - 199 mg/dL High 200 - 499 mg/dL Very High > or = 500 mg/dL WBC (Bld) [#/Vol] 11.6 10*3/uL 4.4-11.0 [facility] Work Phone: Blood erythrocytes count (nu mber/volume)on 04-16-2022 RBC (Bld) [#/Vol] 4.68 10*6/uL 4.2-5.4 [facility] Work Phone: Blood hemoglobin measurement (mass/volume)on 04-16-2022 Hemoglobin (Bld) [Mass/Vol] 13.8 g/dL 12.0-15.0 [facility] Work Phone: Blood platelet mean volumeon 04-16-2022 Platelet mean volume (Bld) [Entitic vol] 10.9 fL 6.2-12.0 [facility] Work Phone: Determination of erythrocyte mean corpuscular volume (MCV)on 04-16-2022 MCV (RBC) [Entitic vol] 88.5 fL 81-99 [facility] Work Phone: Hematocrit Auto (Bld) [Volum e fraction]on 04-16-2022 Hematocrit (Bld) [Volume fraction] 41.4 % 37-47 [facility] Work Phone: Laboratory - Chemistry and C hemistry - challengeon 04-16-2022 CO2 [Moles/Vol] 24.0 mmol/L 21.0-32.0 [facility] Work Phone: Urea nitrogen/Creatinine [Mass ratio] 23.4 mg/mg 10-20 [facility] Work Phone: Laboratory - Hematology and Cell countson 04-16-2022 Erythrocyte distribution width (RBC) [Entitic vol] 45.2 fL 35.1-43.9 [facility] Work Phone: Erythrocyte distribution width (RBC) [Ratio] 13.9 % 11.6-14.6 [facility] Work Phone: MCH (RBC) [Entitic mass] 29.5 pg 27.0-32.0 [facility] Work Phone: MCHC Auto (RBC) [Mass/Vol]on 04-16-2022 MCHC (RBC) [Mass/Vol] 33.3 g/dL 32-36 [facility] Work Phone: No Panel Informationon 04-16 Estimated GFR (MDRD) Amer 87 mL/min >60 [facility] Work Phone: Comment on above: GFR Calc Estimated GFR (MDRD) Non-Af Amer 72 mL/min >60 [facility] Work Phone: Comment on above: Non- GFR Calc Platelets bldon 04-16-2022 Platelets (Bld) [#/Vol] 372 10*3/uL 150-450 [facility] Work Phone: Serum or plasma calcium becki urement (mass/volume)on 04-16-2022 Calcium [Mass/Vol] 9.4 mg/dL 8.5-10.1 [facility] Work Phone: Serum or plasma cholesterol in HDL measurement (mass/volume)on 04-16-2022 Cholesterol in HDL [Mass/Vol] 44 mg/dL >40 [facility] Work Phone: Comment on above: The drugs N-Acetylcy steine and Metamizole may falsely depress this assay. Reference Range HDL <40 mg/dL Low HDL Cholesterol HDL >or= 60 mg/dL High HDL Cholesterol Serum or plasma cholesterol in VLDL measurement (mass/volume)on 04-16-2022 Cholesterol in VLDL [Mass/Vol] 23 mg/dL 5-40 [facility] Work Phone: Serum or plasma creatinine m easurement (mass/volume)on 04-16-2022 Creatinine [Mass/Vol] 0.81 mg/dL 0.55-1.02 [facility] Work Phone: Comment on above: The validity of the calculated GFR & GFRAA in patients over 70 years has not been determined. Clinical correlation is essential. Serum or plasma low density lipoprotein (LDL) cholesterol measurement (mass/volume)on 04-16-2022 Cholesterol in LDL [Mass/Vol] 51 mg/dL 0-130 [facility] Work Phone: Serum or plasma urea nitroge n measurement (mass/volume)on 04-16-2022 Urea nitrogen [Mass/Vol] 19 mg/dL 7-18 [facility] Work Phone: Thin prep Papanicolaou smear with manual screeningon 04-16-2022 Thin prep Papanicolaou smear with manual screening 10 - [facility] Work Phone: Whole blood hemoglobin A1c/t otal hemoglobin ratio (mass fraction)on 04-16-2022 HbA1c (Bld) [Mass fraction] 9.2 % 3.8-5.6 [facility] Work Phone: Comment on above: Normal < 5.7 % Predi abetic 5.7 - 6.4 % Diabetic >or= 6.5 % Please note range changes. Basophil percentageon 2021 Chloride [Moles/Vol] 103 mmol/L 98-107 [facility] Work Phone: Glucose [Mass/Vol] 108 mg/dL 74-106 [facility] Work Phone: Comment on above: Fasting Glucose resu lt from 100 to 125 mg/dL suggests IMPAIRED HOMEOSTASIS per A.D.A. criteria. Potassium [Moles/Vol] 3.8 mmol/L 3.5-5.1 [facility] Work Phone: Sodium [Moles/Vol] 136 mmol/L 136-145 [facility] Work Phone: WBC (Bld) [#/Vol] 9.2 10*3/uL 4.4-11.0 [facility] Work Phone: Blood erythrocytes count (nu mber/volume)on 03-14-2022 RBC (Bld) [#/Vol] 4.61 10*6/uL 4.2-5.4 [facility] Work Phone: Blood hemoglobin measurement (mass/volume)on 03-14-2022 Hemoglobin (Bld) [Mass/Vol] 13.1 g/dL 12.0-15.0 [facility] Work Phone: Blood platelet mean volumeon 03-14-2022 Platelet mean volume (Bld) [Entitic vol] 10.6 fL 6.2-12.0 [facility] Work Phone: Determination of erythrocyte mean corpuscular volume (MCV)on 03-14-2022 MCV (RBC) [Entitic vol] 87.4 fL 81-99 [facility] Work Phone: Hematocrit Auto (Bld) [Volum e fraction]on 03-14-2022 Hematocrit (Bld) [Volume fraction] 40.3 % 37-47 [facility] Work Phone: Laboratory - Chemistry and C hemistry - challengeon 03-14-2022 CO2 [Moles/Vol] 26.0 mmol/L 21.0-32.0 [facility] Work Phone: Urea nitrogen/Creatinine [Mass ratio] 19.5 mg/mg 10-20 [facility] Work Phone: Laboratory - Hematology and Cell countson 03-14-2022 Erythrocyte distribution width (RBC) [Entitic vol] 45.2 fL 35.1-43.9 [facility] Work Phone: Erythrocyte distribution width (RBC) [Ratio] 14.1 % 11.6-14.6 [facility] Work Phone: MCH (RBC) [Entitic mass] 28.4 pg 27.0-32.0 [facility] Work Phone: MCHC Auto (RBC) [Mass/Vol]on 03-14-2022 MCHC (RBC) [Mass/Vol] 32.5 g/dL 32-36 [facility] Work Phone: No Panel Informationon 03-14 Estimated GFR (MDRD) Amer 92 mL/min >60 [facility] Work Phone: Comment on above: GFR Calc Estimated GFR (MDRD) Non-Af Amer 76 mL/min >60 [facility] Work Phone: Comment on above: Non- GFR Calc Platelets bldon 03-14-2022 Platelets (Bld) [#/Vol] 328 10*3/uL 150-450 [facility] Work Phone: Serum or plasma calcium becki urement (mass/volume)on 03-14-2022 Calcium [Mass/Vol] 8.9 mg/dL 8.5-10.1 [facility] Work Phone: Serum or plasma creatinine m easurement (mass/volume)on 03-14-2022 Creatinine [Mass/Vol] 0.77 mg/dL 0.55-1.02 [facility] Work Phone: Comment on above: The validity of the calculated GFR & GFRAA in patients over 70 years has not been determined. Clinical correlation is essential. Serum or plasma urea nitroge n measurement (mass/volume)on 03-14-2022 Urea nitrogen [Mass/Vol] 15 mg/dL 7-18 [facility] Work Phone: Thin prep Papanicolaou smear with manual screeningon 03-14-2022 Thin prep Papanicolaou smear with manual screening 7 - [facility] Work Phone: Basophil percentageon 2021 Chloride [Moles/Vol] 104 mmol/L 98-107 [facility] Work Phone: Glucose [Mass/Vol] 86 mg/dL 74-106 [facility] Work Phone: Potassium [Moles/Vol] 4.0 mmol/L 3.5-5.1 [facility] Work Phone: Sodium [Moles/Vol] 137 mmol/L 136-145 [facility] Work Phone: WBC (Bld) [#/Vol] 9.9 10*3/uL 4.4-11.0 [facility] Work Phone: Blood erythrocytes count (nu mber/volume)on 02-14-2022 RBC (Bld) [#/Vol] 4.65 10*6/uL 4.2-5.4 [facility] Work Phone: Blood hemoglobin measurement (mass/volume)on 02-14-2022 Hemoglobin (Bld) [Mass/Vol] 13.3 g/dL 12.0-15.0 [facility] Work Phone: Blood platelet mean volumeon 02-14-2022 Platelet mean volume (Bld) [Entitic vol] 10.9 fL 6.2-12.0 [facility] Work Phone: Determination of erythrocyte mean corpuscular volume (MCV)on 02-14-2022 MCV (RBC) [Entitic vol] 86.9 fL 81-99 [facility] Work Phone: Hematocrit Auto (Bld) [Volum e fraction]on 02-14-2022 Hematocrit (Bld) [Volume fraction] 40.4 % 37-47 [facility] Work Phone: Laboratory - Chemistry and C hemistry - challengeon 02-14-2022 CO2 [Moles/Vol] 26.0 mmol/L 21.0-32.0 [facility] Work Phone: Cobalamin (Vitamin B12) [Mass/Vol] 331 pg/mL 211-911 [facility] Work Phone: Urea nitrogen/Creatinine [Mass ratio] 25.1 mg/mg 10-20 [facility] Work Phone: Laboratory - Hematology and Cell countson 02-14-2022 Erythrocyte distribution width (RBC) [Entitic vol] 45.5 fL 35.1-43.9 [facility] Work Phone: Erythrocyte distribution width (RBC) [Ratio] 14.3 % 11.6-14.6 [facility] Work Phone: MCH (RBC) [Entitic mass] 28.6 pg 27.0-32.0 [facility] Work Phone: MCHC Auto (RBC) [Mass/Vol]on 02-14-2022 MCHC (RBC) [Mass/Vol] 32.9 g/dL 32-36 [facility] Work Phone: No Panel Informationon 02-14 Estimated GFR (MDRD) Amer 89 mL/min >60 [facility] Work Phone: Comment on above: GFR Calc Estimated GFR (MDRD) Non-Af Amer 73 mL/min >60 [facility] Work Phone: Comment on above: Non- GFR Calc Platelets bldon 02-14-2022 Platelets (Bld) [#/Vol] 348 10*3/uL 150-450 [facility] Work Phone: Serum or plasma calcium becki urement (mass/volume)on 02-14-2022 Calcium [Mass/Vol] 9.1 mg/dL 8.5-10.1 [facility] Work Phone: Serum or plasma creatinine m easurement (mass/volume)on 02-14-2022 Creatinine [Mass/Vol] 0.80 mg/dL 0.55-1.02 [facility] Work Phone: Comment on above: The validity of the calculated GFR & GFRAA in patients over 70 years has not been determined. Clinical correlation is essential. Serum or plasma folate measu rement (mass/volume)on 02-14-2022 Folate [Mass/Vol] 7.40 ng/mL 3.1-55.4 [facility] Work Phone: Serum or plasma urea nitroge n measurement (mass/volume)on 02-14-2022 Urea nitrogen [Mass/Vol] 20 mg/dL 7-18 [facility] Work Phone: Thin prep Papanicolaou smear with manual screeningon 02-14-2022 Thin prep Papanicolaou smear with manual screening 7 01-14 [facility] Work Phone: Basophil percentageon 2021 Chloride [Moles/Vol] 102 mmol/L 98-107 [facility] Work Phone: Glucose [Mass/Vol] 77 mg/dL 74-106 [facility] Work Phone: Potassium [Moles/Vol] 4.3 mmol/L 3.5-5.1 [facility] Work [facility]: Sodium [Moles/Vol] 134 mmol/L 136-145 [facility] Work Phone: WBC (Bld) [#/Vol] 10.4 10*3/uL 4.4-11.0 [facility] Work Phone: Blood erythrocytes count (nu mber/volume)on 01-15-2022 RBC (Bld) [#/Vol] 5.25 10*6/uL 4.2-5.4 [facility] Work Phone: Blood hemoglobin measurement (mass/volume)on 01-15-2022 Hemoglobin (Bld) [Mass/Vol] 14.8 g/dL 12.0-15.0 [facility] Work Phone: Blood platelet mean volumeon 01-15-2022 Platelet mean volume (Bld) [Entitic vol] 10.3 fL 6.2-12.0 [facility] Work Phone: Determination of erythrocyte mean corpuscular volume (MCV)on 01-15-2022 MCV (RBC) [Entitic vol] 92.2 fL 81-99 [facility] Work Phone: Hematocrit Auto (Bld) [Volum e fraction]on 01-15-2022 Hematocrit (Bld) [Volume fraction] 48.4 % 37-47 [facility] Work Phone: Laboratory - Chemistry and C hemistry - challengeon 01-15-2022 CO2 [Moles/Vol] 22.0 mmol/L 21.0-32.0 [facility] Work Phone: Urea nitrogen/Creatinine [Mass ratio] 23.9 mg/mg 10-20 [facility] Work Phone: Laboratory - Hematology and Cell countson 01-15-2022 Erythrocyte distribution width (RBC) [Entitic vol] 48.4 fL 35.1-43.9 [facility] Work Phone: Erythrocyte distribution width (RBC) [Ratio] 14.2 % 11.6-14.6 [facility] Work Phone: MCH (RBC) [Entitic mass] 28.2 pg 27.0-32.0 [facility] Work Phone: MCHC Auto (RBC) [Mass/Vol]on 01-15-2022 MCHC (RBC) [Mass/Vol] 30.6 g/dL 32-36 [facility] Work Phone: No Panel Informationon 01-15 Estimated GFR (MDRD) Amer 89 mL/min >60 [facility] Work Phone: Comment on above: GFR Calc Estimated GFR (MDRD) Non-Af Amer 73 mL/min >60 [facility] Work Phone: Comment on above: Non- GFR Calc Platelets bldon 01-15-2022 Platelets (Bld) [#/Vol] 348 10*3/uL 150-450 [facility] Work Phone: Serum or plasma calcium becki urement (mass/volume)on 01-15-2022 Calcium [Mass/Vol] 9.7 mg/dL 8.5-10.1 [facility] Work Phone: Serum or plasma creatinine m easurement (mass/volume)on 01-15-2022 Creatinine [Mass/Vol] 0.80 mg/dL 0.55-1.02 [facility] Work Phone: Comment on above: The validity of the calculated GFR & GFRAA in patients over 70 years has not been determined. Clinical correlation is essential. Serum or plasma urea nitroge n measurement (mass/volume)on 01-15-2022 Urea nitrogen [Mass/Vol] 19 mg/dL 7-18 [facility] Work Phone: Thin prep Papanicolaou smear with manual screeningon 01-15-2022 Thin prep Papanicolaou smear with manual screening 10 5-15 [facility] Work Phone: Basophil percentageon 2021 Chloride [Moles/Vol] 103 mmol/L 98-107 [facility] Work Phone: Glucose [Mass/Vol] 157 mg/dL 74-106 [facility] Work Phone: Comment on above: Fasting Glucose resu lt greater than or equal to 126 mg/dL suggests DIABETES MELLITUS per A.D.A. criteria. Potassium [Moles/Vol] 4.2 mmol/L 3.5-5.1 [facility] Work Phone: Sodium [Moles/Vol] 135 mmol/L 136-145 [facility] Work Phone: WBC (Bld) [#/Vol] 10.8 10*3/uL 4.4-11.0 [facility] Work Phone: Blood erythrocytes count (nu mber/volume)on 12-14-2021 RBC (Bld) [#/Vol] 4.61 10*6/uL 4.2-5.4 [facility] Work Phone: Blood hemoglobin measurement (mass/volume)on 12-14-2021 Hemoglobin (Bld) [Mass/Vol] 13.2 g/dL 12.0-15.0 [facility] Work Phone: Blood platelet mean volumeon 12-14-2021 Platelet mean volume (Bld) [Entitic vol] 11.2 fL 6.2-12.0 [facility] Work Phone: Determination of erythrocyte mean corpuscular volume (MCV)on 12-14-2021 MCV (RBC) [Entitic vol] 86.6 fL 81-99 [facility] Work Phone: Hematocrit Auto (Bld) [Volum e fraction]on 12-14-2021 Hematocrit (Bld) [Volume fraction] 39.9 % 37-47 [facility] Work Phone: Laboratory - Chemistry and C hemistry - challengeon 12-14-2021 CO2 [Moles/Vol] 27.0 mmol/L 21.0-32.0 [facility] Work Phone: Urea nitrogen/Creatinine [Mass ratio] 23.1 mg/mg 10-20 [facility] Work Phone: Laboratory - Hematology and Cell countson 12-14-2021 Erythrocyte distribution width (RBC) [Entitic vol] 44.2 fL 35.1-43.9 [facility] Work Phone: Erythrocyte distribution width (RBC) [Ratio] 14.0 % 11.6-14.6 [facility] Work Phone: MCH (RBC) [Entitic mass] 28.6 pg 27.0-32.0 [facility] Work Phone: MCHC Auto (RBC) [Mass/Vol]on 12-14-2021 MCHC (RBC) [Mass/Vol] 33.1 g/dL 32-36 [facility] Work Phone: No Panel Informationon 12-14 Estimated GFR (MDRD) Amer 80 mL/min >60 [facility] Work Phone: Comment on above: GFR Calc Estimated GFR (MDRD) Non-Af Amer 66 mL/min >60 [facility] Work Phone: Comment on above: Non- GFR Calc Platelets bldon 12-14-2021 Platelets (Bld) [#/Vol] 368 10*3/uL 150-450 [facility] Work Phone: Serum or plasma calcium becki urement (mass/volume)on 12-14-2021 Calcium [Mass/Vol] 9.0 mg/dL 8.5-10.1 [facility] Work Phone: Serum or plasma creatinine m easurement (mass/volume)on 12-14-2021 Creatinine [Mass/Vol] 0.87 mg/dL 0.55-1.02 [facility] Work Phone: Comment on above: The validity of the calculated GFR & GFRAA in patients over 70 years has not been determined. Clinical correlation is essential. Serum or plasma urea nitroge n measurement (mass/volume)on 12-14-2021 Urea nitrogen [Mass/Vol] 20 mg/dL 7-18 [facility] Work Phone: Thin prep Papanicolaou smear with manual screeningon 12-14-2021 Thin prep Papanicolaou smear with manual screening 5 5-15 [facility] Work Phone: Basophil percentageon 2021 Chloride [Moles/Vol] 101 mmol/L 98-107 [facility] Work Phone: Glucose [Mass/Vol] 83 mg/dL 74-106 [facility] Work Phone: Potassium [Moles/Vol] 4.1 mmol/L 3.5-5.1 [facility] Work Phone: Sodium [Moles/Vol] 134 mmol/L 136-145 [facility] Work Phone: WBC (Bld) [#/Vol] 12.8 10*3/uL 4.4-11.0 [facility] Work Phone: Blood erythrocytes count (nu mber/volume)on 11-13-2021 RBC (Bld) [#/Vol] 4.73 10*6/uL 4.2-5.4 [facility] Work Phone: Blood hemoglobin measurement (mass/volume)on 11-13-2021 Hemoglobin (Bld) [Mass/Vol] 13.2 g/dL 12.0-15.0 [facility] Work Phone: Blood platelet mean volumeon 11-13-2021 Platelet mean volume (Bld) [Entitic vol] 11.2 fL 6.2-12.0 [facility] Work Phone: Determination of erythrocyte mean corpuscular volume (MCV)on 11-13-2021 MCV (RBC) [Entitic vol] 85.2 fL 81-99 [facility] Work Phone: Hematocrit Auto (Bld) [Volum e fraction]on 11-13-2021 Hematocrit (Bld) [Volume fraction] 40.3 % 37-47 [facility] Work Phone: Laboratory - Chemistry and C hemistry - challengeon 11-13-2021 CO2 [Moles/Vol] 25.0 mmol/L 21.0-32.0 [facility] Work Phone: Urea nitrogen/Creatinine [Mass ratio] 22.4 mg/mg 10-20 [facility] Work Phone: Laboratory - Hematology and Cell countson 11-13-2021 Erythrocyte distribution width (RBC) [Entitic vol] 43.7 fL 35.1-43.9 [facility] Work Phone: Erythrocyte distribution width (RBC) [Ratio] 14.0 % 11.6-14.6 [facility] Work Phone: MCH (RBC) [Entitic mass] 27.9 pg 27.0-32.0 [facility] Work Phone: MCHC Auto (RBC) [Mass/Vol]on 11-13-2021 MCHC (RBC) [Mass/Vol] 32.8 g/dL 32-36 [facility] Work Phone: No Panel Informationon 11-13 Estimated GFR (MDRD) Amer 88 mL/min >60 [facility] Work Phone: Comment on above: GFR Calc Estimated GFR (MDRD) Non-Af Amer 73 mL/min >60 [facility] Work Phone: Comment on above: Non- GFR Calc Platelets bldon 11-13-2021 Platelets (Bld) [#/Vol] 374 10*3/uL 150-450 [facility] Work Phone: Serum or plasma calcium becki urement (mass/volume)on 11-13-2021 Calcium [Mass/Vol] 9.0 mg/dL 8.5-10.1 [facility] Work Phone: Serum or plasma creatinine m easurement (mass/volume)on 11-13-2021 Creatinine [Mass/Vol] 0.80 mg/dL 0.55-1.02 [facility] Work Phone: Comment on above: The validity of the calculated GFR & GFRAA in patients over 70 years has not been determined. Clinical correlation is essential. Serum or plasma urea nitroge n measurement (mass/volume)on 11-13-2021 Urea nitrogen [Mass/Vol] 18 mg/dL 7-18 [facility] Work Phone: Thin prep Papanicolaou smear with manual screeningon 11-13-2021 Thin prep Papanicolaou smear with manual screening 8 5-15 [facility] Work Phone: Basophil percentageon 2021 Chloride [Moles/Vol] 104 mmol/L 98-107 [facility] Work Phone: Cholesterol [Mass/Vol] 125 mg/dL <200 [facility] Work Phone: Comment on above: <200 mg/dL Desirable 200-240 mg/dL Borderline >240 mg/dL High Risk Glucose [Mass/Vol] 156 mg/dL 74-106 [facility] Work Phone: Comment on above: Fasting Glucose resu lt greater than or equal to 126 mg/dL suggests DIABETES MELLITUS per A.D.A. criteria. Potassium [Moles/Vol] 4.4 mmol/L 3.5-5.1 [facility] Work Phone: Sodium [Moles/Vol] 134 mmol/L 136-145 [facility] Work Phone: Triglyceride [Mass/Vol] 130 mg/dL [facility] Work Phone: Comment on above: The drugs N-Acetylcy steine and Metamizole may falsely depress this assay.Serum Triglycerides Reference Interval Normal <150 mg/dL Borderline high 150 - 199 mg/dL High 200 - 499 mg/dL Very High > or = 500 mg/dL WBC (Bld) [#/Vol] 9.9 10*3/uL 4.4-11.0 [facility] Work Phone: Blood erythrocytes count (nu mber/volume)on 10-17-2021 RBC (Bld) [#/Vol] 4.61 10*6/uL 4.2-5.4 [facility] Work Phone: Blood hemoglobin measurement (mass/volume)on 10-17-2021 Hemoglobin (Bld) [Mass/Vol] 13.0 g/dL 12.0-15.0 [facility] Work Phone: Blood platelet mean volumeon 10-17-2021 Platelet mean volume (Bld) [Entitic vol] 10.9 fL 6.2-12.0 [facility] Work Phone: Determination of erythrocyte mean corpuscular volume (MCV)on 10-17-2021 MCV (RBC) [Entitic vol] 85.9 fL 81-99 [facility] Work Phone: Hematocrit Auto (Bld) [Volum e fraction]on 10-17-2021 Hematocrit (Bld) [Volume fraction] 39.6 % 37-47 [facility] Work Phone: Laboratory - Chemistry and C hemistry - challengeon 10-17-2021 CO2 [Moles/Vol] 23.0 mmol/L 21.0-32.0 [facility] Work Phone: Urea nitrogen/Creatinine [Mass ratio] 21.4 mg/mg 10-20 [facility] Work Phone: Laboratory - Hematology and Cell countson 10-17-2021 Erythrocyte distribution width (RBC) [Entitic vol] 44.1 fL 35.1-43.9 [facility] Work Phone: Erythrocyte distribution width (RBC) [Ratio] 14.0 % 11.6-14.6 [facility] Work Phone: MCH (RBC) [Entitic mass] 28.2 pg 27.0-32.0 [facility] Work Phone: MCHC Auto (RBC) [Mass/Vol]on 10-17-2021 MCHC (RBC) [Mass/Vol] 32.8 g/dL 32-36 [facility] Work Phone: No Panel Informationon 10-17 Estimated GFR (MDRD) Amer 83 mL/min >60 [facility] Work Phone: Comment on above: GFR Calc Estimated GFR (MDRD) Non-Af Amer 69 mL/min >60 [facility] Work Phone: Comment on above: Non- GFR Calc Platelets bldon 10-17-2021 Platelets (Bld) [#/Vol] 359 10*3/uL 150-450 [facility] Work Phone: Serum or plasma calcium becki urement (mass/volume)on 10-17-2021 Calcium [Mass/Vol] 8.9 mg/dL 8.5-10.1 [facility] Work Phone: Serum or plasma cholesterol in HDL measurement (mass/volume)on 10-17-2021 Cholesterol in HDL [Mass/Vol] 47 mg/dL [facility] Work Phone: Comment on above: The drugs N-Acetylcy steine and Metamizole may falsely depress this assay. Reference Range HDL <40 mg/dL Low HDL Cholesterol HDL >or= 60 mg/dL High HDL Cholesterol Serum or plasma cholesterol in VLDL measurement (mass/volume)on 10-17-2021 Cholesterol in VLDL [Mass/Vol] 26 mg/dL 5-40 [facility] Work Phone: Serum or plasma creatinine m easurement (mass/volume)on 10-17-2021 Creatinine [Mass/Vol] 0.84 mg/dL 0.55-1.02 [facility] Work Phone: Comment on above: The validity of the calculated GFR & GFRAA in patients over 70 years has not been determined. Clinical correlation is essential. Serum or plasma low density lipoprotein (LDL) cholesterol measurement (mass/volume)on 10-17-2021 Cholesterol in LDL [Mass/Vol] 52 mg/dL 0-130 [facility] Work Phone: Serum or plasma urea nitroge n measurement (mass/volume)on 10-17-2021 Urea nitrogen [Mass/Vol] 18 mg/dL 7-18 [facility] Work Phone: Thin prep Papanicolaou smear with manual screeningon 10-17-2021 Thin prep Papanicolaou smear with manual screening 7 - [facility] Work Phone: Whole blood hemoglobin A1c/t otal hemoglobin ratio (mass fraction)on 10-17-2021 HbA1c (Bld) [Mass fraction] 8.2 % 3.8-5.6 [facility] Work Phone: Comment on above: Normal < 5.7 % Predi abetic 5.7 - 6.4 % Diabetic >or= 6.5 % Please note range changes. Laboratory - Microbiology an d Antimicrobial susceptibilityon 09-25-2021 SARS-CoV-2 (COVID-19) RNA BIBIANA+probe Ql (Unsp spec) Not detected Not Detect [facility] Work Phone: Comment on above: Normal Reference Ran ge: Not DetectedMethod:(RT-PCR) real-time reverse transcriptase PCRLuminex [employer] Instrument*The Food and Drug Administration (FDA) has issued an Emergency Use Authorization (EAU) for the [employer] SARS-CoV-2 Assay for the rapid detection of the virus that causes COVID-19. This test has been validated, but the FDAs independent review of this validation is pending.*Negative results do not preclude infection and should not be used as the sole basis for treatment or patient management. Optimum specimen types and timing for peak viral levels during infections caused by SARS-CoV-2 have not been determined. Collection of multiple specimens from the same patient may be necessary to detect the virus. The possibility of a false negative result should be considered if the patient has clinical presentation or has had recent exposure. Basophil percentageon 2021 Chloride [Moles/Vol] 98 mmol/L 98-[address] [facility] [address] [facility] Work Phone: Glucose [Mass/Vol] 287 mg/dL 74-106 [facility] Work Phone: Comment on above: Glucose result great er than or equal to 200 mg/dLsuggests DIABETES MELLITUS per A.D.A. criteria. Potassium [Moles/Vol] 4.4 mmol/L 3.5-5.1 [facility] Work Phone: Sodium [Moles/Vol] 132 mmol/L 136-145 [facility] Work Phone: WBC (Bld) [#/Vol] 11.4 10*3/uL 4.4-11.0 [facility] Work Phone: Blood erythrocytes count (nu mber/volume)on 09-20-2021 RBC (Bld) [#/Vol] 4.59 10*6/uL 4.2-5.4 [facility] Work Phone: Blood hemoglobin measurement (mass/volume)on 09-20-2021 Hemoglobin (Bld) [Mass/Vol] 12.6 g/dL 12.0-15.0 [facility] Work Phone: Blood platelet mean volumeon 09-20-2021 Platelet mean volume (Bld) [Entitic vol] 11.1 fL 6.2-12.0 [facility] Work Phone: Determination of erythrocyte mean corpuscular volume (MCV)on 09-20-2021 MCV (RBC) [Entitic vol] 85.4 fL 81-99 [facility] Work Phone: Hematocrit Auto (Bld) [Volum e fraction]on 09-20-2021 Hematocrit (Bld) [Volume fraction] 39.2 % 37-47 [facility] Work Phone: Laboratory - Chemistry and C hemistry - challengeon 09-20-2021 CO2 [Moles/Vol] 24.0 mmol/L 21.0-32.0 [facility] Work Phone: Urea nitrogen/Creatinine [Mass ratio] 15.5 mg/mg 10-20 [facility] Work Phone: Laboratory - Hematology and Cell countson 09-20-2021 Erythrocyte distribution width (RBC) [Entitic vol] 43.0 fL 35.1-43.9 [facility] Work Phone: Erythrocyte distribution width (RBC) [Ratio] 13.8 % 11.6-14.6 [facility] Work Phone: MCH (RBC) [Entitic mass] 27.5 pg 27.0-32.0 [facility] Work Phone: MCHC Auto (RBC) [Mass/Vol]on 09-20-2021 MCHC (RBC) [Mass/Vol] 32.1 g/dL 32-36 [facility] Work Phone: No Panel Informationon 09-20 Estimated GFR (MDRD) Amer 61 mL/min >60 [facility] Work Phone: Comment on above: GFR Calc Estimated GFR (MDRD) Non-Af Amer 51 mL/min >60 [facility] Work Phone: Comment on above: Non- GFR Calc Platelets bldon 09-20-2021 Platelets (Bld) [#/Vol] 370 10*3/uL 150-450 [facility] Work Phone: Serum or plasma calcium becki urement (mass/volume)on 09-20-2021 Calcium [Mass/Vol] 9.0 mg/dL 8.5-10.1 [facility] Work Phone: Serum or plasma creatinine m easurement (mass/volume)on 09-20-2021 Creatinine [Mass/Vol] 1.10 mg/dL 0.55-1.02 [facility] Work Phone: Comment on above: The validity of the calculated GFR & GFRAA in patients over 70 years has not been determined. Clinical correlation is essential. Serum or plasma urea nitroge n measurement (mass/volume)on 09-20-2021 Urea nitrogen [Mass/Vol] 17 mg/dL 7-18 [facility] Work Phone: Thin prep Papanicolaou smear with manual screeningon 09-20-2021 Thin prep Papanicolaou smear with manual screening 10 5-15 [facility] Work Phone: Office Visiton 04-03-2017 Documentation of current medications (procedure) Done Invalid Interpretation Code [facility] Work Phone: Tobacco use [facility] Never smoker Invalid Interpretation Code [facility] Work Phone: Office Visiton 03-06-2017 Documentation of current medications (procedure) Done Invalid Interpretation Code [facility] Work Phone: Tobacco use [facility] Never smoker Invalid Interpretation Code [facility] Work Phone: Lab Report: CBC-Complete Blo od Cnt No Diffon 02-19-2017 Erythrocyte distribution width Ratio (RBC) 43.5 fL 35.1-43.9 [facility] Work Phone: Erythrocyte distribution width Ratio (RBC) 13.6 % 11.6-14.6 [facility] Work Phone: Erythrocytes (RBC) 3.32 10*6/uL Low 4.2-5.4 [facility] Work Phone: Hematocrit (HCT) 29.7 % Low 37-47 [facility] Work Phone: Hematocrit Volume Fraction (Bld) 29.7 % Low 37-47 [facility] Work Phone: Hemoglobin mass conc (Bld) 9.9 g/dL Low 12.0-15.0 [facility] Work Phone: MCH 29.8 pg Invalid Interpretation Code 27.0-32.0 [facility] Work Phone: MCH Entitic mass (RBC) 29.8 pg 27.0-32.0 [facility] Work Phone: MCHC 33.3 G/GL Invalid Interpretation Code 32-36 [facility] Work Phone: MCHC mass conc (RBC) 33.3 G/GL 32-36 [facility] Work Phone: MCV 89.5 fL Invalid Interpretation Code 81-99 [facility] Work Phone: MCV Entitic volume (RBC) 89.5 fL 81-99 [facility] Work Phone: Platelet mean volume Entitic volume (Bld) 10.8 fL 6.2-12.0 [facility] Work Phone: Platelets 186 10*3/mm3 Invalid Interpretation Code 150-450 [facility] Work Phone: Platelets #/vol (Bld) 186 10*3/mm3 150-450 [facility] Work Phone: PMV by Radha 10.8 fL Invalid Interpretation Code 6.2-12.0 [facility] Work Phone: RBC #/vol (Bld) 3.32 10*6/uL Low 4.2-5.4 [facility] Work Phone: RDW-CA 13.6 % Invalid Interpretation Code 11.6-14.6 [facility] Work Phone: red blood cell distribution width, size density 43.5 fL Invalid Interpretation Code 35.1-43.9 [facility] Work Phone: WBC #/vol (Bld) 12.5 10*3/uL High 4.4-11.0 [facility] Work Phone: WBC (Leukocytes) 12.5 10*3/uL High 4.4-11.0 [facility] Work Phone: Office Visiton 05-12-2015 Documentation of current medications (procedure) Done Invalid Interpretation Code [facility] Work Phone: Protein mass conc Done [facility] Work Phone: Tobacco smoking status NHIS Never smoker [facility] Work Phone: Tobacco use HS Never smoker Invalid Interpretation Code [facility] Work Phone: Lab Report: Bedside Glucoseo n 03-17-2015 Glucose 264 mg/dL High 70-110 [facility] Work Phone: Glucose mass conc 264 mg/dL High 70-110 [facility] Work Phone: Lab Report: Hemoglobin A1con 03-16-2015 Hemoglobin A1c/Hemoglobin.total mass fraction (Bld) 7.3 % High 4.2-6.3 [facility] Work Phone: Culture, urine Bacteria identified Cx Nom (U) Klebsiella pneumoniae sp pneum [facility] Work Phone: Vital Signs Date Time Vital Sign Value Performing Clinician Maryi janice 03-14-2015 09:05-0400 Height 165.1 cm Carl Majano [facility] Work Phone: 03-14-2015 09:05-0400 Weight 68.95 kg Carl Scripps [facility] Work Phone: Encounters Encounter Date Encounter Type Care Provider Facility Start: 01-14-2025 ambulatory Jake Waddell Facility: [facility] Start: 10-16-2024 ambulatory Jake Waddell Facility: [facility] Start: 08-21-2024 End: 08-21-2024 ambulatory Jake Waddell Facility:[facility] Start: 07-16-2024 End: 07-16-2024 ambulatory Jake Waddell OLS Facility:[facility] Start: 07-14-2024 End: 07-14-2024 ambulatory Jake Waddell OLS Facility:[facility] Start: 04-29-2024 End: 04-30-2024 ambulatory Jake Waddell OLS Facility:[facility] Start: 04-16-2024 End: 04-16-2024 ambulatory Jake Waddell OLS Facility:[facility] Start: 04-02-2024 End: 04-02-2024 ambulatory Jake Waddell Facility:[facility] Start: 03-23-2024 End: 03-23-2024 ambulatory Jake Waddell Facility:[facility] Start: 03-16-2024 End: 03-16-2024 ambulatory Jake Waddell OLS Facility:[facility] Start: 03-13-2024 End: 03-13-2024 Emergency department patient visit Jake Waddell Facility:[facility] Start: 10-17-2023 End: 10-17-2023 ambulatory [facility] Work Phone: Start: 10-17-2023 End: 10-17-2023 Departed Referred [facility] Start: 04-15-2023 End: 04-15-2023 ambulatory [facility] Work Phone: Start: 04-15-2023 End: 04-15-2023 Departed Referred [facility] Start: 10-17-2022 End: 10-17-2022 ambulatory [facility] Work Phone: Start: 10-17-2022 End: 10-17-2022 Departed Referred [facility] Start: 09-17-2022 End: 09-17-2022 ambulatory [facility] Work Phone: Start: 09-17-2022 End: 09-17-2022 Departed Referred [facility] Start: 08-15-2022 End: 08-15-2022 ambulatory [facility] Work Phone: Start: 08-15-2022 End: 08-15-2022 Departed Referred [facility] Start: 07-16-2022 End: 07-16-2022 ambulatory [facility] Work Phone: Start: 07-16-2022 End: 07-16-2022 Departed Referred [facility] Start: 06-29-2022 End: 06-29-2022 ambulatory [facility] Work Phone: Start: 06-29-2022 End: 06-29-2022 Departed Referred [facility] Start: 06-29-2022 Registered Referred [facility] Start: 06-15-2022 End: 06-15-2022 ambulatory [facility] Work Phone: Start: 06-15-2022 End: 06-15-2022 Departed Referred [facility] Start: 05-16-2022 End: 05-16-2022 ambulatory [facility] Work Phone: Start: 05-16-2022 End: 05-16-2022 Departed Referred [facility] Start: 05-08-2022 End: 05-08-2022 ambulatory [facility] Work Phone: Start: 05-08-2022 End: 05-08-2022 Departed Referred [facility] Start: 04-16-2022 End: 04-16-2022 Departed Referred [facility] Start: 03-14-2022 End: 03-14-2022 Departed Referred [facility] Start: 02-14-2022 End: 02-14-2022 Departed Referred [facility] Start: 01-15-2022 End: 01-15-2022 Departed Referred [facility] Start: 12-14-2021 End: 12-14-2021 Departed Referred [facility] Start: 12-14-2021 Registered Referred [facility] Start: 11-13-2021 End: 11-13-2021 Departed Referred [facility] Start: 11-13-2021 Registered Referred [facility] Start: 10-17-2021 End: 10-17-2021 Departed Referred [facility] Start: 10-17-2021 Registered Referred [facility] Start: 09-26-2021 End: 09-26-2021 Patient encounter procedure [facility] Start: 09-25-2021 End: 09-25-2021 Departed Referred [facility] Start: 09-20-2021 End: 09-20-2021 Departed Referred [facility] Start: 09-20-2021 Registered Referred [facility] Procedures Date Procedure Procedure Detail Performing Clinician Start: 09-26-2021 Screening mammography Start: 04-13-2015 End: 02-28-2017 X-ray exam of elbow Carl Majano Work Phone: Start: 03-14-2015 End: 03-16-2015 Documentation of current medications Aubree E Frase Urine culture Plan of Treatment Date Care Activity Detail Author Start: 05-22-2017 End: 05-22-2017 Appointment Appointment [facility] Work Phone: Start: 04-03-2017 End: 04-03-2017 Appointment Appointment [facility] Work Phone: Start: 04-03-2017 End: 04-03-2017 X-Ray, Hip Unilateral X-Ray, Hip Unilateral [facility] Work Phone: Start: 03-06-2017 End: 03-06-2017 Appointment Appointment [facility] Work Phone: Start: 03-06-2017 End: 03-06-2017 Appointment Appointment [facility] Work Phone: Start: 03-06-2017 End: 03-06-2017 X-Ray, Hip, unilateral, with pelvis; 2-3 views X-Ray, Hip, unilateral, with pelvis; 2-3 views [facility] Work Phone: Start: 04-25-2015 End: 05-04-2015 Ct upper extremity w/o dye CT Upper Extremity [facility] Work Phone: Start: 04-25-2015 End: 05-10-2015 [facility] Work Phone: Start: 04-25-2015 End: 04-25-2015 X-ray exam of elbow X-Ray, Elbow [facility] Work Phone: Start: 04-13-2015 End: 04-13-2015 Occupational Therapy General Occupational Therapy [facility], [address] [place] [address], [id number] [facility] Work Phone: Start: 04-13-2015 End: 02-28-2017 X-ray exam of elbow X-Ray, Elbow [facility] Work Phone: Start: 03-28-2015 End: 04-04-2015 Postop follow-up visit Post Operative Visit [facility] Work Phone: Start: 03-28-2015 End: 03-28-2015 X-ray exam of elbow X-Ray, Elbow [facility] Work Phone: Patient Education ELBOW%20FRACTU RE%20IN%2 0ADULTS [facility] Work Phone: Immunizations Immunization Date Immunization Notes Care Provider Tati boudreaux 06-28-2014 Influenza virus vaccine [facility] Payers Date Payer Category Payer Self-pay [id number] 2024 Unknown [id number] 255 [id number] 2017 Medicaid [id number] 65 [id number] 1974 Medicare [id number] 196 [id number] Unknown [id number] Unknown [id number] 2.16.8 [id number] Unknown [id number] 2.16.8 [id number] Unknown [id number] 2.16.8 [id number] Unknown [id number] 2.16.8 [id number] Unknown [id number] 2.16.8 [id number] Unknown [id number] 2.16.8 [id number] Unknown [id number] 2.16.8 [id number] Unknown [id number] 2.16.8 [id number] Unknown [id number] 2.16.8 [id number] Unknown [id number] 2.16.8 [id number] Unknown [id number] 2.16.8 [id number] Unknown [id number] 2.16.8 [id number] Social History Date Type Detail Facility Start: 07-01-2021 End: 07-02-2021 Tobacco smoking status DEIS Unknown if ever smoked [facility] Start: 04-17-2019 None [facility] Start: 04-17-2019 Penitentiary [facility] Start: 1940 Sex Assigned At Female [facility] Evaluation note Note Date & Type Note Facility Evaluation note No assessment information availa ble [facility] Work Phone: Chief Complaint and Reason for Visit Chief Complaint ASSISTED LABWORK ASSISTED LABWORK SCREENING ASSISTED LABWORK ASSISTED LABWORK ASSISTED LAB WORK Chief Complaint ASSISTED LABWORK SCREENING ASSISTED LABWORK ASSISTED LABWORK ASSISTED LAB WORK LABWORK Chief Complaint ASSISTED LABWORK ASSISTED LAB WORK LABWORK ASSISTED LAB WORK Chief Complaint LABWORK ASSISTED LAB WORK ASSISTED LAB WORK ASSISTED LAB WORK Chief Complaint LABWORK ASSISTED LAB WORK ASSISTED LAB WORK ASSISTED LAB WORK ASSISTED LAB WORK Chief Complaint ASSISTED LAB WOR K ASSISTED LAB WORK ASSISTED LAB WORK ASSISTED LAB WORK ASSISTED LAB WORK Chief Complaint ASSISTED LAB WOR K ASSISTED LAB WORK ASSISTED LAB WORK ASSISTED LAB WORK ASSISTED LAB WORK ASSISTED LABWORK Chief Complaint ASSISTED LAB WOR K ASSISTED LAB WORK ASSISTED LAB WORK ASSISTED LAB WORK ASSISTED LABWORK ASSISTED LAB WORK Chief Complaint ASSISTED LAB WOR K ASSISTED LAB WORK ASSISTED LABWORK ASSISTED LAB WORK ASSISTED LAB WORK Chief Complaint ASSISTED LAB WOR K ASSISTED LABWORK ASSISTED LAB WORK ASSISTED LAB WORK ASSISTED LABWORK Chief Complaint ASSISTED LAB WOR K ASSISTED LABWORK ASSISTED LAB WORK Chief Complaint ASSISTED LAB WOR K Advance Directives No Advanced Directives Records Found Advance Directive Response Recorded Date/ Time Advance Directives Yes March 16 3:27pm Living Will Yes July 01 11:19pm Power of Reservation Manager No July 01, 2021 11:19pm Advance Directive Response Recorded Date/ Time Advance Directives Yes March 16 2:27pm Living Will Yes July 01 10:19pm Power of Reservation Manager No July 01, 2021 10:19pm Summary Purpose Family History No Family History Records Found Additional Source Comments Goals (unrecognized section and content) Goals may be documented in a n alternate sectionGoals may be documented in an alternate sectionGoals may be documented in an alternate sectionGoals may be documented in an alternate sectionGoals may be documented in an alternate sectionGoals may be documented in an alternate sectionGoals may be documented in an alternate sectionGoals may be documented in an alternate sectionGoals may be documented in an alternate sectionGoals may be documented in an alternate sectionGoals may be documented in an alternate sectionGoals may be documented in an alternate sectionGoals may be documented in an alternate sectionGoals may be documented in an alternate section Care Teams (unrecognized sec tion and content) Team Status: Active Member Role Status Dates Dr. Jake Waddell MD Family Provider Active Dr. Jake Waddell MD Primary Care Provider Active Team Status: Inactive Member Role Status Dates Dr. Jake Waddell MD Primary Care Provider Active Jake Waddell MD Attending Provider Active Team Status: Inactive Member Role Status Dates Dr. Jake Waddell MD Primary Care Provider Active Jake Waddell MD Attending Provider, Referring Provi timbo Active Team Status: Inactive Member Role Status Dates Dr. Jake Waddell MD Primary Care Provider Active Jake RUST MD Attending Provider Active Team Status: Inactive Member Role Status Dates Dr. Jake Waddell MD Primary Care Provider Active Jake RUST MD Attending Provider, Referring Pr briseidaer Active INFORMATION SOURCE (unrecogn ized section and content) DATE CREATED AUTHOR 02/21/2025 [facility] FOR RECORDS PERTAINING TO PATIENTS WHO ARE [...] BE BASED ON THE PRIMARY CLINICAL RECORDS. [employer] provides no warranty or guarantee of the accuracy or completeness of information in this document.
--- OUTSIDE RECORDS SUMMARY | 2025-02-22 03:35 | XMS RPT_ITS | CCD ---
Author Organization [facility] Team Providers Care Saxophone Assembler Name Role Phone Carl Majano Unavailable WaddellJake [...] (17 sources) Codeine Drug Allergy 07-01-2021 Other [facility] (17 sources) Morphine Drug Allergy 07-01-2021 Vomiting [facility] (17 sources) traMADol Drug Allergy 07-01-2021 Other [facility] (1 source) Codeine Drug Allergy 03-13-2024 [facility] (1 source) Morphine Drug Allergy 03-13-2024 [facility] (1 source) traMADol Drug Allergy 03-13-2024 [facility] Medications Current Medications Medication [...] 11:00pm docusate sodium 50 mg / sennosides, half-way 8.6 mg oral tablet (17 sources) Start: [...] TABS 1 tab twice daily METFORMIN HCL [id number] Aubree Cole 24 hr mirabegron 50 mg extended release oral tablet (17 sources) beta3-Adrenergic Agonist Start: 02-16-2017 take 1 tablet by mouth once daily Mirabegron (Myrbetriq) 50 MG tablet extended release 24 hr Active 50 MG PO DAILY February 15, 2017 11:00pm Vitamins A,C,C-Axcp-Gztobx (Preservision Areds) 1 EACH capsule (17 sources) Start: 07-27-2018 take 1 capsule by mouth twice daily Vitamins A,C,I-Wacs-Skarzr (Preservision Areds) 1 EACH capsule Active 1 EACH PO TWICE A DAY July 27, 2018 7:58pm Start: 07-27-2018 take 1 capsule by [facility] twice daily Vitamins A,C,D-Szhi-Ioupqq (Preservision Areds) 1 EACH capsule Active 1 EACH PO TWICE A DAY July 27, 2018 12:00am Start: 07-27-2018 take 1 capsule by [facility] twice daily Vitamins A,C,H-Mijr-Mimrdj (Preservision Areds) 1 EACH capsule Active 1 EACH PO TWICE A DAY July 27, 2018 1:00am Completed/Discontinued Medications Medication Drug Class(es) Dates Sig (Normalized) Sig (Original) amLODIPine 10 mg / benazepril hydrochloride 20 mg oral capsule (6 sources) Dihydropyridine Calcium Channel Ken, Angiotensin Converting Enzyme Inhibitor Start: 03-14-2015 AMLODIPINE BESY-BENAZEPRIL HCL 10-20 MG CAPS daily AMLODIPINE BESY-BENAZEPRIL HCL [id number] Aubree E Frase atorvastatin 20 mg oral tablet (20 sources) HMG-CoA Reductase Inhibitor Start: 03-14-2015 ATORVASTATIN CALCIUM 20 MG TABS daily ATORVASTATIN CALCIUM [id number] Aubree E Frase Start: 03-07-2015 take 20 mg by mouth at bedtime Atorvastatin Active 20 MG PO AT BEDTIME March 06, 2015 11:00pm glimepiride 4 mg oral tablet (6 sources) Sulfonylurea Start: 03-14-2015 GLIMEPIRIDE 4 MG TABS daily GLIMEPIRIDE [id number] Aubree E Frase pioglitazone 30 mg oral tablet (6 sources) Peroxisome Proliferator Receptor alpha Agonist, Peroxisome Proliferator Receptor gamma Agonist, Thiazolidinedione Start: 03-14-2015 PIOGLITAZONE HCL 30 MG TABS daily PIOGLITAZONE HCL [id number] Aubree E Frase SITagliptin 100 mg oral tablet (6 sources) Dipeptidyl Peptidase 4 Inhibitor Start: 03-14-2015 JANUVIA 100 MG TABS daily SITAGLIPTIN PHOSPHATE [id number] Aubree E Frase solifenacin succinate 10 mg oral tablet (6 sources) Cholinergic Muscarinic Antagonist Start: 03-14-2015 VESICARE 10 MG TABS daily SOLIFENACIN SUCCINATE [id number] Aubree Jenningsse Problems Active Problems Problem Classification [...] E Codes: Fall (17 sources) Fall in half-way; Translations: [Unspecified fall, initial encounter] 04-18-2019 Episodic [...] 04-30-2017 Chronic Other aftercare (2 sources) Other oil heaterman (current) drug therapy; Translations: [Other oil heaterman (current) drug therapy] Onset: 08-28-2024 Episodic Superficial [...] (Bld) [Mass fraction] 6.7 % High <=5.6 [facility] Comment on above: Order Comment: 112.2 Result Comment: Norm al < 5.7 % Prediabetic 5.7 - 6.4 % Diabetic >or= 6.5 % Please note range changes. Performed By: #### L 500.2500, L501.9985, L500.4100, L100.0500 #### [facility] [address] [place], [address] Basic Metabolic Profile (BMP )on 10-16-2024 BUN/CRE 20.1 RATIO High 10-20 [facility] Comment on above: Order Comment: 112.2 Performed By: #### L 500.2500, L501.9985, L500.4100, L100.0500 #### [facility] [address] [place], [address] CA,Total 9.5 mg/dL Normal 8.5-10.1 [facility] Comment on above: Order Comment: 112.2 Performed By: #### L 500.2500, L501.9985, L500.4100, L100.0500 #### [facility] [address] [place], [address] Chloride [Moles/Vol] 97 mmol/L Low 98-107 [facility] Comment on above: Order Comment: 112.2 Performed By: #### L 500.2500, L501.9985, L500.4100, L100.0500 #### [facility] [address] [place], [address] CO2 [Moles/Vol] 24.0 mmol/L Normal 21.0-32.0 [facility] Comment on above: Order Comment: 112.2 Performed By: #### L 500.2500, L501.9985, L500.4100, L100.0500 #### [facility] [address] [place], [address] Creatinine [Mass/Vol] 0.95 mg/dL Normal 0.55-1.02 [facility] Comment on above: Order Comment: 112.2 Result Comment: The validity of the calculated GFR GFRAA in patients over 70 years has not been determined. Clinical correlation is essential. Performed By: #### L 500.2500, L501.9985, L500.4100, L100.0500 #### [facility] [address] [place], [address] EST GFR - AA 72 mL/min Normal >60 [facility] Comment on above: Order Comment: 112.2 Result Comment: Afri can Serbian GFR Calc Performed By: #### L 500.2500, L501.9985, L500.4100, L100.0500 #### [facility] [address] [place], [address] GAP 10 Normal 5-15 [facility] Comment on above: Order Comment: 112.2 Performed By: #### L 500.2500, L501.9985, L500.4100, L100.0500 #### [facility] [address] [place], [address] GFR/1.73 sq M.predicted among non-blacks MDRD (S/P/Bld) [Vol rate/Area] 60 mL/min/{1.73_m2} Normal >60 [facility] Comment on above: Order Comment: 112.2 Result Comment: Non- GFR Calc Performed By: #### L 500.2500, L501.9985, L500.4100, L100.0500 #### [facility] [address] [place], [address] Glucose [Mass/Vol] 146 mg/dL High 74-106 [facility] Comment on above: Order Comment: 112.2 Result Comment: Fast ing Glucose result greater than or equal to 126 mg/dL suggests DIABETES MELLITUS per A.D.A. criteria. Performed By: #### L 500.2500, L501.9985, L500.4100, L100.0500 #### [facility] [address] [place], [address] Potassium [Moles/Vol] 4.4 mmol/L Normal 3.5-5.1 [facility] Comment on above: Order Comment: 112.2 Performed By: #### L 500.2500, L501.9985, L500.4100, L100.0500 #### [facility] [address] [place], [address] Sodium [Moles/Vol] 131 mmol/L Low 136-145 [facility] Comment on above: Order Comment: 112.2 Performed By: #### L 500.2500, L501.9985, L500.4100, L100.0500 #### [facility] [address] [place], [address] Urea nitrogen [Mass/Vol] 19 mg/dL High 7-18 [facility] Comment on above: Order Comment: 112.2 Performed By: #### L 500.2500, L501.9985, L500.4100, L100.0500 #### [facility] [address] [place], [address] CBC-Complete Blood Cnt No Di ffon 10-16-2024 Erythrocyte distribution width (RBC) [Ratio] 15.2 % High 11.6-14.6 [facility] Comment on above: Order Comment: 112.2 Performed By: #### L 500.2500, L501.9985, L500.4100, L100.0500 #### [facility] [address] [place], [address] Hematocrit (Bld) [Volume fraction] 41.2 % Normal 37-47 [facility] Comment on above: Order Comment: 112.2 Performed By: #### L 500.2500, L501.9985, L500.4100, L100.0500 #### [facility] [address] [place], [address] Hemoglobin (Bld) [Mass/Vol] 13.4 g/dL Normal 12.0-15.0 [facility] Comment on above: Order Comment: 112.2 Performed By: #### L 500.2500, L501.9985, L500.4100, L100.0500 #### [facility] [address] [place], [address] MCH (RBC) [Entitic mass] 28.3 pg Normal 27.0-32.0 [facility] Comment on above: Order Comment: 112.2 Performed By: #### L 500.2500, L501.9985, L500.4100, L100.0500 #### [facility] [address] [place], [address] MCHC (RBC) [Mass/Vol] 32.5 g/dL Normal 32-36 [facility] Comment on above: Order Comment: 112.2 Performed By: #### L 500.2500, L501.9985, L500.4100, L100.0500 #### [facility] [address] [place], [address] MCV (RBC) [Entitic vol] 86.9 fL Normal 81-99 [facility] Comment on above: Order Comment: 112.2 Performed By: #### L 500.2500, L501.9985, L500.4100, L100.0500 #### [facility] [address] [place], [address] Platelet mean volume (Bld) [Entitic vol] 10.8 fL Normal 6.2-12.0 [facility] Comment on above: Order Comment: 112.2 Performed By: #### L 500.2500, L501.9985, L500.4100, L100.0500 #### [facility] [address] [place], [address] Platelets (Bld) [#/Vol] 310 10*3/uL Normal 150-450 [facility] Comment on above: Order Comment: 112.2 Performed By: #### L 500.2500, L501.9985, L500.4100, L100.0500 #### [facility] [address] [place], [address] RBC (Bld) [#/Vol] 4.74 10*6/uL Normal 4.2-5.4 [facility] Comment on above: Order Comment: 112.2 Performed By: #### L 500.2500, L501.9985, L500.4100, L100.0500 #### [facility] [address] [place], [address] RDW SD 48.8 fl High 35.1-43.9 [facility] Comment on above: Order Comment: 112.2 Performed By: #### L 500.2500, L501.9985, L500.4100, L100.0500 #### [facility] [address] [place], [address] WBC (Bld) [#/Vol] 11.8 10*3/uL High 4.4-11.0 [facility] Comment on above: Order Comment: 112.2 Performed By: #### L 500.2500, L501.9985, L500.4100, L100.0500 #### [facility] [address] [place], [address] Hemoglobin A1con 10-16-2024 HbA1c (Bld) [Mass fraction] 6.7 % High 3.8-5.6 [facility] Comment on above: Order Comment: 112.2 Result Comment: Norm al < 5.7 % Prediabetic 5.7 - 6.4 % Diabetic >or= 6.5 % Please note range changes. Performed By: #### L 500.2500, L501.9985, L500.4100, L100.0500 #### [facility] [address] [place], [address] Lipid Profileon 10-16-2024 Cholesterol [Mass/Vol] 106 mg/dL Normal 200 [facility] Comment on above: Order Comment: 112.2 Result Comment: <200 mg/dL Desirable 200-240 mg/dL Borderline >240 mg/dL High Risk Performed By: #### L 500.2500, L501.9985, L500.4100, L100.0500 #### [facility] [address] [place], [address] Cholesterol in HDL [Mass/Vol] 52 mg/dL Normal [facility] Comment on above: Order Comment: 112.2 Result Comment: The drugs N-Acetylcysteine and Metamizole may falsely depress this assay. Reference Range HDL <40 mg/dL Low HDL Cholesterol HDL >or= 60 mg/dL High HDL Cholesterol Performed By: #### L 500.2500, L501.9985, L500.4100, L100.0500 #### [facility] [address] [place], [address] Cholesterol in LDL [Mass/Vol] 30 mg/dL Normal 0-130 [facility] Comment on above: Order Comment: 112.2 Performed By: #### L 500.2500, L501.9985, L500.4100, L100.0500 #### [facility] [address] [place], [address] Cholesterol in VLDL [Mass/Vol] 24 mg/dL Normal 5-40 [facility] Comment on above: Order Comment: 112.2 Performed By: #### L 500.2500, L501.9985, L500.4100, L100.0500 #### [facility] [address] [place], [address] Triglyceride [Mass/Vol] 118 mg/dL Normal [facility] Comment on above: Order Comment: 112.2 Result Comment: The drugs N-Acetylcysteine and Metamizole may falsely depress this assay. Serum Triglycerides Reference Interval Normal <150 mg/dL Borderline high 150 - 199 mg/dL High 200 - 499 mg/dL Very High > or = 500 mg/dL Performed By: #### L 500.2500, L501.9985, L500.4100, L100.0500 #### [facility] [address] [place], [address] Valproic Acid (Depakene) Lev melissa 08-21-2024 VALPROIC ACID 26 ug/mL Low 50-100 [facility] Comment on above: Order Comment: 112.2 Performed By: #### M 100.2200 #### [facility] [address] [place], [address] Urine Cultureon 07-17-2024 [facility] Presumptive E. coli [place] Count 11,000-25,000 Presumptive E. coli: REACTION Ampicillin [...] TMP SMX Islt MENDY >=320 R Normal [facility] Comment on above: Performed By: #### M 100.2200 #### [facility] [address] [place], [address] Hemoglobin A1con 07-16-2024 HbA1c (Bld) [Mass fraction] 7.1 % High 3.8-5.6 [facility] Comment on above: Order Comment: 112.2 Result Comment: Norm al < 5.7 % Prediabetic 5.7 - 6.4 % Diabetic >or= 6.5 % Please note range changes. Performed By: #### L 500.2500, L501.9985, L500.4100, L100.0500 #### [facility] [address] [place], [address] Urinalysis, Completeon 07-15 BACTERIA 2+ /hpf Normal None Seen [facility] Comment on above: Order Comment: CLEAN CATCH Performed By: #### M 100.2200 #### [facility] [address] [place], [address] EPI,SQUAMOUS 10-25 SEEN Normal 5-10 [facility] Comment on above: Order Comment: CLEAN CATCH Performed By: #### M 100.2200 #### [facility] [address] [place], [address] RBC 50-100 SEEN Normal 0-5 [facility] Comment on above: Order Comment: CLEAN CATCH Performed By: #### M 100.2200 #### [facility] [address] [place], [address] WBC >100 SEEN Normal 0-5 [facility] Comment on above: Order Comment: CLEAN CATCH Performed By: #### M 100.2200 #### [facility] [address] [place], [address] Mucus Ql (Urine sed) 0 SEEN Normal [facility] Comment on above: Order Comment: CLEAN CATCH Performed By: #### M 100.2200 #### [facility] [address] [place], [address] Urine Cultureon 05-02-2024 [facility] Klebsiella pneumoniae sp pneum [place] Count >100,000 Klebsiella pneumoniae sp pneum: REACTION [...] Islt MENDY <=1 S TMP SMX Islt MENYD <=20 S Normal [facility] Comment on above: Performed By: #### L 400.0001, M100.2200 #### [facility] [address] [place], [address] Urinalysis, Completeon 04-30 BACTERIA 3+ /hpf Normal None Seen [facility] Comment on above: Order Comment: Urine , Random Performed By: #### L 400.0001, M100.2200 #### [facility] [address] [place], [address] EPI,SQUAMOUS 0-5 SEEN Normal 5-10 [facility] Comment on above: Order Comment: Urine , Random Performed By: #### L 400.0001, M100.2200 #### [facility] [address] [place], [address] RBC 0-5 SEEN Normal 0-5 [facility] Comment on above: Order Comment: Urine , Random Performed By: #### L 400.0001, M100.0 #### [facility] [address] [place], [address] WBC >100 SEEN Normal 0-5 [facility] Comment on above: Order Comment: Urine , Random Performed By: #### L 400.0001, M100.2200 #### [facility] [address] [place], [address] Mucus Ql (Urine sed) 0 SEEN Normal [facility] Comment on above: Order Comment: Urine , Random Performed By: #### L 400.0001, M100.2200 #### [facility] [address] [place], [address] CBC W/Diff, Automatedon 04-03 Absolute Lymph 0.93 X10 3/uL Normal 0.83-4.51 [facility] Comment on above: Order Comment: 112.2 Performed By: #### L 500.2500, L501.9985, L500.4100, L100.0500 #### [facility] [address] [place], [address] Absolute Neut 13.5 X10 3/uL High 2.0-7.7 [facility] Comment on above: Order Comment: 112.2 Performed By: #### L 500.2500, L501.9985, L500.4100, L100.0500 #### [facility] [address] [place], [address] Basophils/100 WBC (Bld) 0.3 % Normal 0-1 [facility] Comment on above: Order Comment: 112.2 Performed By: #### L 500.2500, L501.9985, L500.4100, L100.0500 #### [facility] [address] [place], [address] Eosinophils/100 WBC (Bld) 0.1 % Normal 0-5 [facility] Comment on above: Order Comment: 112.2 Performed By: #### L 500.2500, L501.9985, L500.4100, L100.0500 #### [facility] [address] [place], [address] Erythrocyte distribution width (RBC) [Ratio] 15.4 % High 11.6-14.6 [facility] Comment on above: Order Comment: 112.2 Performed By: #### L 500.2500, L501.9985, L500.4100, L100.0500 #### [facility] [address] [place], [address] Hematocrit (Bld) [Volume fraction] 37.9 % Normal 37-47 [facility] Comment on above: Order Comment: 112.2 Performed By: #### L 500.2500, L501.9985, L500.4100, L100.0500 #### [facility] [address] [place], [address] Hemoglobin (Bld) [Mass/Vol] 12.3 g/dL Normal 12.0-15.0 [facility] Comment on above: Order Comment: 112.2 Performed By: #### L 500.2500, L501.9985, L500.4100, L100.0500 #### [facility] [address] [place], [address] IG% 0.700 Normal 0.0-0.9 [facility] Comment on above: Order Comment: 112.2 Result Comment: IG% - Immature Granulocytes (promyelocytes, myelocytes and metamyelocytes) > 1% indicates that a LEFT SHIFT is Present. Performed By: #### L 500.2500, L501.9985, L500.4100, L100.0500 #### [facility] [address] [place], [address] Lymphocytes/100 WBC (Bld) 6.0 % Low 19-41 [facility] Comment on above: Order Comment: 112.2 Performed By: #### L 500.2500, L501.9985, L500.4100, L100.0500 #### [facility] [address] [place], [address] MCH (RBC) [Entitic mass] 28.9 pg Normal 27.0-32.0 [facility] Comment on above: Order Comment: 112.2 Performed By: #### L 500.2500, L501.9985, L500.4100, L100.0500 #### [facility] [address] [place], [address] MCHC (RBC) [Mass/Vol] 32.5 g/dL Normal 32-36 [facility] Comment on above: Order Comment: 112.2 Performed By: #### L 500.2500, L501.9985, L500.4100, L100.0500 #### [facility] [address] [place], [address] MCV (RBC) [Entitic vol] 89.2 fL Normal 81-99 [facility] Comment on above: Order Comment: 112.2 Performed By: #### L 500.2500, L501.9985, L500.4100, L100.0500 #### [facility] [address] [place], [address] Monocytes/100 WBC (Bld) 5.6 % Normal 0-10 [facility] Comment on above: Order Comment: 112.2 Performed By: #### L 500.2500, L501.9985, L500.4100, L100.0500 #### [facility] [address] [place], [address] Neutrophils/100 WBC (Bld) 87.3 % High 47-70 [facility] Comment on above: Order Comment: 112.2 Performed By: #### L 500.2500, L501.9985, L500.4100, L100.0500 #### [facility] [address] [place], [address] Nucleated RBC (Bld) [#/Vol] 0 10*3/uL Normal 0-5 [facility] Comment on above: Order Comment: 112.2 Performed By: #### L 500.2500, L501.9985, L500.4100, L100.0500 #### [facility] [address] [place], [address] Platelet mean volume (Bld) [Entitic vol] 10.7 fL Normal 6.2-12.0 [facility] Comment on above: Order Comment: 112.2 Performed By: #### L 500.2500, L501.9985, L500.4100, L100.0500 #### [facility] [address] [place], [address] Platelets (Bld) [#/Vol] 378 10*3/uL Normal 150-450 [facility] Comment on above: Order Comment: 112.2 Performed By: #### L 500.2500, L501.9985, L500.4100, L100.0500 #### [facility] [address] [place], [address] RBC (Bld) [#/Vol] 4.25 10*6/uL Normal 4.2-5.4 [facility] Comment on above: Order Comment: 112.2 Performed By: #### L 500.2500, L501.9985, L500.4100, L100.0500 #### [facility] [address] [place], [address] RDW SD 50.3 fl High 35.1-43.9 [facility] Comment on above: Order Comment: 112.2 Performed By: #### L 500.2500, L501.9985, L500.4100, L100.0500 #### [facility] [address] [place], [address] WBC (Bld) [#/Vol] 15.5 10*3/uL High 4.4-11.0 [facility] Comment on above: Order Comment: 112.2 Performed By: #### L 500.2500, L501.9985, L500.4100, L100.0500 #### [facility] [address] [place], [address] Basic Metabolic Profile (BMP )on 04-16-2024 BUN/CRE 15.4 RATIO Normal 10-20 [facility] Comment on above: Order Comment: 112.2 Performed By: #### M 100.2200 #### [facility] [address] [place], [address] CA,Total 9.3 mg/dL Normal 8.5-10.1 [facility] Comment on above: Order Comment: 112.2 Performed By: #### M 100.2200 #### [facility] [address] [place], [address] Chloride [Moles/Vol] 99 mmol/L Normal 98-107 [facility] Comment on above: Order Comment: 112.2 Performed By: #### M 100.0 #### [facility] [address] [place], [address] CO2 [Moles/Vol] 22.0 mmol/L Normal 21.0-32.0 [facility] Comment on above: Order Comment: 112.2 Performed By: #### M 100.2200 #### [facility] [address] [place], [address] Creatinine [Mass/Vol] 1.04 mg/dL High 0.55-1.02 [facility] Comment on above: Order Comment: 112.2 Result Comment: The validity of the calculated GFR GFRAA in patients over 70 years has not been determined. Clinical correlation is essential. Performed By: #### M 100.0 #### [facility] [address] [place], [address] EST GFR - AA 65 mL/min Normal >60 [facility] Comment on above: Order Comment: 112.2 Result Comment: Afri can Serbian GFR Calc Performed By: #### M 100.0 #### [facility] [address] [place], [address] GAP 12 Normal 5-15 [facility] Comment on above: Order Comment: 112.2 Performed By: #### M 100.0 #### [facility] [address] [place], [address] GFR/1.73 sq M.predicted among non-blacks MDRD (S/P/Bld) [Vol rate/Area] 54 mL/min/{1.73_m2} Low >60 [facility] Comment on above: Order Comment: 112.2 Result Comment: Non- GFR Calc Performed By: #### M 100.2200 #### [facility] [address] [place], [address] Glucose [Mass/Vol] 148 mg/dL High 74-106 [facility] Comment on above: Order Comment: 112.2 Result Comment: Fast ing Glucose result greater than or equal to 126 mg/dL suggests DIABETES MELLITUS per A.D.A. criteria. Performed By: #### M 100.2200 #### [facility] [address] [place], [address] Potassium [Moles/Vol] 4.4 mmol/L Normal 3.5-5.1 [facility] Comment on above: Order Comment: 112.2 Performed By: #### M 100.2200 #### [facility] [address] [place], [address] Sodium [Moles/Vol] 133 mmol/L Low 136-145 [facility] Comment on above: Order Comment: 112.2 Performed By: #### M 100.2200 #### [facility] [address] [place], [address] Urea nitrogen [Mass/Vol] 16 mg/dL Normal 7-18 [facility] Comment on above: Order Comment: 112.2 Performed By: #### M 100.2200 #### [facility] [address] [place], [address] CBC-Complete Blood Cnt No Di ffon 04-16-2024 Erythrocyte distribution width (RBC) [Ratio] 14.6 % Normal 11.6-14.6 [facility] Comment on above: Order Comment: 112.2 Performed By: #### M 100.2200 #### [facility] [address] [place], [address] Hematocrit (Bld) [Volume fraction] 40.0 % Normal 37-47 [facility] Comment on above: Order Comment: 112.2 Performed By: #### M 100.2200 #### [facility] [address] [place], [address] Hemoglobin (Bld) [Mass/Vol] 13.1 g/dL Normal 12.0-15.0 [facility] Comment on above: Order Comment: 112.2 Performed By: #### M 100.2200 #### [facility] [address] [place], [address] MCH (RBC) [Entitic mass] 28.4 pg Normal 27.0-32.0 [facility] Comment on above: Order Comment: 112.2 Performed By: #### M 100.2200 #### [facility] [address] [place], [address] MCHC (RBC) [Mass/Vol] 32.8 g/dL Normal 32-36 [facility] Comment on above: Order Comment: 112.2 Performed By: #### M 100.2200 #### [facility] [address] [place], [address] MCV (RBC) [Entitic vol] 86.8 fL Normal 81-99 [facility] Comment on above: Order Comment: 112.2 Performed By: #### M 100.2200 #### [facility] [address] [place], [address] Platelet mean volume (Bld) [Entitic vol] 10.2 fL Normal 6.2-12.0 [facility] Comment on above: Order Comment: 112.2 Performed By: #### M 100.2200 #### [facility] [address] [place], [address] Platelets (Bld) [#/Vol] 466 10*3/uL High 150-450 [facility] Comment on above: Order Comment: 112.2 Performed By: #### M 100.2200 #### [facility] [address] [place], [address] RBC (Bld) [#/Vol] 4.61 10*6/uL Normal 4.2-5.4 [facility] Comment on above: Order Comment: 112.2 Performed By: #### M 100.2200 #### [facility] [address] [place], [address] RDW SD 46.1 fl High 35.1-43.9 [facility] Comment on above: Order Comment: 112.2 Performed By: #### M 100.2200 #### [facility] [address] [place], [address] WBC (Bld) [#/Vol] 16.2 10*3/uL High 4.4-11.0 [facility] Comment on above: Order Comment: 112.2 Performed By: #### M 100.2200 #### [facility] [address] [place], [address] Hemoglobin A1con 04-16-2024 HbA1c (Bld) [Mass fraction] 9.2 % High 3.8-5.6 [facility] Comment on above: Order Comment: 112.2 Result Comment: Norm al < 5.7 % Prediabetic 5.7 - 6.4 % Diabetic >or= 6.5 % Please note range changes. Performed By: #### M 100.2200 #### [facility] [address] [place], [address] Lipid Profileon 04-16-2024 Cholesterol [Mass/Vol] 104 mg/dL Normal 200 [facility] Comment on above: Order Comment: 112.2 Result Comment: <200 mg/dL Desirable 200-240 mg/dL Borderline >240 mg/dL High Risk Performed By: #### M 100.2200 #### [facility] [address] [place], [address] Cholesterol in HDL [Mass/Vol] 41 mg/dL Normal [facility] Comment on above: Order Comment: 112.2 Result Comment: The drugs N-Acetylcysteine and Metamizole may falsely depress this assay. Reference Range HDL <40 mg/dL Low HDL Cholesterol HDL >or= 60 mg/dL High HDL Cholesterol Performed By: #### M 100.2200 #### [facility] [address] [place], [address] Cholesterol in LDL [Mass/Vol] 34 mg/dL Normal 0-130 [facility] Comment on above: Order Comment: 112.2 Performed By: #### M 100.2200 #### [facility] [address] [place], [address] Cholesterol in VLDL [Mass/Vol] 29 mg/dL Normal 5-40 [facility] Comment on above: Order Comment: 112.2 Performed By: #### M 100.2200 #### [facility] [address] [place], [address] Triglyceride [Mass/Vol] 143 mg/dL Normal [facility] Comment on above: Order Comment: 112.2 Result Comment: The drugs N-Acetylcysteine and Metamizole may falsely depress this assay. Serum Triglycerides Reference Interval Normal <150 mg/dL Borderline high 150 - 199 mg/dL High 200 - 499 mg/dL Very High > or = 500 mg/dL Performed By: #### M 100.2200 #### [facility] [address] [place], [address] Basic Metabolic Profile (BMP )on 04-02-2024 BUN/CRE 18.5 RATIO Normal 10-20 [facility] Comment on above: Order Comment: 112.2 Performed By: #### M 100.2200 #### [facility] [address] [place], [address] CA,Total 9.2 mg/dL Normal 8.5-10.1 [facility] Comment on above: Order Comment: 112.2 Performed By: #### M 100.0 #### [facility] [address] [place], [address] Chloride [Moles/Vol] 97 mmol/L Low 98-107 [facility] Comment on above: Order Comment: 112.2 Performed By: #### M 100.2200 #### [facility] [address] [place], [address] CO2 [Moles/Vol] 24.0 mmol/L Normal 21.0-32.0 [facility] Comment on above: Order Comment: 112.2 Performed By: #### M 100.2200 #### [facility] [address] [place], [address] Creatinine [Mass/Vol] 0.97 mg/dL Normal 0.55-1.02 [facility] Comment on above: Order Comment: 112.2 Result Comment: The validity of the calculated GFR GFRAA in patients over 70 years has not been determined. Clinical correlation is essential. Performed By: #### M 100.2200 #### [facility] [address] [place], [address] EST GFR - AA 70 mL/min Normal >60 [facility] Comment on above: Order Comment: 112.2 Result Comment: Afri can Serbian GFR Calc Performed By: #### M 100.2200 #### [facility] [address] [place], [address] GAP 9 Normal 5-15 [facility] Comment on above: Order Comment: 112.2 Performed By: #### M 100.2200 #### [facility] [address] [place], [address] GFR/1.73 sq M.predicted among non-blacks MDRD (S/P/Bld) [Vol rate/Area] 58 mL/min/{1.73_m2} Low >60 [facility] Comment on above: Order Comment: 112.2 Result Comment: Non- GFR Calc Performed By: #### M 100.2200 #### [facility] [address] [place], [address] Glucose [Mass/Vol] 200 mg/dL High 74-106 [facility] Comment on above: Order Comment: 112.2 Result Comment: Gluc ose result greater than or equal to 200 mg/dL suggests DIABETES MELLITUS per A.D.A. criteria. Performed By: #### M 100.2200 #### [facility] [address] [place], [address] Potassium [Moles/Vol] 4.5 mmol/L Normal 3.5-5.1 [facility] Comment on above: Order Comment: 112.2 Performed By: #### M 100.2200 #### [facility] [address] [place], [address] Sodium [Moles/Vol] 130 mmol/L Low 136-145 [facility] Comment on above: Order Comment: 112.2 Performed By: #### M 100.2200 #### [facility] [address] [place], [address] Urea nitrogen [Mass/Vol] 18 mg/dL Normal 7-18 [facility] Comment on above: Order Comment: 112.2 Performed By: #### M 100.2200 #### [facility] [address] [place], [address] CBC-Complete Blood Cnt No Di ffon 04-02-2024 Erythrocyte distribution width (RBC) [Ratio] 14.3 % Normal 11.6-14.6 [facility] Comment on above: Order Comment: 112.2 Performed By: #### M 100.2200 #### [facility] [address] [place], [address] Hematocrit (Bld) [Volume fraction] 38.1 % Normal 37-47 [facility] Comment on above: Order Comment: 112.2 Performed By: #### M 100.2200 #### [facility] [address] [place], [address] Hemoglobin (Bld) [Mass/Vol] 12.5 g/dL Normal 12.0-15.0 [facility] Comment on above: Order Comment: 112.2 Performed By: #### M 100.2200 #### [facility] [address] [place], [address] MCH (RBC) [Entitic mass] 28.4 pg Normal 27.0-32.0 [facility] Comment on above: Order Comment: 112.2 Performed By: #### M 100.2200 #### [facility] [address] [place], [address] MCHC (RBC) [Mass/Vol] 32.8 g/dL Normal 32-36 [facility] Comment on above: Order Comment: 112.2 Performed By: #### M 100.2200 #### [facility] [address] [place], [address] MCV (RBC) [Entitic vol] 86.6 fL Normal 81-99 [facility] Comment on above: Order Comment: 112.2 Performed By: #### M 100.0 #### [facility] [address] [place], [address] Platelet mean volume (Bld) [Entitic vol] 10.2 fL Normal 6.2-12.0 [facility] Comment on above: Order Comment: 112.2 Performed By: #### M 100.0 #### [facility] [address] [place], [address] Platelets (Bld) [#/Vol] 438 10*3/uL Normal 150-450 [facility] Comment on above: Order Comment: 112.2 Performed By: #### M 100.2200 #### [facility] [address] [place], [address] RBC (Bld) [#/Vol] 4.40 10*6/uL Normal 4.2-5.4 [facility] Comment on above: Order Comment: 112.2 Performed By: #### M 100.2200 #### [facility] [address] [place], [address] RDW SD 45.1 fl High 35.1-43.9 [facility] Comment on above: Order Comment: 112.2 Performed By: #### M 100.0 #### [facility] [address] [place], [address] WBC (Bld) [#/Vol] 13.4 10*3/uL High 4.4-11.0 [facility] Comment on above: Order Comment: 112.2 Performed By: #### M 100.2200 #### [facility] [address] [place], [address] CBC W/Diff, Automatedon 07-10 04-2023 Absolute Lymph 1.72 X10 3/uL Normal 0.83-4.51 [facility] Comment on above: Order Comment: 112.2 Performed By: #### M 100.2199 #### [facility] [address] [place], [address] Absolute Neut 10.1 X10 3/uL High 2.0-7.7 [facility] Comment on above: Order Comment: 112.2 Performed By: #### M 100.0 #### [facility] [address] [place], [address] Basophils/100 WBC (Bld) 0.5 % Normal 0-1 [facility] Comment on above: Order Comment: 112.2 Performed By: #### M 100.2200 #### [facility] [address] [place], [address] Eosinophils/100 WBC (Bld) 1.6 % Normal 0-5 [facility] Comment on above: Order Comment: 112.2 Performed By: #### M 100.2200 #### [facility] [address] [place], [address] Erythrocyte distribution width (RBC) [Ratio] 14.2 % Normal 11.6-14.6 [facility] Comment on above: Order Comment: 112.2 Performed By: #### M 100.2200 #### [facility] [address] [place], [address] Hematocrit (Bld) [Volume fraction] 36.6 % Low 37-47 [facility] Comment on above: Order Comment: 112.2 Performed By: #### M 100.2200 #### [facility] [address] [place], [address] Hemoglobin (Bld) [Mass/Vol] 12.2 g/dL Normal 12.0-15.0 [facility] Comment on above: Order Comment: 112.2 Performed By: #### M 100.2200 #### [facility] [address] [place], [address] IG% 2.800 High 0.0-0.9 [facility] Comment on above: Order Comment: 112.2 Result Comment: IG% - Immature Granulocytes (promyelocytes, myelocytes and metamyelocytes) > 1% indicates that a LEFT SHIFT is Present. Performed By: #### M 100.2200 #### [facility] [address] [place], [address] Lymphocytes/100 WBC (Bld) 12.8 % Low 19-41 [facility] Comment on above: Order Comment: 112.2 Performed By: #### M 100.2200 #### [facility] [address] [place], [address] MCH (RBC) [Entitic mass] 28.9 pg Normal 27.0-32.0 [facility] Comment on above: Order Comment: 112.2 Performed By: #### M 100.2200 #### [facility] [address] [place], [address] MCHC (RBC) [Mass/Vol] 33.3 g/dL Normal 32-36 [facility] Comment on above: Order Comment: 112.2 Performed By: #### M 100.2200 #### [facility] [address] [place], [address] MCV (RBC) [Entitic vol] 86.7 fL Normal 81-99 [facility] Comment on above: Order Comment: 112.2 Performed By: #### M 100.2200 #### [facility] [address] [place], [address] Monocytes/100 WBC (Bld) 6.7 % Normal 0-10 [facility] Comment on above: Order Comment: 112.2 Performed By: #### M 100.0 #### [facility] [address] [place], [address] Neutrophils/100 WBC (Bld) 75.6 % High 47-70 [facility] Comment on above: Order Comment: 112.2 Performed By: #### M 100.2199 #### [facility] [address] [place], [address] Nucleated RBC (Bld) [#/Vol] 0 10*3/uL Normal 0-5 [facility] Comment on above: Order Comment: 112.2 Performed By: #### M 100.2199 #### [facility] [address] [place], [address] Platelet mean volume (Bld) [Entitic vol] 10.3 fL Normal 6.2-12.0 [facility] Comment on above: Order Comment: 112.2 Performed By: #### M 100.2200 #### [facility] [address] [place], [address] Platelets (Bld) [#/Vol] 564 10*3/uL High 150-450 [facility] Comment on above: Order Comment: 112.2 Performed By: #### M 100.220 #### [facility] [address] [place], [address] RBC (Bld) [#/Vol] 4.22 10*6/uL Normal 4.2-5.4 [facility] Comment on above: Order Comment: 112.2 Performed By: #### M 100.2200 #### [facility] [address] [place], [address] RDW SD 44.9 fl High 35.1-43.9 [facility] Comment on above: Order Comment: 112.2 Performed By: #### M 100.2200 #### [facility] [address] [place], [address] WBC (Bld) [#/Vol] 13.4 10*3/uL High 4.4-11.0 [facility] Comment on above: Order Comment: 112.2 Performed By: #### M 100.2200 #### [facility] [address] [place], [address] Urine Cultureon 03-19-2024 URC Klebsiella oxytoca [place] Count >100,000 Klebsiella oxytoca: REACTION Ampicillin Islt [...] TMP SMX Islt MENDY <=20 S Normal [facility] Comment on above: Performed By: #### M 100.2200 #### [facility] [address] [place], [address] Basic Metabolic Profile (BMP )on 03-16-2024 BUN/CRE 19.6 RATIO Normal 10-20 [facility] Comment on above: Order Comment: 112.2 Performed By: #### L 100.0500, L500.2500 #### [facility] [address] [place], [address] CA,Total 8.6 mg/dL Normal 8.5-10.1 [facility] Comment on above: Order Comment: 112.2 Performed By: #### L 100.0500, L500.2500 #### [facility] [address] [place], [address] Chloride [Moles/Vol] 92 mmol/L Low 98-107 [facility] Comment on above: Order Comment: 112.2 Performed By: #### L 100.0500, L500.2500 #### [facility] [address] [place], [address] CO2 [Moles/Vol] 25.0 mmol/L Normal 21.0-32.0 [facility] Comment on above: Order Comment: 112.2 Performed By: #### L 100.0500, L500.2500 #### [facility] [address] [place], [address] Creatinine [Mass/Vol] 1.02 mg/dL Normal 0.55-1.02 [facility] Comment on above: Order Comment: 112.2 Result Comment: The validity of the calculated GFR GFRAA in patients over 70 years has not been determined. Clinical correlation is essential. Performed By: #### L 100.0500, L500.2500 #### [facility] [address] [place], [address] EST GFR - AA 66 mL/min Normal >60 [facility] Comment on above: Order Comment: 112.2 Result Comment: Afri can Serbian GFR Calc Performed By: #### L 100.0500, L500.2500 #### [facility] [address] [place], [address] GAP 7 Normal 5-15 [facility] Comment on above: Order Comment: 112.2 Performed By: #### L 100.0500, L500.2500 #### [facility] [address] [place], [address] GFR/1.73 sq M.predicted among non-blacks MDRD (S/P/Bld) [Vol rate/Area] 55 mL/min/{1.73_m2} Low >60 [facility] Comment on above: Order Comment: 112.2 Result Comment: Non- GFR Calc Performed By: #### L 100.0500, L500.2500 #### [facility] [address] [place], [address] Glucose [Mass/Vol] 123 mg/dL High 74-106 [facility] Comment on above: Order Comment: 112.2 Result Comment: Fast ing Glucose result from 100 to 125 mg/dL suggests IMPAIRED HOMEOSTASIS per A.D.A. criteria. Performed By: #### L 100.0500, L500.2500 #### [facility] [address] [place], [address] Potassium [Moles/Vol] 3.8 mmol/L Normal 3.5-5.1 [facility] Comment on above: Order Comment: 112.2 Performed By: #### L 100.0500, L500.2500 #### [facility] [address] [place], [address] Sodium [Moles/Vol] 124 mmol/L Low 136-145 [facility] Comment on above: Order Comment: 112.2 Performed By: #### L 100.0500, L500.2500 #### [facility] [address] [place], [address] Urea nitrogen [Mass/Vol] 20 mg/dL High 7-18 [facility] Comment on above: Order Comment: 112.2 Performed By: #### L 100.0500, L500.2500 #### [facility] [address] [place], [address] CBC-Complete Blood Cnt No Di ffon 03-16-2024 Erythrocyte distribution width (RBC) [Ratio] 13.4 % Normal 11.6-14.6 [facility] Comment on above: Order Comment: 112.2 Performed By: #### L 100.0500, L500.2500 #### [facility] [address] [place], [address] Hematocrit (Bld) [Volume fraction] 33.8 % Low 37-47 [facility] Comment on above: Order Comment: 112.2 Performed By: #### L 100.0500, L500.2500 #### [facility] [address] [place], [address] Hemoglobin (Bld) [Mass/Vol] 11.4 g/dL Low 12.0-15.0 [facility] Comment on above: Order Comment: 112.2 Performed By: #### L 100.0500, L500.2500 #### [facility] [address] [place], [address] MCH (RBC) [Entitic mass] 28.7 pg Normal 27.0-32.0 [facility] Comment on above: Order Comment: 112.2 Performed By: #### L 100.0500, L500.2500 #### [facility] [address] [place], [address] MCHC (RBC) [Mass/Vol] 33.7 g/dL Normal 32-36 [facility] Comment on above: Order Comment: 112.2 Performed By: #### L 100.0500, L500.2500 #### [facility] [address] [place], [address] MCV (RBC) [Entitic vol] 85.1 fL Normal 81-99 [facility] Comment on above: Order Comment: 112.2 Performed By: #### L 100.0500, L500.2500 #### [facility] [address] [place], [address] Platelet mean volume (Bld) [Entitic vol] 10.4 fL Normal 6.2-12.0 [facility] Comment on above: Order Comment: 112.2 Performed By: #### L 100.0500, L500.2500 #### [facility] [address] [place], [address] Platelets (Bld) [#/Vol] 397 10*3/uL Normal 150-450 [facility] Comment on above: Order Comment: 112.2 Performed By: #### L 100.0500, L500.2500 #### [facility] [address] [place], [address] RBC (Bld) [#/Vol] 3.97 10*6/uL Low 4.2-5.4 [facility] Comment on above: Order Comment: 112.2 Performed By: #### L 100.0500, L500.2500 #### [facility] [address] [place], [address] RDW SD 42.1 fl Normal 35.1-43.9 [facility] Comment on above: Order Comment: 112.2 Performed By: #### L 100.0500, L500.2500 #### [facility] [address] [place], [address] WBC (Bld) [#/Vol] 21.8 10*3/uL High 4.4-11.0 [facility] Comment on above: Order Comment: 112.2 Performed By: #### L 100.0500, L500.2500 #### [facility] [address] [place], [address] Emergency Department Summary on 03-13-2024 Emergency Department Summary [facility] Medical Records Department [address] [place] [address] Emergency Department Summary 03/13/24 MR#: [id number] Acct: [id number] Name: NICHOLE AYERS Rep #: [id number] : 1940 83 From: Kamran LYNNE PCP: [...] LOC. Patient denies any chest pain, dizziness. [facility] Medical History (Updated 03/13/24 @ [...] PO DAILY diabetes 07/27/18 05/14/19 History vitamins A,C,[id number] 4,296 1 ea PO BID eye health [...] no si (more content not included)... Normal [facility] Basophil percentageOrdered B y: Jake Waddell on 10-17-2023 Chloride [Moles/Vol] 106 mmol/L 98-107 [facility] Cholesterol [Mass/Vol] 114 mg/dL <200 [facility] Comment on above: <200 mg/dL Desirable 200-240 mg/dL Borderline >240 mg/dL High Risk Glucose [Mass/Vol] 198 mg/dL 74-106 [facility] Comment on above: Fasting Glucose resu lt greater than or equal to 126 mg/dL suggests DIABETES MELLITUS per A.D.A. criteria. Hemoglobin (Bld) [Mass/Vol] 13.2 g/dL 12.0-15.0 [facility] Potassium [Moles/Vol] 4.3 mmol/L 3.5-5.1 [facility] Sodium [Moles/Vol] 138 mmol/L 136-145 [facility] Triglyceride [Mass/Vol] 89 mg/dL <199 [facility] Comment on above: The drugs N-Acetylcy steine and Metamizole may falsely depress this assay.Serum Triglycerides Reference Interval Normal <150 mg/dL Borderline high 150 - 199 mg/dL High 200 - 499 mg/dL Very High > or = 500 mg/dL WBC (Bld) [#/Vol] 9.6 10*3/uL 4.4-11.0 [facility] Determination of erythrocyte mean corpuscular volume (MCV)Ordered By: Jake Waddell on 10-17-2023 MCV (RBC) [Entitic vol] 87.6 fL 81-99 [facility] Erythrocyte distribution wid th ratioOrdered By: Jake Waddell on 10-17-2023 Erythrocyte distribution width (RBC) [Ratio] 13.9 % 11.6-14.6 [facility] Erythrocyte distribution wid th standard deviationOrdered By: Jake Waddell on 10-17-2023 Erythrocyte distribution width (RBC) [Entitic vol] 43.9 fL 35.1-43.9 [facility] Hematocrit Auto (Bld) [Volum e fraction]Ordered By: Jake Waddell on 10-17-2023 Hematocrit (Bld) [Volume fraction] 41.1 % 37-47 [facility] Laboratory - Chemistry and C hemistry - challengeOrdered By: Jake Waddell on 10-17-2023 Cholesterol in HDL [Mass/Vol] 44 mg/dL >40 [facility] Comment on above: The drugs N-Acetylcy steine and Metamizole may falsely depress this assay. Reference Range HDL <40 mg/dL Low HDL Cholesterol HDL >or= 60 mg/dL High HDL Cholesterol Cholesterol in LDL [Mass/Vol] 52 mg/dL 0-130 [facility] CO2 [Moles/Vol] 24.0 mmol/L 21.0-32.0 [facility] Urea nitrogen/Creatinine [Mass ratio] 18.1 mg/mg 10-20 [facility] Laboratory - Hematology and Cell countsOrdered By: Jake Waddell on 10-17-2023 MCH (RBC) [Entitic mass] 28.1 pg 27.0-32.0 [facility] MCHC (RBC) [Mass/Vol] 32.1 g/dL 32-36 [facility] Platelet mean volume (Bld) [Entitic vol] 11.2 fL 6.2-12.0 [facility] Platelets (Bld) [#/Vol] 344 10*3/uL 150-450 [facility] No Panel InformationOrdered By: Jake Waddell on 10-17-2023 Estimated GFR (MDRD) Amer 85 mL/min >60 [facility] Comment on above: GFR Calc Estimated GFR (MDRD) Non-Af Amer 70 mL/min >60 [facility] Comment on above: Non- GFR Calc VLDL Cholesterol 18 mg/dL 5-40 [facility] RBC Auto (Bld) [#/Vol]Ordere d By: Jake Waddell on 10-17-2023 RBC (Bld) [#/Vol] 4.69 10*6/uL 4.2-5.4 [facility] Serum or plasma calcium becki urement (mass/volume)Ordered By: Jake Waddell on 10-17-2023 Calcium [Mass/Vol] 8.9 mg/dL 8.5-10.1 [facility] Serum or plasma creatinine m easurement (mass/volume)Ordered By: Jake Waddell on 10-17-2023 Creatinine [Mass/Vol] 0.83 mg/dL 0.55-1.02 [facility] Comment on above: The validity of the calculated GFR & GFRAA in patients over 70 years has not been determined. Clinical correlation is essential. Serum or plasma urea nitroge n measurement (mass/volume)Ordered By: Jake Waddell on 10-17-2023 Urea nitrogen [Mass/Vol] 15 mg/dL 7-18 [facility] Thin prep Papanicolaou smear with manual screeningOrdered By: Jake Waddell on 10-17-2023 Thin prep Papanicolaou smear with manual screening 8 -15 [facility] Whole blood hemoglobin A1c/t otal hemoglobin ratio (mass fraction)Ordered By: Jake Waddell on 10-17-2023 HbA1c (Bld) [Mass fraction] 8.5 % 3.8-5.6 [facility] Comment on above: Normal < 5.7 % Predi abetic 5.7 - 6.4 % Diabetic >or= 6.5 % Please note range changes. Basophil percentageOrdered B y: Jake Waddell on 04-15-2023 Chloride [Moles/Vol] 102 mmol/L 98-107 [facility] Cholesterol [Mass/Vol] 118 mg/dL <200 [facility] Comment on above: <200 mg/dL Desirable 200-240 mg/dL Borderline >240 mg/dL High Risk Glucose [Mass/Vol] 236 mg/dL 74-106 [facility] Comment on above: Glucose result great er than or equal to 200 mg/dLsuggests DIABETES MELLITUS per A.D.A. criteria. Potassium [Moles/Vol] 4.5 mmol/L 3.5-5.1 [facility] Sodium [Moles/Vol] 135 mmol/L 136-145 [facility] Triglyceride [Mass/Vol] 119 mg/dL <199 [facility] Comment on above: The drugs N-Acetylcy steine and Metamizole may falsely depress this assay.Serum Triglycerides Reference Interval Normal <150 mg/dL Borderline high 150 - 199 mg/dL High 200 - 499 mg/dL Very High > or = 500 mg/dL WBC (Bld) [#/Vol] 10.0 10*3/uL 4.4-11.0 [facility] Blood erythrocytes count (nu mber/volume)Ordered By: Jake Waddell on 04-15-2023 RBC (Bld) [#/Vol] 4.83 10*6/uL 4.2-5.4 [facility] Blood hemoglobin measurement (mass/volume)Ordered By: Jake Waddell on 04-15-2023 Hemoglobin (Bld) [Mass/Vol] 13.9 g/dL 12.0-15.0 [facility] Blood platelet mean volumeOr dered By: Jake Waddell on 04-15-2023 Platelet mean volume (Bld) [Entitic vol] 10.8 fL 6.2-12.0 [facility] Determination of erythrocyte mean corpuscular volume (MCV)Ordered By: Jake Waddell on 04-15-2023 MCV (RBC) [Entitic vol] 89.6 fL 81-99 [facility] Hematocrit Auto (Bld) [Volum e fraction]Ordered By: Jake Waddell on 04-15-2023 Hematocrit (Bld) [Volume fraction] 43.3 % 37-47 [facility] Laboratory - Chemistry and C hemistry - challengeOrdered By: aJke Waddell on 04-15-2023 CO2 [Moles/Vol] 26.0 mmol/L 21.0-32.0 [facility] Urea nitrogen/Creatinine [Mass ratio] 19.3 mg/mg 10-20 [facility] - Hematology and Cell countsOrdered By: Jake Waddell on 04-15-2023 Erythrocyte distribution width (RBC) [Entitic vol] 46.2 fL 35.1-43.9 [facility] Erythrocyte distribution width (RBC) [Ratio] 14.1 % 11.6-14.6 [facility] MCH (RBC) [Entitic mass] 28.8 pg 27.0-32.0 [facility] MCHC Auto (RBC) [Mass/Vol]Or dered By: Jake Waddell on 04-15-2023 MCHC (RBC) [Mass/Vol] 32.1 g/dL 32-36 [facility] No Panel InformationOrdered By: Jake Waddell on 04-15-2023 Estimated GFR (MDRD) Amer 69 mL/min >60 [facility] Comment on above: GFR Calc Estimated GFR (MDRD) Non-Af Amer 57 mL/min >60 [facility] Comment on above: Non- GFR Calc Platelets bldOrdered By: Delmer Waddell on 04-15-2023 Platelets (Bld) [#/Vol] 357 10*3/uL 150-450 [facility] Serum or plasma calcium becki urement (mass/volume)Ordered By: Jake Waddell on 04-15-2023 Calcium [Mass/Vol] 9.1 mg/dL 8.5-10.1 [facility] Serum or plasma cholesterol in HDL measurement (mass/volume)Ordered By: Jake Waddell on 04-15-2023 Cholesterol in HDL [Mass/Vol] 42 mg/dL >40 [facility] Comment on above: The drugs N-Acetylcy steine and Metamizole may falsely depress this assay. Reference Range HDL <40 mg/dL Low HDL Cholesterol HDL >or= 60 mg/dL High HDL Cholesterol Serum or plasma cholesterol in VLDL measurement (mass/volume)Ordered By: Jake Waddell on 04-15-2023 Cholesterol in VLDL [Mass/Vol] 24 mg/dL 5-40 [facility] Serum or plasma creatinine m easurement (mass/volume)Ordered By: Jake Waddell on 04-15-2023 Creatinine [Mass/Vol] 0.98 mg/dL 0.55-1.02 [facility] Comment on above: The validity of the calculated GFR & GFRAA in patients over 70 years has not been determined. Clinical correlation is essential. Serum or plasma low density lipoprotein (LDL) cholesterol measurement (mass/volume)Ordered By: Jake Waddell on 04-15-2023 Cholesterol in LDL [Mass/Vol] 52 mg/dL 0-130 [facility] Serum or plasma urea nitroge n measurement (mass/volume)Ordered By: Jake Waddell on 04-15-2023 Urea nitrogen [Mass/Vol] 19 mg/dL 7-18 [facility] Thin prep Papanicolaou smear with manual screeningOrdered By: Jake Waddell on 04-15-2023 Thin prep Papanicolaou smear with manual screening 7 5-15 [facility] Whole blood hemoglobin A1c/t otal hemoglobin ratio (mass fraction)Ordered By: Jake Waddell on 04-15-2023 HbA1c (Bld) [Mass fraction] 9.7 % 3.8-5.6 [facility] Comment on above: Normal < 5.7 % Predi abetic 5.7 - 6.4 % Diabetic >or= 6.5 % Please note range changes. Basophil percentageOrdered B y: Jake Waddell on 10-17-2022 Chloride [Moles/Vol] 103 mmol/L 98-107 [facility] Cholesterol [Mass/Vol] 148 mg/dL <200 [facility] Comment on above: <200 mg/dL Desirable 200-240 mg/dL Borderline >240 mg/dL High Risk Glucose [Mass/Vol] 109 mg/dL 74-106 [facility] Comment on above: Fasting Glucose resu lt from 100 to 125 mg/dL suggests IMPAIRED HOMEOSTASIS per A.D.A. criteria. Potassium [Moles/Vol] 4.3 mmol/L 3.5-5.1 [facility] Sodium [Moles/Vol] 137 mmol/L 136-145 [facility] Triglyceride [Mass/Vol] 143 mg/dL <199 [facility] Comment on above: The drugs N-Acetylcy steine and Metamizole may falsely depress this assay.Serum Triglycerides Reference Interval Normal <150 mg/dL Borderline high 150 - 199 mg/dL High 200 - 499 mg/dL Very High > or = 500 mg/dL WBC (Bld) [#/Vol] 10.3 10*3/uL 4.4-11.0 [facility] Blood erythrocytes count (nu mber/volume)Ordered By: Jake Waddell on 10-17-2022 RBC (Bld) [#/Vol] 4.70 10*6/uL 4.2-5.4 [facility] Blood hemoglobin measurement (mass/volume)Ordered By: Jake Waddell on 10-17-2022 Hemoglobin (Bld) [Mass/Vol] 13.9 g/dL 12.0-15.0 [facility] Blood platelet mean volumeOr dered By: Jake Waddell on 10-17-2022 Platelet mean volume (Bld) [Entitic vol] 10.7 fL 6.2-12.0 [facility] Determination of erythrocyte mean corpuscular volume (MCV)Ordered By: Jake Waddell on 10-17-2022 MCV (RBC) [Entitic vol] 91.3 fL 81-99 [facility] Hematocrit Auto (Bld) [Volum e fraction]Ordered By: Jake Waddell on 10-17-2022 Hematocrit (Bld) [Volume fraction] 42.9 % 37-47 [facility] - Chemistry and C hemistry - challengeOrdered By: Jake Waddell on 10-17-2022 CO2 [Moles/Vol] 24.0 mmol/L 21.0-32.0 [facility] Urea nitrogen/Creatinine [Mass ratio] 25.4 mg/mg 10-20 [facility] - Hematology and Cell countsOrdered By: Jake Waddell on 10-17-2022 Erythrocyte distribution width (RBC) [Entitic vol] 46.4 fL 35.1-43.9 [facility] Erythrocyte distribution width (RBC) [Ratio] 13.7 % 11.6-14.6 [facility] MCH (RBC) [Entitic mass] 29.6 pg 27.0-32.0 [facility] MCHC Auto (RBC) [Mass/Vol]Or dered By: Jake Waddell on 10-17-2022 MCHC (RBC) [Mass/Vol] 32.4 g/dL 32-36 [facility] No Panel InformationOrdered By: Jake Waddell on 10-17-2022 Estimated GFR (MDRD) Amer 73 mL/min >60 [facility] Comment on above: GFR Calc Estimated GFR (MDRD) Non-Af Amer 60 mL/min >60 [facility] Comment on above: Non- GFR Calc Platelets bldOrdered By: Delmer Waddell on 10-17-2022 Platelets (Bld) [#/Vol] 355 10*3/uL 150-450 [facility] Serum or plasma calcium becki urement (mass/volume)Ordered By: Jake Waddell on 10-17-2022 Calcium [Mass/Vol] 9.8 mg/dL 8.5-10.1 [facility] Serum or plasma cholesterol in HDL measurement (mass/volume)Ordered By: Jake Waddell on 10-17-2022 Cholesterol in HDL [Mass/Vol] 51 mg/dL >40 [facility] Comment on above: The drugs N-Acetylcy steine and Metamizole may falsely depress this assay. Reference Range HDL <40 mg/dL Low HDL Cholesterol HDL >or= 60 mg/dL High HDL Cholesterol Serum or plasma cholesterol in VLDL measurement (mass/volume)Ordered By: Jake Waddell on 10-17-2022 Cholesterol in VLDL [Mass/Vol] 29 mg/dL 5-40 [facility] Serum or plasma creatinine m easurement (mass/volume)Ordered By: Jake Waddell on 10-17-2022 Creatinine [Mass/Vol] 0.95 mg/dL 0.55-1.02 [facility] Comment on above: The validity of the calculated GFR & GFRAA in patients over 70 years has not been determined. Clinical correlation is essential. Serum or plasma low density lipoprotein (LDL) cholesterol measurement (mass/volume)Ordered By: Jake Waddell on 10-17-2022 Cholesterol in LDL [Mass/Vol] 68 mg/dL 0-130 [facility] Serum or plasma urea nitroge n measurement (mass/volume)Ordered By: Jake Waddell on 10-17-2022 Urea nitrogen [Mass/Vol] 24 mg/dL 7-18 [facility] Thin prep Papanicolaou smear with manual screeningOrdered By: Jake Waddell on 10-17-2022 Thin prep Papanicolaou smear with manual screening 10 5-15 [facility] Whole blood hemoglobin A1c/t otal hemoglobin ratio (mass fraction)Ordered By: Jake Waddell on 10-17-2022 HbA1c (Bld) [Mass fraction] 7.8 % 3.8-5.6 [facility] Comment on above: Normal < 5.7 % Predi abetic 5.7 - 6.4 % Diabetic >or= 6.5 % Please note range changes. Basophil percentageOrdered B y: Jake Waddell on 09-17-2022 Chloride [Moles/Vol] 104 mmol/L 98-107 [facility] Glucose [Mass/Vol] 152 mg/dL 74-106 [facility] Comment on above: Fasting Glucose resu lt greater than or equal to 126 mg/dL suggests DIABETES MELLITUS per A.D.A. criteria. Potassium [Moles/Vol] 4.7 mmol/L 3.5-5.1 [facility] Sodium [Moles/Vol] 135 mmol/L 136-145 [facility] WBC (Bld) [#/Vol] 12.1 10*3/uL 4.4-11.0 [facility] Blood erythrocytes count (nu mber/volume)Ordered By: Jake Waddell on 09-17-2022 RBC (Bld) [#/Vol] 4.97 10*6/uL 4.2-5.4 [facility] Blood hemoglobin measurement (mass/volume)Ordered By: Jake Waddell on 09-17-2022 Hemoglobin (Bld) [Mass/Vol] 14.2 g/dL 12.0-15.0 [facility] Blood platelet mean volumeOr dered By: Jake Waddell on 09-17-2022 Platelet mean volume (Bld) [Entitic vol] 11.3 fL 6.2-12.0 [facility] Determination of erythrocyte mean corpuscular volume (MCV)Ordered By: Jake Waddell on 09-17-2022 MCV (RBC) [Entitic vol] 90.3 fL 81-99 [facility] Hematocrit Auto (Bld) [Volum e fraction]Ordered By: Jake Waddell on 09-17-2022 Hematocrit (Bld) [Volume fraction] 44.9 % 37-47 [facility] - Chemistry and C hemistry - challengeOrdered By: Jake Waddell on 09-17-2022 CO2 [Moles/Vol] 24.0 mmol/L 21.0-32.0 [facility] Urea nitrogen/Creatinine [Mass ratio] 20.6 mg/mg 10-20 [facility] - Hematology and Cell countsOrdered By: Jake Waddell on 09-17-2022 Erythrocyte distribution width (RBC) [Entitic vol] 48.2 fL 35.1-43.9 [facility] Erythrocyte distribution width (RBC) [Ratio] 14.6 % 11.6-14.6 [facility] MCH (RBC) [Entitic mass] 28.6 pg 27.0-32.0 [facility] MCHC Auto (RBC) [Mass/Vol]Or dered By: Jake Waddell on 09-17-2022 MCHC (RBC) [Mass/Vol] 31.6 g/dL 32-36 [facility] No Panel InformationOrdered By: Jake Waddell on 09-17-2022 Estimated GFR (MDRD) Amer 75 mL/min >60 [facility] Comment on above: GFR Calc Estimated GFR (MDRD) Non-Af Amer 62 mL/min >60 [facility] Comment on above: Non- GFR Calc Platelets bldOrdered By: Delmer Waddell on 09-17-2022 Platelets (Bld) [#/Vol] 388 10*3/uL 150-450 [facility] Serum or plasma calcium becki urement (mass/volume)Ordered By: Jake Waddell on 09-17-2022 Calcium [Mass/Vol] 9.4 mg/dL 8.5-10.1 [facility] Serum or plasma creatinine m easurement (mass/volume)Ordered By: Jake Waddell on 09-17-2022 Creatinine [Mass/Vol] 0.92 mg/dL 0.55-1.02 [facility] Comment on above: The validity of the calculated GFR & GFRAA in patients over 70 years has not been determined. Clinical correlation is essential. Serum or plasma urea nitroge n measurement (mass/volume)Ordered By: Jake Waddell on 09-17-2022 Urea nitrogen [Mass/Vol] 19 mg/dL 7-18 [facility] Thin prep Papanicolaou smear with manual screeningOrdered By: Jake Waddell on 09-17-2022 Thin prep Papanicolaou smear with manual screening 7 5-15 [facility] Basophil percentageOrdered B y: Jake Waddell on 08-15-2022 Chloride [Moles/Vol] 104 mmol/L 98-107 [facility] Glucose [Mass/Vol] 104 mg/dL 74-106 [facility] Comment on above: Fasting Glucose resu lt from 100 to 125 mg/dL suggests IMPAIRED HOMEOSTASIS per A.D.A. criteria. Potassium [Moles/Vol] 4.6 mmol/L 3.5-5.1 [facility] Sodium [Moles/Vol] 137 mmol/L 136-145 [facility] WBC (Bld) [#/Vol] 9.8 10*3/uL 4.4-11.0 [facility] Blood erythrocytes count (nu mber/volume)Ordered By: Jake Waddell on 08-15-2022 RBC (Bld) [#/Vol] 4.54 10*6/uL 4.2-5.4 [facility] Blood hemoglobin measurement (mass/volume)Ordered By: Jake Waddell on 08-15-2022 Hemoglobin (Bld) [Mass/Vol] 13.1 g/dL 12.0-15.0 [facility] Blood platelet mean volumeOr dered By: Jake Waddell on 08-15-2022 Platelet mean volume (Bld) [Entitic vol] 11.2 fL 6.2-12.0 [facility] Determination of erythrocyte mean corpuscular volume (MCV)Ordered By: Jake Waddell on 08-15-2022 MCV (RBC) [Entitic vol] 91.6 fL 81-99 [facility] Hematocrit Auto (Bld) [Volum e fraction]Ordered By: Jake Waddell on 08-15-2022 Hematocrit (Bld) [Volume fraction] 41.6 % 37-47 [facility] - Chemistry and C hemistry - challengeOrdered By: Jake Waddell on 08-15-2022 CO2 [Moles/Vol] 25.0 mmol/L 21.0-32.0 [facility] Urea nitrogen/Creatinine [Mass ratio] 21.9 mg/mg 10-20 [facility] - Hematology and Cell countsOrdered By: Jake Waddell on 08-15-2022 Erythrocyte distribution width (RBC) [Entitic vol] 54.9 fL 35.1-43.9 [facility] Erythrocyte distribution width (RBC) [Ratio] 16.3 % 11.6-14.6 [facility] MCH (RBC) [Entitic mass] 28.9 pg 27.0-32.0 [facility] MCHC Auto (RBC) [Mass/Vol]Or dered By: Jake Waddell on 08-15-2022 MCHC (RBC) [Mass/Vol] 31.5 g/dL 32-36 [facility] No Panel InformationOrdered By: Jake Waddell on 08-15-2022 Estimated GFR (MDRD) Amer 76 mL/min >60 [facility] Comment on above: GFR Calc Estimated GFR (MDRD) Non-Af Amer 62 mL/min >60 [facility] Comment on above: Non- GFR Calc Platelets bldOrdered By: Delmer Waddell on 08-15-2022 Platelets (Bld) [#/Vol] 409 10*3/uL 150-450 [facility] Serum or plasma calcium becki urement (mass/volume)Ordered By: Jake Waddell on 08-15-2022 Calcium [Mass/Vol] 9.5 mg/dL 8.5-10.1 [facility] Serum or plasma creatinine m easurement (mass/volume)Ordered By: Jake Waddell on 08-15-2022 Creatinine [Mass/Vol] 0.91 mg/dL 0.55-1.02 [facility] Comment on above: The validity of the calculated GFR & GFRAA in patients over 70 years has not been determined. Clinical correlation is essential. Serum or plasma urea nitroge n measurement (mass/volume)Ordered By: Jake Waddell on 08-15-2022 Urea nitrogen [Mass/Vol] 20 mg/dL 7-18 [facility] Thin prep Papanicolaou smear with manual screeningOrdered By: Jake Waddell on 08-15-2022 Thin prep Papanicolaou smear with manual screening 8 5-15 [facility] Basophil percentageOrdered B y: Jake Waddell on 07-16-2022 Chloride [Moles/Vol] 102 mmol/L 98-107 [facility] Glucose [Mass/Vol] 65 mg/dL 74-106 [facility] Potassium [Moles/Vol] 4.2 mmol/L 3.5-5.1 [facility] Sodium [Moles/Vol] 136 mmol/L 136-145 [facility] WBC (Bld) [#/Vol] 9.8 10*3/uL 4.4-11.0 [facility] Blood erythrocytes count (nu mber/volume)Ordered By: Jake Waddell on 07-16-2022 RBC (Bld) [#/Vol] 4.79 10*6/uL 4.2-5.4 [facility] Blood hemoglobin measurement (mass/volume)Ordered By: Jake Waddell on 07-16-2022 Hemoglobin (Bld) [Mass/Vol] 14.0 g/dL 12.0-15.0 [facility] Blood platelet mean volumeOr dered By: Jake Waddell on 07-16-2022 Platelet mean volume (Bld) [Entitic vol] 10.8 fL 6.2-12.0 [facility] Determination of erythrocyte mean corpuscular volume (MCV)Ordered By: Jake Waddell on 07-16-2022 MCV (RBC) [Entitic vol] 86.8 fL 81-99 [facility] Hematocrit Auto (Bld) [Volum e fraction]Ordered By: Jake Waddell on 07-16-2022 Hematocrit (Bld) [Volume fraction] 41.6 % 37-47 [facility] - Chemistry and C hemistry - challengeOrdered By: Jake Waddell on 07-16-2022 CO2 [Moles/Vol] 25.0 mmol/L 21.0-32.0 [facility] Urea nitrogen/Creatinine [Mass ratio] 23.5 mg/mg 10-20 [facility] - Hematology and Cell countsOrdered By: Jake Waddell on 07-16-2022 Erythrocyte distribution width (RBC) [Entitic vol] 50.3 fL 35.1-43.9 [facility] Erythrocyte distribution width (RBC) [Ratio] 15.9 % 11.6-14.6 [facility] MCH (RBC) [Entitic mass] 29.2 pg 27.0-32.0 [facility] MCHC Auto (RBC) [Mass/Vol]Or dered By: Jake Waddell on 07-16-2022 MCHC (RBC) [Mass/Vol] 33.7 g/dL 32-36 [facility] No Panel InformationOrdered By: Jake Waddell on 07-16-2022 Estimated GFR (MDRD) Amer 124 mL/min >60 [facility] Comment on above: GFR Calc Estimated GFR (MDRD) Non-Af Amer 102 mL/min >60 [facility] Comment on above: Non- GFR Calc Platelets bldOrdered By: Delmer Waddell on 07-16-2022 Platelets (Bld) [#/Vol] 408 10*3/uL 150-450 [facility] Serum or plasma calcium becki urement (mass/volume)Ordered By: Jake Waddell on 07-16-2022 Calcium [Mass/Vol] 9.1 mg/dL 8.5-10.1 [facility] Serum or plasma creatinine m easurement (mass/volume)Ordered By: Jake Waddell on 07-16-2022 Creatinine [Mass/Vol] 0.60 mg/dL 0.55-1.02 [facility] Comment on above: The validity of the calculated GFR & GFRAA in patients over 70 years has not been determined. Clinical correlation is essential. Serum or plasma urea nitroge n measurement (mass/volume)Ordered By: Jake Waddell on 07-16-2022 Urea nitrogen [Mass/Vol] 14 mg/dL 7-18 [facility] Thin prep Papanicolaou smear with manual screeningOrdered By: Jake Waddell on 07-16-2022 Thin prep Papanicolaou smear with manual screening 9 5-15 [facility] Absolute lymphocyte countOrd ered By: Jake Waddell on 06-29-2022 Lymphocytes Auto (Unsp spec) [#/Vol] 1.85 10*3/uL 0.83-4.51 [facility] Basophil percentageOrdered B y: Jake Waddell on 06-29-2022 Basophils/100 WBC (Bld) 0.4 % 0-1 [facility] Eosinophils/100 WBC (Bld) 4.2 % 0-5 [facility] Neutrophils (Bld) [#/Vol] 6.0 10*3/uL 2.0-7.7 [facility] Neutrophils/100 WBC (Bld) 66.2 % 47-70 [facility] WBC (Bld) [#/Vol] 9.1 10*3/uL 4.4-11.0 [facility] Blood erythrocytes count (nu mber/volume)Ordered By: Jake Waddell on 06-29-2022 RBC (Bld) [#/Vol] 4.47 10*6/uL 4.2-5.4 [facility] Blood hemoglobin measurement (mass/volume)Ordered By: Jake Waddell on 06-29-2022 Hemoglobin (Bld) [Mass/Vol] 13.0 g/dL 12.0-15.0 [facility] Blood lymphocytes/100 leukoc ytesOrdered By: Jake Waddell on 06-29-2022 Lymphocytes/100 WBC (Bld) 20.4 % 19-41 [facility] Blood monocytes/100 leukocyt esOrdered By: Jake Waddell on 06-29-2022 Monocytes/100 WBC (Bld) 8.5 % 0-10 [facility] Blood platelet mean volumeOr dered By: Jake Waddell on 06-29-2022 Platelet mean volume (Bld) [Entitic vol] 10.8 fL 6.2-12.0 [facility] Determination of erythrocyte mean corpuscular volume (MCV)Ordered By: Jake Waddell on 06-29-2022 MCV (RBC) [Entitic vol] 86.6 fL 81-99 [facility] Hematocrit Auto (Bld) [Volum e fraction]Ordered By: Jake Waddell on 06-29-2022 Hematocrit (Bld) [Volume fraction] 38.7 % 37-47 [facility] Laboratory - Hematology and Cell countsOrdered By: Jake Waddell on 06-29-2022 Erythrocyte distribution width (RBC) [Entitic vol] 48.4 fL 35.1-43.9 [facility] Erythrocyte distribution width (RBC) [Ratio] 15.3 % 11.6-14.6 [facility] Immature granulocytes/100 WBC (Bld) 0.300 % 0.0-0.9 [facility] Comment on above: IG% - Immature Granu locytes (promyelocytes, myelocytes and metamyelocytes) > 1% indicates that a LEFT SHIFT is Present. MCH (RBC) [Entitic mass] 29.1 pg 27.0-32.0 [facility] Nucleated RBC/100 WBC (Bld) [Ratio] 0 % 0-5 [facility] MCHC Auto (RBC) [Mass/Vol]Or dered By: Jake Waddell on 06-29-2022 MCHC (RBC) [Mass/Vol] 33.6 g/dL 32-36 [facility] Platelets bldOrdered By: Delmer Waddell on 06-29-2022 Platelets (Bld) [#/Vol] 372 10*3/uL 150-450 [facility] Basophil percentageOrdered B y: Jake Waddell on 06-15-2022 Chloride [Moles/Vol] 102 mmol/L 98-107 [facility] Glucose [Mass/Vol] 54 mg/dL 74-106 [facility] Potassium [Moles/Vol] 3.9 mmol/L 3.5-5.1 [facility] Sodium [Moles/Vol] 137 mmol/L 136-145 [facility] WBC (Bld) [#/Vol] 13.9 10*3/uL 4.4-11.0 [facility] Blood erythrocytes count (nu mber/volume)Ordered By: Jake Waddell on 06-15-2022 RBC (Bld) [#/Vol] 4.66 10*6/uL 4.2-5.4 [facility] Blood hemoglobin measurement (mass/volume)Ordered By: Jake Waddell on 06-15-2022 Hemoglobin (Bld) [Mass/Vol] 13.1 g/dL 12.0-15.0 [facility] Blood platelet mean volumeOr dered By: Jake Waddell on 06-15-2022 Platelet mean volume (Bld) [Entitic vol] 10.0 fL 6.2-12.0 [facility] Determination of erythrocyte mean corpuscular volume (MCV)Ordered By: Jake Waddell on 06-15-2022 MCV (RBC) [Entitic vol] 86.5 fL 81-99 [facility] Hematocrit Auto (Bld) [Volum e fraction]Ordered By: Jake Waddell on 06-15-2022 Hematocrit (Bld) [Volume fraction] 40.3 % 37-47 [facility] Laboratory - Chemistry and C hemistry - challengeOrdered By: Jake Waddell on 06-15-2022 CO2 [Moles/Vol] 25.0 mmol/L 21.0-32.0 [facility] Urea nitrogen/Creatinine [Mass ratio] 12.8 mg/mg 10-20 [facility] Laboratory - Hematology and Cell countsOrdered By: Jake Waddell on 06-15-2022 Erythrocyte distribution width (RBC) [Entitic vol] 45.6 fL 35.1-43.9 [facility] Erythrocyte distribution width (RBC) [Ratio] 14.3 % 11.6-14.6 [facility] MCH (RBC) [Entitic mass] 28.1 pg 27.0-32.0 [facility] MCHC Auto (RBC) [Mass/Vol]Or dered By: Jake Waddell on 06-15-2022 MCHC (RBC) [Mass/Vol] 32.5 g/dL 32-36 [facility] No Panel InformationOrdered By: Jake Waddell on 06-15-2022 Estimated GFR (MDRD) Amer 103 mL/min >60 [facility] Comment on above: GFR Calc Estimated GFR (MDRD) Non-Af Amer 85 mL/min >60 [facility] Comment on above: Non- GFR Calc Platelets bldOrdered By: Delmer Waddell on 06-15-2022 Platelets (Bld) [#/Vol] 553 10*3/uL 150-450 [facility] Serum or plasma calcium becki urement (mass/volume)Ordered By: Jake Waddell on 06-15-2022 Calcium [Mass/Vol] 9.2 mg/dL 8.5-10.1 [facility] Serum or plasma creatinine m easurement (mass/volume)Ordered By: Jake Waddell on 06-15-2022 Creatinine [Mass/Vol] 0.70 mg/dL 0.55-1.02 [facility] Comment on above: The validity of the calculated GFR & GFRAA in patients over 70 years has not been determined. Clinical correlation is essential. Serum or plasma urea nitroge n measurement (mass/volume)Ordered By: Jake Waddell on 06-15-2022 Urea nitrogen [Mass/Vol] 9 mg/dL 7-18 [facility] Thin prep Papanicolaou smear with manual screeningOrdered By: Jake Waddell on 06-15-2022 Thin prep Papanicolaou smear with manual screening 10 5-15 [facility] Basophil percentageon 2021 Chloride [Moles/Vol] 102 mmol/L 98-107 [facility] Work Phone: Glucose [Mass/Vol] 71 mg/dL 74-106 [facility] Work Phone: Potassium [Moles/Vol] 4.4 mmol/L 3.5-5.1 [facility] Work Phone: Sodium [Moles/Vol] 135 mmol/L 136-145 [facility] Work Phone: WBC (Bld) [#/Vol] 11.0 10*3/uL 4.4-11.0 [facility] Work Phone: Blood erythrocytes count (nu mber/volume)on 05-16-2022 RBC (Bld) [#/Vol] 4.64 10*6/uL 4.2-5.4 [facility] Work Phone: Blood hemoglobin measurement (mass/volume)on 05-16-2022 Hemoglobin (Bld) [Mass/Vol] 13.4 g/dL 12.0-15.0 [facility] Work Phone: Blood platelet mean volumeon 05-16-2022 Platelet mean volume (Bld) [Entitic vol] 10.8 fL 6.2-12.0 [facility] Work Phone: Determination of erythrocyte mean corpuscular volume (MCV)on 05-16-2022 MCV (RBC) [Entitic vol] 88.1 fL 81-99 [facility] Work Phone: Hematocrit Auto (Bld) [Volum e fraction]on 05-16-2022 Hematocrit (Bld) [Volume fraction] 40.9 % 37-47 [facility] Work Phone: Laboratory - Chemistry and C hemistry - challengeon 05-16-2022 CO2 [Moles/Vol] 26.0 mmol/L 21.0-32.0 [facility] Work Phone: Urea nitrogen/Creatinine [Mass ratio] 20.3 mg/mg 10-20 [facility] Work Phone: Laboratory - Hematology and Cell countson 05-16-2022 Erythrocyte distribution width (RBC) [Entitic vol] 44.8 fL 35.1-43.9 [facility] Work Phone: Erythrocyte distribution width (RBC) [Ratio] 14.0 % 11.6-14.6 [facility] Work Phone: MCH (RBC) [Entitic mass] 28.9 pg 27.0-32.0 [facility] Work Phone: MCHC Auto (RBC) [Mass/Vol]on 05-16-2022 MCHC (RBC) [Mass/Vol] 32.8 g/dL 32-36 [facility] Work Phone: No Panel Informationon 05-16 Estimated GFR (MDRD) Amer 90 mL/min >60 [facility] Work Phone: Comment on above: GFR Calc Estimated GFR (MDRD) Non-Af Amer 74 mL/min >60 [facility] Work Phone: Comment on above: Non- GFR Calc Platelets bldon 05-16-2022 Platelets (Bld) [#/Vol] 382 10*3/uL 150-450 [facility] Work Phone: Serum or plasma calcium becki urement (mass/volume)on 05-16-2022 Calcium [Mass/Vol] 9.4 mg/dL 8.5-10.1 [facility] Work Phone: Serum or plasma creatinine m easurement (mass/volume)on 05-16-2022 Creatinine [Mass/Vol] 0.79 mg/dL 0.55-1.02 [facility] Work Phone: Comment on above: The validity of the calculated GFR & GFRAA in patients over 70 years has not been determined. Clinical correlation is essential. Serum or plasma urea nitroge n measurement (mass/volume)on 05-16-2022 Urea nitrogen [Mass/Vol] 16 mg/dL 7-18 [facility] Work Phone: Thin prep Papanicolaou smear with manual screeningon 05-16-2022 Thin prep Papanicolaou smear with manual screening 7 -15 [facility] Work Phone: Basophil percentageon 2021 Chloride [Moles/Vol] 104 mmol/L 98-107 [facility] Work Phone: Cholesterol [Mass/Vol] 118 mg/dL <200 [facility] Work Phone: Comment on above: <200 mg/dL Desirable 200-240 mg/dL Borderline >240 mg/dL High Risk Glucose [Mass/Vol] 74 mg/dL 74-106 [facility] Work Phone: Potassium [Moles/Vol] 4.0 mmol/L 3.5-5.1 [facility] Work Phone: Sodium [Moles/Vol] 138 mmol/L 136-145 [facility] Work Phone: Triglyceride [Mass/Vol] 113 mg/dL <199 [facility] Work Phone: Comment on above: The drugs N-Acetylcy steine and Metamizole may falsely depress this assay.Serum Triglycerides Reference Interval Normal <150 mg/dL Borderline high 150 - 199 mg/dL High 200 - 499 mg/dL Very High > or = 500 mg/dL WBC (Bld) [#/Vol] 11.6 10*3/uL 4.4-11.0 [facility] Work Phone: Blood erythrocytes count (nu mber/volume)on 04-16-2022 RBC (Bld) [#/Vol] 4.68 10*6/uL 4.2-5.4 [facility] Work Phone: Blood hemoglobin measurement (mass/volume)on 04-16-2022 Hemoglobin (Bld) [Mass/Vol] 13.8 g/dL 12.0-15.0 [facility] Work Phone: Blood platelet mean volumeon 04-16-2022 Platelet mean volume (Bld) [Entitic vol] 10.9 fL 6.2-12.0 [facility] Work Phone: Determination of erythrocyte mean corpuscular volume (MCV)on 04-16-2022 MCV (RBC) [Entitic vol] 88.5 fL 81-99 [facility] Work Phone: Hematocrit Auto (Bld) [Volum e fraction]on 04-16-2022 Hematocrit (Bld) [Volume fraction] 41.4 % 37-47 [facility] Work Phone: Laboratory - Chemistry and C hemistry - challengeon 04-16-2022 CO2 [Moles/Vol] 24.0 mmol/L 21.0-32.0 [facility] Work Phone: Urea nitrogen/Creatinine [Mass ratio] 23.4 mg/mg 10-20 [facility] Work Phone: Laboratory - Hematology and Cell countson 04-16-2022 Erythrocyte distribution width (RBC) [Entitic vol] 45.2 fL 35.1-43.9 [facility] Work Phone: Erythrocyte distribution width (RBC) [Ratio] 13.9 % 11.6-14.6 [facility] Work Phone: MCH (RBC) [Entitic mass] 29.5 pg 27.0-32.0 [facility] Work Phone: MCHC Auto (RBC) [Mass/Vol]on 04-16-2022 MCHC (RBC) [Mass/Vol] 33.3 g/dL 32-36 [facility] Work Phone: No Panel Informationon 04-16 Estimated GFR (MDRD) Amer 87 mL/min >60 [facility] Work Phone: Comment on above: GFR Calc Estimated GFR (MDRD) Non-Af Amer 72 mL/min >60 [facility] Work Phone: Comment on above: Non- GFR Calc Platelets bldon 04-16-2022 Platelets (Bld) [#/Vol] 372 10*3/uL 150-450 [facility] Work Phone: Serum or plasma calcium becki urement (mass/volume)on 04-16-2022 Calcium [Mass/Vol] 9.4 mg/dL 8.5-10.1 [facility] Work Phone: Serum or plasma cholesterol in HDL measurement (mass/volume)on 04-16-2022 Cholesterol in HDL [Mass/Vol] 44 mg/dL >40 [facility] Work Phone: Comment on above: The drugs N-Acetylcy steine and Metamizole may falsely depress this assay. Reference Range HDL <40 mg/dL Low HDL Cholesterol HDL >or= 60 mg/dL High HDL Cholesterol Serum or plasma cholesterol in VLDL measurement (mass/volume)on 04-16-2022 Cholesterol in VLDL [Mass/Vol] 23 mg/dL 5-40 [facility] Work Phone: Serum or plasma creatinine m easurement (mass/volume)on 04-16-2022 Creatinine [Mass/Vol] 0.81 mg/dL 0.55-1.02 [facility] Work Phone: Comment on above: The validity of the calculated GFR & GFRAA in patients over 70 years has not been determined. Clinical correlation is essential. Serum or plasma low density lipoprotein (LDL) cholesterol measurement (mass/volume)on 04-16-2022 Cholesterol in LDL [Mass/Vol] 51 mg/dL 0-130 [facility] Work Phone: Serum or plasma urea nitroge n measurement (mass/volume)on 04-16-2022 Urea nitrogen [Mass/Vol] 19 mg/dL 7-18 [facility] Work Phone: Thin prep Papanicolaou smear with manual screeningon 04-16-2022 Thin prep Papanicolaou smear with manual screening 10 - [facility] Work Phone: Whole blood hemoglobin A1c/t otal hemoglobin ratio (mass fraction)on 04-16-2022 HbA1c (Bld) [Mass fraction] 9.2 % 3.8-5.6 [facility] Work Phone: Comment on above: Normal < 5.7 % Predi abetic 5.7 - 6.4 % Diabetic >or= 6.5 % Please note range changes. Basophil percentageon 2021 Chloride [Moles/Vol] 103 mmol/L 98-107 [facility] Work Phone: Glucose [Mass/Vol] 108 mg/dL 74-106 [facility] Work Phone: Comment on above: Fasting Glucose resu lt from 100 to 125 mg/dL suggests IMPAIRED HOMEOSTASIS per A.D.A. criteria. Potassium [Moles/Vol] 3.8 mmol/L 3.5-5.1 [facility] Work Phone: Sodium [Moles/Vol] 136 mmol/L 136-145 [facility] Work Phone: WBC (Bld) [#/Vol] 9.2 10*3/uL 4.4-11.0 [facility] Work Phone: Blood erythrocytes count (nu mber/volume)on 03-14-2022 RBC (Bld) [#/Vol] 4.61 10*6/uL 4.2-5.4 [facility] Work Phone: Blood hemoglobin measurement (mass/volume)on 03-14-2022 Hemoglobin (Bld) [Mass/Vol] 13.1 g/dL 12.0-15.0 [facility] Work Phone: Blood platelet mean volumeon 03-14-2022 Platelet mean volume (Bld) [Entitic vol] 10.6 fL 6.2-12.0 [facility] Work Phone: Determination of erythrocyte mean corpuscular volume (MCV)on 03-14-2022 MCV (RBC) [Entitic vol] 87.4 fL 81-99 [facility] Work Phone: Hematocrit Auto (Bld) [Volum e fraction]on 03-14-2022 Hematocrit (Bld) [Volume fraction] 40.3 % 37-47 [facility] Work Phone: Laboratory - Chemistry and C hemistry - challengeon 03-14-2022 CO2 [Moles/Vol] 26.0 mmol/L 21.0-32.0 [facility] Work Phone: Urea nitrogen/Creatinine [Mass ratio] 19.5 mg/mg 10-20 [facility] Work Phone: Laboratory - Hematology and Cell countson 03-14-2022 Erythrocyte distribution width (RBC) [Entitic vol] 45.2 fL 35.1-43.9 [facility] Work Phone: Erythrocyte distribution width (RBC) [Ratio] 14.1 % 11.6-14.6 [facility] Work Phone: MCH (RBC) [Entitic mass] 28.4 pg 27.0-32.0 [facility] Work Phone: MCHC Auto (RBC) [Mass/Vol]on 03-14-2022 MCHC (RBC) [Mass/Vol] 32.5 g/dL 32-36 [facility] Work Phone: No Panel Informationon 03-14 Estimated GFR (MDRD) Amer 92 mL/min >60 [facility] Work Phone: Comment on above: GFR Calc Estimated GFR (MDRD) Non-Af Amer 76 mL/min >60 [facility] Work Phone: Comment on above: Non- GFR Calc Platelets bldon 03-14-2022 Platelets (Bld) [#/Vol] 328 10*3/uL 150-450 [facility] Work Phone: Serum or plasma calcium becki urement (mass/volume)on 03-14-2022 Calcium [Mass/Vol] 8.9 mg/dL 8.5-10.1 [facility] Work Phone: Serum or plasma creatinine m easurement (mass/volume)on 03-14-2022 Creatinine [Mass/Vol] 0.77 mg/dL 0.55-1.02 [facility] Work Phone: Comment on above: The validity of the calculated GFR & GFRAA in patients over 70 years has not been determined. Clinical correlation is essential. Serum or plasma urea nitroge n measurement (mass/volume)on 03-14-2022 Urea nitrogen [Mass/Vol] 15 mg/dL 7-18 [facility] Work Phone: Thin prep Papanicolaou smear with manual screeningon 03-14-2022 Thin prep Papanicolaou smear with manual screening 7 - [facility] Work Phone: Basophil percentageon 2021 Chloride [Moles/Vol] 104 mmol/L 98-107 [facility] Work Phone: Glucose [Mass/Vol] 86 mg/dL 74-106 [facility] Work Phone: Potassium [Moles/Vol] 4.0 mmol/L 3.5-5.1 [facility] Work Phone: Sodium [Moles/Vol] 137 mmol/L 136-145 [facility] Work Phone: WBC (Bld) [#/Vol] 9.9 10*3/uL 4.4-11.0 [facility] Work Phone: Blood erythrocytes count (nu mber/volume)on 02-14-2022 RBC (Bld) [#/Vol] 4.65 10*6/uL 4.2-5.4 [facility] Work Phone: Blood hemoglobin measurement (mass/volume)on 02-14-2022 Hemoglobin (Bld) [Mass/Vol] 13.3 g/dL 12.0-15.0 [facility] Work Phone: Blood platelet mean volumeon 02-14-2022 Platelet mean volume (Bld) [Entitic vol] 10.9 fL 6.2-12.0 [facility] Work Phone: Determination of erythrocyte mean corpuscular volume (MCV)on 02-14-2022 MCV (RBC) [Entitic vol] 86.9 fL 81-99 [facility] Work Phone: Hematocrit Auto (Bld) [Volum e fraction]on 02-14-2022 Hematocrit (Bld) [Volume fraction] 40.4 % 37-47 [facility] Work Phone: Laboratory - Chemistry and C hemistry - challengeon 02-14-2022 CO2 [Moles/Vol] 26.0 mmol/L 21.0-32.0 [facility] Work Phone: Cobalamin (Vitamin B12) [Mass/Vol] 331 pg/mL 211-911 [facility] Work Phone: Urea nitrogen/Creatinine [Mass ratio] 25.1 mg/mg 10-20 [facility] Work Phone: Laboratory - Hematology and Cell countson 02-14-2022 Erythrocyte distribution width (RBC) [Entitic vol] 45.5 fL 35.1-43.9 [facility] Work Phone: Erythrocyte distribution width (RBC) [Ratio] 14.3 % 11.6-14.6 [facility] Work Phone: MCH (RBC) [Entitic mass] 28.6 pg 27.0-32.0 [facility] Work Phone: MCHC Auto (RBC) [Mass/Vol]on 02-14-2022 MCHC (RBC) [Mass/Vol] 32.9 g/dL 32-36 [facility] Work Phone: No Panel Informationon 02-14 Estimated GFR (MDRD) Amer 89 mL/min >60 [facility] Work Phone: Comment on above: GFR Calc Estimated GFR (MDRD) Non-Af Amer 73 mL/min >60 [facility] Work Phone: Comment on above: Non- GFR Calc Platelets bldon 02-14-2022 Platelets (Bld) [#/Vol] 348 10*3/uL 150-450 [facility] Work Phone: Serum or plasma calcium becki urement (mass/volume)on 02-14-2022 Calcium [Mass/Vol] 9.1 mg/dL 8.5-10.1 [facility] Work Phone: Serum or plasma creatinine m easurement (mass/volume)on 02-14-2022 Creatinine [Mass/Vol] 0.80 mg/dL 0.55-1.02 [facility] Work Phone: Comment on above: The validity of the calculated GFR & GFRAA in patients over 70 years has not been determined. Clinical correlation is essential. Serum or plasma folate measu rement (mass/volume)on 02-14-2022 Folate [Mass/Vol] 7.40 ng/mL 3.1-55.4 [facility] Work Phone: Serum or plasma urea nitroge n measurement (mass/volume)on 02-14-2022 Urea nitrogen [Mass/Vol] 20 mg/dL 7-18 [facility] Work Phone: Thin prep Papanicolaou smear with manual screeningon 02-14-2022 Thin prep Papanicolaou smear with manual screening 7 01-14 [facility] Work Phone: Basophil percentageon 2021 Chloride [Moles/Vol] 102 mmol/L 98-107 [facility] Work Phone: Glucose [Mass/Vol] 77 mg/dL 74-106 [facility] Work Phone: Potassium [Moles/Vol] 4.3 mmol/L 3.5-5.1 [facility] Work Phone: Sodium [Moles/Vol] 134 mmol/L 136-145 [facility] Work Phone: WBC (Bld) [#/Vol] 10.4 10*3/uL 4.4-11.0 [facility] Work Phone: Blood erythrocytes count (nu mber/volume)on 01-15-2022 RBC (Bld) [#/Vol] 5.25 10*6/uL 4.2-5.4 [facility] Work Phone: Blood hemoglobin measurement (mass/volume)on 01-15-2022 Hemoglobin (Bld) [Mass/Vol] 14.8 g/dL 12.0-15.0 [facility] Work Phone: Blood platelet mean volumeon 01-15-2022 Platelet mean volume (Bld) [Entitic vol] 10.3 fL 6.2-12.0 [facility] Work Phone: Determination of erythrocyte mean corpuscular volume (MCV)on 01-15-2022 MCV (RBC) [Entitic vol] 92.2 fL 81-99 [facility] Work Phone: Hematocrit Auto (Bld) [Volum e fraction]on 01-15-2022 Hematocrit (Bld) [Volume fraction] 48.4 % 37-47 [facility] Work Phone: Laboratory - Chemistry and C hemistry - challengeon 01-15-2022 CO2 [Moles/Vol] 22.0 mmol/L 21.0-32.0 [facility] Work Phone: Urea nitrogen/Creatinine [Mass ratio] 23.9 mg/mg 10-20 [facility] Work Phone: Laboratory - Hematology and Cell countson 01-15-2022 Erythrocyte distribution width (RBC) [Entitic vol] 48.4 fL 35.1-43.9 [facility] Work Phone: Erythrocyte distribution width (RBC) [Ratio] 14.2 % 11.6-14.6 [facility] Work Phone: MCH (RBC) [Entitic mass] 28.2 pg 27.0-32.0 [facility] Work Phone: MCHC Auto (RBC) [Mass/Vol]on 01-15-2022 MCHC (RBC) [Mass/Vol] 30.6 g/dL 32-36 [facility] Work Phone: No Panel Informationon 01-15 Estimated GFR (MDRD) Amer 89 mL/min >60 [facility] Work Phone: Comment on above: GFR Calc Estimated GFR (MDRD) Non-Af Amer 73 mL/min >60 [facility] Work Phone: Comment on above: Non- GFR Calc Platelets bldon 01-15-2022 Platelets (Bld) [#/Vol] 348 10*3/uL 150-450 [facility] Work Phone: Serum or plasma calcium becki urement (mass/volume)on 01-15-2022 Calcium [Mass/Vol] 9.7 mg/dL 8.5-10.1 [facility] Work Phone: Serum or plasma creatinine m easurement (mass/volume)on 01-15-2022 Creatinine [Mass/Vol] 0.80 mg/dL 0.55-1.02 [facility] Work Phone: Comment on above: The validity of the calculated GFR & GFRAA in patients over 70 years has not been determined. Clinical correlation is essential. Serum or plasma urea nitroge n measurement (mass/volume)on 01-15-2022 Urea nitrogen [Mass/Vol] 19 mg/dL 7-18 [facility] Work Phone: Thin prep Papanicolaou smear with manual screeningon 01-15-2022 Thin prep Papanicolaou smear with manual screening 10 5-15 [facility] Work Phone: Basophil percentageon 2021 Chloride [Moles/Vol] 103 mmol/L 98-107 [facility] Work Phone: Glucose [Mass/Vol] 157 mg/dL 74-106 [facility] Work Phone: Comment on above: Fasting Glucose resu lt greater than or equal to 126 mg/dL suggests DIABETES MELLITUS per A.D.A. criteria. Potassium [Moles/Vol] 4.2 mmol/L 3.5-5.1 [facility] Work Phone: Sodium [Moles/Vol] 135 mmol/L 136-145 [facility] Work Phone: WBC (Bld) [#/Vol] 10.8 10*3/uL 4.4-11.0 [facility] Work Phone: Blood erythrocytes count (nu mber/volume)on 12-14-2021 RBC (Bld) [#/Vol] 4.61 10*6/uL 4.2-5.4 [facility] Work Phone: Blood hemoglobin measurement (mass/volume)on 12-14-2021 Hemoglobin (Bld) [Mass/Vol] 13.2 g/dL 12.0-15.0 [facility] Work Phone: Blood platelet mean volumeon 12-14-2021 Platelet mean volume (Bld) [Entitic vol] 11.2 fL 6.2-12.0 [facility] Work Phone: Determination of erythrocyte mean corpuscular volume (MCV)on 12-14-2021 MCV (RBC) [Entitic vol] 86.6 fL 81-99 [facility] Work Phone: Hematocrit Auto (Bld) [Volum e fraction]on 12-14-2021 Hematocrit (Bld) [Volume fraction] 39.9 % 37-47 [facility] Work Phone: Laboratory - Chemistry and C hemistry - challengeon 12-14-2021 CO2 [Moles/Vol] 27.0 mmol/L 21.0-32.0 [facility] Work Phone: Urea nitrogen/Creatinine [Mass ratio] 23.1 mg/mg 10-20 [facility] Work Phone: Laboratory - Hematology and Cell countson 12-14-2021 Erythrocyte distribution width (RBC) [Entitic vol] 44.2 fL 35.1-43.9 [facility] [facility] Work [facility]: Erythrocyte distribution width (RBC) [Ratio] 14.0 % 11.6-14.6 [facility] Work Phone: MCH (RBC) [Entitic mass] 28.6 pg 27.0-32.0 [facility] Work Phone: MCHC Auto (RBC) [Mass/Vol]on 12-14-2021 MCHC (RBC) [Mass/Vol] 33.1 g/dL 32-36 [facility] Work Phone: No Panel Informationon 12-14 Estimated GFR (MDRD) Amer 80 mL/min >60 [facility] Work Phone: Comment on above: GFR Calc Estimated GFR (MDRD) Non-Af Amer 66 mL/min >60 [facility] Work Phone: Comment on above: Non- GFR Calc Platelets bldon 12-14-2021 Platelets (Bld) [#/Vol] 368 10*3/uL 150-450 [facility] Work Phone: Serum or plasma calcium becki urement (mass/volume)on 12-14-2021 Calcium [Mass/Vol] 9.0 mg/dL 8.5-10.1 [facility] Work Phone: Serum or plasma creatinine m easurement (mass/volume)on 12-14-2021 Creatinine [Mass/Vol] 0.87 mg/dL 0.55-1.02 [facility] Work Phone: Comment on above: The validity of the calculated GFR & GFRAA in patients over 70 years has not been determined. Clinical correlation is essential. Serum or plasma urea nitroge n measurement (mass/volume)on 12-14-2021 Urea nitrogen [Mass/Vol] 20 mg/dL 7-18 [facility] Work Phone: Thin prep Papanicolaou smear with manual screeningon 12-14-2021 Thin prep Papanicolaou smear with manual screening 5 5-15 [facility] Work Phone: Basophil percentageon 2021 Chloride [Moles/Vol] 101 mmol/L 98-107 [facility] Work Phone: Glucose [Mass/Vol] 83 mg/dL 74-106 [facility] Work Phone: Potassium [Moles/Vol] 4.1 mmol/L 3.5-5.1 [facility] Work Phone: Sodium [Moles/Vol] 134 mmol/L 136-145 [facility] Work Phone: WBC (Bld) [#/Vol] 12.8 10*3/uL 4.4-11.0 [facility] Work Phone: Blood erythrocytes count (nu mber/volume)on 11-13-2021 RBC (Bld) [#/Vol] 4.73 10*6/uL 4.2-5.4 [facility] Work Phone: Blood hemoglobin measurement (mass/volume)on 11-13-2021 Hemoglobin (Bld) [Mass/Vol] 13.2 g/dL 12.0-15.0 [facility] Work Phone: Blood platelet mean volumeon 11-13-2021 Platelet mean volume (Bld) [Entitic vol] 11.2 fL 6.2-12.0 [facility] Work Phone: Determination of erythrocyte mean corpuscular volume (MCV)on 11-13-2021 MCV (RBC) [Entitic vol] 85.2 fL 81-99 [facility] Work Phone: Hematocrit Auto (Bld) [Volum e fraction]on 11-13-2021 Hematocrit (Bld) [Volume fraction] 40.3 % 37-47 [facility] Work Phone: Laboratory - Chemistry and C hemistry - challengeon 11-13-2021 CO2 [Moles/Vol] 25.0 mmol/L 21.0-32.0 [facility] Work Phone: Urea nitrogen/Creatinine [Mass ratio] 22.4 mg/mg 10-20 [facility] Work Phone: Laboratory - Hematology and Cell countson 11-13-2021 Erythrocyte distribution width (RBC) [Entitic vol] 43.7 fL 35.1-43.9 [facility] Work Phone: Erythrocyte distribution width (RBC) [Ratio] 14.0 % 11.6-14.6 [facility] Work Phone: MCH (RBC) [Entitic mass] 27.9 pg 27.0-32.0 [facility] Work Phone: MCHC Auto (RBC) [Mass/Vol]on 11-13-2021 MCHC (RBC) [Mass/Vol] 32.8 g/dL 32-36 [facility] Work Phone: No Panel Informationon 11-13 Estimated GFR (MDRD) Amer 88 mL/min >60 [facility] Work Phone: Comment on above: GFR Calc Estimated GFR (MDRD) Non-Af Amer 73 mL/min >60 [facility] Work Phone: Comment on above: Non- GFR Calc Platelets bldon 11-13-2021 Platelets (Bld) [#/Vol] 374 10*3/uL 150-450 [facility] Work Phone: Serum or plasma calcium becki urement (mass/volume)on 11-13-2021 Calcium [Mass/Vol] 9.0 mg/dL 8.5-10.1 [facility] Work Phone: Serum or plasma creatinine m easurement (mass/volume)on 11-13-2021 Creatinine [Mass/Vol] 0.80 mg/dL 0.55-1.02 [facility] Work Phone: Comment on above: The validity of the calculated GFR & GFRAA in patients over 70 years has not been determined. Clinical correlation is essential. Serum or plasma urea nitroge n measurement (mass/volume)on 11-13-2021 Urea nitrogen [Mass/Vol] 18 mg/dL 7-18 [facility] Work Phone: Thin prep Papanicolaou smear with manual screeningon 11-13-2021 Thin prep Papanicolaou smear with manual screening 8 5-15 [facility] Work Phone: Basophil percentageon 2021 Chloride [Moles/Vol] 104 mmol/L 98-107 [facility] Work Phone: Cholesterol [Mass/Vol] 125 mg/dL <200 [facility] Work Phone: Comment on above: <200 mg/dL Desirable 200-240 mg/dL Borderline >240 mg/dL High Risk Glucose [Mass/Vol] 156 mg/dL 74-106 [facility] Work Phone: Comment on above: Fasting Glucose resu lt greater than or equal to 126 mg/dL suggests DIABETES MELLITUS per A.D.A. criteria. Potassium [Moles/Vol] 4.4 mmol/L 3.5-5.1 [facility] Work Phone: Sodium [Moles/Vol] 134 mmol/L 136-145 [facility] Work Phone: Triglyceride [Mass/Vol] 130 mg/dL [facility] Work Phone: Comment on above: The drugs N-Acetylcy steine and Metamizole may falsely depress this assay.Serum Triglycerides Reference Interval Normal <150 mg/dL Borderline high 150 - 199 mg/dL High 200 - 499 mg/dL Very High > or = 500 mg/dL WBC (Bld) [#/Vol] 9.9 10*3/uL 4.4-11.0 [facility] Work Phone: Blood erythrocytes count (nu mber/volume)on 10-17-2021 RBC (Bld) [#/Vol] 4.61 10*6/uL 4.2-5.4 [facility] Work Phone: Blood hemoglobin measurement (mass/volume)on 10-17-2021 Hemoglobin (Bld) [Mass/Vol] 13.0 g/dL 12.0-15.0 [facility] Work Phone: Blood platelet mean volumeon 10-17-2021 Platelet mean volume (Bld) [Entitic vol] 10.9 fL 6.2-12.0 [facility] Work Phone: Determination of erythrocyte mean corpuscular volume (MCV)on 10-17-2021 MCV (RBC) [Entitic vol] 85.9 fL 81-99 [facility] Work Phone: Hematocrit Auto (Bld) [Volum e fraction]on 10-17-2021 Hematocrit (Bld) [Volume fraction] 39.6 % 37-47 [facility] Work Phone: Laboratory - Chemistry and C hemistry - challengeon 10-17-2021 CO2 [Moles/Vol] 23.0 mmol/L 21.0-32.0 [facility] Work Phone: Urea nitrogen/Creatinine [Mass ratio] 21.4 mg/mg 10-20 [facility] Work Phone: Laboratory - Hematology and Cell countson 10-17-2021 Erythrocyte distribution width (RBC) [Entitic vol] 44.1 fL 35.1-43.9 [facility] Work Phone: Erythrocyte distribution width (RBC) [Ratio] 14.0 % 11.6-14.6 [facility] Work Phone: MCH (RBC) [Entitic mass] 28.2 pg 27.0-32.0 [facility] Work Phone: MCHC Auto (RBC) [Mass/Vol]on 10-17-2021 MCHC (RBC) [Mass/Vol] 32.8 g/dL 32-36 [facility] Work Phone: No Panel Informationon 10-17 Estimated GFR (MDRD) Amer 83 mL/min >60 [facility] Work Phone: Comment on above: GFR Calc Estimated GFR (MDRD) Non-Af Amer 69 mL/min >60 [facility] Work Phone: Comment on above: Non- GFR Calc Platelets bldon 10-17-2021 Platelets (Bld) [#/Vol] 359 10*3/uL 150-450 [facility] Work Phone: Serum or plasma calcium becki urement (mass/volume)on 10-17-2021 Calcium [Mass/Vol] 8.9 mg/dL 8.5-10.1 [facility] Work Phone: Serum or plasma cholesterol in HDL measurement (mass/volume)on 10-17-2021 Cholesterol in HDL [Mass/Vol] 47 mg/dL [facility] Work Phone: Comment on above: The drugs N-Acetylcy steine and Metamizole may falsely depress this assay. Reference Range HDL <40 mg/dL Low HDL Cholesterol HDL >or= 60 mg/dL High HDL Cholesterol Serum or plasma cholesterol in VLDL measurement (mass/volume)on 10-17-2021 Cholesterol in VLDL [Mass/Vol] 26 mg/dL 5-40 [facility] Work Phone: Serum or plasma creatinine m easurement (mass/volume)on 10-17-2021 Creatinine [Mass/Vol] 0.84 mg/dL 0.55-1.02 [facility] Work Phone: Comment on above: The validity of the calculated GFR & GFRAA in patients over 70 years has not been determined. Clinical correlation is essential. Serum or plasma low density lipoprotein (LDL) cholesterol measurement (mass/volume)on 10-17-2021 Cholesterol in LDL [Mass/Vol] 52 mg/dL 0-130 [facility] Work Phone: Serum or plasma urea nitroge n measurement (mass/volume)on 10-17-2021 Urea nitrogen [Mass/Vol] 18 mg/dL 7-18 [facility] Work Phone: Thin prep Papanicolaou smear with manual screeningon 10-17-2021 Thin prep Papanicolaou smear with manual screening 7 - [facility] Work Phone: Whole blood hemoglobin A1c/t otal hemoglobin ratio (mass fraction)on 10-17-2021 HbA1c (Bld) [Mass fraction] 8.2 % 3.8-5.6 [facility] Work Phone: Comment on above: Normal < 5.7 % Predi abetic 5.7 - 6.4 % Diabetic >or= 6.5 % Please note range changes. Laboratory - Microbiology an d Antimicrobial susceptibilityon 09-25-2021 SARS-CoV-2 (COVID-19) RNA BIBIANA+probe Ql (Unsp spec) Not detected Not Detect [facility] Work Phone: Comment on above: Normal Reference Ran ge: Not DetectedMethod:(RT-PCR) real-time reverse transcriptase PCRLuminex [employer] Instrument*The Food and Drug Administration (FDA) has issued an Emergency Use Authorization (EAU) for the [employer] SARS-CoV-2 Assay for the rapid detection of [...] percentageon 2021 Chloride [Moles/Vol] 98 mmol/L 98-107 [facility] Work Phone: Glucose [Mass/Vol] 287 mg/dL 74-106 [facility] Work Phone: Comment on above: Glucose result great er than or equal to 200 mg/dLsuggests DIABETES MELLITUS per A.D.A. criteria. Potassium [Moles/Vol] 4.4 mmol/L 3.5-5.1 [facility] Work Phone: Sodium [Moles/Vol] 132 mmol/L 136-145 [facility] Work Phone: WBC (Bld) [#/Vol] 11.4 10*3/uL 4.4-11.0 [facility] Work Phone: Blood erythrocytes count (nu mber/volume)on 09-20-2021 RBC (Bld) [#/Vol] 4.59 10*6/uL 4.2-5.4 [facility] Work Phone: Blood hemoglobin measurement (mass/volume)on 09-20-2021 Hemoglobin (Bld) [Mass/Vol] 12.6 g/dL 12.0-15.0 [facility] Work Phone: Blood platelet mean volumeon 09-20-2021 Platelet mean volume (Bld) [Entitic vol] 11.1 fL 6.2-12.0 [facility] Work Phone: Determination of erythrocyte mean corpuscular volume (MCV)on 09-20-2021 MCV (RBC) [Entitic vol] 85.4 fL 81-99 [facility] Work Phone: Hematocrit Auto (Bld) [Volum e fraction]on 09-20-2021 Hematocrit (Bld) [Volume fraction] 39.2 % 37-47 [facility] Work Phone: Laboratory - Chemistry and C hemistry - challengeon 09-20-2021 CO2 [Moles/Vol] 24.0 mmol/L 21.0-32.0 [facility] Work Phone: Urea nitrogen/Creatinine [Mass ratio] 15.5 mg/mg 10-20 [facility] Work Phone: Laboratory - Hematology and Cell countson 09-20-2021 Erythrocyte distribution width (RBC) [Entitic vol] 43.0 fL 35.1-43.9 [facility] Work Phone: Erythrocyte distribution width (RBC) [Ratio] 13.8 % 11.6-14.6 [facility] Work Phone: MCH (RBC) [Entitic mass] 27.5 pg 27.0-32.0 [facility] Work Phone: MCHC Auto (RBC) [Mass/Vol]on 09-20-2021 MCHC (RBC) [Mass/Vol] 32.1 g/dL 32-36 [facility] Work Phone: No Panel Informationon 09-20 Estimated GFR (MDRD) Amer 61 mL/min >60 [facility] Work Phone: Comment on above: GFR Calc Estimated GFR (MDRD) Non-Af Amer 51 mL/min >60 [facility] Work Phone: Comment on above: Non- GFR Calc Platelets bldon 09-20-2021 Platelets (Bld) [#/Vol] 370 10*3/uL 150-450 [facility] Work Phone: Serum or plasma calcium becki urement (mass/volume)on 09-20-2021 Calcium [Mass/Vol] 9.0 mg/dL 8.5-10.1 [facility] Work Phone: Serum or plasma creatinine m easurement (mass/volume)on 09-20-2021 Creatinine [Mass/Vol] 1.10 mg/dL 0.55-1.02 [facility] Work Phone: Comment on above: The validity of the calculated GFR & GFRAA in patients over 70 years has not been determined. Clinical correlation is essential. Serum or plasma urea nitroge n measurement (mass/volume)on 09-20-2021 Urea nitrogen [Mass/Vol] 17 mg/dL 7-18 [facility] Work Phone: Thin prep Papanicolaou smear with manual screeningon 09-20-2021 Thin prep Papanicolaou smear with manual screening 10 5-15 [facility] Work Phone: Office Visiton 04-03-2017 Documentation of current medications (procedure) Done Invalid Interpretation Code [facility] Work Phone: Tobacco use [facility] Never smoker Invalid Interpretation Code [facility] Work Phone: Office Visiton 03-06-2017 Documentation of current medications (procedure) Done Invalid Interpretation Code [facility] Work Phone: Tobacco use [facility] Never smoker Invalid Interpretation Code [facility] Work Phone: Lab Report: CBC-Complete Blo od Cnt No Diffon 02-19-2017 Erythrocyte distribution width Ratio (RBC) 43.5 fL 35.1-43.9 [facility] Work Phone: Erythrocyte distribution width Ratio (RBC) 13.6 % 11.6-14.6 [facility] Work Phone: Erythrocytes (RBC) 3.32 10*6/uL Low 4.2-5.4 [facility] Work Phone: Hematocrit (HCT) 29.7 % Low 37-47 [facility] Work Phone: Hematocrit Volume Fraction (Bld) 29.7 % Low 37-47 [facility] Work Phone: Hemoglobin mass conc (Bld) 9.9 g/dL Low 12.0-15.0 [facility] Work Phone: MCH 29.8 pg Invalid Interpretation Code 27.0-32.0 [facility] Work Phone: MCH Entitic mass (RBC) 29.8 pg 27.0-32.0 [facility] Work Phone: MCHC 33.3 G/GL Invalid Interpretation Code 32-36 [facility] Work Phone: MCHC mass conc (RBC) 33.3 G/GL 32-36 [facility] Work Phone: MCV 89.5 fL Invalid Interpretation Code 81-99 [facility] Work Phone: MCV Entitic volume (RBC) 89.5 fL 81-99 [facility] Work Phone: Platelet mean volume Entitic volume (Bld) 10.8 fL 6.2-12.0 [facility] Work Phone: Platelets 186 10*3/mm3 Invalid Interpretation Code 150-450 [facility] Work Phone: Platelets #/vol (Bld) 186 10*3/mm3 150-450 [facility] Work Phone: PMV by Radha 10.8 fL Invalid Interpretation Code 6.2-12.0 [facility] Work Phone: RBC #/vol (Bld) 3.32 10*6/uL Low 4.2-5.4 [facility] Work Phone: RDW-CA 13.6 % Invalid Interpretation Code 11.6-14.6 [facility] Work Phone: red blood cell distribution width, size density 43.5 fL Invalid Interpretation Code 35.1-43.9 [facility] Work Phone: WBC #/vol (Bld) 12.5 10*3/uL High 4.4-11.0 [facility] Work Phone: WBC (Leukocytes) 12.5 10*3/uL High 4.4-11.0 [facility] Work Phone: Office Visiton 05-12-2015 Documentation of current medications (procedure) Done Invalid Interpretation Code [facility] Work Phone: Protein mass conc Done [facility] Work Phone: Tobacco smoking status NHIS Never smoker [facility] Work Phone: Tobacco use HS Never smoker Invalid Interpretation Code [facility] Work Phone: Lab Report: Bedside Glucoseo n 03-17-2015 Glucose 264 mg/dL High 70-110 [facility] Work Phone: Glucose mass conc 264 mg/dL High 70-110 [facility] Work Phone: Lab Report: Hemoglobin A1con 03-16-2015 Hemoglobin A1c/Hemoglobin.total mass fraction (Bld) 7.3 % High 4.2-6.3 [facility] Work Phone: Culture, urine Bacteria identified Cx Nom (U) Klebsiella pneumoniae sp pneum [facility] Work Phone: Vital Signs Date Time Vital Sign Value Performing Clinician Maryi janice 03-14-2015 09:05-0400 Height 165.1 cm Carl Majano [facility] Work Phone: 03-14-2015 09:05-0400 Weight 68.95 kg Carl [facility] Work Phone: Encounters Encounter Date Encounter Type Care Provider Facility Start: 01-14-2025 ambulatory Jake Waddell Facility: [facility] Start: 10-16-2024 ambulatory Jake Waddell Facility: [facility] Start: 08-21-2024 End: 08-21-2024 ambulatory Jake Waddell Facility:[facility] Start: 07-16-2024 End: 07-16-2024 ambulatory Jake Waddell OLS Facility:[facility] Start: 07-14-2024 End: 07-14-2024 ambulatory Jake Waddell OLS Facility:[facility] Start: 04-29-2024 End: 04-30-2024 ambulatory Jake Waddell OLS Facility:[facility] Start: 04-16-2024 End: 04-16-2024 ambulatory Jake Waddell OLS Facility:[facility] Start: 04-02-2024 End: 04-02-2024 ambulatory Jake Waddell Facility:[facility] Start: 03-23-2024 End: 03-23-2024 ambulatory Jake Waddell Facility:[facility] Start: 03-16-2024 End: 03-16-2024 ambulatory Jake Waddell OLS Facility:[facility] Start: 03-13-2024 End: 03-13-2024 Emergency department patient visit Jake Waddell Facility:[facility] Start: 10-17-2023 End: 10-17-2023 ambulatory [facility] Work Phone: Start: 10-17-2023 End: 10-17-2023 Departed Referred [facility] Start: 04-15-2023 End: 04-15-2023 ambulatory [facility] Work Phone: Start: 04-15-2023 End: 04-15-2023 Departed Referred [facility] Start: 10-17-2022 End: 10-17-2022 ambulatory [facility] Work Phone: Start: 10-17-2022 End: 10-17-2022 Departed Referred [facility] Start: 09-17-2022 End: 09-17-2022 ambulatory [facility] Work Phone: Start: 09-17-2022 End: 09-17-2022 Departed [facility]erred [facility] Start: 08-15-2022 End: 08-15-2022 ambulatory [facility] Work Phone: Start: 08-15-2022 End: 08-15-2022 Departed [facility]erred [facility] Start: 07-16-2022 End: 07-16-2022 ambulatory [facility] Work Phone: Start: 07-16-2022 End: 07-16-2022 Departed [facility]erred [facility] Start: 06-29-2022 End: 06-29-2022 ambulatory [facility] Work Phone: Start: 06-29-2022 End: 06-29-2022 Departed [facility]erred [facility] Start: 06-29-2022 Registered [facility] Start: 06-15-2022 End: 06-15-2022 ambulatory [facility] Work Phone: Start: 06-15-2022 End: 06-15-2022 Departed [facility]erred [facility] Start: 05-16-2022 End: 05-16-2022 ambulatory [facility] Work Phone: Start: 05-16-2022 End: 05-16-2022 Departed [facility]erred [facility] Start: 05-08-2022 End: 05-08-2022 ambulatory [facility] Work Phone: Start: 05-08-2022 End: 05-08-2022 Departed [facility]erred [facility] Start: 04-16-2022 End: 04-16-2022 Departed [facility] Start: 03-14-2022 End: 03-14-2022 Departed [facility] Start: 02-14-2022 End: 02-14-2022 Departed [facility] Start: 01-15-2022 End: 01-15-2022 Departed [facility] Start: 12-14-2021 End: 12-14-2021 Departed [facility]erred [facility] Start: 12-14-2021 Registered [facility] Start: 11-13-2021 End: 11-13-2021 Departed [facility] Start: 11-13-2021 Registered [facility] Start: 10-17-2021 End: 10-17-2021 Departed [facility]erred [facility] Start: 10-17-2021 Registered [facility] Start: 09-26-2021 End: 09-26-2021 Patient encounter procedure [facility] Start: 09-25-2021 End: 09-25-2021 Departed Referred [facility] Start: 09-20-2021 End: 09-20-2021 Departed [facility]erred [facility] Start: 09-20-2021 Registered [facility] Procedures Date Procedure Procedure Detail Performing Clinician Start: 09-26-2021 Screening mammography Start: 04-13-2015 End: 02-28-2017 X-ray exam of elbow Carl Majano Work Phone: Start: 03-14-2015 End: 03-16-2015 Documentation of current medications Aubree E Frase Urine culture Plan of Treatment Date Care Activity Detail Author Start: 05-22-2017 End: 05-22-2017 Appointment Appointment [facility] Work Phone: Start: 04-03-2017 End: 04-03-2017 Appointment Appointment [facility] Work Phone: Start: 04-03-2017 End: 04-03-2017 X-Ray, Hip Unilateral X-Ray, Hip Unilateral [facility] Work Phone: Start: 03-06-2017 End: 03-06-2017 Appointment Appointment [facility] Work Phone: Start: 03-06-2017 End: 03-06-2017 Appointment Appointment [facility] Work Phone: Start: 03-06-2017 End: 03-06-2017 X-Ray, Hip, unilateral, with pelvis; 2-3 views X-Ray, Hip, unilateral, with pelvis; 2-3 views [facility] Work Phone: Start: 04-25-2015 End: 05-04-2015 Ct upper extremity w/o dye CT Upper Extremity [facility] Work Phone: Start: 04-25-2015 End: 05-10-2015 Postop follow-up visit [facility] Work Phone: Start: 04-25-2015 End: 04-25-2015 X-ray exam of elbow X-Ray, Elbow [facility] Work Phone: Start: 04-13-2015 End: 04-13-2015 Occupational Therapy General Occupational Therapy [facility], 05 [place] [address], [id number] [facility] Work Phone: Start: 04-13-2015 End: 02-28-2017 X-ray exam of elbow X-Ray, Elbow [facility] Work Phone: Start: 03-28-2015 End: 04-04-2015 Postop follow-up visit Post Operative Visit [facility] Work Phone: Start: 03-28-2015 End: 03-28-2015 X-ray exam of elbow X-Ray, Elbow [facility] Work Phone: Patient Education ELBOW%20FRACTU RE%20IN%2 0ADULTS [facility] Work Phone: Immunizations Immunization Date Immunization Notes Care Provider Tati boudreaux 06-28-2014 Influenza virus vaccine [facility] Payers Date Payer Category Payer Self-pay [id number] 2024 Unknown [id number] 2017 Medicaid [id number] 65 [id number] 1974 Medicare [id number] 196 [id number] Unknown [id number] Unknown [id number] 2.16.8 [id number] Unknown [id number] 2.16.8 [id number] Unknown [id number] 2.16.8 40.1.455583.3.579.2.462 Unknown [id number] 2.16.8 40.1.380907.3.579.2.462 Unknown [id number] 2.16.8 40.1.603551.3.579.2.462 Unknown [id number] 2.16.8 40.1.611075.3.579.2.462 Unknown [id number] 2.16.8 40.1.671771.3.579.2.462 Unknown [id number] 2.16.8 40.1.478194.3.579.2.462 Unknown [id number] 2.16.8 40.1.943292.3.579.2.462 Unknown [id number] 2.16.8 [id number] Unknown [id number] 2.16.8 [id number] Unknown [id number] 2.16.8 [id number] Social History Date Type Detail Facility Start: 07-01-2021 End: 07-02-2021 Tobacco smoking status KYIS Unknown if ever smoked [facility] Start: 04-17-2019 None [facility] Start: 04-17-2019 [facility] Start: 1940 Sex Assigned At Female [facility] Evaluation note Note Date & Type Note Facility Evaluation note No assessment information availa ble [facility] Work Phone: Chief Complaint and Reason for Visit Chief Complaint [facility] SCREENING [facility] Chief Complaint [facility] SCREENING [facility] LABWORK Chief Complaint [facility] WORK LABWORK F[facility] WORK Chief Complaint LABWORK [facility] LAB WORK [facility] WORK [facility] WORK Chief Complaint LABWORK F[facility] LAB WORK [facility] LAB WORK [facility] LAB WORK [facility] LAB WORK Chief Complaint [facility] LAB WOR K [facility] WORK [facility] WORK [facility] WORK [facility] LAB WORK Chief Complaint [facility] LAB WOR K [facility] WORK [facility] WORK [facility] LAB WORK [facility] LAB WORK FDC LABWORK Chief Complaint [facility] LAB WOR K [facility] WORK [facility] LAB WORK [facility] LAB WORK [facility] LABWORK [facility] LAB WORK Chief Complaint [facility] LAB WOR K [facility] WORK [facility] LABWORK [facility] WORK [facility] LAB WORK Chief Complaint [facility] LAB WOR K [facility] WORK [facility] LAB WORK [facility] LABWORK Chief Complaint [facility] WOR K [facility] WORK Chief Complaint [facility] WOR K Advance Directives No Advanced Directives Records Found Advance Directive Response Recorded Date/ Time Advance Directives Yes March 16 3:27pm Living Will Yes July 01 11:19pm Power of Electoral Officer No July 01, 2021 11:19pm Advance Directive Response Recorded Date/ Time Advance Directives Yes March 16 2:27pm Living Will Yes July 01 10:19pm Power of Electoral Officer No July 01, 2021 10:19pm Summary Purpose [...] section and content) DATE CREATED AUTHOR 02/21/2025 [facility] FOR RECORDS PERTAINING TO PATIENTS WHO [...] BE BASED ON THE PRIMARY CLINICAL RECORDS. [employer] provides no warranty or guarantee of the accuracy or completeness of information in this document.
[2025-02-22 09:13] LABS: Valproic Acid (Depakene) Level 46 ug/mL (50-100)
== END ==
LOC: OLS.WCC 04:00
PROVIDERS: PCP Family Medicine; Referring Provider Family Medicine; Visit Provider Family Medicine
DX: Z79.899 Other long term (current) drug therapy (principal)
CPT/HCPCS: 36415; 80164

== ENCOUNTER → 2025-04-16 05:00 | Outpatient (REF) | payer MEDICARE, MEDICAID, SELFPAY ==
--- OUTSIDE RECORDS SUMMARY | 2025-04-16 04:31 | XMS RPT_ITS | CCD ---
Author Organization [facility] Inform ion Partnership [facility] Care Team Providers Care Bookmobile Driver Name Role Phone Carl Majano Unavailable Bairon CHADUHRY, Dr. Jake Espinoaz Primary Care Provider Jake Waddell MD Attending Provider Unavailable Jake Waddell MD Referring Provider Unavailable Waddell, Jake Espinoza Primary Care Unavailable Waddell OLS, Jake K Attending Unavailable Waddell, Jake K Primary Care Unavailable Waddell OLS, Jake K Referring Unavailable Waddell OLS, Jake K Attending Unavailable Waddell, Jake K Primary Care Unavailable Waddell OLS, Jake K Attending Unavailable Waddell, Jake K Primary Care Unavailable Waddell OLS, Jake Espinoza Attending Unavailable Waddell, Jake K Primary Care Unavailable Waddell OLS, Jake K Referring Unavailable Waddell OLS, Jake Espinoza Attending Unavailable Zapien, Mo Attending Unavailable Waddell, Jake K Primary Care Unavailable Waddell OLS, Jake K Attending Unavailable Waddell OLS, Jake K Referring Unavailable Waddell OLS, Jake K Primary Care Unavailable Waddell OLS, Jake K Attending Unavailable Waddell OLS, Jake K Referring Unavailable Waddell, Jake K Primary Care Unavailable [...] Unavailable Waddell, Jake K Primary Care Unavailable Allergies Allergy Classification Reported Allergen(s) Allergy Type Date of Onset Reaction(s) Facility (18 sources) Codeine Drug Allergy 07-01-[address] [facility] (18 sources) Morphine Drug Allergy 07-01-[address] [facility] (18 sources) traMADol Drug Allergy 07-01-[address] [facility] (1 source) Codeine Drug Allergy 03-13-[address] [facility] (1 source) Morphine Drug Allergy 03-13-[address] [facility] (1 source) traMADol Drug Allergy 03-13-[address] [facility] Medications Current Medications Medication Drug Class(es) Dates Sig (Normalized) Sig (Original) 8 hr acetaminophen 650 mg extended release oral tablet (20 sources) Start: 05-15-2019 take 1 tablet by mouth at bedtime Acetaminophen 650 MG tablet extended release Active 650 mg PO AT BEDTIME May 15, 2019 12:00am pain Start: 02-16-2017 End: 02-19-2017 take 2 tablets by mouth every four hours as needed for pain Acetaminophen 325 MG tablet Discontinued 650 mg PO Q4H as needed for Pain February 16, 2017 12:00am February 19, 2017 10:04am Start: 02-16-2017 End: 02-19-2017 take 650 mg by mouth every four hours Acetaminophen Discontinued 650 MG PO Q4H February 15, 2017 11:00pm February 19, 2017 9:04am amLODIPine 10 mg oral tablet (18 sources) Dihydropyridine Calcium Channel Ken Start: 07-01-2021 take 1 tablet by mouth once daily Amlodipine 10 mg Tablet Active 10 mg PO DAILY July 01, 2021 12:00am blood pressure docusate sodium 50 mg / sennosides, chcf 8.6 mg oral tablet (18 sources) Start: 05-15-2019 Sennosides-Docusat e Sodium 1 EACH tablet Active 2 NMA PO DAILY as needed for Constipation May 15, 2019 12:00am Start: 05-15-2019 Sennosides-Doc usate Sodium Active 2 EACH PO DAILY May 14, 2019 11:00pm DULoxetine 30 mg delayed release oral capsule (18 sources) Serotonin and Norepinephrine Reuptake Inhibitor Start: 04-29-2017 take 2 capsules by mouth once daily Duloxetine 30 MG capsule,delayed release(DR/EC) Active 60 mg PO DAILY April 29, 2017 12:00am mental health Start: 04-29-2017 take 60 mg by mouth once daily Duloxetine Active 60 MG PO DAILY April 28, 2017 11:00pm glucagon (rdna) 1 mg injection (18 sources) Antihypoglycemic Agent Start: 05-15-2019 Glucago n (Human Recombinant) 1 MG recon soln Active 1 mg IJ ONE TIME as needed for hypoglycemic episode May 15, 2019 12:00am Start: 05-15-2019 Glucagon (Cinda n Recombinant) Active 1 MG IJ ONE TIME May 14, 2019 11:00pm 3 ml insulin detemir 100 unt/ml pen injector (20 sources) Insulin Analog Start: 05-15-2019 inject 24 [IU] by subcutaneous injection twice daily Insulin Detemir U-100 100 UNITS/ML insulin pen Active 24 U subcut TWICE A DAY May 15, 2019 6:54am diabetes Start: 05-15-2019 inject 24 [IU] by jeronimo bcutaneous injection twice daily Insulin Detemir U-100 Active 24 UNITS subcut TWICE A DAY May 15, 2019 5:54am Start: 02-19-2017 End: 05-15-2019 Insulin Detemir U-100 (Levem ir Flextouch U100 Insulin) 100 UNITS/ML Insuln.Pen Discontinued 10 U SC TWICE A DAY 60 0 February 19, 2017 12:00am May 15, 2019 6:55am Start: 02-19-2017 End: 05-15-2019 Insulin Detemir U-100 (Levem ir Flextouch U-100 Insuln) 100 UNITS/ML Insuln.Pen Discontinued 10 UNITS SC TWICE A DAY 60 February 19, 2017 12:00am May 15, 2019 6:55am levoFLOXacin 500 mg oral tablet (18 sources) Quinolone Antimicrobial Start: 07-05-2021 take 1 tablet by mouth once daily Levofloxacin 500 mg tablet Active 500 mg PO DAILY 3 0 July 05, 2021 12:00am linagliptin 5 mg oral tablet (18 sources) Dipeptidyl Peptidase 4 Inhibitor Start: 07-27-2018 take 1 tablet by mouth once daily Linagliptin (Tradjenta) 5 MG tablet Active 5 mg PO DAILY July 27, 2018 1:00am diabetes lisinopril 20 mg oral tablet (18 sources) Angiotensin Converting Enzyme Inhibitor Start: 07-01-2021 take 1 tablet by mouth once daily Lisinopril 20 mg Tablet Active 20 mg PO DAILY July 01, 2021 12:00am blood pressure melatonin 3 mg oral capsule (18 sources) Start: 07-01-2021 take 1 capsule by mouth at bedtime Melatonin 3 mg Capsule Active 3 mg PO AT BEDTIME July 01, 2021 12:00am sleep metFORMIN hydrochloride 500 mg oral tablet (20 sources) Biguanide Start: 07-01-2021 take 1 tablet by mouth twice daily Metformin 500 mg Tablet Active 500 mg PO TWICE A DAY July 01, 2021 12:00am diabetes Start: 03-14-2015 METFORMIN HCL 850 MG TABS 1 tab twice daily METFORMIN HCL [id number] Aubree Salmon Frase 24 hr mirabegron 50 mg extended release oral tablet (18 sources) beta3-Adrenergic Agonist Start: 02-16-2017 take 1 tablet by mouth once daily Mirabegron (Myrbetriq) 50 MG tablet extended release 24 hr Active 50 mg PO DAILY February 16, 2017 12:00am bladder Vitamins A,C,S-Tgxi-Cfgpnd (Preservision Areds) 1 EACH capsule (18 sources) Start: 07-27-2018 take 1 capsule by mouth twice daily Vitamins A,C,B-Jydg-Wgfvai (Preservision Areds) 1 EACH capsule Active 1 EACH PO TWICE A DAY July 27, 2018 7:58pm Start: 07-27-2018 take 1 capsule by [facility] twice daily Vitamins A,C,A-Robh-Gcgrep (Preservision Areds) 1 EACH capsule Active 1 NMA PO TWICE A DAY July 27, 2018 1:00am eye health Start: 07-27-2018 take 1 capsule by [facility] twice daily Vitamins A,C,E-Kugk-Fxcwmh (Preservision Areds) 1 EACH capsule Active 1 EACH PO TWICE A DAY July 27, 2018 12:00am Start: 07-27-2018 take 1 capsule by [facility] twice daily Vitamins A,C,J-Psez-Yjhcxk (Preservision Areds) 1 EACH capsule Active 1 EACH PO TWICE A DAY July 27, 2018 1:00am Completed/Discontinued Medications Medication Drug Class(es) Dates Sig (Normalized) Sig (Original) amLODIPine 10 mg / benazepril hydrochloride 20 mg oral capsule (6 sources) Dihydropyridine Calcium Channel Ken, Angiotensin Converting Enzyme Inhibitor Start: 03-14-2015 AMLODIPINE BESY-BENAZEPRIL HCL 10-20 MG CAPS daily AMLODIPINE BESY-BENAZEPRIL HCL [id number] Aubree Jenningsse atorvastatin 20 mg oral tablet (20 sources) HMG-CoA Reductase Inhibitor Start: 03-14-2015 ATORVASTATIN CALCIUM 20 MG TABS daily ATORVASTATIN CALCIUM [id number] Aubree Cole Start: 03-07-2015 take 1 tablet by elva at bedtime Atorvastatin 20 MG tablet Active 20 mg PO AT BEDTIME March 07, 2015 12:00am cholesterol glimepiride 4 mg oral tablet (6 sources) Sulfonylurea Start: 03-14-2015 GLIMEPIRIDE 4 MG TABS daily GLIMEPIRIDE [id number] Aubree E Frase pioglitazone 30 mg oral tablet (6 sources) Peroxisome Proliferator Receptor alpha Agonist, Peroxisome Proliferator Receptor gamma Agonist, Thiazolidinedione Start: 03-14-2015 PIOGLITAZONE HCL 30 MG TABS daily PIOGLITAZONE HCL [id number] Aubree E Frase SITagliptin 100 mg oral tablet (6 sources) Dipeptidyl Peptidase 4 Inhibitor Start: 03-14-2015 JANUVIA 100 MG TABS daily SITAGLIPTIN PHOSPHATE [id number] Aubree E Frase solifenacin succinate 10 mg oral tablet (6 sources) Cholinergic Muscarinic Antagonist Start: 03-14-2015 VESICARE 10 MG TABS daily SOLIFENACIN SUCCINATE [id number] Aubree E Frase Problems Active Problems Problem Classification Problem Date Documented Date Episodic/Chronic Delirium, dementia, and amnestic and other cognitive disorders (2 sources) Unspecified dementia without behavioral disturbance; Translations: [Unspecified dementia, unspecified severity, without behavioral disturbance, psychotic disturbance, mood disturbance, and anxiety] Onset: 05-13-2024 Chronic Diabetes mellitus without complication (20 sources) Type 2 diabetes mellitus; Translations: [Type 2 diabetes mellitus without complications] Onset: 10-29-2024 07-01-2021 Chronic Disorders of lipid metabolism (20 sources) Hyperlipidemia; Translations: [Hyperlipidemia, unspecified] Onset: 05-13-2024 07-01-2021 Chronic E Codes: Fall (19 sources) Fall in longterm; Translations: [Unspecified fall, initial encounter] 04-18-2019 Episodic Essential hypertension (20 sources) Hypertensive disorder; Translations: [Essential (primary) hypertension] Onset: 05-13-2024 07-01-2021 Chronic Fluid and electrolyte disorders (18 sources) Hyponatremia; Translations: [Hypo-osmolality and hyponatremia] 07-13-2021 Episodic Fracture of neck of femur (hip) (20 sources) Displaced intertrochanteric fracture of left femur, subsequent encounter for closed fracture with routine healing; Translations: [Closed fracture of hip] Onset: 03-06-2017 03-13-2017 Episodic Comment on above: Dr. Majano. 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; Translations: [Other senior living (current) drug therapy] Onset: 02-22-2025 Episodic Other injuries and conditions due to external causes (1 source) Injury of head; Translations: [Unspecified injury of head, initial encounter] 03-21-2024 Episodic Superficial injury; contusion (18 sources) Hematoma of scalp; Translations: [Contusion of scalp, initial encounter] 04-18-2019 Episodic Past or Other Problems Problem Classification Problem Date Documented Da te Episodic/Chronic Fracture of upper limb (12 sources) Other and unspecified closed fractures of proximal end of radius (alone); Translations: [Closed fracture of olecranon process of ulna] Onset: 03-14-2015 03-16-2015 Episodic Open wounds of head; neck; and trunk (2 sources) Scalp laceration; Translations: [Laceration without foreign body of scalp, initial encounter] Onset: 03-27-2024 03-21-2024 Episodic Other aftercare (6 sources) Follow-up orthopedic assessment; Translations: [Encounter for other orthopedic aftercare] Onset: 03-28-2015 04-01-2015 Episodic Other non-traumatic joint disorders (4 sources) Hip pain; Translations: [Pain in left hip] Onset: 03-06-2017 03-06-2017 Episodic Urinary tract infections (19 sources) Acute urinary tract infection; Translations: [Urinary tract infection, site not specified] Onset: 08-28-2024 07-13-2021 Episodic Results Test Name Value Interpretation Reference Range Facility Serum or plasma valproate me asurement (mass/volume)Ordered By: Jake Waddell on 02-22-2025 Valproate [Mass/Vol] 46 ug/mL Low 50-100 [facility] Comment on above: Valproic Acid concen trations >100 ug/mL are potentially toxic. Valproic Acid (Depakene) Lev melissa 02-22-2025 VALPROIC ACID 46 ug/mL Low 50-[address] [facility] Comment on above: Order Comment: 112.2 Result Comment: Valp roic Acid concentrations >100 ug/mL are potentially toxic. Performed By: #### L [id number] #### [facility] [address] [place], [address] Hemoglobin A1con 01-14-2025 HbA1c (Bld) [Mass fraction] 6.7 % High <=5.[address] [facility] Comment on above: Order Comment: 112.2 Result Comment: Norm al < 5.7 % Prediabetic 5.7 - 6.4 % Diabetic >or= 6.5 % Please note range changes. Performed By: #### L [id number] #### [facility] [address] [place], [address] Hemoglobin A1c percentageOrd ered By: Jake Waddell on 01-14-2025 HbA1c (Bld) [Mass fraction] 6.7 % High <5.[address] [facility] Comment on above: Normal < 5.7 % Predi abetic 5.7 - 6.4 % Diabetic >or= 6.5 % Please note range changes. Basic Metabolic Profile (BMP )on 10-16-2024 BUN/CRE 20.1 RATIO High 10-[address] [facility] Comment on above: Order Comment: 112.2 Performed By: #### L [id number] #### [facility] [address] [place], [address] CA,Total 9.5 mg/dL Normal 8.5-10.[address] [facility] Comment on above: Order Comment: 112.2 Performed By: #### L [id number] #### [facility] [address] [place], [address] Chloride [Moles/Vol] 97 mmol/L Low 98-107 [facility] Comment on above: Order Comment: 112.2 Performed By: #### L [id number] #### [facility] [address] [place], [address] CO2 [Moles/Vol] 24.0 mmol/L Normal 21.0-32.[address] [facility] Comment on above: Order Comment: 112.2 Performed By: #### L [id number] #### [facility] [address] [place], [address] Creatinine [Mass/Vol] 0.95 mg/dL Normal 0.55-1.02 [facility] Comment on above: Order Comment: 112.2 Result Comment: The validity of the calculated GFR GFRAA in patients over 70 years has not been determined. Clinical correlation is essential. Performed By: #### L [id number] #### [facility] [address] [place], [address] EST GFR - AA 72 mL/min Normal >[address] [facility] Comment on above: Order Comment: 112.2 Result Comment: Afri can [place] GFR Calc Performed By: #### L [id number] #### [facility] [address] [place], [address] GAP 10 Normal 5-[address] [facility] Comment on above: Order Comment: 112.2 Performed By: #### L [id number] #### [facility] [address] [place], [address] GFR/1.73 sq M.predicted among non-blacks MDRD (S/P/Bld) [Vol rate/Area] 60 mL/min/{1.73_m2} Normal >[address] [facility] Comment on above: Order Comment: 112.2 Result Comment: Non- GFR Calc Performed By: #### L [id number] #### [facility] [address] [place], [address] Glucose [Mass/Vol] 146 mg/dL High 74-106 [facility] Comment on above: Order Comment: 112.2 Result Comment: Fast ing Glucose result greater than or equal to 126 mg/dL suggests DIABETES MELLITUS per A.D.A. criteria. Performed By: #### L [id number] #### [facility] [address] [place], [address] Potassium [Moles/Vol] 4.4 mmol/L Normal 3.5-5.1 [facility] Comment on above: Order Comment: 112.2 Performed By: #### L [id number] #### [facility] [address] [place], [address] Sodium [Moles/Vol] 131 mmol/L Low 136-145 [facility] Comment on above: Order Comment: 112.2 Performed By: #### L [id number] #### [facility] [address] [place], [address] Urea nitrogen [Mass/Vol] 19 mg/dL High 7-[address] [facility] Comment on above: Order Comment: 112.2 Performed By: #### L [id number] #### [facility] [address] [place], [address] CBC-Complete Blood Cnt No Di ffon 10-16-2024 Erythrocyte distribution width (RBC) [Ratio] 15.2 % High 11.6-14.[address] [facility] Comment on above: Order Comment: 112.2 Performed By: #### L [id number] #### [facility] [address] [place], [address] Hematocrit (Bld) [Volume fraction] 41.2 % Normal 37-[address] [facility] Comment on above: Order Comment: 112.2 Performed By: #### L [id number] #### [facility] [address] [place], [address] Hemoglobin (Bld) [Mass/Vol] 13.4 g/dL Normal 12.0-15.[address] [facility] Comment on above: Order Comment: 112.2 Performed By: #### L [id number] #### [facility] [address] [place], [address] MCH (RBC) [Entitic mass] 28.3 pg Normal 27.0-32.[address] [facility] Comment on above: Order Comment: 112.2 Performed By: #### L [id number] #### [facility] [address] [place], [address] MCHC (RBC) [Mass/Vol] 32.5 g/dL Normal 32-36 [facility] Comment on above: Order Comment: 112.2 Performed By: #### L [id number] #### [facility] [address] [place], [address] MCV (RBC) [Entitic vol] 86.9 fL Normal 81-[address] [facility] Comment on above: Order Comment: 112.2 Performed By: #### L [id number] #### [facility] [address] [place], [address] Platelet mean volume (Bld) [Entitic vol] 10.8 fL Normal 6.2-12.[address] [facility] Comment on above: Order Comment: 112.2 Performed By: #### L [id number] #### [facility] [address] [place], [address] Platelets (Bld) [#/Vol] 310 10*3/uL Normal 150-[address] [facility] Comment on above: Order Comment: 112.2 Performed By: #### L [id number] #### [facility] [address] [place], [address] RBC (Bld) [#/Vol] 4.74 10*6/uL Normal 4.2-5.4 [facility] Comment on above: Order Comment: 112.2 Performed By: #### L [id number] #### [facility] [address] [place], [address] RDW SD 48.8 fl High 35.1-43.[address] [facility] Comment on above: Order Comment: 112.2 Performed By: #### L [id number] #### [facility] [address] [place], [address] WBC (Bld) [#/Vol] 11.8 10*3/uL High 4.4-11.0 [facility] Comment on above: Order Comment: 112.2 Performed By: #### L [id number] #### [facility] [address] [place], [address] Hemoglobin A1con 10-16-2024 HbA1c (Bld) [Mass fraction] 6.7 % High 3.8-5.[address] [facility] Comment on above: Order Comment: 112.2 Result Comment: Norm al < 5.7 % Prediabetic 5.7 - 6.4 % Diabetic >or= 6.5 % Please note range changes. Performed By: #### L [id number] #### [facility] [address] [place], [address] Lipid Profileon 10-16-2024 Cholesterol [Mass/Vol] 106 mg/dL Normal 200 [facility] Comment on above: Order Comment: 112.2 Result Comment: <200 mg/dL Desirable 200-240 mg/dL Borderline >240 mg/dL High Risk Performed By: #### L [id number] #### [facility] [address] [place], [address] Cholesterol in HDL [Mass/Vol] 52 mg/dL Normal [facility] Comment on above: Order Comment: 112.2 Result Comment: The drugs N-Acetylcysteine and Metamizole may falsely depress this assay. Reference Range HDL <40 mg/dL Low HDL Cholesterol HDL >or= 60 mg/dL High HDL Cholesterol Performed By: #### L [id number] #### [facility] [address] [place], [address] Cholesterol in LDL [Mass/Vol] 30 mg/dL Normal 0-[address] [facility] Comment on above: Order Comment: 112.2 Performed By: #### L [id number] #### [facility] [address] [place], [place], [address] Cholesterol in VLDL [Mass/Vol] 24 mg/dL Normal 5-[address] [facility] Comment on above: Order Comment: 112.2 Performed By: #### L [id number] #### [facility] [address] [place], [place], [id number] Triglyceride [Mass/Vol] 118 mg/dL Normal [facility] Comment on above: Order Comment: 112.2 Result Comment: The drugs N-Acetylcysteine and Metamizole may falsely depress this assay. Serum Triglycerides Reference Interval Normal <150 mg/dL Borderline high 150 - 199 mg/dL High 200 - 499 mg/dL Very High > or = 500 mg/dL Performed By: #### L [id number] #### [facility] [address] [place], [place], [id number] Valproic Acid (Depakene) Lev melissa 08-21-2024 VALPROIC ACID 26 ug/mL Low 50-[address] [facility] Comment on above: Order Comment: 112.2 Performed By: #### L [id number] #### [facility] [address] [place], [place], [id number] Urine Cultureon 07-17-2024 [facility] Presumptive E. coli [place] Count 11,000-25,000 Presumptive E. coli: REACTION Ampicillin [...] TMP SMX Islt MENDY >=320 R Normal [facility] Comment on above: Performed By: #### M [id number], [id number] #### [facility] [address] [place], [address] Hemoglobin A1con 07-16-2024 HbA1c (Bld) [Mass fraction] 7.1 % High 3.8-5.[address] [facility] Comment on above: Order Comment: 112.2 Result Comment: Norm al < 5.7 % Prediabetic 5.7 - 6.4 % Diabetic >or= 6.5 % Please note range changes. Performed By: #### L [id number] #### [facility] [address] [place], [address] Urinalysis, Completeon 07-15 BACTERIA 2+ /hpf Normal None Seen [facility] Comment on above: Order Comment: CLEAN CATCH Performed By: #### M [id number], [id number] #### [facility] [address] [place], [address] EPI,SQUAMOUS 10-25 SEEN Normal 5-[address] [facility] Comment on above: Order Comment: CLEAN CATCH Performed By: #### M 100.2200, [id number] #### [facility] [address] [place], [address] RBC 50-100 SEEN Normal 0-[address] [facility] Comment on above: Order Comment: CLEAN CATCH Performed By: #### M [id number], [id number] #### [facility] [address] [place], [address] WBC >100 SEEN Normal 0-[address] [facility] Comment on above: Order Comment: CLEAN CATCH Performed By: #### M 100.2200, [id number] #### [facility] [address] [place], [address] Mucus Ql (Urine sed) 0 SEEN Normal [facility] Comment on above: Order Comment: CLEAN CATCH Performed By: #### M [id number], [id number] #### [facility] [address] [place], [address] Urine Cultureon 05-02-2024 [facility] Klebsiella pneumoniae sp pneum [place] Count >100,000 Klebsiella pneumoniae sp pneum: REACTION Ampicillin Islt MENDY R Ampicillin+Sulbac Islt MENDY 4 S ceFAZolin Islt MENDY <=4 S Cefepime Islt MENDY <=0.12 S cefTRIAXone Islt MENDY <=0.25 S Ciprofloxacin Islt MENDY <=0.25 S Ertapenem Islt MENDY <=0.12 S B-Lactamase Extended Susc Islt NEG Gentamicin Islt MENDY <=1 S Imipenem Islt MNEDY <=0.25 S levoFLOXacin Islt MENDY <=0.12 S Nitrofurantoin Islt MENDY <=16 S Pip+Tazo Islt MENDY <=4 S Tobramycin Islt MENDY <=1 S TMP SMX Islt MENDY <=[address] S [address] [facility] Comment on above: Performed By: #### M 100.2200 #### [facility] [address] [place], [place], [id number] Urinalysis, Completeon 04-30 BACTERIA 3+ /hpf Normal None Seen [facility] Comment on above: Order Comment: Urine , Random Performed By: #### M 100.2200 #### [facility] [address] [place], [place], [id number] EPI,SQUAMOUS 0-5 SEEN Normal 5-[address] [facility] Comment on above: Order Comment: Urine , Random Performed By: #### M 100.2200 #### [facility] [address] [place], [place], [id number] RBC 0-5 SEEN Normal 0-[address] [facility] Comment on above: Order Comment: Urine , Random Performed By: #### M 100.2200 #### [facility] [address] [place], [place], [id number] WBC >100 SEEN Normal 0-[address] [facility] Comment on above: Order Comment: Urine , Random Performed By: #### M 100.2200 #### [facility] [address] [place], [address] Mucus Ql (Urine sed) 0 SEEN Normal [facility] Comment on above: Order Comment: Urine , Random Performed By: #### M 100.2200 #### [facility] [address] [place], [address] CBC W/Diff, Automatedon 04-03 Absolute Lymph 0.93 X10 3/uL Normal 0.83-4.[address] [facility] Comment on above: Order Comment: 112.2 Performed By: #### L 100.0100 #### [facility] [address] [place], [address] Absolute Neut 13.5 X10 3/uL High 2.0-7.[address] [facility] Comment on above: Order Comment: 112.2 Performed By: #### L 100.0100 #### [facility] [address] [place], [address] Basophils/100 WBC (Bld) 0.3 % Normal 0-[address] [facility] Comment on above: Order Comment: 112.2 Performed By: #### L 100.0100 #### [facility] [address] [place], [address] Eosinophils/100 WBC (Bld) 0.1 % Normal 0-[address] [facility] Comment on above: Order Comment: 112.2 Performed By: #### L 100.0100 #### [facility] [address] [place], [address] Erythrocyte distribution width (RBC) [Ratio] 15.4 % High 11.6-14.[address] [facility] Comment on above: Order Comment: 112.2 Performed By: #### L 100.0100 #### [facility] [address] [place], [address] Hematocrit (Bld) [Volume fraction] 37.9 % Normal 37-[address] [facility] Comment on above: Order Comment: 112.2 Performed By: #### L 100.0100 #### [facility] [address] [place], [address] Hemoglobin (Bld) [Mass/Vol] 12.3 g/dL Normal 12.0-15.[address] [facility] Comment on above: Order Comment: 112.2 Performed By: #### L 100.0100 #### [facility] [address] [place], [address] IG% 0.700 Normal 0.0-0.[address] [facility] Comment on above: Order Comment: 112.2 Result Comment: IG% - Immature Granulocytes (promyelocytes, myelocytes and metamyelocytes) > 1% indicates that a LEFT SHIFT is Present. Performed By: #### L 100.0100 #### [facility] [address] [place], [address] Lymphocytes/100 WBC (Bld) 6.0 % Low 19-[address] [facility] Comment on above: Order Comment: 112.2 Performed By: #### L 100.0100 #### [facility] [address] [place], [address] MCH (RBC) [Entitic mass] 28.9 pg Normal 27.0-32.[address] [facility] Comment on above: Order Comment: 112.2 Performed By: #### L 100.0100 #### [facility] [address] [place], [address] MCHC (RBC) [Mass/Vol] 32.5 g/dL Normal 32-36 [facility] Comment on above: Order Comment: 112.2 Performed By: #### L 100.0100 #### [facility] [address] [place], [address] MCV (RBC) [Entitic vol] 89.2 fL Normal 81-[address] [facility] Comment on above: Order Comment: 112.2 Performed By: #### L 100.0100 #### [facility] [address] [place], [address] Monocytes/100 WBC (Bld) 5.6 % Normal 0-[address] [facility] Comment on above: Order Comment: 112.2 Performed By: #### L 100.0100 #### [facility] [address] [place], [address] Neutrophils/100 WBC (Bld) 87.3 % High 47-[address] [facility] Comment on above: Order Comment: 112.2 Performed By: #### L 100.0100 #### [facility] [address] [place], [address] Nucleated RBC (Bld) [#/Vol] 0 10*3/uL Normal 0-[address] [facility] Comment on above: Order Comment: 112.2 Performed By: #### L 100.0100 #### [facility] [address] [place], [address] Platelet mean volume (Bld) [Entitic vol] 10.7 fL Normal 6.2-12.[address] [facility] Comment on above: Order Comment: 112.2 Performed By: #### L 100.0100 #### [facility] [address] [place], [address] Platelets (Bld) [#/Vol] 378 10*3/uL Normal 150-[address] [facility] Comment on above: Order Comment: 112.2 Performed By: #### L 100.0100 #### [facility] [address] [place], [address] RBC (Bld) [#/Vol] 4.25 10*6/uL Normal 4.2-5.4 [facility] Comment on above: Order Comment: 112.2 Performed By: #### L 100.0100 #### [facility] [address] [place], [address] RDW SD 50.3 fl High 35.1-43.[address] [facility] Comment on above: Order Comment: 112.2 Performed By: #### L 100.0100 #### [facility] [address] [place], [address] WBC (Bld) [#/Vol] 15.5 10*3/uL High 4.4-11.0 [facility] Comment on above: Order Comment: 112.2 Performed By: #### L 100.0100 #### [facility] [address] [place], [address] Basic Metabolic Profile (BMP )on 04-16-2024 BUN/CRE 15.4 RATIO Normal 10-[address] [facility] Comment on above: Order Comment: 112.2 Performed By: #### L 501.8100 #### [facility] [address] [place], [address] CA,Total 9.3 mg/dL Normal 8.5-10.[address] [facility] Comment on above: Order Comment: 112.2 Performed By: #### L 501.8100 #### [facility] [address] [place], [address] Chloride [Moles/Vol] 99 mmol/L Normal 98-107 [facility] Comment on above: Order Comment: 112.2 Performed By: #### L 501.8100 #### [facility] [address] [place], [address] CO2 [Moles/Vol] 22.0 mmol/L Normal 21.0-32.[address] [facility] Comment on above: Order Comment: 112.2 Performed By: #### L 501.8100 #### [facility] [address] [place], [address] Creatinine [Mass/Vol] 1.04 mg/dL High 0.55-1.02 [facility] Comment on above: Order Comment: 112.2 Result Comment: The validity of the calculated GFR GFRAA in patients over 70 years has not been determined. Clinical correlation is essential. Performed By: #### L 501.8100 #### [facility] [address] [place], [address] EST GFR - AA 65 mL/min Normal >[address] [facility] Comment on above: Order Comment: 112.2 Result Comment: Afri can [place] GFR Calc Performed By: #### L 501.8100 #### [facility] [address] [place], [address] GAP 12 Normal 5-[address] [facility] Comment on above: Order Comment: 112.2 Performed By: #### L 501.8100 #### [facility] [address] [place], [address] GFR/1.73 sq M.predicted among non-blacks MDRD (S/P/Bld) [Vol rate/Area] 54 mL/min/{1.73_m2} Low >[address] [facility] Comment on above: Order Comment: 112.2 Result Comment: Non- GFR Calc Performed By: #### L 501.8100 #### [facility] [address] [place], [address] Glucose [Mass/Vol] 148 mg/dL High 74-106 [facility] Comment on above: Order Comment: 112.2 Result Comment: Fast ing Glucose result greater than or equal to 126 mg/dL suggests DIABETES MELLITUS per A.D.A. criteria. Performed By: #### L 501.8100 #### [facility] [address] [place], [address] Potassium [Moles/Vol] 4.4 mmol/L Normal 3.5-5.1 [facility] Comment on above: Order Comment: 112.2 Performed By: #### L 501.8100 #### [facility] [address] [place], [address] Sodium [Moles/Vol] 133 mmol/L Low 136-145 [facility] Comment on above: Order Comment: 112.2 Performed By: #### L 501.8100 #### [facility] [address] [place], [address] Urea nitrogen [Mass/Vol] 16 mg/dL Normal 7-[address] [facility] Comment on above: Order Comment: 112.2 Performed By: #### L 501.8100 #### [facility] [address] [place], [address] CBC-Complete Blood Cnt No Di ffon 04-16-2024 Erythrocyte distribution width (RBC) [Ratio] 14.6 % Normal 11.6-14.[address] [facility] Comment on above: Order Comment: 112.2 Performed By: #### L 500.4100, L100.0500, L501.9985, L500.2500 #### [facility] [address] [place], [address] Hematocrit (Bld) [Volume fraction] 40.0 % Normal 37-[address] [facility] Comment on above: Order Comment: 112.2 Performed By: #### L 500.4100, L100.0500, L501.9985, L500.2500 #### [facility] [address] [place], [address] Hemoglobin (Bld) [Mass/Vol] 13.1 g/dL Normal 12.0-15.[address] [facility] Comment on above: Order Comment: 112.2 Performed By: #### L 500.4100, L100.0500, L501.9985, L500.2500 #### [facility] [address] [place], [address] MCH (RBC) [Entitic mass] 28.4 pg Normal 27.0-32.[address] [facility] Comment on above: Order Comment: 112.2 Performed By: #### L 500.4100, L100.0500, L501.9985, L500.2500 #### [facility] [address] [place], [address] MCHC (RBC) [Mass/Vol] 32.8 g/dL Normal 32-36 [facility] Comment on above: Order Comment: 112.2 Performed By: #### L 500.4100, L100.0500, L501.9985, L500.2500 #### [facility] [address] [place], [address] MCV (RBC) [Entitic vol] 86.8 fL Normal 81-[address] [facility] Comment on above: Order Comment: 112.2 Performed By: #### L 500.4100, L100.0500, L501.9985, L500.2500 #### [facility] [address] [place], [address] Platelet mean volume (Bld) [Entitic vol] 10.2 fL Normal 6.2-12.[address] [facility] Comment on above: Order Comment: 112.2 Performed By: #### L 500.4100, L100.0500, L501.9985, L500.2500 #### [facility] [address] [place], [address] Platelets (Bld) [#/Vol] 466 10*3/uL High 150-[address] [facility] Comment on above: Order Comment: 112.2 Performed By: #### L 500.4100, L100.0500, L501.9985, L500.2500 #### [facility] [address] [place], [address] RBC (Bld) [#/Vol] 4.61 10*6/uL Normal 4.2-5.4 [facility] Comment on above: Order Comment: 112.2 Performed By: #### L 500.4100, L100.0500, L501.9985, L500.2500 #### [facility] [address] [place], [address] RDW SD 46.1 fl High 35.1-43.[address] [facility] Comment on above: Order Comment: 112.2 Performed By: #### L 500.4100, L100.0500, L501.9985, L500.2500 #### [facility] [address] [place], [address] WBC (Bld) [#/Vol] 16.2 10*3/uL High 4.4-11.0 [facility] Comment on above: Order Comment: 112.2 Performed By: #### L 500.4100, L100.0500, L501.9985, L500.2500 #### [facility] [address] [place], [address] Hemoglobin A1con 04-16-2024 HbA1c (Bld) [Mass fraction] 9.2 % High 3.8-5.[address] [facility] Comment on above: Order Comment: 112.2 Result Comment: Norm al < 5.7 % Prediabetic 5.7 - 6.4 % Diabetic >or= 6.5 % Please note range changes. Performed By: #### L 501.8100 #### [facility] [address] [place], [address] Lipid Profileon 04-16-2024 Cholesterol [Mass/Vol] 104 mg/dL Normal 200 [facility] Comment on above: Order Comment: 112.2 Result Comment: <200 mg/dL Desirable 200-240 mg/dL Borderline >240 mg/dL High Risk Performed By: #### L 501.8100 #### [facility] [address] [place], [address] Cholesterol in HDL [Mass/Vol] 41 mg/dL Normal [facility] Comment on above: Order Comment: 112.2 Result Comment: The drugs N-Acetylcysteine and Metamizole may falsely depress this assay. Reference Range HDL <40 mg/dL Low HDL Cholesterol HDL >or= 60 mg/dL High HDL Cholesterol Performed By: #### L 501.8100 #### [facility] [address] [place], [address] Cholesterol in LDL [Mass/Vol] 34 mg/dL Normal 0-[address] [facility] Comment on above: Order Comment: 112.2 Performed By: #### L 501.8100 #### [facility] [address] [place], [address] Cholesterol in VLDL [Mass/Vol] 29 mg/dL Normal 5-[address] [facility] Comment on above: Order Comment: 112.2 Performed By: #### L 501.8100 #### [facility] [address] [place], [address] Triglyceride [Mass/Vol] 143 mg/dL Normal [facility] Comment on above: Order Comment: 112.2 Result Comment: The drugs N-Acetylcysteine and Metamizole may falsely depress this assay. Serum Triglycerides Reference Interval Normal <150 mg/dL Borderline high 150 - 199 mg/dL High 200 - 499 mg/dL Very High > or = 500 mg/dL Performed By: #### L 501.8100 #### [facility] [address] [place], [address] Basic Metabolic Profile (BMP )on 04-02-2024 BUN/CRE 18.5 RATIO Normal 10-[address] [facility] Comment on above: Order Comment: 112.2 Performed By: #### L 501.8100 #### [facility] [address] [place], [address] CA,Total 9.2 mg/dL Normal 8.5-10.[address] [facility] Comment on above: Order Comment: 112.2 Performed By: #### L 501.8100 #### [facility] [address] [place], [address] Chloride [Moles/Vol] 97 mmol/L Low 98-107 [facility] Comment on above: Order Comment: 112.2 Performed By: #### L 501.8100 #### [facility] [address] [place], [address] CO2 [Moles/Vol] 24.0 mmol/L Normal 21.0-32.[address] [facility] Comment on above: Order Comment: 112.2 Performed By: #### L 501.8100 #### [facility] [address] [place], [address] Creatinine [Mass/Vol] 0.97 mg/dL Normal 0.55-1.02 [facility] Comment on above: Order Comment: 112.2 Result Comment: The validity of the calculated GFR GFRAA in patients over 70 years has not been determined. Clinical correlation is essential. Performed By: #### L 501.8100 #### [facility] [address] [place], [address] EST GFR - AA 70 mL/min Normal >[address] [facility] Comment on above: Order Comment: 112.2 Result Comment: Afri can [place] GFR Calc Performed By: #### L 501.8100 #### [facility] [address] [place], [address] GAP 9 Normal 5-[address] [facility] Comment on above: Order Comment: 112.2 Performed By: #### L 501.8100 #### [facility] [address] [place], [address] GFR/1.73 sq M.predicted among non-blacks MDRD (S/P/Bld) [Vol rate/Area] 58 mL/min/{1.73_m2} Low >[address] [facility] Comment on above: Order Comment: 112.2 Result Comment: Non- GFR Calc Performed By: #### L 501.8100 #### [facility] [address] [place], [address] Glucose [Mass/Vol] 200 mg/dL High 74-106 [facility] Comment on above: Order Comment: 112.2 Result Comment: Gluc ose result greater than or equal to 200 mg/dL suggests DIABETES MELLITUS per A.D.A. criteria. Performed By: #### L 501.8100 #### [facility] [address] [place], [address] Potassium [Moles/Vol] 4.5 mmol/L Normal 3.5-5.1 [facility] Comment on above: Order Comment: 112.2 Performed By: #### L 501.8100 #### [facility] [address] [place], [address] Sodium [Moles/Vol] 130 mmol/L Low 136-145 [facility] Comment on above: Order Comment: 112.2 Performed By: #### L 501.8100 #### [facility] [address] [place], [address] Urea nitrogen [Mass/Vol] 18 mg/dL Normal 7-[address] [facility] Comment on above: Order Comment: 112.2 Performed By: #### L 501.8100 #### [facility] [address] [place], [address] CBC-Complete Blood Cnt No Di ffon 04-02-2024 Erythrocyte distribution width (RBC) [Ratio] 14.3 % Normal 11.6-14.[address] [facility] Comment on above: Order Comment: 112.2 Performed By: #### L 501.8100 #### [facility] [address] [place], [address] Hematocrit (Bld) [Volume fraction] 38.1 % Normal 37-[address] [facility] Comment on above: Order Comment: 112.2 Performed By: #### L 501.8100 #### [facility] [address] [place], [address] Hemoglobin (Bld) [Mass/Vol] 12.5 g/dL Normal 12.0-15.[address] [facility] Comment on above: Order Comment: 112.2 Performed By: #### L 501.8100 #### [facility] [address] [place], [address] MCH (RBC) [Entitic mass] 28.4 pg Normal 27.0-32.[address] [facility] Comment on above: Order Comment: 112.2 Performed By: #### L 501.8100 #### [facility] [address] [place], [address] MCHC (RBC) [Mass/Vol] 32.8 g/dL Normal 32-36 [facility] Comment on above: Order Comment: 112.2 Performed By: #### L 501.8100 #### [facility] [address] [place], [address] MCV (RBC) [Entitic vol] 86.6 fL Normal 81-[address] [facility] Comment on above: Order Comment: 112.2 Performed By: #### L [id number] #### [facility] [address] [place], [address] Platelet mean volume (Bld) [Entitic vol] 10.2 fL Normal 6.2-12.[address] [facility] Comment on above: Order Comment: 112.2 Performed By: #### L 501.8100 #### [facility] [address] [place], [address] Platelets (Bld) [#/Vol] 438 10*3/uL Normal 150-[address] [facility] Comment on above: Order Comment: 112.2 Performed By: #### L 501.8100 #### [facility] [address] [place], [address] RBC (Bld) [#/Vol] 4.40 10*6/uL Normal 4.2-5.4 [facility] Comment on above: Order Comment: 112.2 Performed By: #### L 501.8100 #### [facility] [address] [place], [address] RDW SD 45.1 fl High 35.1-43.[address] [facility] Comment on above: Order Comment: 112.2 Performed By: #### L 501.8100 #### [facility] [address] [place], [address] WBC (Bld) [#/Vol] 13.4 10*3/uL High 4.4-11.0 [facility] Comment on above: Order Comment: 112.2 Performed By: #### L 501.8100 #### [facility] [address] [place], [address] CBC W/Diff, Automatedon 03-03-2023 Absolute Lymph 1.72 X10 3/uL Normal 0.83-4.[address] [facility] Comment on above: Order Comment: 112.2 Performed By: #### L [id number] #### [facility] [address] [place], [address] Absolute Neut 10.1 X10 3/uL High 2.0-7.[address] [facility] Comment on above: Order Comment: 112.2 Performed By: #### L 501.8100 #### [facility] [address] [place], [address] Basophils/100 WBC (Bld) 0.5 % Normal 0-[address] [facility] Comment on above: Order Comment: 112.2 Performed By: #### L 501.8100 #### [facility] [address] [place], [address] Eosinophils/100 WBC (Bld) 1.6 % Normal 0-[address] [facility] Comment on above: Order Comment: 112.2 Performed By: #### L [id number] #### [facility] [address] [place], [address] Erythrocyte distribution width (RBC) [Ratio] 14.2 % Normal 11.6-14.[address] [facility] Comment on above: Order Comment: 112.2 Performed By: #### L [id number] #### [facility] [address] [place], [address] Hematocrit (Bld) [Volume fraction] 36.6 % Low 37-[address] [facility] Comment on above: Order Comment: 112.2 Performed By: #### L [id number] #### [facility] [address] [place], [address] Hemoglobin (Bld) [Mass/Vol] 12.2 g/dL Normal 12.0-15.[address] [facility] Comment on above: Order Comment: 112.2 Performed By: #### L [id number] #### [facility] [address] [place], [address] IG% 2.800 High 0.0-0.[address] [facility] Comment on above: Order Comment: 112.2 Result Comment: IG% - Immature Granulocytes (promyelocytes, myelocytes and metamyelocytes) > 1% indicates that a LEFT SHIFT is Present. Performed By: #### L 501.8100 #### [facility] [address] [place], [address] Lymphocytes/100 WBC (Bld) 12.8 % Low 19-[address] [facility] Comment on above: Order Comment: 112.2 Performed By: #### L [id number] #### [facility] [address] [place], [address] MCH (RBC) [Entitic mass] 28.9 pg Normal 27.0-32.[address] [facility] Comment on above: Order Comment: 112.2 Performed By: #### L [id number] #### [facility] [address] [place], [address] MCHC (RBC) [Mass/Vol] 33.3 g/dL Normal 32-36 [facility] Comment on above: Order Comment: 112.2 Performed By: #### L [id number] #### [facility] [address] [place], [address] MCV (RBC) [Entitic vol] 86.7 fL Normal 81-[address] [facility] Comment on above: Order Comment: 112.2 Performed By: #### L [id number] #### [facility] [address] [place], [address] Monocytes/100 WBC (Bld) 6.7 % Normal 0-[address] [facility] Comment on above: Order Comment: 112.2 Performed By: #### L [id number] #### [facility] [address] [place], [address] Neutrophils/100 WBC (Bld) 75.6 % High 47-[address] [facility] Comment on above: Order Comment: 112.2 Performed By: #### L [id number] #### [facility] [address] [place], [address] Nucleated RBC (Bld) [#/Vol] 0 10*3/uL Normal 0-[address] [facility] Comment on above: Order Comment: 112.2 Performed By: #### L [id number] #### [facility] [address] [place], [address] Platelet mean volume (Bld) [Entitic vol] 10.3 fL Normal 6.2-12.[address] [facility] Comment on above: Order Comment: 112.2 Performed By: #### L [id number] #### [facility] [address] [place], [address] Platelets (Bld) [#/Vol] 564 10*3/uL High 150-[address] [facility] Comment on above: Order Comment: 112.2 Performed By: #### L [id number] #### [facility] [address] [place], [address] RBC (Bld) [#/Vol] 4.22 10*6/uL Normal 4.2-5.4 [facility] Comment on above: Order Comment: 112.2 Performed By: #### L [id number] #### [facility] [address] [place], [place], [id number] RDW SD 44.9 fl High 35.1-43.[address] [facility] Comment on above: Order Comment: 112.2 Performed By: #### L [id number] #### [facility] [address] [place], [address] WBC (Bld) [#/Vol] 13.4 10*3/uL High 4.4-11.0 [facility] Comment on above: Order Comment: 112.2 Performed By: #### L [id number] #### [facility] [address] [place], [place], [id number] Urine Cultureon 03-19-2024 URC Klebsiella oxytoca [place] Count >100,000 Klebsiella oxytoca: REACTION Ampicillin Islt [...] TMP SMX Islt MENDY <=20 S Normal [facility] Comment on above: Performed By: #### M [id number] #### [facility] [address] [place], [place], [address] Basic Metabolic Profile (BMP )on 03-16-2024 BUN/CRE 19.6 RATIO Normal 10-[address] [facility] Comment on above: Order Comment: 112.2 Performed By: #### M [id number] #### [facility] [address] [place], [address] CA,Total 8.6 mg/dL Normal 8.5-10.[address] [facility] Comment on above: Order Comment: 112.2 Performed By: #### M [id number] #### [facility] [address] [place], [address] Chloride [Moles/Vol] 92 mmol/L Low 98-107 [facility] Comment on above: Order Comment: 112.2 Performed By: #### M [id number] #### [facility] [address] [place], [address] CO2 [Moles/Vol] 25.0 mmol/L Normal 21.0-32.[address] [facility] Comment on above: Order Comment: 112.2 Performed By: #### M [id number] #### [facility] [address] [place], [address] Creatinine [Mass/Vol] 1.02 mg/dL Normal 0.55-1.02 [facility] Comment on above: Order Comment: 112.2 Result Comment: The validity of the calculated GFR GFRAA in patients over 70 years has not been determined. Clinical correlation is essential. Performed By: #### M [id number] #### [facility] [address] [place], [address] EST GFR - AA 66 mL/min Normal >[address] [facility] Comment on above: Order Comment: 112.2 Result Comment: Afri can [place] GFR Calc Performed By: #### M [id number] #### [facility] [address] [place], [address] GAP 7 Normal 5-[address] [facility] Comment on above: Order Comment: 112.2 Performed By: #### M [id number] #### [facility] [address] [place], [address] GFR/1.73 sq M.predicted among non-blacks MDRD (S/P/Bld) [Vol rate/Area] 55 mL/min/{1.73_m2} Low >[address] [facility] Comment on above: Order Comment: 112.2 Result Comment: Non- GFR Calc Performed By: #### M [id number] #### [facility] [address] [place], [address] Glucose [Mass/Vol] 123 mg/dL High 74-106 [facility] Comment on above: Order Comment: 112.2 Result Comment: Fast ing Glucose result from 100 to 125 mg/dL suggests IMPAIRED HOMEOSTASIS per A.D.A. criteria. Performed By: #### M [id number] #### [facility] [address] [place], [address] Potassium [Moles/Vol] 3.8 mmol/L Normal 3.5-5.1 [facility] Comment on above: Order Comment: 112.2 Performed By: #### M 100.2200 #### [facility] [address] [place], [address] Sodium [Moles/Vol] 124 mmol/L Low 136-145 [facility] Comment on above: Order Comment: 112.2 Performed By: #### M 100.2200 #### [facility] [address] [place], [address] Urea nitrogen [Mass/Vol] 20 mg/dL High 7-[address] [facility] Comment on above: Order Comment: 112.2 Performed By: #### M 100.2200 #### [facility] [address] [place], [address] CBC-Complete Blood Cnt No Di ffon 03-16-2024 Erythrocyte distribution width (RBC) [Ratio] 13.4 % Normal 11.6-14.[address] [facility] Comment on above: Order Comment: 112.2 Performed By: #### M 100.2200 #### [facility] [address] [place], [address] Hematocrit (Bld) [Volume fraction] 33.8 % Low 37-[address] [facility] Comment on above: Order Comment: 112.2 Performed By: #### M 100.0 #### [facility] [address] [place], [address] Hemoglobin (Bld) [Mass/Vol] 11.4 g/dL Low 12.0-15.[address] [facility] Comment on above: Order Comment: 112.2 Performed By: #### M [id number] #### [facility] [address] [place], [address] MCH (RBC) [Entitic mass] 28.7 pg Normal 27.0-32.[address] [facility] Comment on above: Order Comment: 112.2 Performed By: #### M 100.0 #### [facility] [address] [place], [address] MCHC (RBC) [Mass/Vol] 33.7 g/dL Normal 32-36 [facility] Comment on above: Order Comment: 112.2 Performed By: #### M 100.0 #### [facility] [address] [place], [address] MCV (RBC) [Entitic vol] 85.1 fL Normal 81-[address] [facility] Comment on above: Order Comment: 112.2 Performed By: #### M 100.2199 #### [facility] [address] [place], [address] Platelet mean volume (Bld) [Entitic vol] 10.4 fL Normal 6.2-12.[address] [facility] Comment on above: Order Comment: 112.2 Performed By: #### M [id number] #### [facility] [address] [place], [address] Platelets (Bld) [#/Vol] 397 10*3/uL Normal 150-[address] [facility] Comment on above: Order Comment: 112.2 Performed By: #### M 100.2200 #### [facility] [address] [place], [address] RBC (Bld) [#/Vol] 3.97 10*6/uL Low 4.2-5.4 [facility] Comment on above: Order Comment: 112.2 Performed By: #### M 100.2200 #### [facility] [address] [place], [address] RDW SD 42.1 fl Normal 35.1-43.[address] [facility] Comment on above: Order Comment: 112.2 Performed By: #### M 100.2200 #### [facility] [address] [place], [address] WBC (Bld) [#/Vol] 21.8 10*3/uL High 4.4-11.0 [facility] Comment on above: Order Comment: 112.2 Performed By: #### M 100.2200 #### [facility] [address] [place], [address] Emergency Department Summary on 03-13-2024 Emergency Department Summary [facility] Medical Records Department [address] [place] [address] Emergency Department Summary 03/13/24 MR#: [id number] Acct: [id number] Name: NICHOLE AYERS Rep #: [id number] : 1940 83 From: Kamran Gomez [facility] PCP: Dr. Jake Waddell MD Status:DEP ER [...] LOC. Patient denies any chest pain, dizziness. [facility] Medical History (Updated 03/13/24 @ 19:48 by GUERA Reece) Dementia Closed left hip fracture Hyperlipidemia Hypertension [...] PO DAILY diabetes 07/27/18 05/14/19 History vitamins A,C,A-kpyh-mlexsm 4,296 1 ea PO BID eye health [...] no si (more content not included)... Normal [facility] Basophil percentageOrdered B y: Jake Waddell on 10-17-2023 Chloride [Moles/Vol] 106 mmol/L 98-107 [facility] Cholesterol [Mass/Vol] 114 mg/dL <200 [facility] Comment on above: <200 mg/dL Desirable 200-240 mg/dL Borderline >240 mg/dL High Risk Glucose [Mass/Vol] 198 mg/dL 74-106 [facility] Comment on above: Fasting Glucose resu lt greater than or equal to 126 mg/dL suggests DIABETES MELLITUS per A.D.A. criteria. Hemoglobin (Bld) [Mass/Vol] 13.2 g/dL 12.0-15.[address] [facility] Potassium [Moles/Vol] 4.3 mmol/L 3.5-5.1 [facility] Sodium [Moles/Vol] 138 mmol/L 136-145 [facility] Triglyceride [Mass/Vol] 89 mg/dL <[address] [facility] Comment on above: The drugs N-Acetylcy steine and Metamizole may falsely depress this assay.Serum Triglycerides Reference Interval Normal <150 mg/dL Borderline high 150 - 199 mg/dL High 200 - 499 mg/dL Very High > or = 500 mg/dL WBC (Bld) [#/Vol] 9.6 10*3/uL 4.4-11.0 [facility] Determination of erythrocyte mean corpuscular volume (MCV)Ordered By: Jake Waddell on 10-17-2023 MCV (RBC) [Entitic vol] 87.6 fL 81-[address] [facility] Erythrocyte distribution wid th ratioOrdered By: Jake Waddell on 10-17-2023 Erythrocyte distribution width (RBC) [Ratio] 13.9 % 11.6-14.[address] [facility] Erythrocyte distribution wid th standard deviationOrdered By: Jake Waddell on 10-17-2023 Erythrocyte distribution width (RBC) [Entitic vol] 43.9 fL 35.1-43.[address] [facility] Hematocrit Auto (Bld) [Volum e fraction]Ordered By: Jake Waddell on 10-17-2023 Hematocrit (Bld) [Volume fraction] 41.1 % 37-[address] [facility] - Chemistry and C hemistry - challengeOrdered By: Jake Waddell on 10-17-2023 Cholesterol in HDL [Mass/Vol] 44 mg/dL >[address] [facility] Comment on above: The drugs N-Acetylcy steine and Metamizole may falsely depress this assay. Reference Range HDL <40 mg/dL Low HDL Cholesterol HDL >or= 60 mg/dL High HDL Cholesterol Cholesterol in LDL [Mass/Vol] 52 mg/dL 0-[address] [facility] CO2 [Moles/Vol] 24.0 mmol/L 21.0-32.[address] [facility] Urea nitrogen/Creatinine [Mass ratio] 18.1 mg/mg 10-[address] [facility] - Hematology and Cell countsOrdered By: Jake Waddell on 10-17-2023 MCH (RBC) [Entitic mass] 28.1 pg 27.0-32.[address] [facility] MCHC (RBC) [Mass/Vol] 32.1 g/dL 32-36 [facility] Platelet mean volume (Bld) [Entitic vol] 11.2 fL 6.2-12.[address] [facility] Platelets (Bld) [#/Vol] 344 10*3/uL 150-[address] [facility] No Panel InformationOrdered By: Jake Waddell on 10-17-2023 Estimated GFR (MDRD) Amer 85 mL/min >[address] [facility] Comment on above: GFR Calc Estimated GFR (MDRD) Non-Af Amer 70 mL/min >[address] [facility] Comment on above: Non- GFR Calc VLDL Cholesterol 18 mg/dL 5-[address] [facility] RBC Auto (Bld) [#/Vol]Ordere d By: Jake Waddell on 10-17-2023 RBC (Bld) [#/Vol] 4.69 10*6/uL 4.2-5.4 [facility] Serum or plasma calcium becki urement (mass/volume)Ordered By: Jake Waddell on 10-17-2023 Calcium [Mass/Vol] 8.9 mg/dL 8.5-10.1 [facility] Serum or plasma creatinine m easurement (mass/volume)Ordered By: Jake Waddell on 10-17-2023 Creatinine [Mass/Vol] 0.83 mg/dL 0.55-1.02 [facility] Comment on above: The validity of the calculated GFR & GFRAA in patients over 70 years has not been determined. Clinical correlation is essential. Serum or plasma urea nitroge n measurement (mass/volume)Ordered By: Jake Waddell on 10-17-2023 Urea nitrogen [Mass/Vol] 15 mg/dL 7-[address] [facility] Thin prep Papanicolaou smear with manual screeningOrdered By: Jake Waddell on 10-17-2023 Thin prep Papanicolaou smear with manual screening 8 - [facility] Whole blood hemoglobin A1c/t otal hemoglobin ratio (mass fraction)Ordered By: Jake Waddell on 10-17-2023 HbA1c (Bld) [Mass fraction] 8.5 % 3.8-5.[address] [facility] Comment on above: Normal < 5.7 % Predi abetic 5.7 - 6.4 % Diabetic >or= 6.5 % Please note range changes. Basophil percentageOrdered B y: Jake Waddell on 04-15-2023 Chloride [Moles/Vol] 102 mmol/L 98-107 [facility] Cholesterol [Mass/Vol] 118 mg/dL <200 [facility] Comment on above: <200 mg/dL Desirable 200-240 mg/dL Borderline >240 mg/dL High Risk Glucose [Mass/Vol] 236 mg/dL 74-106 [facility] Comment on above: Glucose result great er than or equal to 200 mg/dLsuggests DIABETES MELLITUS per A.D.A. criteria. Potassium [Moles/Vol] 4.5 mmol/L 3.5-5.1 [facility] Sodium [Moles/Vol] 135 mmol/L 136-145 [facility] Triglyceride [Mass/Vol] 119 mg/dL <[address] [facility] Comment on above: The drugs N-Acetylcy steine and Metamizole may falsely depress this assay.Serum Triglycerides Reference Interval Normal <150 mg/dL Borderline high 150 - 199 mg/dL High 200 - 499 mg/dL Very High > or = 500 mg/dL WBC (Bld) [#/Vol] 10.0 10*3/uL 4.4-11.0 [facility] Blood erythrocytes count (nu mber/volume)Ordered By: Jake Waddell on 04-15-2023 RBC (Bld) [#/Vol] 4.83 10*6/uL 4.2-5.4 [facility] Blood hemoglobin measurement (mass/volume)Ordered By: Jake Waddell on 04-15-2023 Hemoglobin (Bld) [Mass/Vol] 13.9 g/dL 12.0-15.[address] [facility] Blood platelet mean volumeOr dered By: Jake Waddell on 04-15-2023 Platelet mean volume (Bld) [Entitic vol] 10.8 fL 6.2-12.[address] [facility] Determination of erythrocyte mean corpuscular volume (MCV)Ordered By: Jake Waddell on 04-15-2023 MCV (RBC) [Entitic vol] 89.6 fL 81-[address] [facility] Hematocrit Auto (Bld) [Volum e fraction]Ordered By: Jake Waddell on 04-15-2023 Hematocrit (Bld) [Volume fraction] 43.3 % 37-[address] [facility] - Chemistry and C hemistry - challengeOrdered By: Jake Waddell on 04-15-2023 CO2 [Moles/Vol] 26.0 mmol/L 21.0-32.[address] [facility] Urea nitrogen/Creatinine [Mass ratio] 19.3 mg/mg 10-[address] [facility] - Hematology and Cell countsOrdered By: Jake Waddell on 04-15-2023 Erythrocyte distribution width (RBC) [Entitic vol] 46.2 fL 35.1-43.[address] [facility] Erythrocyte distribution width (RBC) [Ratio] 14.1 % 11.6-14.[address] [facility] MCH (RBC) [Entitic mass] 28.8 pg 27.0-32.[address] [facility] MCHC Auto (RBC) [Mass/Vol]Or dered By: Jake Waddell on 04-15-2023 MCHC (RBC) [Mass/Vol] 32.1 g/dL 32-36 [facility] No Panel InformationOrdered By: Jake Waddell on 04-15-2023 Estimated GFR (MDRD) Amer 69 mL/min >[address] [facility] Comment on above: GFR Calc Estimated GFR (MDRD) Non-Af Amer 57 mL/min >[address] [facility] Comment on above: Non- GFR Calc Platelets bldOrdered By: Delmer Waddell on 04-15-2023 Platelets (Bld) [#/Vol] 357 10*3/uL 150-[address] [facility] Serum or plasma calcium becki urement (mass/volume)Ordered By: Jake Waddell on 04-15-2023 Calcium [Mass/Vol] 9.1 mg/dL 8.5-10.1 [facility] Serum or plasma cholesterol in HDL measurement (mass/volume)Ordered By: Jake Waddell on 04-15-2023 Cholesterol in HDL [Mass/Vol] 42 mg/dL >[address] [facility] Comment on above: The drugs N-Acetylcy steine and Metamizole may falsely depress this assay. Reference Range HDL <40 mg/dL Low HDL Cholesterol HDL >or= 60 mg/dL High HDL Cholesterol Serum or plasma cholesterol in VLDL measurement (mass/volume)Ordered By: Jake Waddell on 04-15-2023 Cholesterol in VLDL [Mass/Vol] 24 mg/dL 5-[address] [facility] Serum or plasma creatinine m easurement (mass/volume)Ordered By: Jake Waddell on 04-15-2023 Creatinine [Mass/Vol] 0.98 mg/dL 0.55-1.02 [facility] Comment on above: The validity of the calculated GFR & GFRAA in patients over 70 years has not been determined. Clinical correlation is essential. Serum or plasma low density lipoprotein (LDL) cholesterol measurement (mass/volume)Ordered By: Jake Waddell on 04-15-2023 Cholesterol in LDL [Mass/Vol] 52 mg/dL 0-[address] [facility] Serum or plasma urea nitroge n measurement (mass/volume)Ordered By: Jake Waddell on 04-15-2023 Urea nitrogen [Mass/Vol] 19 mg/dL 7-[address] [facility] Thin prep Papanicolaou smear with manual screeningOrdered By: Jake Waddell on 04-15-2023 Thin prep Papanicolaou smear with manual screening 7 5-[address] [facility] Whole blood hemoglobin A1c/t otal hemoglobin ratio (mass fraction)Ordered By: Jake Waddell on 04-15-2023 HbA1c (Bld) [Mass fraction] 9.7 % 3.8-5.[address] [facility] Comment on above: Normal < 5.7 % Predi abetic 5.7 - 6.4 % Diabetic >or= 6.5 % Please note range changes. Basophil percentageOrdered B y: Jake Waddell on 10-17-2022 Chloride [Moles/Vol] 103 mmol/L 98-107 [facility] Cholesterol [Mass/Vol] 148 mg/dL <200 [facility] Comment on above: <200 mg/dL Desirable 200-240 mg/dL Borderline >240 mg/dL High Risk Glucose [Mass/Vol] 109 mg/dL 74-106 [facility] Comment on above: Fasting Glucose resu lt from 100 to 125 mg/dL suggests IMPAIRED HOMEOSTASIS per A.D.A. criteria. Potassium [Moles/Vol] 4.3 mmol/L 3.5-5.1 [facility] Sodium [Moles/Vol] 137 mmol/L 136-145 [facility] Triglyceride [Mass/Vol] 143 mg/dL <[address] [facility] Comment on above: The drugs N-Acetylcy steine and Metamizole may falsely depress this assay.Serum Triglycerides Reference Interval Normal <150 mg/dL Borderline high 150 - 199 mg/dL High 200 - 499 mg/dL Very High > or = 500 mg/dL WBC (Bld) [#/Vol] 10.3 10*3/uL 4.4-11.0 [facility] Blood erythrocytes count (nu mber/volume)Ordered By: Jake Waddell on 10-17-2022 RBC (Bld) [#/Vol] 4.70 10*6/uL 4.2-5.4 [facility] Blood hemoglobin measurement (mass/volume)Ordered By: Jake Waddell on 10-17-2022 Hemoglobin (Bld) [Mass/Vol] 13.9 g/dL 12.0-15.[address] [facility] Blood platelet mean volumeOr dered By: Jake Waddell on 10-17-2022 Platelet mean volume (Bld) [Entitic vol] 10.7 fL 6.2-12.[address] [facility] Determination of erythrocyte mean corpuscular volume (MCV)Ordered By: Jake Waddell on 10-17-2022 MCV (RBC) [Entitic vol] 91.3 fL 81-[address] [facility] Hematocrit Auto (Bld) [Volum e fraction]Ordered By: Jake Waddell on 10-17-2022 Hematocrit (Bld) [Volume fraction] 42.9 % 37-[address] [facility] - Chemistry and C hemistry - challengeOrdered By: Jake Waddell on 10-17-2022 CO2 [Moles/Vol] 24.0 mmol/L 21.0-32.[address] [facility] Urea nitrogen/Creatinine [Mass ratio] 25.4 mg/mg 10-[address] [facility] - Hematology and Cell countsOrdered By: Jake Waddell on 02-15-2023 Erythrocyte distribution width (RBC) [Entitic vol] 46.4 fL 35.1-43.[address] [facility] Erythrocyte distribution width (RBC) [Ratio] 13.7 % 11.6-14.[address] [facility] MCH (RBC) [Entitic mass] 29.6 pg 27.0-32.[address] [facility] MCHC Auto (RBC) [Mass/Vol]Or dered By: Jake Waddell on 10-17-2022 MCHC (RBC) [Mass/Vol] 32.4 g/dL 32-36 [facility] No Panel InformationOrdered By: Jake Waddell on 10-17-2022 Estimated GFR (MDRD) Amer 73 mL/min >[address] [facility] Comment on above: GFR Calc Estimated GFR (MDRD) Non-Af Amer 60 mL/min >[address] [facility] Comment on above: Non- GFR Calc Platelets bldOrdered By: Delmer Waddell on 10-17-2022 Platelets (Bld) [#/Vol] 355 10*3/uL 150-[address] [facility] Serum or plasma calcium becki urement (mass/volume)Ordered By: Jake Waddell on 10-17-2022 Calcium [Mass/Vol] 9.8 mg/dL 8.5-10.1 [facility] Serum or plasma cholesterol in HDL measurement (mass/volume)Ordered By: Jake Waddell on 10-17-2022 Cholesterol in HDL [Mass/Vol] 51 mg/dL >[address] [facility] Comment on above: The drugs N-Acetylcy steine and Metamizole may falsely depress this assay. Reference Range HDL <40 mg/dL Low HDL Cholesterol HDL >or= 60 mg/dL High HDL Cholesterol Serum or plasma cholesterol in VLDL measurement (mass/volume)Ordered By: Jake Waddell on 10-17-2022 Cholesterol in VLDL [Mass/Vol] 29 mg/dL 5-[address] [facility] Serum or plasma creatinine m easurement (mass/volume)Ordered By: Jake Waddell on 10-17-2022 Creatinine [Mass/Vol] 0.95 mg/dL 0.55-1.02 [facility] Comment on above: The validity of the calculated GFR & GFRAA in patients over 70 years has not been determined. Clinical correlation is essential. Serum or plasma low density lipoprotein (LDL) cholesterol measurement (mass/volume)Ordered By: Jake Waddell on 10-17-2022 Cholesterol in LDL [Mass/Vol] 68 mg/dL 0-[address] [facility] Serum or plasma urea nitroge n measurement (mass/volume)Ordered By: aJke Waddell on 10-17-2022 Urea nitrogen [Mass/Vol] 24 mg/dL 7-[address] [facility] Thin prep Papanicolaou smear with manual screeningOrdered By: Jake Waddell on 10-17-2022 Thin prep Papanicolaou smear with manual screening 10 5-[address] [facility] Whole blood hemoglobin A1c/t otal hemoglobin ratio (mass fraction)Ordered By: Jake Waddell on 10-17-2022 HbA1c (Bld) [Mass fraction] 7.8 % 3.8-5.[address] [facility] Comment on above: Normal < 5.7 % Predi abetic 5.7 - 6.4 % Diabetic >or= 6.5 % Please note range changes. Basophil percentageOrdered B y: Jake Waddell on 09-17-2022 Chloride [Moles/Vol] 104 mmol/L 98-107 [facility] Glucose [Mass/Vol] 152 mg/dL 74-106 [facility] Comment on above: Fasting Glucose resu lt greater than or equal to 126 mg/dL suggests DIABETES MELLITUS per A.D.A. criteria. Potassium [Moles/Vol] 4.7 mmol/L 3.5-5.1 [facility] Sodium [Moles/Vol] 135 mmol/L 136-145 [facility] WBC (Bld) [#/Vol] 12.1 10*3/uL 4.4-11.0 [facility] Blood erythrocytes count (nu mber/volume)Ordered By: Jake Waddell on 09-17-2022 RBC (Bld) [#/Vol] 4.97 10*6/uL 4.2-5.4 [facility] Blood hemoglobin measurement (mass/volume)Ordered By: Jake Waddell on 09-17-2022 Hemoglobin (Bld) [Mass/Vol] 14.2 g/dL 12.0-15.[address] [facility] Blood platelet mean volumeOr dered By: Jake Waddell on 09-17-2022 Platelet mean volume (Bld) [Entitic vol] 11.3 fL 6.2-12.[address] [facility] Determination of erythrocyte mean corpuscular volume (MCV)Ordered By: Jake Waddell on 09-17-2022 MCV (RBC) [Entitic vol] 90.3 fL 81-[address] [facility] Hematocrit Auto (Bld) [Volum e fraction]Ordered By: Jake Waddell on 09-17-2022 Hematocrit (Bld) [Volume fraction] 44.9 % 37-[address] [facility] Laboratory - Chemistry and C hemistry - challengeOrdered By: Jake Waddell on 09-17-2022 CO2 [Moles/Vol] 24.0 mmol/L 21.0-32.[address] [facility] Urea nitrogen/Creatinine [Mass ratio] 20.6 mg/mg 10-[address] [facility] Laboratory - Hematology and Cell countsOrdered By: Jake Waddell on 09-17-2022 Erythrocyte distribution width (RBC) [Entitic vol] 48.2 fL 35.1-43.[address] [facility] Erythrocyte distribution width (RBC) [Ratio] 14.6 % 11.6-14.[address] [facility] MCH (RBC) [Entitic mass] 28.6 pg 27.0-32.[address] [facility] MCHC Auto (RBC) [Mass/Vol]Or dered By: Jake Waddell on 09-17-2022 MCHC (RBC) [Mass/Vol] 31.6 g/dL 32-36 [facility] No Panel InformationOrdered By: Jake Waddell on 09-17-2022 Estimated GFR (MDRD) Amer 75 mL/min >[address] [facility] Comment on above: GFR Calc Estimated GFR (MDRD) Non-Af Amer 62 mL/min >[address] [facility] Comment on above: Non- GFR Calc Platelets bldOrdered By: Delmer Waddell on 09-17-2022 Platelets (Bld) [#/Vol] 388 10*3/uL 150-[address] [facility] Serum or plasma calcium becki urement (mass/volume)Ordered By: Jake Waddell on 09-17-2022 Calcium [Mass/Vol] 9.4 mg/dL 8.5-10.1 [facility] Serum or plasma creatinine m easurement (mass/volume)Ordered By: Jake Waddell on 09-17-2022 Creatinine [Mass/Vol] 0.92 mg/dL 0.55-1.02 [facility] Comment on above: The validity of the calculated GFR & GFRAA in patients over 70 years has not been determined. Clinical correlation is essential. Serum or plasma urea nitroge n measurement (mass/volume)Ordered By: Jake Waddell on 09-17-2022 Urea nitrogen [Mass/Vol] 19 mg/dL 7-[address] [facility] Thin prep Papanicolaou smear with manual screeningOrdered By: Jake Waddell on 09-17-2022 Thin prep Papanicolaou smear with manual screening 7 5-[address] [facility] Basophil percentageOrdered B y: Jake Waddell on 08-15-2022 Chloride [Moles/Vol] 104 mmol/L 98-107 [facility] Glucose [Mass/Vol] 104 mg/dL 74-106 [facility] Comment on above: Fasting Glucose resu lt from 100 to 125 mg/dL suggests IMPAIRED HOMEOSTASIS per A.D.A. criteria. Potassium [Moles/Vol] 4.6 mmol/L 3.5-5.1 [facility] Sodium [Moles/Vol] 137 mmol/L 136-145 [facility] WBC (Bld) [#/Vol] 9.8 10*3/uL 4.4-11.0 [facility] Blood erythrocytes count (nu mber/volume)Ordered By: Jake Waddell on 08-15-2022 RBC (Bld) [#/Vol] 4.54 10*6/uL 4.2-5.4 [facility] Blood hemoglobin measurement (mass/volume)Ordered By: Jake Waddell on 08-15-2022 Hemoglobin (Bld) [Mass/Vol] 13.1 g/dL 12.0-15.[address] [facility] Blood platelet mean volumeOr dered By: Jake Waddell on 08-15-2022 Platelet mean volume (Bld) [Entitic vol] 11.2 fL 6.2-12.[address] [facility] Determination of erythrocyte mean corpuscular volume (MCV)Ordered By: Jake Waddell on 08-15-2022 MCV (RBC) [Entitic vol] 91.6 fL 81-[address] [facility] Hematocrit Auto (Bld) [Volum e fraction]Ordered By: Jake Waddell on 08-15-2022 Hematocrit (Bld) [Volume fraction] 41.6 % 37-[address] [facility] Laboratory - Chemistry and C hemistry - challengeOrdered By: Jake Waddell on 08-15-2022 CO2 [Moles/Vol] 25.0 mmol/L 21.0-32.[address] [facility] Urea nitrogen/Creatinine [Mass ratio] 21.9 mg/mg 10-[address] [facility] Laboratory - Hematology and Cell countsOrdered By: Jake Waddell on 08-15-2022 Erythrocyte distribution width (RBC) [Entitic vol] 54.9 fL 35.1-43.[address] [facility] Erythrocyte distribution width (RBC) [Ratio] 16.3 % 11.6-14.[address] [facility] MCH (RBC) [Entitic mass] 28.9 pg 27.0-32.[address] [facility] MCHC Auto (RBC) [Mass/Vol]Or dered By: Jake Waddell on 08-15-2022 MCHC (RBC) [Mass/Vol] 31.5 g/dL 32-36 [facility] No Panel InformationOrdered By: Jake Waddell on 08-15-2022 Estimated GFR (MDRD) Amer 76 mL/min >[address] [facility] Comment on above: GFR Calc Estimated GFR (MDRD) Non-Af Amer 62 mL/min >[address] [facility] Comment on above: Non- GFR Calc Platelets bldOrdered By: Delmer Waddell on 08-15-2022 Platelets (Bld) [#/Vol] 409 10*3/uL 150-[address] [facility] Serum or plasma calcium becki urement (mass/volume)Ordered By: Jake Waddell on 08-15-2022 Calcium [Mass/Vol] 9.5 mg/dL 8.5-10.1 [facility] Serum or plasma creatinine m easurement (mass/volume)Ordered By: Jake Waddell on 08-15-2022 Creatinine [Mass/Vol] 0.91 mg/dL 0.55-1.02 [facility] Comment on above: The validity of the calculated GFR & GFRAA in patients over 70 years has not been determined. Clinical correlation is essential. Serum or plasma urea nitroge n measurement (mass/volume)Ordered By: Jake Waddell on 08-15-2022 Urea nitrogen [Mass/Vol] 20 mg/dL 7-[address] [facility] Thin prep Papanicolaou smear with manual screeningOrdered By: Jake Waddell on 08-15-2022 Thin prep Papanicolaou smear with manual screening 8 5-[address] [facility] Basophil percentageOrdered B y: Jake Waddell on 07-16-2022 Chloride [Moles/Vol] 102 mmol/L 98-107 [facility] Glucose [Mass/Vol] 65 mg/dL 74-106 [facility] Potassium [Moles/Vol] 4.2 mmol/L 3.5-5.1 [facility] Sodium [Moles/Vol] 136 mmol/L 136-145 [facility] WBC (Bld) [#/Vol] 9.8 10*3/uL 4.4-11.0 [facility] Blood erythrocytes count (nu mber/volume)Ordered By: Jake Waddell on 07-16-2022 RBC (Bld) [#/Vol] 4.79 10*6/uL 4.2-5.4 [facility] Blood hemoglobin measurement (mass/volume)Ordered By: Jake Waddell on 07-16-2022 Hemoglobin (Bld) [Mass/Vol] 14.0 g/dL 12.0-15.[address] [facility] Blood platelet mean volumeOr dered By: Jake Waddell on 07-16-2022 Platelet mean volume (Bld) [Entitic vol] 10.8 fL 6.2-12.[address] [facility] Determination of erythrocyte mean corpuscular volume (MCV)Ordered By: Jake Waddell on 07-16-2022 MCV (RBC) [Entitic vol] 86.8 fL 81-[address] [facility] Hematocrit Auto (Bld) [Volum e fraction]Ordered By: Jake Waddell on 07-16-2022 Hematocrit (Bld) [Volume fraction] 41.6 % 37-[address] [facility] Laboratory - Chemistry and C hemistry - challengeOrdered By: Jake Waddell on 07-16-2022 CO2 [Moles/Vol] 25.0 mmol/L 21.0-32.[address] [facility] Urea nitrogen/Creatinine [Mass ratio] 23.5 mg/mg 10-[address] [facility] Laboratory - Hematology and Cell countsOrdered By: Jake Waddell on 07-16-2022 Erythrocyte distribution width (RBC) [Entitic vol] 50.3 fL 35.1-43.[address] [facility] Erythrocyte distribution width (RBC) [Ratio] 15.9 % 11.6-14.[address] [facility] MCH (RBC) [Entitic mass] 29.2 pg 27.0-32.[address] [facility] MCHC Auto (RBC) [Mass/Vol]Or dered By: Jake Waddell on 07-16-2022 MCHC (RBC) [Mass/Vol] 33.7 g/dL 32-36 [facility] No Panel InformationOrdered By: Jake Waddell on 07-16-2022 Estimated GFR (MDRD) Amer 124 mL/min >[address] [facility] Comment on above: GFR Calc Estimated GFR (MDRD) Non-Af Amer 102 mL/min >[address] [facility] Comment on above: Non- GFR Calc Platelets bldOrdered By: Delmer Waddell on 07-16-2022 Platelets (Bld) [#/Vol] 408 10*3/uL 150-[address] [facility] Serum or plasma calcium becki urement (mass/volume)Ordered By: Jake Waddell on 07-16-2022 Calcium [Mass/Vol] 9.1 mg/dL 8.5-10.1 [facility] Serum or plasma creatinine m easurement (mass/volume)Ordered By: Jake Waddell on 07-16-2022 Creatinine [Mass/Vol] 0.60 mg/dL 0.55-1.02 [facility] Comment on above: The validity of the calculated GFR & GFRAA in patients over 70 years has not been determined. Clinical correlation is essential. Serum or plasma urea nitroge n measurement (mass/volume)Ordered By: Jake Waddell on 07-16-2022 Urea nitrogen [Mass/Vol] 14 mg/dL 7-[address] [facility] Thin prep Papanicolaou smear with manual screeningOrdered By: Jake Waddell on 07-16-2022 Thin prep Papanicolaou smear with manual screening 9 -[address] [facility] Absolute lymphocyte countOrd ered By: Jake Waddell on 06-29-2022 Lymphocytes Auto (Unsp spec) [#/Vol] 1.85 10*3/uL 0.83-4.[address] [facility] Basophil percentageOrdered B y: Jake Waddell on 06-29-2022 Basophils/100 WBC (Bld) 0.4 % 0-[address] [facility] Eosinophils/100 WBC (Bld) 4.2 % 0-[address] [facility] Neutrophils (Bld) [#/Vol] 6.0 10*3/uL 2.0-7.[address] [facility] Neutrophils/100 WBC (Bld) 66.2 % 47-[address] [facility] WBC (Bld) [#/Vol] 9.1 10*3/uL 4.4-11.0 [facility] Blood erythrocytes count (nu mber/volume)Ordered By: Jake Waddell on 06-29-2022 RBC (Bld) [#/Vol] 4.47 10*6/uL 4.2-5.4 [facility] Blood hemoglobin measurement (mass/volume)Ordered By: Jake Waddell on 06-29-2022 Hemoglobin (Bld) [Mass/Vol] 13.0 g/dL 12.0-15.[address] [facility] Blood lymphocytes/100 leukoc ytesOrdered By: Jake Waddell on 06-29-2022 Lymphocytes/100 WBC (Bld) 20.4 % 19-[address] [facility] Blood monocytes/100 leukocyt esOrdered By: Jake Waddell on 06-29-2022 Monocytes/100 WBC (Bld) 8.5 % 0-[address] [facility] Blood platelet mean volumeOr dered By: Jake Waddell on 06-29-2022 Platelet mean volume (Bld) [Entitic vol] 10.8 fL 6.2-12.[address] [facility] Determination of erythrocyte mean corpuscular volume (MCV)Ordered By: Jake Waddell on 06-29-2022 MCV (RBC) [Entitic vol] 86.6 fL 81-[address] [facility] Hematocrit Auto (Bld) [Volum e fraction]Ordered By: Jake Waddell on 06-29-2022 Hematocrit (Bld) [Volume fraction] 38.7 % 37-[address] [facility] Laboratory - Hematology and Cell countsOrdered By: Jake Waddell on 06-29-2022 Erythrocyte distribution width (RBC) [Entitic vol] 48.4 fL 35.1-43.[address] [facility] Erythrocyte distribution width (RBC) [Ratio] 15.3 % 11.6-14.[address] [facility] Immature granulocytes/100 WBC (Bld) 0.300 % 0.0-0.[address] [facility] Comment on above: IG% - Immature Granu locytes (promyelocytes, myelocytes and metamyelocytes) > 1% indicates that a LEFT SHIFT is Present. MCH (RBC) [Entitic mass] 29.1 pg 27.0-32.[address] [facility] Nucleated RBC/100 WBC (Bld) [Ratio] 0 % 0-[address] [facility] MCHC Auto (RBC) [Mass/Vol]Or dered By: Jake Waddell on 06-29-2022 MCHC (RBC) [Mass/Vol] 33.6 g/dL 32-36 [facility] Platelets bldOrdered By: Delmer Waddell on 06-29-2022 Platelets (Bld) [#/Vol] 372 10*3/uL 150-[address] [facility] Basophil percentageOrdered B y: Jake Waddell on 06-15-2022 Chloride [Moles/Vol] 102 mmol/L 98-107 [facility] Glucose [Mass/Vol] 54 mg/dL 74-106 [facility] Potassium [Moles/Vol] 3.9 mmol/L 3.5-5.1 [facility] Sodium [Moles/Vol] 137 mmol/L 136-145 [facility] WBC (Bld) [#/Vol] 13.9 10*3/uL 4.4-11.0 [facility] Blood erythrocytes count (nu mber/volume)Ordered By: Jake Waddell on 06-15-2022 RBC (Bld) [#/Vol] 4.66 10*6/uL 4.2-5.4 [facility] Blood hemoglobin measurement (mass/volume)Ordered By: Jake Waddell on 06-15-2022 Hemoglobin (Bld) [Mass/Vol] 13.1 g/dL 12.0-15.[address] [facility] Blood platelet mean volumeOr dered By: Jake Waddell on 06-15-2022 Platelet mean volume (Bld) [Entitic vol] 10.0 fL 6.2-12.[address] [facility] Determination of erythrocyte mean corpuscular volume (MCV)Ordered By: Jake Waddell on 06-15-2022 MCV (RBC) [Entitic vol] 86.5 fL 81-[address] [facility] Hematocrit Auto (Bld) [Volum e fraction]Ordered By: Jake Waddell on 06-15-2022 Hematocrit (Bld) [Volume fraction] 40.3 % 37-[address] [facility] Laboratory - Chemistry and C hemistry - challengeOrdered By: Jake Waddell on 06-15-2022 CO2 [Moles/Vol] 25.0 mmol/L 21.0-32.[address] [facility] Urea nitrogen/Creatinine [Mass ratio] 12.8 mg/mg 10-[address] [facility] Laboratory - Hematology and Cell countsOrdered By: Jake Waddell on 06-15-2022 Erythrocyte distribution width (RBC) [Entitic vol] 45.6 fL 35.1-43.[address] [facility] Erythrocyte distribution width (RBC) [Ratio] 14.3 % 11.6-14.[address] [facility] MCH (RBC) [Entitic mass] 28.1 pg 27.0-32.[address] [facility] MCHC Auto (RBC) [Mass/Vol]Or dered By: Jake Waddell on 06-15-2022 MCHC (RBC) [Mass/Vol] 32.5 g/dL 32-36 [facility] No Panel InformationOrdered By: Jake Waddell on 06-15-2022 Estimated GFR (MDRD) Amer 103 mL/min >[address] [facility] Comment on above: GFR Calc Estimated GFR (MDRD) Non-Af Amer 85 mL/min >[address] [facility] Comment on above: Non- GFR Calc Platelets bldOrdered By: Delmer Waddell on 06-15-2022 Platelets (Bld) [#/Vol] 553 10*3/uL 150-[address] [facility] Serum or plasma calcium becki urement (mass/volume)Ordered By: Jake Waddell on 06-15-2022 Calcium [Mass/Vol] 9.2 mg/dL 8.5-10.1 [facility] Serum or plasma creatinine m easurement (mass/volume)Ordered By: Jake Waddell on 06-15-2022 Creatinine [Mass/Vol] 0.70 mg/dL 0.55-1.02 [facility] Comment on above: The validity of the calculated GFR & GFRAA in patients over 70 years has not been determined. Clinical correlation is essential. Serum or plasma urea nitroge n measurement (mass/volume)Ordered By: Jake Waddell on 06-15-2022 Urea nitrogen [Mass/Vol] 9 mg/dL 7-[address] [facility] Thin prep Papanicolaou smear with manual screeningOrdered By: Jake Waddell on 06-15-2022 Thin prep Papanicolaou smear with manual screening 10 5-[address] [facility] Basophil percentageon 2021 Chloride [Moles/Vol] 102 mmol/L 98-107 [facility] Work Phone: Glucose [Mass/Vol] 71 mg/dL 74-106 [facility] Work Phone: Potassium [Moles/Vol] 4.4 mmol/L 3.5-5.1 [facility] Work Phone: Sodium [Moles/Vol] 135 mmol/L 136-145 [facility] Work Phone: WBC (Bld) [#/Vol] 11.0 10*3/uL 4.4-11.0 [facility] Work Phone: Blood erythrocytes count (nu mber/volume)on 05-16-2022 RBC (Bld) [#/Vol] 4.64 10*6/uL 4.2-5.4 [facility] Work Phone: Blood hemoglobin measurement (mass/volume)on 05-16-2022 Hemoglobin (Bld) [Mass/Vol] 13.4 g/dL 12.0-15.[address] [facility] Work Phone: Blood platelet mean volumeon 05-16-2022 Platelet mean volume (Bld) [Entitic vol] 10.8 fL 6.2-12.[address] [facility] Work Phone: Determination of erythrocyte mean corpuscular volume (MCV)on 05-16-2022 MCV (RBC) [Entitic vol] 88.1 fL 81-[address] [facility] Work Phone: Hematocrit Auto (Bld) [Volum e fraction]on 05-16-2022 Hematocrit (Bld) [Volume fraction] 40.9 % 37-[address] [facility] Work Phone: Laboratory - Chemistry and C hemistry - challengeon 05-16-2022 CO2 [Moles/Vol] 26.0 mmol/L 21.0-32.[address] [facility] Work Phone: Urea nitrogen/Creatinine [Mass ratio] 20.3 mg/mg 10-[address] [facility] Work Phone: Laboratory - Hematology and Cell countson 05-16-2022 Erythrocyte distribution width (RBC) [Entitic vol] 44.8 fL 35.1-43.[address] [facility] Work Phone: Erythrocyte distribution width (RBC) [Ratio] 14.0 % 11.6-14.[address] [facility] Work Phone: MCH (RBC) [Entitic mass] 28.9 pg 27.0-32.[address] [facility] Work Phone: MCHC Auto (RBC) [Mass/Vol]on 05-16-2022 MCHC (RBC) [Mass/Vol] 32.8 g/dL 32-36 [facility] Work Phone: No Panel Informationon 05-16 Estimated GFR (MDRD) Amer 90 mL/min >[address] [facility] Work Phone: Comment on above: GFR Calc Estimated GFR (MDRD) Non-Af Amer 74 mL/min >[address] [facility] Work Phone: Comment on above: Non- GFR Calc Platelets bldon 05-16-2022 Platelets (Bld) [#/Vol] 382 10*3/uL 150-[address] [facility] Work Phone: Serum or plasma calcium becki urement (mass/volume)on 05-16-2022 Calcium [Mass/Vol] 9.4 mg/dL 8.5-10.1 [facility] Work Phone: Serum or plasma creatinine m easurement (mass/volume)on 05-16-2022 Creatinine [Mass/Vol] 0.79 mg/dL 0.55-1.02 [facility] Work Phone: Comment on above: The validity of the calculated GFR & GFRAA in patients over 70 years has not been determined. Clinical correlation is essential. Serum or plasma urea nitroge n measurement (mass/volume)on 05-16-2022 Urea nitrogen [Mass/Vol] 16 mg/dL 7-[address] [facility] Work Phone: Thin prep Papanicolaou smear with manual screeningon 05-16-2022 Thin prep Papanicolaou smear with manual screening 7 -[address] [facility] Work Phone: Basophil percentageon 2021 Chloride [Moles/Vol] 104 mmol/L 98-107 [facility] Work Phone: Cholesterol [Mass/Vol] 118 mg/dL <200 [facility] Work Phone: Comment on above: <200 mg/dL Desirable 200-240 mg/dL Borderline >240 mg/dL High Risk Glucose [Mass/Vol] 74 mg/dL 74-106 [facility] Work Phone: Potassium [Moles/Vol] 4.0 mmol/L 3.5-5.1 [facility] Work Phone: Sodium [Moles/Vol] 138 mmol/L 136-145 [facility] Work Phone: Triglyceride [Mass/Vol] 113 mg/dL <[address] [facility] Work Phone: Comment on above: The drugs N-Acetylcy steine and Metamizole may falsely depress this assay.Serum Triglycerides Reference Interval Normal <150 mg/dL Borderline high 150 - 199 mg/dL High 200 - 499 mg/dL Very High > or = 500 mg/dL WBC (Bld) [#/Vol] 11.6 10*3/uL 4.4-11.0 [facility] Work Phone: Blood erythrocytes count (nu mber/volume)on 04-16-2022 RBC (Bld) [#/Vol] 4.68 10*6/uL 4.2-5.4 [facility] Work Phone: Blood hemoglobin measurement (mass/volume)on 04-16-2022 Hemoglobin (Bld) [Mass/Vol] 13.8 g/dL 12.0-15.[address] [facility] Work Phone: Blood platelet mean volumeon 04-16-2022 Platelet mean volume (Bld) [Entitic vol] 10.9 fL 6.2-12.[address] [facility] Work Phone: Determination of erythrocyte mean corpuscular volume (MCV)on 04-16-2022 MCV (RBC) [Entitic vol] 88.5 fL 81-[address] [facility] Work Phone: Hematocrit Auto (Bld) [Volum e fraction]on 04-16-2022 Hematocrit (Bld) [Volume fraction] 41.4 % 37-[address] [facility] Work Phone: Laboratory - Chemistry and C hemistry - challengeon 04-16-2022 CO2 [Moles/Vol] 24.0 mmol/L 21.0-32.[address] [facility] Work Phone: Urea nitrogen/Creatinine [Mass ratio] 23.4 mg/mg 10-[address] [facility] Work Phone: Laboratory - Hematology and Cell countson 04-16-2022 Erythrocyte distribution width (RBC) [Entitic vol] 45.2 fL 35.1-43.[address] [facility] Work Phone: Erythrocyte distribution width (RBC) [Ratio] 13.9 % 11.6-14.[address] [facility] Work Phone: MCH (RBC) [Entitic mass] 29.5 pg 27.0-32.[address] [facility] Work Phone: MCHC Auto (RBC) [Mass/Vol]on 04-16-2022 MCHC (RBC) [Mass/Vol] 33.3 g/dL 32-36 [facility] Work Phone: No Panel Informationon 04-16 Estimated GFR (MDRD) Amer 87 mL/min >[address] [facility] Work Phone: Comment on above: GFR Calc Estimated GFR (MDRD) Non-Af Amer 72 mL/min >[address] [facility] Work Phone: Comment on above: Non- GFR Calc Platelets bldon 04-16-2022 Platelets (Bld) [#/Vol] 372 10*3/uL 150-[address] [facility] Work Phone: Serum or plasma calcium becki urement (mass/volume)on 04-16-2022 Calcium [Mass/Vol] 9.4 mg/dL 8.5-10.1 [facility] Work Phone: Serum or plasma cholesterol in HDL measurement (mass/volume)on 04-16-2022 Cholesterol in HDL [Mass/Vol] 44 mg/dL >[address] [facility] Work Phone: Comment on above: The drugs N-Acetylcy steine and Metamizole may falsely depress this assay. Reference Range HDL <40 mg/dL Low HDL Cholesterol HDL >or= 60 mg/dL High HDL Cholesterol Serum or plasma cholesterol in VLDL measurement (mass/volume)on 04-16-2022 Cholesterol in VLDL [Mass/Vol] 23 mg/dL 5-[address] [facility] Work Phone: Serum or plasma creatinine m easurement (mass/volume)on 04-16-2022 Creatinine [Mass/Vol] 0.81 mg/dL 0.55-1.02 [facility] Work Phone: Comment on above: The validity of the calculated GFR & GFRAA in patients over 70 years has not been determined. Clinical correlation is essential. Serum or plasma low density lipoprotein (LDL) cholesterol measurement (mass/volume)on 04-16-2022 Cholesterol in LDL [Mass/Vol] 51 mg/dL 0-[address] [facility] Work Phone: Serum or plasma urea nitroge n measurement (mass/volume)on 04-16-2022 Urea nitrogen [Mass/Vol] 19 mg/dL 7-[address] [facility] Work Phone: Thin prep Papanicolaou smear with manual screeningon 04-16-2022 Thin prep Papanicolaou smear with manual screening 10 5-[address] [facility] Work Phone: Whole blood hemoglobin A1c/t otal hemoglobin ratio (mass fraction)on 04-16-2022 HbA1c (Bld) [Mass fraction] 9.2 % 3.8-5.[address] [facility] Work Phone: Comment on above: Normal < 5.7 % Predi abetic 5.7 - 6.4 % Diabetic >or= 6.5 % Please note range changes. Basophil percentageon 2021 Chloride [Moles/Vol] 103 mmol/L 98-[address] [facility] Work Phone: Glucose [Mass/Vol] 108 mg/dL 74-106 [facility] Work Phone: Comment on above: Fasting Glucose resu lt from 100 to 125 mg/dL suggests IMPAIRED HOMEOSTASIS per A.D.A. criteria. Potassium [Moles/Vol] 3.8 mmol/L 3.5-5.1 [facility] Work Phone: Sodium [Moles/Vol] 136 mmol/L 136-145 [facility] Work Phone: WBC (Bld) [#/Vol] 9.2 10*3/uL 4.4-11.0 [facility] Work Phone: Blood erythrocytes count (nu mber/volume)on 03-14-2022 RBC (Bld) [#/Vol] 4.61 10*6/uL 4.2-5.4 [facility] Work Phone: Blood hemoglobin measurement (mass/volume)on 03-14-2022 Hemoglobin (Bld) [Mass/Vol] 13.1 g/dL 12.0-15.[address] [facility] Work Phone: Blood platelet mean volumeon 03-14-2022 Platelet mean volume (Bld) [Entitic vol] 10.6 fL 6.2-12.[address] [facility] Work Phone: Determination of erythrocyte mean corpuscular volume (MCV)on 03-14-2022 MCV (RBC) [Entitic vol] 87.4 fL 81-[address] [facility] Work Phone: Hematocrit Auto (Bld) [Volum e fraction]on 03-14-2022 Hematocrit (Bld) [Volume fraction] 40.3 % 37-[address] [facility] Work Phone: Laboratory - Chemistry and C hemistry - challengeon 03-14-2022 CO2 [Moles/Vol] 26.0 mmol/L 21.0-32.[address] [facility] Work Phone: Urea nitrogen/Creatinine [Mass ratio] 19.5 mg/mg 10-[address] [facility] Work Phone: Laboratory - Hematology and Cell countson 03-14-2022 Erythrocyte distribution width (RBC) [Entitic vol] 45.2 fL 35.1-43.[address] [facility] Work Phone: Erythrocyte distribution width (RBC) [Ratio] 14.1 % 11.6-14.[address] [facility] Work Phone: MCH (RBC) [Entitic mass] 28.4 pg 27.0-32.[address] [facility] Work Phone: MCHC Auto (RBC) [Mass/Vol]on 03-14-2022 MCHC (RBC) [Mass/Vol] 32.5 g/dL 32-36 [facility] Work Phone: No Panel Informationon 03-14 Estimated GFR (MDRD) Amer 92 mL/min >[address] [facility] Work Phone: Comment on above: GFR Calc Estimated GFR (MDRD) Non-Af Amer 76 mL/min >[address] [facility] Work Phone: Comment on above: Non- GFR Calc Platelets bldon 03-14-2022 Platelets (Bld) [#/Vol] 328 10*3/uL 150-[address] [facility] Work Phone: Serum or plasma calcium becki urement (mass/volume)on 03-14-2022 Calcium [Mass/Vol] 8.9 mg/dL 8.5-10.1 [facility] Work Phone: Serum or plasma creatinine m easurement (mass/volume)on 03-14-2022 Creatinine [Mass/Vol] 0.77 mg/dL 0.55-1.02 [facility] Work Phone: Comment on above: The validity of the calculated GFR & GFRAA in patients over 70 years has not been determined. Clinical correlation is essential. Serum or plasma urea nitroge n measurement (mass/volume)on 03-14-2022 Urea nitrogen [Mass/Vol] 15 mg/dL 7-[address] [facility] Work Phone: Thin prep Papanicolaou smear with manual screeningon 03-14-2022 Thin prep Papanicolaou smear with manual screening 7 - [facility] Work Phone: Basophil percentageon 2021 Chloride [Moles/Vol] 104 mmol/L 98-107 [facility] Work Phone: Glucose [Mass/Vol] 86 mg/dL 74-106 [facility] Work Phone: Potassium [Moles/Vol] 4.0 mmol/L 3.5-5.1 [facility] Work Phone: Sodium [Moles/Vol] 137 mmol/L 136-145 [facility] Work Phone: WBC (Bld) [#/Vol] 9.9 10*3/uL 4.4-11.0 [facility] Work Phone: Blood erythrocytes count (nu mber/volume)on 02-14-2022 RBC (Bld) [#/Vol] 4.65 10*6/uL 4.2-5.4 [facility] Work Phone: Blood hemoglobin measurement (mass/volume)on 02-14-2022 Hemoglobin (Bld) [Mass/Vol] 13.3 g/dL 12.0-15.[address] [facility] Work Phone: Blood platelet mean volumeon 02-14-2022 Platelet mean volume (Bld) [Entitic vol] 10.9 fL 6.2-12.[address] [facility] Work Phone: Determination of erythrocyte mean corpuscular volume (MCV)on 02-14-2022 MCV (RBC) [Entitic vol] 86.9 fL 81-[address] [facility] Work Phone: Hematocrit Auto (Bld) [Volum e fraction]on 02-14-2022 Hematocrit (Bld) [Volume fraction] 40.4 % 37-[address] [facility] Work Phone: Laboratory - Chemistry and C hemistry - challengeon 02-14-2022 CO2 [Moles/Vol] 26.0 mmol/L 21.0-32.[address] [facility] Work Phone: Cobalamin (Vitamin B12) [Mass/Vol] 331 pg/mL 211-[address] [facility] Work Phone: Urea nitrogen/Creatinine [Mass ratio] 25.1 mg/mg 10-[address] [facility] Work Phone: Laboratory - Hematology and Cell countson 02-14-2022 Erythrocyte distribution width (RBC) [Entitic vol] 45.5 fL 35.1-43.[address] [facility] Work Phone: Erythrocyte distribution width (RBC) [Ratio] 14.3 % 11.6-14.[address] [facility] Work Phone: MCH (RBC) [Entitic mass] 28.6 pg 27.0-32.[address] [facility] Work Phone: MCHC Auto (RBC) [Mass/Vol]on 02-14-2022 MCHC (RBC) [Mass/Vol] 32.9 g/dL 32-36 [facility] Work Phone: No Panel Informationon 02-14 Estimated GFR (MDRD) Amer 89 mL/min >[address] [facility] Work Phone: Comment on above: GFR Calc Estimated GFR (MDRD) Non-Af Amer 73 mL/min >[address] [facility] Work Phone: Comment on above: Non- GFR Calc Platelets bldon 02-14-2022 Platelets (Bld) [#/Vol] 348 10*3/uL 150-[address] [facility] Work Phone: Serum or plasma calcium becki urement (mass/volume)on 02-14-2022 Calcium [Mass/Vol] 9.1 mg/dL 8.5-10.1 [facility] Work Phone: Serum or plasma creatinine m easurement (mass/volume)on 02-14-2022 Creatinine [Mass/Vol] 0.80 mg/dL 0.55-1.02 [facility] Work Phone: Comment on above: The validity of the calculated GFR & GFRAA in patients over 70 years has not been determined. Clinical correlation is essential. Serum or plasma folate measu rement (mass/volume)on 02-14-2022 Folate [Mass/Vol] 7.40 ng/mL 3.1-55.[address] [facility] Work Phone: Serum or plasma urea nitroge n measurement (mass/volume)on 02-14-2022 Urea nitrogen [Mass/Vol] 20 mg/dL 7-[address] [facility] Work Phone: Thin prep Papanicolaou smear with manual screeningon 02-14-2022 Thin prep Papanicolaou smear with manual screening 7 -[address] [facility] Work Phone: Basophil percentageon 2021 Chloride [Moles/Vol] 102 mmol/L 98-[address] [facility] [facility] Work Phone: Glucose [Mass/Vol] 77 mg/dL 74-106 [facility] Work Phone: Potassium [Moles/Vol] 4.3 mmol/L 3.5-5.1 [facility] Work Phone: Sodium [Moles/Vol] 134 mmol/L 136-145 [facility] Work Phone: WBC (Bld) [#/Vol] 10.4 10*3/uL 4.4-11.0 [facility]: Blood erythrocytes count (nu mber/volume)on 01-15-2022 RBC (Bld) [#/Vol] 5.25 10*6/uL 4.2-5.4 [facility] Work Phone: Blood hemoglobin measurement (mass/volume)on 01-15-2022 Hemoglobin (Bld) [Mass/Vol] 14.8 g/dL 12.0-15.[address] [facility] Work Phone: Blood platelet mean volumeon 01-15-2022 Platelet mean volume (Bld) [Entitic vol] 10.3 fL 6.2-12.[address] [facility] Work Phone: Determination of erythrocyte mean corpuscular volume (MCV)on 01-15-2022 MCV (RBC) [Entitic vol] 92.2 fL 81-[address] [facility] Work Phone: Hematocrit Auto (Bld) [Volum e fraction]on 01-15-2022 Hematocrit (Bld) [Volume fraction] 48.4 % 37-[address] [facility] Work Phone: Laboratory - Chemistry and C hemistry - challengeon 01-15-2022 CO2 [Moles/Vol] 22.0 mmol/L 21.0-32.[address] [facility] Work Phone: Urea nitrogen/Creatinine [Mass ratio] 23.9 mg/mg 10-[address] [facility] Work Phone: Laboratory - Hematology and Cell countson 01-15-2022 Erythrocyte distribution width (RBC) [Entitic vol] 48.4 fL 35.1-43.[address] [facility] Work Phone: Erythrocyte distribution width (RBC) [Ratio] 14.2 % 11.6-14.[address] [facility] Work Phone: MCH (RBC) [Entitic mass] 28.2 pg 27.0-32.[address] [facility] Work Phone: MCHC Auto (RBC) [Mass/Vol]on 01-15-2022 MCHC (RBC) [Mass/Vol] 30.6 g/dL 32-36 [facility] Work Phone: No Panel Informationon 01-15 Estimated GFR (MDRD) Amer 89 mL/min >[address] [facility] Work Phone: Comment on above: GFR Calc Estimated GFR (MDRD) Non-Af Amer 73 mL/min >[address] [facility] Work Phone: Comment on above: Non- GFR Calc Platelets bldon 01-15-2022 Platelets (Bld) [#/Vol] 348 10*3/uL 150-[address] [facility] Work Phone: Serum or plasma calcium becki urement (mass/volume)on 01-15-2022 Calcium [Mass/Vol] 9.7 mg/dL 8.5-10.1 [facility] Work Phone: Serum or plasma creatinine m easurement (mass/volume)on 01-15-2022 Creatinine [Mass/Vol] 0.80 mg/dL 0.55-1.02 [facility] Work Phone: Comment on above: The validity of the calculated GFR & GFRAA in patients over 70 years has not been determined. Clinical correlation is essential. Serum or plasma urea nitroge n measurement (mass/volume)on 01-15-2022 Urea nitrogen [Mass/Vol] 19 mg/dL 7-[address] [facility] Work Phone: Thin prep Papanicolaou smear with manual screeningon 01-15-2022 Thin prep Papanicolaou smear with manual screening 10 5-[address] [facility] Work Phone: Basophil percentageon 2021 Chloride [Moles/Vol] 103 mmol/L 98-107 [facility] Work Phone: Glucose [Mass/Vol] 157 mg/dL 74-106 [facility] Work Phone: Comment on above: Fasting Glucose resu lt greater than or equal to 126 mg/dL suggests DIABETES MELLITUS per A.D.A. criteria. Potassium [Moles/Vol] 4.2 mmol/L 3.5-5.1 [facility] Work Phone: Sodium [Moles/Vol] 135 mmol/L 136-145 [facility] Work Phone: WBC (Bld) [#/Vol] 10.8 10*3/uL 4.4-11.0 [facility] Work Phone: Blood erythrocytes count (nu mber/volume)on 12-14-2021 RBC (Bld) [#/Vol] 4.61 10*6/uL 4.2-5.4 [facility] Work Phone: Blood hemoglobin measurement (mass/volume)on 12-14-2021 Hemoglobin (Bld) [Mass/Vol] 13.2 g/dL 12.0-15.[address] [facility] Work Phone: Blood platelet mean volumeon 12-14-2021 Platelet mean volume (Bld) [Entitic vol] 11.2 fL 6.2-12.[address] [facility] Work Phone: Determination of erythrocyte mean corpuscular volume (MCV)on 12-14-2021 MCV (RBC) [Entitic vol] 86.6 fL 81-[address] [facility] Work Phone: Hematocrit Auto (Bld) [Volum e fraction]on 12-14-2021 Hematocrit (Bld) [Volume fraction] 39.9 % 37-[address] [facility] Work Phone: Laboratory - Chemistry and C hemistry - challengeon 12-14-2021 CO2 [Moles/Vol] 27.0 mmol/L 21.0-32.[address] [facility] Work Phone: Urea nitrogen/Creatinine [Mass ratio] 23.1 mg/mg 10-[address] [facility] Work Phone: Laboratory - Hematology and Cell countson 12-14-2021 Erythrocyte distribution width (RBC) [Entitic vol] 44.2 fL 35.1-43.[address] [facility] Work Phone: Erythrocyte distribution width (RBC) [Ratio] 14.0 % 11.6-14.[address] [facility] Work Phone: MCH (RBC) [Entitic mass] 28.6 pg 27.0-32.[address] [facility] Work Phone: MCHC Auto (RBC) [Mass/Vol]on 12-14-2021 MCHC (RBC) [Mass/Vol] 33.1 g/dL 32-36 [facility] Work Phone: No Panel Informationon 12-14 Estimated GFR (MDRD) Amer 80 mL/min >[address] [facility] Work Phone: Comment on above: GFR Calc Estimated GFR (MDRD) Non-Af Amer 66 mL/min >[address] [facility] Work Phone: Comment on above: Non- GFR Calc Platelets bldon 12-14-2021 Platelets (Bld) [#/Vol] 368 10*3/uL 150-[address] [facility] Work Phone: Serum or plasma calcium becki urement (mass/volume)on 12-14-2021 Calcium [Mass/Vol] 9.0 mg/dL 8.5-10.1 [facility] Work Phone: Serum or plasma creatinine m easurement (mass/volume)on 12-14-2021 Creatinine [Mass/Vol] 0.87 mg/dL 0.55-1.02 [facility] Work Phone: Comment on above: The validity of the calculated GFR & GFRAA in patients over 70 years has not been determined. Clinical correlation is essential. Serum or plasma urea nitroge n measurement (mass/volume)on 12-14-2021 Urea nitrogen [Mass/Vol] 20 mg/dL 7-[address] [facility] Work Phone: Thin prep Papanicolaou smear with manual screeningon 12-14-2021 Thin prep Papanicolaou smear with manual screening 5 5-[address] [facility] Work Phone: Basophil percentageon 2021 Chloride [Moles/Vol] 101 mmol/L 98-107 [facility] Work Phone: Glucose [Mass/Vol] 83 mg/dL 74-106 [facility] Work Phone: Potassium [Moles/Vol] 4.1 mmol/L 3.5-5.1 [facility] Work Phone: Sodium [Moles/Vol] 134 mmol/L 136-145 [facility] Work Phone: WBC (Bld) [#/Vol] 12.8 10*3/uL 4.4-11.0 [facility] Work Phone: Blood erythrocytes count (nu mber/volume)on 11-13-2021 RBC (Bld) [#/Vol] 4.73 10*6/uL 4.2-5.4 [facility] Work Phone: Blood hemoglobin measurement (mass/volume)on 11-13-2021 Hemoglobin (Bld) [Mass/Vol] 13.2 g/dL 12.0-15.[address] [facility] Work Phone: Blood platelet mean volumeon 11-13-2021 Platelet mean volume (Bld) [Entitic vol] 11.2 fL 6.2-12.[address] [facility] Work Phone: Determination of erythrocyte mean corpuscular volume (MCV)on 11-13-2021 MCV (RBC) [Entitic vol] 85.2 fL 81-[address] [facility] Work Phone: Hematocrit Auto (Bld) [Volum e fraction]on 11-13-2021 Hematocrit (Bld) [Volume fraction] 40.3 % 37-[address] [facility] Work Phone: Laboratory - Chemistry and C hemistry - challengeon 11-13-2021 CO2 [Moles/Vol] 25.0 mmol/L 21.0-32.[address] [facility] Work Phone: Urea nitrogen/Creatinine [Mass ratio] 22.4 mg/mg 10-[address] [facility] Work Phone: Laboratory - Hematology and Cell countson 11-13-2021 Erythrocyte distribution width (RBC) [Entitic vol] 43.7 fL 35.1-43.[address] [facility] Work Phone: Erythrocyte distribution width (RBC) [Ratio] 14.0 % 11.6-14.[address] [facility] Work Phone: MCH (RBC) [Entitic mass] 27.9 pg 27.0-32.[address] [facility] Work Phone: MCHC Auto (RBC) [Mass/Vol]on 11-13-2021 MCHC (RBC) [Mass/Vol] 32.8 g/dL 32-36 [facility] Work Phone: No Panel Informationon 11-13 Estimated GFR (MDRD) Amer 88 mL/min >[address] [facility] Work Phone: Comment on above: GFR Calc Estimated GFR (MDRD) Non-Af Amer 73 mL/min >[address] [facility] Work Phone: Comment on above: Non- GFR Calc Platelets bldon 11-13-2021 Platelets (Bld) [#/Vol] 374 10*3/uL 150-[address] [facility] Work Phone: Serum or plasma calcium becki urement (mass/volume)on 11-13-2021 Calcium [Mass/Vol] 9.0 mg/dL 8.5-10.1 [facility] Work Phone: Serum or plasma creatinine m easurement (mass/volume)on 11-13-2021 Creatinine [Mass/Vol] 0.80 mg/dL 0.55-1.02 [facility] Work Phone: Comment on above: The validity of the calculated GFR & GFRAA in patients over 70 years has not been determined. Clinical correlation is essential. Serum or plasma urea nitroge n measurement (mass/volume)on 11-13-2021 Urea nitrogen [Mass/Vol] 18 mg/dL 7-[address] [facility] Work Phone: Thin prep Papanicolaou smear with manual screeningon 11-13-2021 Thin prep Papanicolaou smear with manual screening 8 -[address] [facility] Work Phone: Basophil percentageon 2021 Chloride [Moles/Vol] 104 mmol/L 98-107 [facility] Work Phone: Cholesterol [Mass/Vol] 125 mg/dL <200 [facility] Work Phone: Comment on above: <200 mg/dL Desirable 200-240 mg/dL Borderline >240 mg/dL High Risk Glucose [Mass/Vol] 156 mg/dL 74-106 [facility] Work Phone: Comment on above: Fasting Glucose resu lt greater than or equal to 126 mg/dL suggests DIABETES MELLITUS per A.D.A. criteria. Potassium [Moles/Vol] 4.4 mmol/L 3.5-5.1 [facility] Work Phone: Sodium [Moles/Vol] 134 mmol/L 136-145 [facility] Work Phone: Triglyceride [Mass/Vol] 130 mg/dL [facility] Work Phone: Comment on above: The drugs N-Acetylcy steine and Metamizole may falsely depress this assay.Serum Triglycerides Reference Interval Normal <150 mg/dL Borderline high 150 - 199 mg/dL High 200 - 499 mg/dL Very High > or = 500 mg/dL WBC (Bld) [#/Vol] 9.9 10*3/uL 4.4-11.0 [facility] Work Phone: Blood erythrocytes count (nu mber/volume)on 10-17-2021 RBC (Bld) [#/Vol] 4.61 10*6/uL 4.2-5.4 [facility] Work Phone: Blood hemoglobin measurement (mass/volume)on 10-17-2021 Hemoglobin (Bld) [Mass/Vol] 13.0 g/dL 12.0-15.[address] [facility] Work Phone: Blood platelet mean volumeon 10-17-2021 Platelet mean volume (Bld) [Entitic vol] 10.9 fL 6.2-12.[address] [facility] Work Phone: Determination of erythrocyte mean corpuscular volume (MCV)on 10-17-2021 MCV (RBC) [Entitic vol] 85.9 fL 81-[address] [facility] Work Phone: Hematocrit Auto (Bld) [Volum e fraction]on 10-17-2021 Hematocrit (Bld) [Volume fraction] 39.6 % 37-[address] [facility] Work Phone: Laboratory - Chemistry and C hemistry - challengeon 10-17-2021 CO2 [Moles/Vol] 23.0 mmol/L 21.0-32.[address] [facility] Work Phone: Urea nitrogen/Creatinine [Mass ratio] 21.4 mg/mg 10-[address] [facility] Work Phone: Laboratory - Hematology and Cell countson 10-17-2021 Erythrocyte distribution width (RBC) [Entitic vol] 44.1 fL 35.1-43.[address] [facility] Work Phone: Erythrocyte distribution width (RBC) [Ratio] 14.0 % 11.6-14.[address] [facility] Work Phone: MCH (RBC) [Entitic mass] 28.2 pg 27.0-32.[address] [facility] Work Phone: MCHC Auto (RBC) [Mass/Vol]on 10-17-2021 MCHC (RBC) [Mass/Vol] 32.8 g/dL 32-36 [facility] Work Phone: No Panel Informationon 10-17 Estimated GFR (MDRD) Amer 83 mL/min >[address] [facility] Work Phone: Comment on above: GFR Calc Estimated GFR (MDRD) Non-Af Amer 69 mL/min >[address] [facility] Work Phone: Comment on above: Non- GFR Calc Platelets bldon 10-17-2021 Platelets (Bld) [#/Vol] 359 10*3/uL 150-[address] [facility] Work Phone: Serum or plasma calcium becki urement (mass/volume)on 10-17-2021 Calcium [Mass/Vol] 8.9 mg/dL 8.5-10.1 [facility] Work Phone: Serum or plasma cholesterol in HDL measurement (mass/volume)on 10-17-2021 Cholesterol in HDL [Mass/Vol] 47 mg/dL [facility] Work Phone: Comment on above: The drugs N-Acetylcy steine and Metamizole may falsely depress this assay. Reference Range HDL <40 mg/dL Low HDL Cholesterol HDL >or= 60 mg/dL High HDL Cholesterol Serum or plasma cholesterol in VLDL measurement (mass/volume)on 10-17-2021 Cholesterol in VLDL [Mass/Vol] 26 mg/dL 5-[address] [facility] Work Phone: Serum or plasma creatinine m easurement (mass/volume)on 10-17-2021 Creatinine [Mass/Vol] 0.84 mg/dL 0.55-1.02 [facility] Work Phone: Comment on above: The validity of the calculated GFR & GFRAA in patients over 70 years has not been determined. Clinical correlation is essential. Serum or plasma low density lipoprotein (LDL) cholesterol measurement (mass/volume)on 10-17-2021 Cholesterol in LDL [Mass/Vol] 52 mg/dL 0-[address] [facility] Work Phone: Serum or plasma urea nitroge n measurement (mass/volume)on 10-17-2021 Urea nitrogen [Mass/Vol] 18 mg/dL 7-[address] [facility] Work Phone: Thin prep Papanicolaou smear with manual screeningon 10-17-2021 Thin prep Papanicolaou smear with manual screening 7 - [facility] Work Phone: Whole blood hemoglobin A1c/t otal hemoglobin ratio (mass fraction)on 10-17-2021 HbA1c (Bld) [Mass fraction] 8.2 % 3.8-5.[address] [facility] Work Phone: Comment on above: Normal < 5.7 % Predi abetic 5.7 - 6.4 % Diabetic >or= 6.5 % Please note range changes. Laboratory - Microbiology an d Antimicrobial susceptibilityon 09-25-2021 SARS-CoV-2 (COVID-19) RNA BIBIANA+probe Ql (Unsp spec) Not detected Not Detect [facility] Work Phone: Comment on above: Normal Reference Ran ge: Not DetectedMethod:(RT-PCR) real-time reverse transcriptase PCRLuminex Glycode Instrument*The Food and Drug Administration (FDA) has issued an Emergency Use Authorization (EAU) for the Glycode SARS-CoV-2 Assay for the rapid detection of [...] percentageon 2021 Chloride [Moles/Vol] 98 mmol/L 98-107 [facility] Work Phone: Glucose [Mass/Vol] 287 mg/dL 74-106 [facility] Work Phone: Comment on above: Glucose result great er than or equal to 200 mg/dLsuggests DIABETES MELLITUS per A.D.A. criteria. Potassium [Moles/Vol] 4.4 mmol/L 3.5-5.1 [facility] Work Phone: Sodium [Moles/Vol] 132 mmol/L 136-145 [facility] Work Phone: WBC (Bld) [#/Vol] 11.4 10*3/uL 4.4-11.0 [facility] Work Phone: Blood erythrocytes count (nu mber/volume)on 09-20-2021 RBC (Bld) [#/Vol] 4.59 10*6/uL 4.2-5.4 [facility] Work Phone: Blood hemoglobin measurement (mass/volume)on 09-20-2021 Hemoglobin (Bld) [Mass/Vol] 12.6 g/dL 12.0-15.[address] [facility] Work Phone: Blood platelet mean volumeon 09-20-2021 Platelet mean volume (Bld) [Entitic vol] 11.1 fL 6.2-12.[address] [facility] Work Phone: Determination of erythrocyte mean corpuscular volume (MCV)on 09-20-2021 MCV (RBC) [Entitic vol] 85.4 fL 81-[address] [facility] Work Phone: Hematocrit Auto (Bld) [Volum e fraction]on 09-20-2021 Hematocrit (Bld) [Volume fraction] 39.2 % 37-[address] [facility] Work Phone: Laboratory - Chemistry and C hemistry - challengeon 09-20-2021 CO2 [Moles/Vol] 24.0 mmol/L 21.0-32.[address] [facility] Work Phone: Urea nitrogen/Creatinine [Mass ratio] 15.5 mg/mg 10-[address] [facility] Work Phone: Laboratory - Hematology and Cell countson 09-20-2021 Erythrocyte distribution width (RBC) [Entitic vol] 43.0 fL 35.1-43.[address] [facility] Work Phone: Erythrocyte distribution width (RBC) [Ratio] 13.8 % 11.6-14.[address] [facility] Work Phone: MCH (RBC) [Entitic mass] 27.5 pg 27.0-32.[address] [facility] Work Phone: MCHC Auto (RBC) [Mass/Vol]on 09-20-2021 MCHC (RBC) [Mass/Vol] 32.1 g/dL 32-36 [facility] Work Phone: No Panel Informationon 09-20 Estimated GFR (MDRD) Amer 61 mL/min >[address] [facility] Work Phone: Comment on above: GFR Calc Estimated GFR (MDRD) Non-Af Amer 51 mL/min >[address] [facility] Work Phone: Comment on above: Non- GFR Calc Platelets bldon 09-20-2021 Platelets (Bld) [#/Vol] 370 10*3/uL 150-[address] [facility] Work Phone: Serum or plasma calcium becki urement (mass/volume)on 09-20-2021 Calcium [Mass/Vol] 9.0 mg/dL 8.5-10.1 [facility] Work Phone: Serum or plasma creatinine m easurement (mass/volume)on 09-20-2021 Creatinine [Mass/Vol] 1.10 mg/dL 0.55-1.02 [facility] Work Phone: Comment on above: The validity of the calculated GFR & GFRAA in patients over 70 years has not been determined. Clinical correlation is essential. Serum or plasma urea nitroge n measurement (mass/volume)on 09-20-2021 Urea nitrogen [Mass/Vol] 17 mg/dL 7-[address] [facility] Work Phone: Thin prep Papanicolaou smear with manual screeningon 09-20-2021 Thin prep Papanicolaou smear with manual screening 10 5-[address] [facility] Work Phone: Office Visiton 04-03-2017 Documentation of current medications (procedure) Done Invalid Interpretation Code [facility] Work Phone: Tobacco use CPHS Never smoker Invalid Interpretation Code [facility] Work Phone: Office Visiton 03-06-2017 Documentation of current medications (procedure) Done Invalid Interpretation Code [facility] Work Phone: Tobacco use CPHS Never smoker Invalid Interpretation Code [facility] Work Phone: Lab Report: CBC-Complete Blo od Cnt No Diffon 02-19-2017 Erythrocyte distribution width Ratio (RBC) 43.5 fL 35.1-43.9 [facility] Work Phone: Erythrocyte distribution width Ratio (RBC) 13.6 % 11.6-14.6 [facility] Work Phone: Erythrocytes (RBC) 3.32 10*6/uL Low 4.2-5.4 [facility] Work Phone: Hematocrit (HCT) 29.7 % Low 37-47 [facility] Work Phone: Hematocrit Volume Fraction (Bld) 29.7 % Low 37-47 [facility] Work Phone: Hemoglobin mass conc (Bld) 9.9 g/dL Low 12.0-15.0 [facility] Work Phone: MCH 29.8 pg Invalid Interpretation Code 27.0-32.0 [facility] Work Phone: MCH Entitic mass (RBC) 29.8 pg 27.0-32.0 [facility] Work Phone: MCHC 33.3 G/GL Invalid Interpretation Code 32-36 [facility] Work Phone: MCHC mass conc (RBC) 33.3 G/GL 32-36 [facility] Work Phone: MCV 89.5 fL Invalid Interpretation Code 81-99 [facility] Work Phone: MCV Entitic volume (RBC) 89.5 fL 81-99 [facility] Work Phone: Platelet mean volume Entitic volume (Bld) 10.8 fL 6.2-12.0 [facility] Work Phone: Platelets 186 10*3/mm3 Invalid Interpretation Code 150-450 [facility] Work Phone: Platelets #/vol (Bld) 186 10*3/mm3 150-450 [facility] Work Phone: PMV by Radha 10.8 fL Invalid Interpretation Code 6.2-12.0 [facility] Work Phone: RBC #/vol (Bld) 3.32 10*6/uL Low 4.2-5.4 [facility] Work Phone: RDW-CA 13.6 % Invalid Interpretation Code 11.6-14.[address] [facility] Work Phone: red blood cell distribution width, size density 43.5 fL Invalid Interpretation Code 35.1-43.[address] [facility] Work Phone: WBC #/vol (Bld) 12.5 10*3/uL High 4.4-11.0 [facility] Work Phone: WBC (Leukocytes) 12.5 10*3/uL High 4.4-11.0 [facility] Work Phone: Office Visiton 05-12-2015 Documentation of current medications (procedure) Done Invalid Interpretation Code [facility] Work Phone: Protein mass conc Done [facility] Work Phone: Tobacco smoking status NHIS Never smoker [facility] Work Phone: Tobacco use CPHS Never smoker Invalid Interpretation Code [facility] Work Phone: Lab Report: Bedside Glucoseo n 03-17-2015 Glucose 264 mg/dL High 70-[address] [facility] Work Phone: Glucose mass conc 264 mg/dL High 70-110 [facility] Work Phone: Lab Report: Hemoglobin A1con 03-16-2015 Hemoglobin A1c/Hemoglobin.total mass fraction (Bld) 7.3 % High 4.2-6.3 [facility] Work Phone: Culture, urine Bacteria identified Cx Nom (U) Klebsiella pneumoniae sp pneum [facility] Work Phone: Vital Signs Date Time Vital Sign Value Performing Clinician Faci lity 03-14-2015 09:05-0400 Height 165.1 cm [facility] Work Phone: 03-14-2015 09:05-0400 Weight 68.95 kg [facility] Work Phone: Encounters Encounter Date Encounter Type Care Provider Facility Start: 02-22-2025 ambulatory Jake Waddell Facility: [facility] Start: 02-22-2025 Registered Referred Jake Waddell MD [facility] Start: 01-14-2025 End: 01-14-[address] Jake Waddell MD Work Phone: [facility] Start: 01-14-2025 End: 01-14-2025 Departed Referred Jake Waddell MD [facility] Start: 01-14-2025 End: 01-14-2025 ambulatory Jake Waddell Facility:[facility] Start: 10-16-2024 ambulatory Jake Waddell Facility: [facility] Start: 08-21-2024 End: 08-21-2024 ambulatory Jake Waddell Facility:[facility] Start: 07-16-2024 End: 07-16-2024 ambulatory Jake Waddell Facility:[facility] Start: 07-14-2024 End: 07-14-2024 ambulatory Jake Waddell OLS Facility:[facility] Start: 04-29-2024 End: 04-30-2024 ambulatory Jake Waddell OLS Facility:[facility] Start: 04-16-2024 End: 04-16-2024 ambulatory Jake Waddell OLS Facility:[facility] Start: 04-02-2024 End: 04-02-2024 ambulatory Jake Waddell OLS Facility:[facility] Start: 03-23-2024 End: 03-23-2024 ambulatory Jake Waddell OLS Facility:[facility] Start: 03-16-2024 End: 03-16-2024 ambulatory Jake Waddell OLS Facility:[facility] Start: 03-13-2024 End: 03-13-2024 Emergency department patient visit Mo Zapien Facility:[facility] Start: 10-17-2023 End: 10-17-[address] [facility] Work Phone: Start: 10-17-2023 End: 10-17-2023 Departed Referred [facility] Start: 04-15-2023 End: 04-15-[address] [facility] Work Phone: Start: 04-15-2023 End: 04-15-2023 Departed Referred [facility] Start: 10-17-2022 End: 10-17-[address] [facility] Work Phone: Start: 10-17-2022 End: 10-17-2022 Departed Referred [facility] Start: 09-17-2022 End: 09-17-[address] [facility] Work Phone: Start: 09-17-2022 End: 09-17-2022 Departed Referred [facility] Start: 08-15-2022 End: 08-15-[address] [facility] Work Phone: Start: 08-15-2022 End: 08-15-2022 Departed Referred [facility] Start: 07-16-2022 End: 07-16-[address] [facility] Work Phone: Start: 07-16-2022 End: 07-16-2022 Departed Referred [facility] Start: 06-29-2022 End: 06-29-[address] [facility] Work Phone: Start: 06-29-2022 End: 06-29-2022 Departed Referred [facility] Start: 06-29-2022 Registered Referred [facility] Start: 06-15-2022 End: 06-15-[address] [facility] Work Phone: Start: 06-15-2022 End: 06-15-2022 Departed Referred [facility] Start: 05-16-2022 End: 05-16-[address] [facility] Work Phone: Start: 05-16-2022 End: 05-16-2022 Departed Referred [facility] Start: 05-08-2022 End: 05-08-[address] [facility] Work Phone: Start: 05-08-2022 End: 05-08-2022 Departed Referred [facility] Start: 04-16-2022 End: 04-16-2022 Departed Referred [facility] Start: 03-14-2022 End: 03-14-2022 Departed Referred [facility] Start: 02-14-2022 End: 02-14-2022 Departed Referred [facility] Start: 01-15-2022 End: 01-15-2022 Departed Referred [facility] Start: 12-14-2021 End: 12-14-2021 Departed Referred [facility] Start: 12-14-2021 Registered Referred [facility] Start: 11-13-2021 End: 11-13-2021 Departed Referred [facility] Start: 11-13-2021 Registered Referred [facility] Start: 10-17-2021 End: 10-17-2021 Departed Referred [facility] Start: 10-17-2021 Registered Referred [facility] Start: 09-26-2021 End: 09-26-2021 Patient encounter procedure [facility] Start: 09-25-2021 End: 09-25-2021 Departed Referred [facility] Start: 09-20-2021 End: 09-20-2021 Departed Referred [facility] Start: 09-20-2021 Registered Referred [facility] Procedures Date Procedure Procedure Detail Performing Clinician Start: 09-26-2021 Screening mammography Start: 04-13-2015 End: 02-28-2017 X-ray exam of elbow Carl Majano Work Phone: Start: 03-14-2015 End: 03-16-2015 Documentation of current medications Aubree E Frase Urine culture Plan of Treatment Date Care Activity Detail Author Start: 05-22-2017 End: 05-22-[address] [facility] Work Phone: Start: 04-03-2017 End: 04-03-[address] [facility] Work Phone: Start: 04-03-2017 End: 04-03-2017 X-Ray, Hip Unilateral X-Ray, Hip Unilateral [facility] Work Phone: Start: 03-06-2017 End: 03-06-[address] [facility] Work Phone: Start: 03-06-2017 End: 03-06-[address] [facility] Work Phone: Start: 03-06-2017 End: 03-06-2017 X-Ray, Hip, unilateral, with pelvis; 2-3 views X-Ray, Hip, unilateral, with pelvis; 2-[address] [facility] Work Phone: Start: 04-25-2015 End: 05-04-2015 Ct upper extremity w/o dye CT Upper Extremity [facility] Work Phone: Start: 04-25-2015 End: 05-10-2015 [facility]op follow-[facility] visit [facility] Work Phone: Start: 04-25-2015 End: 04-25-2015 X-ray exam of elbow X-Ray, Elbow [facility] Work Phone: Start: 04-13-2015 End: 04-13-2015 Occupational Therapy General Occupational Therapy [facility], [address] [place] [address], [id number] [facility] Work Phone: Start: 04-13-2015 End: 02-28-2017 X-ray exam of elbow X-Ray, Elbow [facility] Work Phone: Start: 03-28-2015 End: 04-04-2015 Postop follow-up visit Post Operative Visit [facility] Work Phone: Start: 03-28-2015 End: 03-28-2015 X-ray exam of elbow X-Ray, Elbow [facility] Work Phone: Patient Education ELBOW%20FRACTU RE%20IN%[address] [facility] Work Phone: Immunizations Immunization Date Immunization Notes Care Provider Tati boudreaux 06-28-2014 Influenza virus vaccine [facility] Payers Date Payer Category Payer Self-pay [id number] 2024 Unknown [id number] 255 [id number] 2017 Medicaid [id number] 65 [id number] 1975 Medicare [id number] 196 [id number] Unknown [id number] Unknown [id number] 2.16.8 [id number] Unknown [id number] 2.16.8 [id number] Unknown [id number] 2.16.8 [id number] Unknown [id number] 2.16.8 [id number] Unknown [id number] 2.16.8 [id number] Unknown [id number] 2.16.8 [id number] Unknown [id number] 2.16.8 [id number] Unknown [id number] 2.16.8 [id number] Unknown [id number] 2.16.8 [id number] Unknown [id number] 2.16.8 [id number] Unknown [id number] 2.16.8 [id number] Unknown [id number] 2.16.8 [id number] Unknown [id number] 2.16.8 [id number] Social History Date Type Detail Facility Start: 07-01-2021 End: 07-02-2021 Tobacco smoking status NCIS Unknown if ever smoked [facility] Start: 04-17-2019 None [facility] Start: 04-17-2019 Skilled Nursing [facility] Start: 1940 Sex Assigned At Female [facility] Start: 03-13-2024 Tobacco smoking stat us NCIS Never smoked tobacco (finding) [facility] Evaluation note Note Date & Type Note Facility Evaluation note No assessment information availa ble [facility] Work Phone: Reason for referral (narrative) Note Date & Type Note Facility Reason for referral (narrative) No reason for referral information available 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 SHELTER LABWORK [facility] WORK LABWORK Chief Complaint SHELTER LABWORK [facility]TER [facility] WORK LABWORK [facility] WORK Chief Complaint LABWORK [facility] WORK [facility] WORK [facility] WORK Chief Complaint LABWORK [facility]LTER [facility] WORK [facility]LTER [facility] WORK SHELTER [facility] WORK [facility] WORK Chief Complaint SHELTER LAB WOR K [facility] WORK SHELTER LAB WORK SHELTER LAB WORK SHELTER [facility] WORK Chief Complaint SHELTER LAB WOR K SHELTER LAB WORK SHELTER LAB WORK SHELTER LAB WORK SHELTER LAB WORK SHELTER LABWORK Chief Complaint SHELTER LAB WOR K SHELTER LAB WORK SHELTER LAB WORK SHELTER LAB WORK SHELTER LABWORK SHELTER LAB WORK Chief Complaint SHELTER LAB WOR K SHELTER LAB WORK SHELTER LABWORK SHELTER LAB WORK SHELTER LAB WORK Chief Complaint SHELTER LAB WOR K SHELTER LABWORK SHELTER LAB WORK SHELTER LAB WORK SHELTER LABWORK Chief Complaint SHELTER LAB WOR K SHELTER LABWORK SHELTER LAB WORK Chief Complaint SHELTER LAB WOR K Chief Complaint Admit Date SHE[facility]TER LAB WORK January 14, 2025 5:0 0am [facility] WORK February 22, 2025 4: 00am Advance Directives No Advanced Directives Records Found Advance Directive Response Recorded Date/ Time Advance Directives Yes March 16 3:27pm Living Will Yes July 01 11:19pm Power of Senior Maintenance Machinist No July 01, 2021 11:19pm Advance Directive Response Recorded Date/ Time Advance Directives Yes March 16 2:27pm Living Will Yes July 01 10:19pm Power of Senior Maintenance Machinist No July 01, 2021 10:19pm Advance Directive Response Recorded Date/ Time Advance Directives Yes March 16 3:27pm Summary Purpose Family History No Family History [...] Jake RUST MD Attending Provider, Referring Pr ovider Active Team Status: Active Member Role/Relationship Status Dates Dr. Jake Waddell MD Family Provider Active Dr. Jake Waddell MD Primary Care Provider Active Team Status: Inactive Member Role/Relationship Status Dates Dr. Jake Waddell MD Primary Care Provider Active Start: January 14, 2025 End: January 14, 2025 Jake RUST MD Attending Provider Active Start: January 14, 2025 End: January 14, 2025 Team Status: Active Member Role/Relationship Status Dates Dr. Jake Waddell MD Primary Care Provider Active Start: February 22, 2025 Jake RUST MD Attending Provider Active Start: February 22, 2025 Jake RUST MD Referring Provider Active Start: February 22, 2025 INFORMATION SOURCE (unrecogn ized section and content) DATE CREATED AUTHOR 02/28/2025 [facility] FOR RECORDS PERTAINING TO PATIENTS WHO ARE [...] BE BASED ON THE PRIMARY CLINICAL RECORDS. [facility] [employer] [facility]. provides no warranty or guarantee of the accuracy or completeness of information in this document.
[2025-04-16 09:17] LABS: Hematocrit 42.3 % (37-47); Hemoglobin 13.9 g/dL (12.0-15.0); Mean Corp Hgb Conc 32.9 g/dL (32-36); Mean Corpuscular Volume 91.0 fL (81-99); Mean Platelet Vol. 10.7 fl (6.2-12.0); Platelet Count 283 K/mm3 (150-450); RBC Distribution Width CV 13.1 % (11.6-14.6); RBC Distribution Width SD 43.2 fl (35.1-43.9); Red Blood Count 4.65 M/mm3 (4.2-5.4); White Blood Count 9.9 K/mm3 (4.4-11.0)
[2025-04-16 10:13] LABS: Anion Gap 12 (5-15); BUN 20 mg/dL (4-19); BUN/Creat Ratio 20.4 RATIO (10-20); Calcium,Total 9.1 mg/dL (7.6-11.0); Carbon Dioxide 24.6 mmol/L (21.0-32.0); Chloride 95 mmol/L (98-108); Cholesterol 115 mg/dL (<=200); Glucose 311 mg/dL (70-99); Low Density Lipoprotein Calc. 50 mg/dL; Potassium 4.7 mmol/L (3.3-5.1); Triglycerides 113 mg/dL; Very Low Density Lipoprotein 23 mg/dL (5-40); cholesterol:hdl ratio screen 2.72
== END ==
LOC: OLS.WCC 05:00
PROVIDERS: PCP Family Medicine; Visit Provider Family Medicine
DX: M62.81 Muscle weakness (generalized) (principal); Z91.81 History of falling
CPT/HCPCS: 36415; 80048; 80061; 83036; 85027

== ENCOUNTER → 2025-05-11 | Outpatient (REF) | payer MEDICARE, MEDICAID, SELFPAY ==
[2025-05-12 08:26] LABS: Color, Urine Straw (Yellow); Glucose, Dipstick Normal (Normal); Ketone-Dipstick Negative (Negative); Leukocyte Esterase-Dipstick 500 /ul (Negative); Nitrite-Dipstick Negative (Negative); Occult Blood-Urine 10 /ul (Negative); Protein-Dipstick 15 mg/dl (Negative); Specific Gravity, Urine 1.010 (1.002-1.030); Urine Bilirubin Dipstick Negative (Negative)
== END ==
LOC: OLS.WCC 06:00
PROVIDERS: PCP Family Medicine; Visit Provider Family Medicine
DX: N39.0 Urinary tract infection, site not specified (principal)
CPT/HCPCS: 81002; 87086; 87088; 87186

== ENCOUNTER → 2025-07-16 | Outpatient (REF) | payer MEDICARE, MEDICAID, SELFPAY | LOC: OLS.WCC 05:00 | PROVIDERS: PCP Family Medicine; Visit Provider Family Medicine | DX: E11.9 Type 2 diabetes mellitus without complications (principal) | CPT/HCPCS: 36415; 83036 ==

== ENCOUNTER → 2025-08-23 05:00 | Outpatient (REF) | payer MEDICAID, SELFPAY ==
--- OUTSIDE RECORDS SUMMARY | 2025-08-23 03:36 | XMS RPT_ITS | CCD ---
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 Jake Espinoza Primary Care Provider Jake Waddell MD Attending Provider Unavailable Bairon CHAUDHRY, Jake Espinoza Referring Provider Unavailable Waddell OLS, Jake Espinoza Attending Unavailable Waddell, Jake Espinoza Primary Care Unavailable Waddell OLS, Jake Espinoza Attending Unavailable Waddell, Jake Espinoza Primary Care Unavailable Waddell OLS, Jake Espinoza Attending Unavailable Waddell OLS, Jake Espinoza Referring Unavailable WaddellJake Primary Care Unavailable WaddellJake Primary Care Unavailable Waddell OLS, Jake Espinoza Attending Unavailable WaddellJake Primary Care Unavailable Waddell OLS, Jake Espinoza Attending Unavailable Waddell OLS, Jake Espinoza Referring Unavailable Waddell OLS, Jake Espinoza Attending Unavailable WaddellJake Primary Care Unavailable Waddell OLS, Jake Espinoza Attending Unavailable WaddellaJke Primary Care Unavailable WaddellJake Primary Care Unavailable Waddell OLS, Jake Espinoza Attending Unavailable Allergies Allergy Classification Reported Allergen(s) Allergy Type Date of Onset Reaction(s) Facility (18 sources) Codeine Drug Allergy 07-01-[address] [facility] (18 sources) Morphine Drug Allergy 07-01-[address] [facility] (18 sources) traMADol Drug Allergy 07-01-[address] [facility] (1 source) Codeine Drug Allergy 03-13-2024 [facility] (1 source) Morphine Drug Allergy 03-13-2024 [facility] (1 source) traMADol Drug Allergy 03-13-2024 [facility] Medications Current Medications Medication Drug [...] pressure docusate sodium 50 mg / sennosides, halfway 8.6 mg oral tablet (18 sources) Start: [...] TABS 1 tab twice daily METFORMIN HCL [id number] Aubree Cole 24 hr mirabegron 50 mg extended release oral tablet (18 sources) beta3-Adrenergic Agonist Start: 02-16-2017 take 1 tablet by mouth once daily Mirabegron (Myrbetriq) 50 MG tablet extended release 24 hr Active 50 mg PO DAILY February 16, 2017 12:00am bladder Vitamins A,C,P-Mljw-Tjoinz (Preservision Areds) 1 EACH capsule (18 sources) Start: 07-27-2018 take 1 capsule by mouth twice daily Vitamins A,C,Q-Pzjs-Ktejxz (Preservision Areds) 1 EACH capsule Active 1 EACH PO TWICE A DAY July 27, 2018 7:58pm Start: 07-27-2018 take 1 capsule by mo [facility] twice daily Vitamins A,C,Q-Lpqw-Seqlqp (Preservision Areds) 1 EACH capsule Active 1 NMA PO TWICE A DAY July 27, 2018 1:00am [facility] Start: 07-27-2018 take 1 capsule by mo ut twice daily Vitamins A,C,Y-Avtv-Muwasz (Preservision Areds) 1 EACH capsule Active 1 EACH PO TWICE A DAY July 27, 2018 12:00am Start: 07-27-2018 take 1 capsule by [facility] twice daily Vitamins A,C,J-Ljvb-Bpnwmp (Preservision Areds) 1 EACH capsule Active 1 EACH PO TWICE A DAY July 27, 2018 1:00am Completed/Discontinued Medications Medication Drug Class(es) Dates Sig (Normalized) Sig (Original) amLODIPine 10 mg / benazepril hydrochloride 20 mg oral capsule (6 sources) Dihydropyridine Calcium Channel Ken, Angiotensin Converting Enzyme Inhibitor Start: 03-14-2015 AMLODIPINE BESY-BENAZEPRIL HCL 10-20 MG CAPS daily AMLODIPINE BESY-BENAZEPRIL HCL [id number] Aubree Luis Antonio Cole atorvastatin 20 mg oral tablet (20 sources) HMG-CoA Reductase Inhibitor Start: 03-14-2015 ATORVASTATIN CALCIUM 20 MG TABS daily ATORVASTATIN CALCIUM [id number] Aubree Luis Antonio Fra Start: 03-07-2015 take 1 tablet by elva at bedtime Atorvastatin 20 MG tablet Active 20 mg PO AT BEDTIME March 07, 2015 12:00am cholesterol glimepiride 4 mg oral tablet (6 sources) Sulfonylurea Start: 03-14-2015 GLIMEPIRIDE 4 MG TABS daily GLIMEPIRIDE [id number] Aubree Luis Antonio Jenningsse pioglitazone 30 mg oral tablet (6 sources) Peroxisome Proliferator Receptor alpha Agonist, Peroxisome Proliferator Receptor gamma Agonist, Thiazolidinedione Start: 03-14-2015 PIOGLITAZONE HCL 30 MG TABS daily PIOGLITAZONE HCL [id number] Aubree E Frase SITagliptin 100 mg oral tablet (6 sources) Dipeptidyl Peptidase 4 Inhibitor Start: 03-14-2015 JANUVIA 100 MG TABS daily SITAGLIPTIN PHOSPHATE [id number] Aubree E Frase solifenacin succinate 10 mg oral tablet (6 sources) Cholinergic Muscarinic Antagonist Start: 03-14-2015 VESICARE 10 MG TABS daily SOLIFENACIN SUCCINATE [id number] Aubree E Frase Problems Active Problems Problem Classification Problem Date Documented Date Episodic/Chronic Delirium, dementia, and amnestic and other cognitive disorders (1 source) Unspecified dementia without behavioral disturbance; Translations: [Unspecified dementia, unspecified severity, without behavioral disturbance, psychotic disturbance, mood disturbance, and anxiety] Onset: 10-29-2024 Chronic Diabetes mellitus without complication (20 sources) Type 2 diabetes mellitus; Translations: [Type 2 diabetes mellitus without complications] Onset: 10-29-2024 07-01-2021 Chronic Disorders of lipid metabolism (19 sources) Hyperlipidemia; Translations: [Hyperlipidemia, unspecified] Onset: 10-29-2024 07-01-2021 Chronic E Codes: Fall (19 sources) Fall in retirement; Translations: [Unspecified fall, initial encounter] 04-18-2019 Episodic Essential hypertension (19 sources) Hypertensive disorder; Translations: [Essential (primary) hypertension] Onset: 10-29-2024 07-01-2021 Chronic Fluid and electrolyte disorders (18 [...] sources) Depressive disorder; Translations: [Depression] 04-30-2017 Chronic Open wounds of head; neck; and trunk (1 source) Scalp laceration; Translations: [Laceration without foreign body of scalp, initial encounter] 03-21-2024 Episodic Other aftercare (2 sources) Other group home (current) drug therapy; Translations: [Other group home (current) drug therapy] Onset: 10-29-2024 Episodic Other connective tissue disease (1 source) Muscle weakness (generalized); Translations: [Muscle weakness (generalized)] Onset: 05-04-2025 Episodic Other injuries and conditions due to external causes (1 source) Injury of head; Translations: [Unspecified injury of head, initial encounter] 03-21-2024 Episodic Other injuries and conditions due to external causes (1 source) History of falling; Translations: [History of falling] Onset: 05-04-2025 Episodic Superficial injury; contusion (18 sources) Hematoma of scalp; Translations: [Contusion of scalp, initial encounter] 04-18-2019 Episodic Urinary tract infections (19 sources) Acute urinary tract infection; Translations: [Urinary tract infection, site not specified] Onset: 07-02-2025 07-13-2021 Episodic Past or Other Problems Problem Classification [...] Test Name Value Interpretation Reference Range Facility Urine Cultureon 05-14-2025 [facility] Presumptive E. coli [place] Count >100,000 Presumptive E. coli: REACTION Ampicillin Islt MENDY >=32 Ampicillin+Sulbac Islt MENDY 16 I Cefepime Islt MENDY <=0.12 S cefTRIAXone Islt MENDY <=0.25 S Ciprofloxacin Islt MENDY <=0.06 S B-Lactamase Extended Susc Islt NEG Gentamicin Islt MENYD <=1 S levoFLOXacin Islt MENDY <=0.12 S Meropenem Islt MENDY <=0.25 S Nitrofurantoin Islt MENDY <=16 S Pip+Tazo Islt MENDY <=4 S TMP SMX Islt MENDY >=[address] [facility] Comment on above: Performed By: #### L 500.2500, L501.9985, L500.4100, L100.0500 #### [facility] [address] [place], [address] Urinalysis, Routine (Dipstic k)on 05-12-2025 BILIRUBIN URINE Negative Normal Negative [facility] Comment on above: Order Comment: 112.2 Performed By: #### L 500.2500, L501.9985, L500.4100, L100.0500 #### [facility] [address] [place], [address] Clarity (U) Clear Normal Clear [facility] Comment on above: Order Comment: 112.2 Performed By: #### L 500.2500, L501.9985, L500.4100, L100.0500 #### [facility] [address] [place], [address] Color (U) Straw Normal Yellow [facility] Comment on above: Order Comment: 112.2 Performed By: #### L 500.2500, L501.9985, L500.4100, L100.0500 #### [facility] [address] [place], [address] GLUCOSE, UR Normal Normal Normal [facility] Comment on above: Order Comment: 112.2 Performed By: #### L 500.2500, L501.9985, L500.4100, L100.0500 #### [facility] [address] [place], [address] KETONE UR Negative Normal Negative [facility] Comment on above: Order Comment: 112.2 Performed By: #### L 500.2500, L501.9985, L500.4100, L100.0500 #### [facility] [address] [place], [address] LEUK ESTERASE 500 /ul Abnormal Negative [facility] Comment on above: Order Comment: 112.2 Performed By: #### L 500.2500, L501.9985, L500.4100, L100.0500 #### [facility] [address] [place], [address] Nitrite Ql (U) Negative Normal Negative [facility] Comment on above: Order Comment: 112.2 Performed By: #### L 500.2500, L501.9985, L500.4100, L100.0500 #### [facility] [address] [place], [address] OCCULT BLOOD-UR 10 /ul Abnormal Negative [facility] Comment on above: Order Comment: 112.2 Performed By: #### L 500.2500, L501.9985, L500.4100, L100.0500 #### [facility] [address] [place], [address] pH UR 8.0 Normal 5.0 - 8.0 [facility] Comment on above: Order Comment: 112.2 Performed By: #### L 500.2500, L501.9985, L500.4100, L100.0500 #### [facility] [address] [place], [address] PROT DIPSTX 15 mg/dl Abnormal Negative [facility] Comment on above: Order Comment: 112.2 Performed By: #### L 500.2500, L501.9985, L500.4100, L100.0500 #### [facility] [address] [place], [address] SP.GR. DIPSTX 1.010 Normal 1.002-1.030 [facility] Comment on above: Order Comment: 112.2 Performed By: #### L 500.2500, L501.9985, L500.4100, L100.0500 #### [facility] [address] [place], [address] UROBILI Normal Normal Normal [facility] Comment on above: Order Comment: 112.2 Performed By: #### L 500.2500, L501.9985, L500.4100, L100.0500 #### [facility] [address] [place], [address] Basic Metabolic Profile (BMP )on 04-16-2025 BUN/CRE 20.4 RATIO High 10-20 [facility] Comment on above: Order Comment: 112.2 Performed By: #### L 100.0500, L500.2500, L501.9985, L500.4100 #### [facility] [address] [place], [address] Calcium [Mass/Vol] 9.1 mg/dL Normal 7.6-11.0 [facility] Comment on above: Order Comment: 112.2 Performed By: #### L 100.0500, L500.2500, L501.9985, L500.4100 #### [facility] [address] [place], [address] Chloride [Moles/Vol] 95 mmol/L Low 98-108 [facility] Comment on above: Order Comment: 112.2 Performed By: #### L 100.0500, L500.2500, L501.9985, L500.4100 #### [facility] [address] [place], [address] CO2 [Moles/Vol] 24.6 mmol/L Normal 21.0-32.0 [facility] Comment on above: Order Comment: 112.2 Performed By: #### L 100.0500, L500.2500, L501.9985, L500.4100 #### [facility] [address] [place], [address] Creatinine [Mass/Vol] 0.99 mg/dL Normal 0.70-1.20 [facility] Comment on above: Order Comment: 112.2 Performed By: #### L 100.0500, L500.2500, L501.9985, L500.4100 #### [facility] [address] [place], [address] GAP 12 Normal 5-15 [facility] Comment on above: Order Comment: 112.2 Performed By: #### L 100.0500, L500.2500, L501.9985, L500.4100 #### [facility] [address] [place], [address] GFR/1.73 sq M.predicted among non-blacks MDRD (S/P/Bld) [Vol rate/Area] 56 mL/min/{1.73_m2} Low >60 [facility] Comment on above: Order Comment: 112.2 Result Comment: mL/m in/1.73m2 CKD-EPI Creatinine Equation (2020) Performed By: #### L 100.0500, L500.2500, L501.9985, L500.4100 #### [facility] [address] [place], [address] Glucose [Mass/Vol] 311 mg/dL High 70-99 [facility] Comment on above: Order Comment: 112.2 Performed By: #### L 100.0500, L500.2500, L501.9985, L500.4100 #### [facility] [address] [place], [address] Potassium [Moles/Vol] 4.7 mmol/L Normal 3.3-5.1 [facility] Comment on above: Order Comment: 112.2 Performed By: #### L 100.0500, L500.2500, L501.9985, L500.4100 #### [facility] [address] [place], [address] Sodium [Moles/Vol] 132 mmol/L Low 133-145 [facility] Comment on above: Order Comment: 112.2 Performed By: #### L 100.0500, L500.2500, L501.9985, L500.4100 #### [facility] [address] [place], [address] Urea nitrogen [Mass/Vol] 20 mg/dL High 4-19 [facility] Comment on above: Order Comment: 112.2 Performed By: #### L 100.0500, L500.2500, L501.9985, L500.4100 #### [facility] [address] [place], [address] CBC-Complete Blood Cnt No Di ffon 04-16-2025 Erythrocyte distribution width (RBC) [Ratio] 13.1 % Normal 11.6-14.6 [facility] Comment on above: Order Comment: 112.2 Performed By: #### L 100.0500, L500.2500, L501.9985, L500.4100 #### [facility] [address] [place], [address] Hematocrit (Bld) [Volume fraction] 42.3 % Normal 37-47 [facility] Comment on above: Order Comment: 112.2 Performed By: #### L 100.0500, L500.2500, L501.9985, L500.4100 #### [facility] [address] [place], [address] Hemoglobin (Bld) [Mass/Vol] 13.9 g/dL Normal 12.0-15.0 [facility] Comment on above: Order Comment: 112.2 Performed By: #### L 100.0500, L500.2500, L501.9985, L500.4100 #### [facility] [address] [place], [address] MCH (RBC) [Entitic mass] 29.9 pg Normal 27.0-32.0 [facility] Comment on above: Order Comment: 112.2 Performed By: #### L 100.0500, L500.2500, L501.9985, L500.4100 #### [facility] [address] [place], [address] MCHC (RBC) [Mass/Vol] 32.9 g/dL Normal 32-36 [facility] Comment on above: Order Comment: 112.2 Performed By: #### L 100.0500, L500.2500, L501.9985, L500.4100 #### [facility] [address] [place], [address] MCV (RBC) [Entitic vol] 91.0 fL Normal 81-99 [facility] Comment on above: Order Comment: 112.2 Performed By: #### L 100.0500, L500.2500, L501.9985, L500.4100 #### [facility] [address] [place], [address] Platelet mean volume (Bld) [Entitic vol] 10.7 fL Normal 6.2-12.0 [facility] Comment on above: Order Comment: 112.2 Performed By: #### L 100.0500, L500.2500, L501.9985, L500.4100 #### [facility] [address] [place], [address] Platelets (Bld) [#/Vol] 283 10*3/uL Normal 150-450 [facility] Comment on above: Order Comment: 112.2 Performed By: #### L 100.0500, L500.2500, L501.9985, L500.4100 #### [facility] [address] [place], [address] RBC (Bld) [#/Vol] 4.65 10*6/uL Normal 4.2-5.4 [facility] Comment on above: Order Comment: 112.2 Performed By: #### L 100.0500, L500.2500, L501.9985, L500.4100 #### [facility] [address] [place], [address] RDW SD 43.2 fl Normal 35.1-43.9 [facility] Comment on above: Order Comment: 112.2 Performed By: #### L 100.0500, L500.2500, L501.9985, L500.4100 #### [facility] [address] [place], [address] WBC (Bld) [#/Vol] 9.9 10*3/uL Normal 4.4-11.0 [facility] Comment on above: Order Comment: 112.2 Performed By: #### L 100.0500, L500.2500, L501.9985, L500.4100 #### [facility] [address] [place], [address] Hemoglobin A1con 04-16-2025 HbA1c (Bld) [Mass fraction] 8.3 % High <=5.6 [facility] Comment on above: Order Comment: 112.2 Result Comment: Norm al < 5.7 % Prediabetic 5.7 - 6.4 % Diabetic >or= 6.5 % Please note range changes. Performed By: #### L 100.0500, L500.2500, L501.9985, L500.4100 #### [facility] [address] [place], [address] Lipid Profileon 04-16-2025 CHOL:HDL 2.[address] [facility] Comment on above: Order Comment: 112.2 Performed By: #### L 500.2500, L501.9985, L500.4100, L100.0500 #### [facility] [address] [place], [address] Cholesterol [Mass/Vol] 115 mg/dL Normal <=200 [facility] Comment on above: Order Comment: 112.2 Result Comment: Chol esterol level, Desirable <200 mg/dL Borderline high cholesterol 200-239 mg/dL High cholesterol >=240 mg/dL Recommendations of the NCEP Adult Treatment Panel for the following risk-cutoff thresholds for the [place] population. Performed By: #### L 500.2500, L501.9985, L500.4100, L100.0500 #### [facility] [address] [place], [address] Cholesterol in HDL [Mass/Vol] 42 mg/dL Normal [facility] Comment on above: Order Comment: 112.2 Result Comment: Lauren onal Cholesterol Education Program (NCEP) guidelines: <40 mg/dL: Low HDL-cholesterol (major risk factor for CHD) >= 60 mg/dL: High HDL-cholesterol (negative risk factor for CHD) HDL-cholesterol is affected by a number of factors, e.g. smoking, exercise, hormones, sex and age. Performed By: #### L 500.2500, L501.9985, L500.4100, L100.0500 #### [facility] [address] [facility] [address] Cholesterol in LDL [Mass/Vol] 50 mg/dL Normal [facility] Comment on above: Order Comment: 112.2 Result Comment: Bord omvtpv=489-732 mg/dL Higher Ceou=425 mg/dL or greater Friedwald Equation for LDL-C Performed By: #### L 500.2500, L501.9985, L500.4100, L100.0500 #### [facility] [address] [place], [address] Cholesterol in VLDL [Mass/Vol] 23 mg/dL Normal 5-40 [facility] Comment on above: Order Comment: 112.2 Performed By: #### L 500.2500, L501.9985, L500.4100, L100.0500 #### [facility] [address] [place], [address] Triglyceride [Mass/Vol] 113 mg/dL Normal [facility] Comment on above: Order Comment: 112.2 Result Comment: The drugs N-Acetylcysteine and Metamizole may falsely depress this assay. Normal range: <150 mg/dL Borderline High: 150-199 mg/dL High: 200-499 mg/dL Very High: >500 mg/dL Performed By: #### L 500.2500, L501.9985, L500.4100, L100.0500 #### [facility] [address] [place], [address] Serum or plasma valproate me asurement (mass/volume)Ordered By: Jake Waddell on 02-22-2025 Valproate [Mass/Vol] 46 ug/mL Low 50-100 [facility] Comment on above: Valproic Acid concen trations >100 ug/mL are potentially toxic. Valproic Acid (Depakene) Lev melissa 02-22-2025 VALPROIC ACID 46 ug/mL Low 50-100 [facility] Comment on above: Order Comment: 112.2 Result Comment: Valp roic Acid concentrations >100 ug/mL are potentially toxic. Performed By: #### L 501.8100 #### [facility] [address] [place], [address] Hemoglobin A1con 01-14-2025 HbA1c (Bld) [Mass fraction] 6.7 % High <=5.6 [facility] Comment on above: Order Comment: 112.2 Result Comment: Norm al < 5.7 % Prediabetic 5.7 - 6.4 % Diabetic >or= 6.5 % Please note range changes. Performed By: #### L 500.2500, L501.9985, L500.4100, L100.0500 #### [facility] [address] [place], [address] Hemoglobin A1c percentageOrd ered By: Jake Waddell on 01-14-2025 HbA1c (Bld) [Mass fraction] 6.7 % High <5.7 [facility] Comment on above: Normal < 5.7 % Predi abetic 5.7 - 6.4 % Diabetic >or= 6.5 % Please note range changes. Basic Metabolic Profile (BMP )on 10-16-2024 BUN/CRE 20.1 RATIO High 10-20 [facility] Comment on above: Order Comment: 112.2 Performed By: #### L 500.2500, L501.9985, L500.4100, L100.0500 #### [facility] [address] [place], [address] CA,Total 9.5 mg/dL Normal 8.5-10.1 [facility] Comment on above: Order Comment: 112.2 Performed By: #### L 500.2500, L501.9985, L500.4100, L100.0500 #### [facility] [address] [place], [address] Chloride [Moles/Vol] 97 mmol/L Low 98-107 [facility] Comment on above: Order Comment: 112.2 Performed By: #### L 500.2500, L501.9985, L500.4100, L100.0500 #### [facility] [address] [place], [address] CO2 [Moles/Vol] 24.0 mmol/L Normal 21.0-32.0 [facility] Comment on above: Order Comment: 112.2 Performed By: #### L 500.2500, L501.9985, L500.4100, L100.0500 #### [facility] [address] [place], [address] Creatinine [Mass/Vol] 0.95 mg/dL Normal 0.55-1.02 [facility] Comment on above: Order Comment: 112.2 Result Comment: The validity of the calculated GFR GFRAA in patients over 70 years has not been determined. Clinical correlation is essential. Performed By: #### L 500.2500, L501.9985, L500.4100, L100.0500 #### [facility] [address] [place], [address] EST GFR - AA 72 mL/min Normal >60 [facility] Comment on above: Order Comment: 112.2 Result Comment: Afri can British GFR Calc Performed By: #### L 500.2500, L501.9985, L500.4100, L100.0500 #### [facility] [address] [place], [address] GAP 10 Normal 5-15 [facility] Comment on above: Order Comment: 112.2 Performed By: #### L 500.2500, L501.9985, L500.4100, L100.0500 #### [facility] [address] [place], [address] GFR/1.73 sq M.predicted among non-blacks MDRD (S/P/Bld) [Vol rate/Area] 60 mL/min/{1.73_m2} Normal >60 [facility] Comment on above: Order Comment: 112.2 Result Comment: Non- GFR Calc Performed By: #### L 500.2500, L501.9985, L500.4100, L100.0500 #### [facility] [address] [place], [address] Glucose [Mass/Vol] 146 mg/dL High 74-106 [facility] Comment on above: Order Comment: 112.2 Result Comment: Fast ing Glucose result greater than or equal to 126 mg/dL suggests DIABETES MELLITUS per A.D.A. criteria. Performed By: #### L 500.2500, L501.9985, L500.4100, L100.0500 #### [facility] [address] [place], [address] Potassium [Moles/Vol] 4.4 mmol/L Normal 3.5-5.1 [facility] Comment on above: Order Comment: 112.2 Performed By: #### L 500.2500, L501.9985, L500.4100, L100.0500 #### [facility] [address] [place], [address] Sodium [Moles/Vol] 131 mmol/L Low 136-145 [facility] Comment on above: Order Comment: 112.2 Performed By: #### L 500.2500, L501.9985, L500.4100, L100.0500 #### [facility] [address] [place], [address] Urea nitrogen [Mass/Vol] 19 mg/dL High 7-18 [facility] Comment on above: Order Comment: 112.2 Performed By: #### L 500.2500, L501.9985, L500.4100, L100.0500 #### [facility] [address] [place], [address] CBC-Complete Blood Cnt No Di ffon 10-16-2024 Erythrocyte distribution width (RBC) [Ratio] 15.2 % High 11.6-14.6 [facility] Comment on above: Order Comment: 112.2 Performed By: #### L 500.2500, L501.9985, L500.4100, L100.0500 #### [facility] [address] [place], [address] Hematocrit (Bld) [Volume fraction] 41.2 % Normal 37-47 [facility] Comment on above: Order Comment: 112.2 Performed By: #### L 500.2500, L501.9985, L500.4100, L100.0500 #### [facility] [address] [place], [address] Hemoglobin (Bld) [Mass/Vol] 13.4 g/dL Normal 12.0-15.0 [facility] Comment on above: Order Comment: 112.2 Performed By: #### L 500.2500, L501.9985, L500.4100, L100.0500 #### [facility] [address] [place], [address] MCH (RBC) [Entitic mass] 28.3 pg Normal 27.0-32.0 [facility] Comment on above: Order Comment: 112.2 Performed By: #### L 500.2500, L501.9985, L500.4100, L100.0500 #### [facility] [address] [place], [address] MCHC (RBC) [Mass/Vol] 32.5 g/dL Normal 32-36 [facility] Comment on above: Order Comment: 112.2 Performed By: #### L 500.2500, L501.9985, L500.4100, L100.0500 #### [facility] [address] [place], [address] MCV (RBC) [Entitic vol] 86.9 fL Normal 81-99 [facility] Comment on above: Order Comment: 112.2 Performed By: #### L 500.2500, L501.9985, L500.4100, L100.0500 #### [facility] [address] [place], [address] Platelet mean volume (Bld) [Entitic vol] 10.8 fL Normal 6.2-12.0 [facility] Comment on above: Order Comment: 112.2 Performed By: #### L 500.2500, L501.9985, L500.4100, L100.0500 #### [facility] [address] [place], [address] Platelets (Bld) [#/Vol] 310 10*3/uL Normal 150-450 [facility] Comment on above: Order Comment: 112.2 Performed By: #### L 500.2500, L501.9985, L500.4100, L100.0500 #### [facility] [address] [place], [address] RBC (Bld) [#/Vol] 4.74 10*6/uL Normal 4.2-5.4 [facility] Comment on above: Order Comment: 112.2 Performed By: #### L 500.2500, L501.9985, L500.4100, L100.0500 #### [facility] [address] [place], [address] RDW SD 48.8 fl High 35.1-43.9 [facility] Comment on above: Order Comment: 112.2 Performed By: #### L 500.2500, L501.9985, L500.4100, L100.0500 #### [facility] [address] [place], [address] WBC (Bld) [#/Vol] 11.8 10*3/uL High 4.4-11.0 [facility] Comment on above: Order Comment: 112.2 Performed By: #### L 500.2500, L501.9985, L500.4100, L100.0500 #### [facility] [address] [place], [address] Hemoglobin A1con 10-16-2024 HbA1c (Bld) [Mass fraction] 6.7 % High 3.8-5.6 [facility] Comment on above: Order Comment: 112.2 Result Comment: Norm al < 5.7 % Prediabetic 5.7 - 6.4 % Diabetic >or= 6.5 % Please note range changes. Performed By: #### L 500.2500, L501.9985, L500.4100, L100.0500 #### [facility] [address] [place], [address] Lipid Profileon 10-16-2024 Cholesterol [Mass/Vol] 106 mg/dL Normal 200 [facility] Comment on above: Order Comment: 112.2 Result Comment: <200 mg/dL Desirable 200-240 mg/dL Borderline >240 mg/dL High Risk Performed By: #### L 500.2500, L501.9985, L500.4100, L100.0500 #### [facility] [address] [place], [address] Cholesterol in HDL [Mass/Vol] 52 mg/dL Normal [facility] Comment on above: Order Comment: 112.2 Result Comment: The drugs N-Acetylcysteine and Metamizole may falsely depress this assay. Reference Range HDL <40 mg/dL Low HDL Cholesterol HDL >or= 60 mg/dL High HDL Cholesterol Performed By: #### L 500.2500, L501.9985, L500.4100, L100.0500 #### [facility] [address] [place], [address] Cholesterol in LDL [Mass/Vol] 30 mg/dL Normal 0-130 [facility] Comment on above: Order Comment: 112.2 Performed By: #### L 500.2500, L501.9985, L500.4100, L100.0500 #### [facility] [address] [place], [address] Cholesterol in VLDL [Mass/Vol] 24 mg/dL Normal 5-40 [facility] Comment on above: Order Comment: 112.2 Performed By: #### L 500.2500, L501.9985, L500.4100, L100.0500 #### [facility] [address] [place], [address] Triglyceride [Mass/Vol] 118 mg/dL Normal [facility] Comment on above: Order Comment: 112.2 Result Comment: The drugs N-Acetylcysteine and Metamizole may falsely depress this assay. Serum Triglycerides Reference Interval Normal <150 mg/dL Borderline high 150 - 199 mg/dL High 200 - 499 mg/dL Very High > or = 500 mg/dL Performed By: #### L 500.2500, L501.9985, L500.4100, L100.0500 #### [facility] [address] [place], [address] Valproic Acid (Depakene) Lev melissa 08-21-2024 VALPROIC ACID 26 ug/mL Low 50-100 [facility] Comment on above: Order Comment: 112.2 Performed By: #### L 501.8100 #### [facility] [address] [place], [address] Urine Cultureon 07-17-2024 [facility] Presumptive E. coli [place] Count 11,000-25,000 Presumptive E. coli: REACTION Ampicillin [...] TMP SMX Islt MENDY >=[address] [facility] Comment on above: Performed By: #### L 500.2500, L501.9985, L500.4100, L100.0500 #### [facility] [address] [place], [place], [id number] Hemoglobin A1con 07-16-2024 HbA1c (Bld) [Mass fraction] 7.1 % High 3.8-5.6 [facility] Comment on above: Order Comment: 112.2 Result Comment: Norm al < 5.7 % Prediabetic 5.7 - 6.4 % Diabetic >or= 6.5 % Please note range changes. Performed By: #### L 501.9985 #### [facility] [address] [place], [place], [id number] Urinalysis, Completeon 07-15 BACTERIA 2+ /hpf Normal None Seen [facility] Comment on above: Order Comment: 112.2 Performed By: #### L 500.2500, L501.9985, L500.4100, L100.0500 #### [facility] [address] [place], [address] EPI,SQUAMOUS 10-25 SEEN Normal 5-10 [facility] Comment on above: Order Comment: 112.2 Performed By: #### L 500.2500, L501.9985, L500.4100, L100.0500 #### [facility] [address] [place], [address] RBC 50-100 SEEN Normal 0-5 [facility] Comment on above: Order Comment: 112.2 Performed By: #### L 500.2500, L501.9985, L500.4100, L100.0500 #### [facility] [address] [place], [address] WBC >100 SEEN Normal 0-5 [facility] Comment on above: Order Comment: 112.2 Performed By: #### L 500.2500, L501.9985, L500.4100, L100.0500 #### [facility] [address] [place], [address] Mucus Ql (Urine sed) 0 SEEN Normal [facility] Comment on above: Order Comment: 112.2 Performed By: #### L 500.2500, L501.9985, L500.4100, L100.0500 #### [facility] [address] [place], [address] Basophil percentageOrdered B y: Jake Waddell on 10-17-2023 Chloride [Moles/Vol] 106 mmol/L 98-107 [facility] Cholesterol [Mass/Vol] 114 mg/dL <200 [facility] Comment on above: <200 mg/dL Desirable 200-240 mg/dL Borderline >240 mg/dL High Risk Glucose [Mass/Vol] 198 mg/dL 74-106 [facility] Comment on above: Fasting Glucose resu lt greater than or equal to 126 mg/dL suggests DIABETES MELLITUS per A.D.A. criteria. Hemoglobin (Bld) [Mass/Vol] 13.2 g/dL 12.0-15.0 [facility] Potassium [Moles/Vol] 4.3 mmol/L 3.5-5.1 [facility] Sodium [Moles/Vol] 138 mmol/L 136-145 [facility] Triglyceride [Mass/Vol] 89 mg/dL <199 [facility] Comment on above: The drugs N-Acetylcy steine and Metamizole may falsely depress this assay.Serum Triglycerides Reference Interval Normal <150 mg/dL Borderline high 150 - 199 mg/dL High 200 - 499 mg/dL Very High > or = 500 mg/dL WBC (Bld) [#/Vol] 9.6 10*3/uL 4.4-11.0 [facility] Determination of erythrocyte mean corpuscular volume (MCV)Ordered By: Jake Waddell on 10-17-2023 MCV (RBC) [Entitic vol] 87.6 fL 81-99 [facility] Erythrocyte distribution wid th ratioOrdered By: Jake Waddell on 10-17-2023 Erythrocyte distribution width (RBC) [Ratio] 13.9 % 11.6-14.6 [facility] Erythrocyte distribution wid th standard deviationOrdered By: Jake Waddell on 10-17-2023 Erythrocyte distribution width (RBC) [Entitic vol] 43.9 fL 35.1-43.9 [facility] Hematocrit Auto (Bld) [Volum e fraction]Ordered By: Jake Waddell on 10-17-2023 Hematocrit (Bld) [Volume fraction] 41.1 % 37-47 [facility] - Chemistry and C hemistry - challengeOrdered By: Jake Waddell on 10-17-2023 Cholesterol in HDL [Mass/Vol] 44 mg/dL >40 [facility] Comment on above: The drugs N-Acetylcy steine and Metamizole may falsely depress this assay. Reference Range HDL <40 mg/dL Low HDL Cholesterol HDL >or= 60 mg/dL High HDL Cholesterol Cholesterol in LDL [Mass/Vol] 52 mg/dL 0-130 [facility] CO2 [Moles/Vol] 24.0 mmol/L 21.0-32.0 [facility] Urea nitrogen/Creatinine [Mass ratio] 18.1 mg/mg 10-20 [facility] - Hematology and Cell countsOrdered By: Jake Waddell on 10-17-2023 MCH (RBC) [Entitic mass] 28.1 pg 27.0-32.0 [facility] MCHC (RBC) [Mass/Vol] 32.1 g/dL 32-36 [facility] Platelet mean volume (Bld) [Entitic vol] 11.2 fL 6.2-12.0 [facility] Platelets (Bld) [#/Vol] 344 10*3/uL 150-450 [facility] No Panel InformationOrdered By: Jake Waddell on 10-17-2023 Estimated GFR (MDRD) Amer 85 mL/min >60 [facility] Comment on above: GFR Calc Estimated GFR (MDRD) Non-Af Amer 70 mL/min >60 [facility] Comment on above: Non- GFR Calc VLDL Cholesterol 18 mg/dL 5-40 [facility] RBC Auto (Bld) [#/Vol]Ordere d By: Jake Waddell on 10-17-2023 RBC (Bld) [#/Vol] 4.69 10*6/uL 4.2-5.4 [facility] Serum or plasma calcium becki urement (mass/volume)Ordered By: Jake Waddell on 10-17-2023 Calcium [Mass/Vol] 8.9 mg/dL 8.5-10.1 [facility] Serum or plasma creatinine m easurement (mass/volume)Ordered By: Jake Waddell on 10-17-2023 Creatinine [Mass/Vol] 0.83 mg/dL 0.55-1.02 [facility] Comment on above: The validity of the calculated GFR & GFRAA in patients over 70 years has not been determined. Clinical correlation is essential. Serum or plasma urea nitroge n measurement (mass/volume)Ordered By: Jake Waddell on 10-17-2023 Urea nitrogen [Mass/Vol] 15 mg/dL 7-18 [facility] Thin prep Papanicolaou smear with manual screeningOrdered By: Jake Waddell on 10-17-2023 Thin prep Papanicolaou smear with manual screening 8 5-15 [facility] Whole blood hemoglobin A1c/t otal hemoglobin ratio (mass fraction)Ordered By: Jake Waddell on 10-17-2023 HbA1c (Bld) [Mass fraction] 8.5 % 3.8-5.6 [facility] Comment on above: Normal < 5.7 % Predi abetic 5.7 - 6.4 % Diabetic >or= 6.5 % Please note range changes. Basophil percentageOrdered B y: Jake Waddell on 04-15-2023 Chloride [Moles/Vol] 102 mmol/L 98-107 [facility] Cholesterol [Mass/Vol] 118 mg/dL <200 [facility] Comment on above: <200 mg/dL Desirable 200-240 mg/dL Borderline >240 mg/dL High Risk Glucose [Mass/Vol] 236 mg/dL 74-106 [facility] Comment on above: Glucose result great er than or equal to 200 mg/dLsuggests DIABETES MELLITUS per A.D.A. criteria. Potassium [Moles/Vol] 4.5 mmol/L 3.5-5.1 [facility] Sodium [Moles/Vol] 135 mmol/L 136-145 [facility] Triglyceride [Mass/Vol] 119 mg/dL <199 [facility] Comment on above: The drugs N-Acetylcy steine and Metamizole may falsely depress this assay.Serum Triglycerides Reference Interval Normal <150 mg/dL Borderline high 150 - 199 mg/dL High 200 - 499 mg/dL Very High > or = 500 mg/dL WBC (Bld) [#/Vol] 10.0 10*3/uL 4.4-11.0 [facility] Blood erythrocytes count (nu mber/volume)Ordered By: Jake Waddell on 04-15-2023 RBC (Bld) [#/Vol] 4.83 10*6/uL 4.2-5.4 [facility] Blood hemoglobin measurement (mass/volume)Ordered By: Jake Waddell on 04-15-2023 Hemoglobin (Bld) [Mass/Vol] 13.9 g/dL 12.0-15.0 [facility] Blood platelet mean volumeOr dered By: Jake Waddell on 04-15-2023 Platelet mean volume (Bld) [Entitic vol] 10.8 fL 6.2-12.0 [facility] Determination of erythrocyte mean corpuscular volume (MCV)Ordered By: Jake Waddell on 04-15-2023 MCV (RBC) [Entitic vol] 89.6 fL 81-99 [facility] Hematocrit Auto (Bld) [Volum e fraction]Ordered By: Jake Waddell on 04-15-2023 Hematocrit (Bld) [Volume fraction] 43.3 % 37-47 [facility] - Chemistry and C hemistry - challengeOrdered By: Jake Waddell on 04-15-2023 CO2 [Moles/Vol] 26.0 mmol/L 21.0-32.0 [facility] Urea nitrogen/Creatinine [Mass ratio] 19.3 mg/mg 10-20 [facility] - Hematology and Cell countsOrdered By: Jake Waddell on 04-15-2023 Erythrocyte distribution width (RBC) [Entitic vol] 46.2 fL 35.1-43.9 [facility] Erythrocyte distribution width (RBC) [Ratio] 14.1 % 11.6-14.6 [facility] MCH (RBC) [Entitic mass] 28.8 pg 27.0-32.0 [facility] MCHC Auto (RBC) [Mass/Vol]Or dered By: Jake Waddell on 04-15-2023 MCHC (RBC) [Mass/Vol] 32.1 g/dL 32-36 [facility] No Panel InformationOrdered By: Jake Waddell on 04-15-2023 Estimated GFR (MDRD) Amer 69 mL/min >60 [facility] Comment on above: GFR Calc Estimated GFR (MDRD) Non-Af Amer 57 mL/min >60 [facility] Comment on above: Non- GFR Calc Platelets bldOrdered By: Delmer Waddell on 04-15-2023 Platelets (Bld) [#/Vol] 357 10*3/uL 150-450 [facility] Serum or plasma calcium becki urement (mass/volume)Ordered By: Jake Waddell on 04-15-2023 Calcium [Mass/Vol] 9.1 mg/dL 8.5-10.1 [facility] Serum or plasma cholesterol in HDL measurement (mass/volume)Ordered By: Jake Waddell on 04-15-2023 Cholesterol in HDL [Mass/Vol] 42 mg/dL >40 [facility] Comment on above: The drugs N-Acetylcy steine and Metamizole may falsely depress this assay. Reference Range HDL <40 mg/dL Low HDL Cholesterol HDL >or= 60 mg/dL High HDL Cholesterol Serum or plasma cholesterol in VLDL measurement (mass/volume)Ordered By: Jake Waddell on 04-15-2023 Cholesterol in VLDL [Mass/Vol] 24 mg/dL 5-40 [facility] Serum or plasma creatinine m easurement (mass/volume)Ordered By: Jake Waddell on 04-15-2023 Creatinine [Mass/Vol] 0.98 mg/dL 0.55-1.02 [facility] Comment on above: The validity of the calculated GFR & GFRAA in patients over 70 years has not been determined. Clinical correlation is essential. Serum or plasma low density lipoprotein (LDL) cholesterol measurement (mass/volume)Ordered By: Jake Waddell on 04-15-2023 Cholesterol in LDL [Mass/Vol] 52 mg/dL 0-130 [facility] Serum or plasma urea nitroge n measurement (mass/volume)Ordered By: Jake Waddell on 04-15-2023 Urea nitrogen [Mass/Vol] 19 mg/dL 7-18 [facility] Thin prep Papanicolaou smear with manual screeningOrdered By: Jake Waddell on 04-15-2023 Thin prep Papanicolaou smear with manual screening 01-14 [facility] Whole blood hemoglobin A1c/t otal hemoglobin ratio (mass fraction)Ordered By: Jake Waddell on 04-15-2023 HbA1c (Bld) [Mass fraction] 9.7 % 3.8-5.6 [facility] Comment on above: Normal < 5.7 % Predi abetic 5.7 - 6.4 % Diabetic >or= 6.5 % Please note range changes. Basophil percentageOrdered B y: Jake Waddell on 10-17-2022 Chloride [Moles/Vol] 103 mmol/L 98-107 [facility] Cholesterol [Mass/Vol] 148 mg/dL <200 [facility] Comment on above: <200 mg/dL Desirable 200-240 mg/dL Borderline >240 mg/dL High Risk Glucose [Mass/Vol] 109 mg/dL 74-106 [facility] Comment on above: Fasting Glucose resu lt from 100 to 125 mg/dL suggests IMPAIRED HOMEOSTASIS per A.D.A. criteria. Potassium [Moles/Vol] 4.3 mmol/L 3.5-5.1 [facility] Sodium [Moles/Vol] 137 mmol/L 136-145 [facility] Triglyceride [Mass/Vol] 143 mg/dL <199 [facility] Comment on above: The drugs N-Acetylcy steine and Metamizole may falsely depress this assay.Serum Triglycerides Reference Interval Normal <150 mg/dL Borderline high 150 - 199 mg/dL High 200 - 499 mg/dL Very High > or = 500 mg/dL WBC (Bld) [#/Vol] 10.3 10*3/uL 4.4-11.0 [facility] Blood erythrocytes count (nu mber/volume)Ordered By: Jake Waddell on 10-17-2022 RBC (Bld) [#/Vol] 4.70 10*6/uL 4.2-5.4 [facility] Blood hemoglobin measurement (mass/volume)Ordered By: Jake Waddell on 10-17-2022 Hemoglobin (Bld) [Mass/Vol] 13.9 g/dL 12.0-15.0 [facility] Blood platelet mean volumeOr dered By: Jake Waddell on 10-17-2022 Platelet mean volume (Bld) [Entitic vol] 10.7 fL 6.2-12.0 [facility] Determination of erythrocyte mean corpuscular volume (MCV)Ordered By: Jake Waddell on 10-17-2022 MCV (RBC) [Entitic vol] 91.3 fL 81-99 [facility] Hematocrit Auto (Bld) [Volum e fraction]Ordered By: Jake Waddell on 10-17-2022 Hematocrit (Bld) [Volume fraction] 42.9 % 37-47 [facility] - Chemistry and C hemistry - challengeOrdered By: Jake Waddell on 10-17-2022 CO2 [Moles/Vol] 24.0 mmol/L 21.0-32.0 [facility] Urea nitrogen/Creatinine [Mass ratio] 25.4 mg/mg 10-20 [facility] - Hematology and Cell countsOrdered By: Jake Waddell on 10-17-2022 Erythrocyte distribution width (RBC) [Entitic vol] 46.4 fL 35.1-43.9 [facility] Erythrocyte distribution width (RBC) [Ratio] 13.7 % 11.6-14.6 [facility] MCH (RBC) [Entitic mass] 29.6 pg 27.0-32.0 [facility] MCHC Auto (RBC) [Mass/Vol]Or dered By: Jake Waddell on 10-17-2022 MCHC (RBC) [Mass/Vol] 32.4 g/dL 32-36 [facility] No Panel InformationOrdered By: Jake Waddell on 10-17-2022 Estimated GFR (MDRD) Amer 73 mL/min >60 [facility] Comment on above: GFR Calc Estimated GFR (MDRD) Non-Af Amer 60 mL/min >60 [facility] Comment on above: Non- GFR Calc Platelets bldOrdered By: Delmer Waddell on 10-17-2022 Platelets (Bld) [#/Vol] 355 10*3/uL 150-450 [facility] Serum or plasma calcium becki urement (mass/volume)Ordered By: Jake Waddell on 10-17-2022 Calcium [Mass/Vol] 9.8 mg/dL 8.5-10.1 [facility] Serum or plasma cholesterol in HDL measurement (mass/volume)Ordered By: Jake Waddell on 10-17-2022 Cholesterol in HDL [Mass/Vol] 51 mg/dL >40 [facility] Comment on above: The drugs N-Acetylcy steine and Metamizole may falsely depress this assay. Reference Range HDL <40 mg/dL Low HDL Cholesterol HDL >or= 60 mg/dL High HDL Cholesterol Serum or plasma cholesterol in VLDL measurement (mass/volume)Ordered By: Jake Waddell on 10-17-2022 Cholesterol in VLDL [Mass/Vol] 29 mg/dL 5-40 [facility] Serum or plasma creatinine m easurement (mass/volume)Ordered By: Jake Waddell on 10-17-2022 Creatinine [Mass/Vol] 0.95 mg/dL 0.55-1.02 [facility] Comment on above: The validity of the calculated GFR & GFRAA in patients over 70 years has not been determined. Clinical correlation is essential. Serum or plasma low density lipoprotein (LDL) cholesterol measurement (mass/volume)Ordered By: Jake Waddell on 10-17-2022 Cholesterol in LDL [Mass/Vol] 68 mg/dL 0-130 [facility] Serum or plasma urea nitroge n measurement (mass/volume)Ordered By: Jake Waddell on 10-17-2022 Urea nitrogen [Mass/Vol] 24 mg/dL 7-18 [facility] Thin prep Papanicolaou smear with manual screeningOrdered By: Jake Waddell on 10-17-2022 Thin prep Papanicolaou smear with manual screening 10 5-15 [facility] Whole blood hemoglobin A1c/t otal hemoglobin ratio (mass fraction)Ordered By: Jake Waddell on 02-15-2023 HbA1c (Bld) [Mass fraction] 7.8 % 3.8-5.6 [facility] Comment on above: Normal < 5.7 % Predi abetic 5.7 - 6.4 % Diabetic >or= 6.5 % Please note range changes. Basophil percentageOrdered B y: Jake Waddell on 09-17-2022 Chloride [Moles/Vol] 104 mmol/L 98-107 [facility] Glucose [Mass/Vol] 152 mg/dL 74-106 [facility] Comment on above: Fasting Glucose resu lt greater than or equal to 126 mg/dL suggests DIABETES MELLITUS per A.D.A. criteria. Potassium [Moles/Vol] 4.7 mmol/L 3.5-5.1 [facility] Sodium [Moles/Vol] 135 mmol/L 136-145 [facility] WBC (Bld) [#/Vol] 12.1 10*3/uL 4.4-11.0 [facility] Blood erythrocytes count (nu mber/volume)Ordered By: Jake Waddell on 09-17-2022 RBC (Bld) [#/Vol] 4.97 10*6/uL 4.2-5.4 [facility] Blood hemoglobin measurement (mass/volume)Ordered By: Jake Waddell on 09-17-2022 Hemoglobin (Bld) [Mass/Vol] 14.2 g/dL 12.0-15.0 [facility] Blood platelet mean volumeOr dered By: Jake Waddell on 09-17-2022 Platelet mean volume (Bld) [Entitic vol] 11.3 fL 6.2-12.0 [facility] Determination of erythrocyte mean corpuscular volume (MCV)Ordered By: Jake Waddell on 09-17-2022 MCV (RBC) [Entitic vol] 90.3 fL 81-99 [facility] Hematocrit Auto (Bld) [Volum e fraction]Ordered By: Jake Waddell on 09-17-2022 Hematocrit (Bld) [Volume fraction] 44.9 % 37-47 [facility] - Chemistry and C hemistry - challengeOrdered By: Jake Waddell on 09-17-2022 CO2 [Moles/Vol] 24.0 mmol/L 21.0-32.0 [facility] Urea nitrogen/Creatinine [Mass ratio] 20.6 mg/mg 10-20 [facility] - Hematology and Cell countsOrdered By: Jake Waddell on 09-17-2022 Erythrocyte distribution width (RBC) [Entitic vol] 48.2 fL 35.1-43.9 [facility] Erythrocyte distribution width (RBC) [Ratio] 14.6 % 11.6-14.6 [facility] MCH (RBC) [Entitic mass] 28.6 pg 27.0-32.0 [facility] MCHC Auto (RBC) [Mass/Vol]Or dered By: Jake Waddell on 09-17-2022 MCHC (RBC) [Mass/Vol] 31.6 g/dL 32-36 [facility] No Panel InformationOrdered By: Jake Waddell on 09-17-2022 Estimated GFR (MDRD) Amer 75 mL/min >60 [facility] Comment on above: GFR Calc Estimated GFR (MDRD) Non-Af Amer 62 mL/min >60 [facility] Comment on above: Non- GFR Calc Platelets bldOrdered By: Delmer Waddell on 09-17-2022 Platelets (Bld) [#/Vol] 388 10*3/uL 150-450 [facility] Serum or plasma calcium becki urement (mass/volume)Ordered By: Jake Waddell on 09-17-2022 Calcium [Mass/Vol] 9.4 mg/dL 8.5-10.1 [facility] Serum or plasma creatinine m easurement (mass/volume)Ordered By: Jake Waddell on 09-17-2022 Creatinine [Mass/Vol] 0.92 mg/dL 0.55-1.02 [facility] Comment on above: The validity of the calculated GFR & GFRAA in patients over 70 years has not been determined. Clinical correlation is essential. Serum or plasma urea nitroge n measurement (mass/volume)Ordered By: Jake Waddell on 09-17-2022 Urea nitrogen [Mass/Vol] 19 mg/dL 7-18 [facility] Thin prep Papanicolaou smear with manual screeningOrdered By: Jake Waddell on 09-17-2022 Thin prep Papanicolaou smear with manual screening 7 5-15 [facility] Basophil percentageOrdered B y: Jake Waddell on 08-15-2022 Chloride [Moles/Vol] 104 mmol/L 98-107 [facility] Glucose [Mass/Vol] 104 mg/dL 74-106 [facility] Comment on above: Fasting Glucose resu lt from 100 to 125 mg/dL suggests IMPAIRED HOMEOSTASIS per A.D.A. criteria. Potassium [Moles/Vol] 4.6 mmol/L 3.5-5.1 [facility] Sodium [Moles/Vol] 137 mmol/L 136-145 [facility] WBC (Bld) [#/Vol] 9.8 10*3/uL 4.4-11.0 [facility] Blood erythrocytes count (nu mber/volume)Ordered By: Jake Waddell on 08-15-2022 RBC (Bld) [#/Vol] 4.54 10*6/uL 4.2-5.4 [facility] Blood hemoglobin measurement (mass/volume)Ordered By: Jake Waddell on 08-15-2022 Hemoglobin (Bld) [Mass/Vol] 13.1 g/dL 12.0-15.0 [facility] Blood platelet mean volumeOr dered By: Jake Waddell on 08-15-2022 Platelet mean volume (Bld) [Entitic vol] 11.2 fL 6.2-12.0 [facility] Determination of erythrocyte mean corpuscular volume (MCV)Ordered By: Jake Waddell on 08-15-2022 MCV (RBC) [Entitic vol] 91.6 fL 81-99 [facility] Hematocrit Auto (Bld) [Volum e fraction]Ordered By: Jake Waddell on 08-15-2022 Hematocrit (Bld) [Volume fraction] 41.6 % 37-47 [facility] - Chemistry and C hemistry - challengeOrdered By: Jake Waddell on 08-15-2022 CO2 [Moles/Vol] 25.0 mmol/L 21.0-32.0 [facility] Urea nitrogen/Creatinine [Mass ratio] 21.9 mg/mg 10-20 [facility] - Hematology and Cell countsOrdered By: Jake aWddell on 08-15-2022 Erythrocyte distribution width (RBC) [Entitic vol] 54.9 fL 35.1-43.9 [facility] Erythrocyte distribution width (RBC) [Ratio] 16.3 % 11.6-14.6 [facility] MCH (RBC) [Entitic mass] 28.9 pg 27.0-32.0 [facility] MCHC Auto (RBC) [Mass/Vol]Or dered By: Jake Waddell on 08-15-2022 MCHC (RBC) [Mass/Vol] 31.5 g/dL 32-36 [facility] No Panel InformationOrdered By: Jake Waddell on 08-15-2022 Estimated GFR (MDRD) Amer 76 mL/min >60 [facility] Comment on above: GFR Calc Estimated GFR (MDRD) Non-Af Amer 62 mL/min >60 [facility] Comment on above: Non- GFR Calc Platelets bldOrdered By: Delmer Waddell on 08-15-2022 Platelets (Bld) [#/Vol] 409 10*3/uL 150-450 [facility] Serum or plasma calcium becki urement (mass/volume)Ordered By: Jake Waddell on 08-15-2022 Calcium [Mass/Vol] 9.5 mg/dL 8.5-10.1 [facility] Serum or plasma creatinine m easurement (mass/volume)Ordered By: Jake Waddell on 08-15-2022 Creatinine [Mass/Vol] 0.91 mg/dL 0.55-1.02 [facility] Comment on above: The validity of the calculated GFR & GFRAA in patients over 70 years has not been determined. Clinical correlation is essential. Serum or plasma urea nitroge n measurement (mass/volume)Ordered By: Jake Waddell on 08-15-2022 Urea nitrogen [Mass/Vol] 20 mg/dL 7-18 [facility] Thin prep Papanicolaou smear with manual screeningOrdered By: Jake Waddell on 08-15-2022 Thin prep Papanicolaou smear with manual screening 8 5-15 [facility] Basophil percentageOrdered B y: Jake Waddell on 07-16-2022 Chloride [Moles/Vol] 102 mmol/L 98-107 [facility] Glucose [Mass/Vol] 65 mg/dL 74-106 [facility] Potassium [Moles/Vol] 4.2 mmol/L 3.5-5.1 [facility] Sodium [Moles/Vol] 136 mmol/L 136-145 [facility] WBC (Bld) [#/Vol] 9.8 10*3/uL 4.4-11.0 [facility] Blood erythrocytes count (nu mber/volume)Ordered By: Jake Waddell on 07-16-2022 RBC (Bld) [#/Vol] 4.79 10*6/uL 4.2-5.4 [facility] Blood hemoglobin measurement (mass/volume)Ordered By: Jake Waddell on 07-16-2022 Hemoglobin (Bld) [Mass/Vol] 14.0 g/dL 12.0-15.0 [facility] Blood platelet mean volumeOr dered By: Jake Waddell on 07-16-2022 Platelet mean volume (Bld) [Entitic vol] 10.8 fL 6.2-12.0 [facility] Determination of erythrocyte mean corpuscular volume (MCV)Ordered By: Jake Waddell on 07-16-2022 MCV (RBC) [Entitic vol] 86.8 fL 81-99 [facility] Hematocrit Auto (Bld) [Volum e fraction]Ordered By: Jake Waddell on 07-16-2022 Hematocrit (Bld) [Volume fraction] 41.6 % 37-47 [facility] - Chemistry and C hemistry - challengeOrdered By: Jake Waddell on 07-16-2022 CO2 [Moles/Vol] 25.0 mmol/L 21.0-32.0 [facility] Urea nitrogen/Creatinine [Mass ratio] 23.5 mg/mg 10-20 [facility] - Hematology and Cell countsOrdered By: Jake Waddell on 07-16-2022 Erythrocyte distribution width (RBC) [Entitic vol] 50.3 fL 35.1-43.9 [facility] Erythrocyte distribution width (RBC) [Ratio] 15.9 % 11.6-14.6 [facility] MCH (RBC) [Entitic mass] 29.2 pg 27.0-32.0 [facility] MCHC Auto (RBC) [Mass/Vol]Or dered By: Jake Waddell on 07-16-2022 MCHC (RBC) [Mass/Vol] 33.7 g/dL 32-36 [facility] No Panel InformationOrdered By: Jake Waddell on 07-16-2022 Estimated GFR (MDRD) Amer 124 mL/min >60 [facility] Comment on above: GFR Calc Estimated GFR (MDRD) Non-Af Amer 102 mL/min >60 [facility] Comment on above: Non- GFR Calc Platelets bldOrdered By: Delmer Waddell on 07-16-2022 Platelets (Bld) [#/Vol] 408 10*3/uL 150-450 [facility] Serum or plasma calcium becki urement (mass/volume)Ordered By: Jake Waddell on 07-16-2022 Calcium [Mass/Vol] 9.1 mg/dL 8.5-10.1 [facility] Serum or plasma creatinine m easurement (mass/volume)Ordered By: Jake Waddell on 07-16-2022 Creatinine [Mass/Vol] 0.60 mg/dL 0.55-1.02 [facility] Comment on above: The validity of the calculated GFR & GFRAA in patients over 70 years has not been determined. Clinical correlation is essential. Serum or plasma urea nitroge n measurement (mass/volume)Ordered By: Jake Waddell on 07-16-2022 Urea nitrogen [Mass/Vol] 14 mg/dL 7-18 [facility] Thin prep Papanicolaou smear with manual screeningOrdered By: Jake Waddell on 07-16-2022 Thin prep Papanicolaou smear with manual screening 9 5-15 [facility] Absolute lymphocyte countOrd ered By: Jake Waddell on 06-29-2022 Lymphocytes Auto (Unsp spec) [#/Vol] 1.85 10*3/uL 0.83-4.51 [facility] Basophil percentageOrdered B y: Jake Waddell on 06-29-2022 Basophils/100 WBC (Bld) 0.4 % 0-1 [facility] Eosinophils/100 WBC (Bld) 4.2 % 0-5 [facility] Neutrophils (Bld) [#/Vol] 6.0 10*3/uL 2.0-7.7 [facility] Neutrophils/100 WBC (Bld) 66.2 % 47-70 [facility] WBC (Bld) [#/Vol] 9.1 10*3/uL 4.4-11.0 [facility] Blood erythrocytes count (nu mber/volume)Ordered By: Jake Waddell on 06-29-2022 RBC (Bld) [#/Vol] 4.47 10*6/uL 4.2-5.4 [facility] Blood hemoglobin measurement (mass/volume)Ordered By: Jake Waddell on 06-29-2022 Hemoglobin (Bld) [Mass/Vol] 13.0 g/dL 12.0-15.0 [facility] Blood lymphocytes/100 leukoc ytesOrdered By: Jake Waddell on 06-29-2022 Lymphocytes/100 WBC (Bld) 20.4 % 19-41 [facility] Blood monocytes/100 leukocyt esOrdered By: Jake Waddell on 06-29-2022 Monocytes/100 WBC (Bld) 8.5 % 0-10 [facility] Blood platelet mean volumeOr dered By: Jake Waddell on 06-29-2022 Platelet mean volume (Bld) [Entitic vol] 10.8 fL 6.2-12.0 [facility] Determination of erythrocyte mean corpuscular volume (MCV)Ordered By: Jake Waddell on 06-29-2022 MCV (RBC) [Entitic vol] 86.6 fL 81-99 [facility] Hematocrit Auto (Bld) [Volum e fraction]Ordered By: Jake Waddell on 06-29-2022 Hematocrit (Bld) [Volume fraction] 38.7 % 37-47 [facility] - Hematology and Cell countsOrdered By: Jake Waddell on 06-29-2022 Erythrocyte distribution width (RBC) [Entitic vol] 48.4 fL 35.1-43.9 [facility] Erythrocyte distribution width (RBC) [Ratio] 15.3 % 11.6-14.6 [facility] Immature granulocytes/100 WBC (Bld) 0.300 % 0.0-0.9 [facility] Comment on above: IG% - Immature Granu locytes (promyelocytes, myelocytes and metamyelocytes) > 1% indicates that a LEFT SHIFT is Present. MCH (RBC) [Entitic mass] 29.1 pg 27.0-32.0 [facility] Nucleated RBC/100 WBC (Bld) [Ratio] 0 % 0-5 [facility] MCHC Auto (RBC) [Mass/Vol]Or dered By: Jake Waddell on 06-29-2022 MCHC (RBC) [Mass/Vol] 33.6 g/dL 32-36 [facility] Platelets bldOrdered By: Delmer Waddell on 06-29-2022 Platelets (Bld) [#/Vol] 372 10*3/uL 150-450 [facility] Basophil percentageOrdered B y: Jake Waddell on 06-15-2022 Chloride [Moles/Vol] 102 mmol/L 98-107 [facility] Glucose [Mass/Vol] 54 mg/dL 74-106 [facility] Potassium [Moles/Vol] 3.9 mmol/L 3.5-5.1 [facility] Sodium [Moles/Vol] 137 mmol/L 136-145 [facility] WBC (Bld) [#/Vol] 13.9 10*3/uL 4.4-11.0 [facility] Blood erythrocytes count (nu mber/volume)Ordered By: Jake Waddell on 06-15-2022 RBC (Bld) [#/Vol] 4.66 10*6/uL 4.2-5.4 [facility] Blood hemoglobin measurement (mass/volume)Ordered By: Jake Waddell on 06-15-2022 Hemoglobin (Bld) [Mass/Vol] 13.1 g/dL 12.0-15.0 [facility] Blood platelet mean volumeOr dered By: Jake Waddell on 06-15-2022 Platelet mean volume (Bld) [Entitic vol] 10.0 fL 6.2-12.0 [facility] Determination of erythrocyte mean corpuscular volume (MCV)Ordered By: Jake Waddell on 06-15-2022 MCV (RBC) [Entitic vol] 86.5 fL 81-99 [facility] Hematocrit Auto (Bld) [Volum e fraction]Ordered By: Jake Waddell on 06-15-2022 Hematocrit (Bld) [Volume fraction] 40.3 % 37-47 [facility] - Chemistry and C hemistry - challengeOrdered By: Jake Waddell on 06-15-2022 CO2 [Moles/Vol] 25.0 mmol/L 21.0-32.0 [facility] Urea nitrogen/Creatinine [Mass ratio] 12.8 mg/mg 10-20 [facility] - Hematology and Cell countsOrdered By: Jake Waddell on 06-15-2022 Erythrocyte distribution width (RBC) [Entitic vol] 45.6 fL 35.1-43.9 [facility] Erythrocyte distribution width (RBC) [Ratio] 14.3 % 11.6-14.6 [facility] MCH (RBC) [Entitic mass] 28.1 pg 27.0-32.0 [facility] MCHC Auto (RBC) [Mass/Vol]Or dered By: Jake Waddell on 06-15-2022 MCHC (RBC) [Mass/Vol] 32.5 g/dL 32-36 [facility] No Panel InformationOrdered By: Jake Waddell on 06-15-2022 Estimated GFR (MDRD) Amer 103 mL/min >60 [facility] Comment on above: GFR Calc Estimated GFR (MDRD) Non-Af Amer 85 mL/min >60 [facility] Comment on above: Non- GFR Calc Platelets bldOrdered By: Delmer Waddell on 06-15-2022 Platelets (Bld) [#/Vol] 553 10*3/uL 150-450 [facility] Serum or plasma calcium becki urement (mass/volume)Ordered By: Jake Waddell on 06-15-2022 Calcium [Mass/Vol] 9.2 mg/dL 8.5-10.1 [facility] Serum or plasma creatinine m easurement (mass/volume)Ordered By: Jake Waddell on 06-15-2022 Creatinine [Mass/Vol] 0.70 mg/dL 0.55-1.02 [facility] Comment on above: The validity of the calculated GFR & GFRAA in patients over 70 years has not been determined. Clinical correlation is essential. Serum or plasma urea nitroge n measurement (mass/volume)Ordered By: Jake Waddell on 06-15-2022 Urea nitrogen [Mass/Vol] 9 mg/dL 7-18 [facility] Thin prep Papanicolaou smear with manual screeningOrdered By: Jake Waddell on 06-15-2022 Thin prep Papanicolaou smear with manual screening 10 -15 [facility] Basophil percentageon 2021 Chloride [Moles/Vol] 102 mmol/L 98-107 [facility] Work Phone: Glucose [Mass/Vol] 71 mg/dL 74-106 [facility] Work Phone: Potassium [Moles/Vol] 4.4 mmol/L 3.5-5.1 [facility] Work Phone: Sodium [Moles/Vol] 135 mmol/L 136-145 [facility] r [facility] Work Phone: WBC (Bld) [#/Vol] 11.0 10*3/uL 4.4-11.0 [facility] Work Phone: Blood erythrocytes count (nu mber/volume)on 05-16-2022 RBC (Bld) [#/Vol] 4.64 10*6/uL 4.2-5.4 [facility] Work Phone: Blood hemoglobin measurement (mass/volume)on 05-16-2022 Hemoglobin (Bld) [Mass/Vol] 13.4 g/dL 12.0-15.0 [facility] Work Phone: Blood platelet mean volumeon 05-16-2022 Platelet mean volume (Bld) [Entitic vol] 10.8 fL 6.2-12.0 [facility] Work Phone: Determination of erythrocyte mean corpuscular volume (MCV)on 05-16-2022 MCV (RBC) [Entitic vol] 88.1 fL 81-99 [facility] Work Phone: Hematocrit Auto (Bld) [Volum e fraction]on 05-16-2022 Hematocrit (Bld) [Volume fraction] 40.9 % 37-47 [facility] Work Phone: Laboratory - Chemistry and C hemistry - challengeon 05-16-2022 CO2 [Moles/Vol] 26.0 mmol/L 21.0-32.0 [facility] Work Phone: Urea nitrogen/Creatinine [Mass ratio] 20.3 mg/mg 10-20 [facility] Work Phone: Laboratory - Hematology and Cell countson 05-16-2022 Erythrocyte distribution width (RBC) [Entitic vol] 44.8 fL 35.1-43.9 [facility] Work Phone: Erythrocyte distribution width (RBC) [Ratio] 14.0 % 11.6-14.6 [facility] Work Phone: MCH (RBC) [Entitic mass] 28.9 pg 27.0-32.0 [facility] Work Phone: MCHC Auto (RBC) [Mass/Vol]on 05-16-2022 MCHC (RBC) [Mass/Vol] 32.8 g/dL 32-36 [facility] Work Phone: No Panel Informationon 05-16 Estimated GFR (MDRD) Amer 90 mL/min >60 [facility] Work Phone: Comment on above: GFR Calc Estimated GFR (MDRD) Non-Af Amer 74 mL/min >60 [facility] Work Phone: Comment on above: Non- GFR Calc Platelets bldon 05-16-2022 Platelets (Bld) [#/Vol] 382 10*3/uL 150-450 [facility] Work Phone: Serum or plasma calcium becki urement (mass/volume)on 05-16-2022 Calcium [Mass/Vol] 9.4 mg/dL 8.5-10.1 [facility] Work Phone: Serum or plasma creatinine m easurement (mass/volume)on 05-16-2022 Creatinine [Mass/Vol] 0.79 mg/dL 0.55-1.02 [facility] Work Phone: Comment on above: The validity of the calculated GFR & GFRAA in patients over 70 years has not been determined. Clinical correlation is essential. Serum or plasma urea nitroge n measurement (mass/volume)on 05-16-2022 Urea nitrogen [Mass/Vol] 16 mg/dL 7-18 [facility] Work Phone: Thin prep Papanicolaou smear with manual screeningon 05-16-2022 Thin prep Papanicolaou smear with manual screening 7 5-15 [facility] Work Phone: Basophil percentageon 2021 Chloride [Moles/Vol] 104 mmol/L 98-[address] [facility] Work Phone: Cholesterol [Mass/Vol] 118 mg/dL <200 [facility] Work Phone: Comment on above: <200 mg/dL Desirable 200-240 mg/dL Borderline >240 mg/dL High Risk Glucose [Mass/Vol] 74 mg/dL 74-106 [facility] Work Phone: Potassium [Moles/Vol] 4.0 mmol/L 3.5-5.1 [facility] Work Phone: Sodium [Moles/Vol] 138 mmol/L 136-145 [facility] Work Phone: Triglyceride [Mass/Vol] 113 mg/dL <199 [facility] Work Phone: Comment on above: The drugs N-Acetylcy steine and Metamizole may falsely depress this assay.Serum Triglycerides Reference Interval Normal <150 mg/dL Borderline high 150 - 199 mg/dL High 200 - 499 mg/dL Very High > or = 500 mg/dL WBC (Bld) [#/Vol] 11.6 10*3/uL 4.4-11.0 [facility] Work Phone: Blood erythrocytes count (nu mber/volume)on 04-16-2022 RBC (Bld) [#/Vol] 4.68 10*6/uL 4.2-5.4 [facility] Work Phone: Blood hemoglobin measurement (mass/volume)on 04-16-2022 Hemoglobin (Bld) [Mass/Vol] 13.8 g/dL 12.0-15.0 [facility] Work Phone: Blood platelet mean volumeon 04-16-2022 Platelet mean volume (Bld) [Entitic vol] 10.9 fL 6.2-12.0 [facility] Work Phone: Determination of erythrocyte mean corpuscular volume (MCV)on 04-16-2022 MCV (RBC) [Entitic vol] 88.5 fL 81-99 [facility] Work Phone: Hematocrit Auto (Bld) [Volum e fraction]on 04-16-2022 Hematocrit (Bld) [Volume fraction] 41.4 % 37-47 [facility] Work Phone: Laboratory - Chemistry and C hemistry - challengeon 04-16-2022 CO2 [Moles/Vol] 24.0 mmol/L 21.0-32.0 [facility] Work Phone: Urea nitrogen/Creatinine [Mass ratio] 23.4 mg/mg 10-20 [facility] Work Phone: Laboratory - Hematology and Cell countson 04-16-2022 Erythrocyte distribution width (RBC) [Entitic vol] 45.2 fL 35.1-43.9 [facility] Work Phone: Erythrocyte distribution width (RBC) [Ratio] 13.9 % 11.6-14.6 [facility] Work Phone: MCH (RBC) [Entitic mass] 29.5 pg 27.0-32.0 [facility] Work Phone: MCHC Auto (RBC) [Mass/Vol]on 04-16-2022 MCHC (RBC) [Mass/Vol] 33.3 g/dL 32-36 [facility] Work Phone: No Panel Informationon 04-16 Estimated GFR (MDRD) Amer 87 mL/min >60 [facility] Work Phone: Comment on above: GFR Calc Estimated GFR (MDRD) Non-Af Amer 72 mL/min >60 [facility] Work Phone: Comment on above: Non- GFR Calc Platelets bldon 04-16-2022 Platelets (Bld) [#/Vol] 372 10*3/uL 150-450 [facility] Work Phone: Serum or plasma calcium becki urement (mass/volume)on 04-16-2022 Calcium [Mass/Vol] 9.4 mg/dL 8.5-10.1 [facility] Work Phone: Serum or plasma cholesterol in HDL measurement (mass/volume)on 04-16-2022 Cholesterol in HDL [Mass/Vol] 44 mg/dL >40 [facility] Work Phone: Comment on above: The drugs N-Acetylcy steine and Metamizole may falsely depress this assay. Reference Range HDL <40 mg/dL Low HDL Cholesterol HDL >or= 60 mg/dL High HDL Cholesterol Serum or plasma cholesterol in VLDL measurement (mass/volume)on 04-16-2022 Cholesterol in VLDL [Mass/Vol] 23 mg/dL 5-40 [facility] Work Phone: Serum or plasma creatinine m easurement (mass/volume)on 04-16-2022 Creatinine [Mass/Vol] 0.81 mg/dL 0.55-1.02 [facility] Work Phone: Comment on above: The validity of the calculated GFR & GFRAA in patients over 70 years has not been determined. Clinical correlation is essential. Serum or plasma low density lipoprotein (LDL) cholesterol measurement (mass/volume)on 04-16-2022 Cholesterol in LDL [Mass/Vol] 51 mg/dL 0-130 [facility] Work Phone: Serum or plasma urea nitroge n measurement (mass/volume)on 04-16-2022 Urea nitrogen [Mass/Vol] 19 mg/dL 7-18 [facility] Work Phone: Thin prep Papanicolaou smear with manual screeningon 04-16-2022 Thin prep Papanicolaou smear with manual screening 10 5-15 [facility] Work Phone: Whole blood hemoglobin A1c/t otal hemoglobin ratio (mass fraction)on 04-16-2022 HbA1c (Bld) [Mass fraction] 9.2 % 3.8-5.6 [facility] Work Phone: Comment on above: Normal < 5.7 % Predi abetic 5.7 - 6.4 % Diabetic >or= 6.5 % Please note range changes. Basophil percentageon 2021 Chloride [Moles/Vol] 103 mmol/L 98-107 [facility] Work Phone: Glucose [Mass/Vol] 108 mg/dL 74-106 [facility] Work Phone: Comment on above: Fasting Glucose resu lt from 100 to 125 mg/dL suggests IMPAIRED HOMEOSTASIS per A.D.A. criteria. Potassium [Moles/Vol] 3.8 mmol/L 3.5-5.1 [facility] Work Phone: Sodium [Moles/Vol] 136 mmol/L 136-145 [facility] Work Phone: WBC (Bld) [#/Vol] 9.2 10*3/uL 4.4-11.0 [facility] Work Phone: Blood erythrocytes count (nu mber/volume)on 03-14-2022 RBC (Bld) [#/Vol] 4.61 10*6/uL 4.2-5.4 [facility] Work Phone: Blood hemoglobin measurement (mass/volume)on 03-14-2022 Hemoglobin (Bld) [Mass/Vol] 13.1 g/dL 12.0-15.0 [facility] Work Phone: Blood platelet mean volumeon 03-14-2022 Platelet mean volume (Bld) [Entitic vol] 10.6 fL 6.2-12.0 [facility] Work Phone: Determination of erythrocyte mean corpuscular volume (MCV)on 03-14-2022 MCV (RBC) [Entitic vol] 87.4 fL 81-99 [facility] Work Phone: Hematocrit Auto (Bld) [Volum e fraction]on 03-14-2022 Hematocrit (Bld) [Volume fraction] 40.3 % 37-47 [facility] Work Phone: Laboratory - Chemistry and C hemistry - challengeon 03-14-2022 CO2 [Moles/Vol] 26.0 mmol/L 21.0-32.0 [facility] Work Phone: Urea nitrogen/Creatinine [Mass ratio] 19.5 mg/mg 10-20 [facility] Work Phone: Laboratory - Hematology and Cell countson 03-14-2022 Erythrocyte distribution width (RBC) [Entitic vol] 45.2 fL 35.1-43.9 [facility] Work Phone: Erythrocyte distribution width (RBC) [Ratio] 14.1 % 11.6-14.6 [facility] Work Phone: MCH (RBC) [Entitic mass] 28.4 pg 27.0-32.0 [facility] Work Phone: MCHC Auto (RBC) [Mass/Vol]on 03-14-2022 MCHC (RBC) [Mass/Vol] 32.5 g/dL 32-36 [facility] Work Phone: No Panel Informationon 03-14 Estimated GFR (MDRD) Amer 92 mL/min >60 [facility] Work Phone: Comment on above: GFR Calc Estimated GFR (MDRD) Non-Af Amer 76 mL/min >60 [facility] Work Phone: Comment on above: Non- GFR Calc Platelets bldon 03-14-2022 Platelets (Bld) [#/Vol] 328 10*3/uL 150-450 [facility] Work Phone: Serum or plasma calcium becki urement (mass/volume)on 03-14-2022 Calcium [Mass/Vol] 8.9 mg/dL 8.5-10.1 [facility] Work Phone: Serum or plasma creatinine m easurement (mass/volume)on 03-14-2022 Creatinine [Mass/Vol] 0.77 mg/dL 0.55-1.02 [facility] Work Phone: Comment on above: The validity of the calculated GFR & GFRAA in patients over 70 years has not been determined. Clinical correlation is essential. Serum or plasma urea nitroge n measurement (mass/volume)on 03-14-2022 Urea nitrogen [Mass/Vol] 15 mg/dL 7-18 [facility] Work Phone: Thin prep Papanicolaou smear with manual screeningon 03-14-2022 Thin prep Papanicolaou smear with manual screening 7 5-15 [facility] Work Phone: Basophil percentageon 2021 Chloride [Moles/Vol] 104 mmol/L 98-107 [facility] Work Phone: Glucose [Mass/Vol] 86 mg/dL 74-106 [facility] Work Phone: Potassium [Moles/Vol] 4.0 mmol/L 3.5-5.1 [facility]: Sodium [Moles/Vol] 137 mmol/L 136-145 [facility] Work Phone: WBC (Bld) [#/Vol] 9.9 10*3/uL 4.4-11.0 [facility] Work Phone: Blood erythrocytes count (nu mber/volume)on 02-14-2022 RBC (Bld) [#/Vol] 4.65 10*6[facility]L [facility].2[facility] Blood [facility] measurement (mass/volume)on 02-14-2022 Hemoglobin (Bld) [Mass/Vol] 13.3 g/dL 12.0-15.0 [facility] Work Phone: Blood platelet mean volumeon 02-14-2022 Platelet mean volume (Bld) [Entitic vol] 10.9 fL 6.2-12.0 [facility] Work Phone: Determination of erythrocyte mean corpuscular volume (MCV)on 02-14-2022 MCV (RBC) [Entitic vol] 86.9 fL 81-99 [facility] Work Phone: Hematocrit Auto (Bld) [Volum e fraction]on 02-14-2022 Hematocrit (Bld) [Volume fraction] 40.4 % 37-47 [facility] Work Phone: Laboratory - Chemistry and C hemistry - challengeon 02-14-2022 CO2 [Moles/Vol] 26.0 mmol/L 21.0-32.0 [facility] Work Phone: Cobalamin (Vitamin B12) [Mass/Vol] 331 pg/mL 211-911 [facility] Work Phone: Urea nitrogen/Creatinine [Mass ratio] 25.1 mg/mg 10-20 [facility] Work Phone: Laboratory - Hematology and Cell countson 02-14-2022 Erythrocyte distribution width (RBC) [Entitic vol] 45.5 fL 35.1-43.9 [facility] Work Phone: Erythrocyte distribution width (RBC) [Ratio] 14.3 % 11.6-14.6 [facility] Work Phone: MCH (RBC) [Entitic mass] 28.6 pg 27.0-32.0 [facility] Work Phone: MCHC Auto (RBC) [Mass/Vol]on 02-14-2022 MCHC (RBC) [Mass/Vol] 32.9 g/dL 32-36 [facility] Work Phone: No Panel Informationon 02-14 Estimated GFR (MDRD) Amer 89 mL/min >60 [facility] Work Phone: Comment on above: GFR Calc Estimated GFR (MDRD) Non-Af Amer 73 mL/min >60 [facility] Work Phone: Comment on above: Non- GFR Calc Platelets bldon 02-14-2022 Platelets (Bld) [#/Vol] 348 10*3/uL 150-450 [facility] Work Phone: Serum or plasma calcium becki urement (mass/volume)on 02-14-2022 Calcium [Mass/Vol] 9.1 mg/dL 8.5-10.1 [facility] Work Phone: Serum or plasma creatinine m easurement (mass/volume)on 02-14-2022 Creatinine [Mass/Vol] 0.80 mg/dL 0.55-1.02 [facility] Work Phone: Comment on above: The validity of the calculated GFR & GFRAA in patients over 70 years has not been determined. Clinical correlation is essential. Serum or plasma folate measu rement (mass/volume)on 02-14-2022 Folate [Mass/Vol] 7.40 ng/mL 3.1-55.4 [facility] Work Phone: Serum or plasma urea nitroge n measurement (mass/volume)on 02-14-2022 Urea nitrogen [Mass/Vol] 20 mg/dL 7-18 [facility] Work Phone: Thin prep Papanicolaou smear with manual screeningon 02-14-2022 Thin prep Papanicolaou smear with manual screening 7 01-14 [facility] Work Phone: Basophil percentageon 2021 Chloride [Moles/Vol] 102 mmol/L 98-107 [facility] Work Phone: Glucose [Mass/Vol] 77 mg/dL 74-106 [facility] Work Phone: Potassium [Moles/Vol] 4.3 mmol/L 3.5-5.1 [facility] Work Phone: Sodium [Moles/Vol] 134 mmol/L 136-145 [facility] Work Phone: WBC (Bld) [#/Vol] 10.4 10*3/uL 4.4-11.0 [facility] Work Phone: Blood erythrocytes count (nu mber/volume)on 01-15-2022 RBC (Bld) [#/Vol] 5.25 10*6/uL 4.2-5.4 [facility] Work Phone: Blood hemoglobin measurement (mass/volume)on 01-15-2022 Hemoglobin (Bld) [Mass/Vol] 14.8 g/dL 12.0-15.0 [facility] Work Phone: Blood platelet mean volumeon 01-15-2022 Platelet mean volume (Bld) [Entitic vol] 10.3 fL 6.2-12.0 [facility] Work Phone: Determination of erythrocyte mean corpuscular volume (MCV)on 01-15-2022 MCV (RBC) [Entitic vol] 92.2 fL 81-99 [facility] Work Phone: Hematocrit Auto (Bld) [Volum e fraction]on 01-15-2022 Hematocrit (Bld) [Volume fraction] 48.4 % 37-47 [facility] Work Phone: Laboratory - Chemistry and C hemistry - challengeon 01-15-2022 CO2 [Moles/Vol] 22.0 mmol/L 21.0-32.0 [facility] Work Phone: Urea nitrogen/Creatinine [Mass ratio] 23.9 mg/mg 10-20 [facility] Work Phone: Laboratory - Hematology and Cell countson 01-15-2022 Erythrocyte distribution width (RBC) [Entitic vol] 48.4 fL 35.1-43.9 [facility] Work Phone: Erythrocyte distribution width (RBC) [Ratio] 14.2 % 11.6-14.6 [facility] Work Phone: MCH (RBC) [Entitic mass] 28.2 pg 27.0-32.0 [facility] Work Phone: MCHC Auto (RBC) [Mass/Vol]on 01-15-2022 MCHC (RBC) [Mass/Vol] 30.6 g/dL 32-36 [facility] Work Phone: No Panel Informationon 01-15 Estimated GFR (MDRD) Amer 89 mL/min >60 [facility] Work Phone: Comment on above: GFR Calc Estimated GFR (MDRD) Non-Af Amer 73 mL/min >60 [facility] Work Phone: Comment on above: Non- GFR Calc Platelets bldon 01-15-2022 Platelets (Bld) [#/Vol] 348 10*3/uL 150-450 [facility] Work Phone: Serum or plasma calcium becki urement (mass/volume)on 01-15-2022 Calcium [Mass/Vol] 9.7 mg/dL 8.5-10.1 [facility] Work Phone: Serum or plasma creatinine m easurement (mass/volume)on 01-15-2022 Creatinine [Mass/Vol] 0.80 mg/dL 0.55-1.02 [facility] Work Phone: Comment on above: The validity of the calculated GFR & GFRAA in patients over 70 years has not been determined. Clinical correlation is essential. Serum or plasma urea nitroge n measurement (mass/volume)on 01-15-2022 Urea nitrogen [Mass/Vol] 19 mg/dL 7-18 [facility] Work Phone: Thin prep Papanicolaou smear with manual screeningon 01-15-2022 Thin prep Papanicolaou smear with manual screening 10 5-15 [facility] Work Phone: Basophil percentageon 2021 Chloride [Moles/Vol] 103 mmol/L 98-107 [facility] Work Phone: Glucose [Mass/Vol] 157 mg/dL 74-106 [facility] Work Phone: Comment on above: Fasting Glucose resu lt greater than or equal to 126 mg/dL suggests DIABETES MELLITUS per A.D.A. criteria. Potassium [Moles/Vol] 4.2 mmol/L 3.5-5.1 [facility] Work Phone: Sodium [Moles/Vol] 135 mmol/L 136-145 [facility] Work Phone: WBC (Bld) [#/Vol] 10.8 10*3/uL 4.4-11.0 [facility] Work Phone: Blood erythrocytes count (nu mber/volume)on 12-14-2021 RBC (Bld) [#/Vol] 4.61 10*6/uL 4.2-5.4 [facility] Work Phone: Blood hemoglobin measurement (mass/volume)on 12-14-2021 Hemoglobin (Bld) [Mass/Vol] 13.2 g/dL 12.0-15.0 [facility] Work Phone: Blood platelet mean volumeon 12-14-2021 Platelet mean volume (Bld) [Entitic vol] 11.2 fL 6.2-12.0 [facility] Work Phone: Determination of erythrocyte mean corpuscular volume (MCV)on 12-14-2021 MCV (RBC) [Entitic vol] 86.6 fL 81-99 [facility] Work Phone: Hematocrit Auto (Bld) [Volum e fraction]on 12-14-2021 Hematocrit (Bld) [Volume fraction] 39.9 % 37-47 [facility] Work Phone: Laboratory - Chemistry and C hemistry - challengeon 12-14-2021 CO2 [Moles/Vol] 27.0 mmol/L 21.0-32.0 [facility] Work Phone: Urea nitrogen/Creatinine [Mass ratio] 23.1 mg/mg 10-20 [facility] Work Phone: Laboratory - Hematology and Cell countson 12-14-2021 Erythrocyte distribution width (RBC) [Entitic vol] 44.2 fL 35.1-43.9 [facility] Work Phone: Erythrocyte distribution width (RBC) [Ratio] 14.0 % 11.6-14.6 [facility] Work Phone: MCH (RBC) [Entitic mass] 28.6 pg 27.0-32.0 [facility] Work Phone: MCHC Auto (RBC) [Mass/Vol]on 12-14-2021 MCHC (RBC) [Mass/Vol] 33.1 g/dL 32-36 [facility] Work Phone: No Panel Informationon 12-14 Estimated GFR (MDRD) Amer 80 mL/min >60 [facility] Work Phone: Comment on above: GFR Calc Estimated GFR (MDRD) Non-Af Amer 66 mL/min >60 [facility] Work Phone: Comment on above: Non- GFR Calc Platelets bldon 12-14-2021 Platelets (Bld) [#/Vol] 368 10*3/uL 150-450 [facility] Work Phone: Serum or plasma calcium becki urement (mass/volume)on 12-14-2021 Calcium [Mass/Vol] 9.0 mg/dL 8.5-10.1 [facility] Work Phone: Serum or plasma creatinine m easurement (mass/volume)on 12-14-2021 Creatinine [Mass/Vol] 0.87 mg/dL 0.55-1.02 [facility] Work Phone: Comment on above: The validity of the calculated GFR & GFRAA in patients over 70 years has not been determined. Clinical correlation is essential. Serum or plasma urea nitroge n measurement (mass/volume)on 12-14-2021 Urea nitrogen [Mass/Vol] 20 mg/dL 7-18 [facility] Work Phone: Thin prep Papanicolaou smear with manual screeningon 12-14-2021 Thin prep Papanicolaou smear with manual screening 5 5-15 [facility] Work Phone: Basophil percentageon 2021 Chloride [Moles/Vol] 101 mmol/L 98-107 [facility] Work Phone: Glucose [Mass/Vol] 83 mg/dL 74-106 [facility] Work Phone: Potassium [Moles/Vol] 4.1 mmol/L 3.5-5.1 [facility] Work Phone: Sodium [Moles/Vol] 134 mmol/L 136-145 [facility] Work Phone: WBC (Bld) [#/Vol] 12.8 10*3/uL 4.4-11.0 [facility] Work Phone: Blood erythrocytes count (nu mber/volume)on 11-13-2021 RBC (Bld) [#/Vol] 4.73 10*6/uL 4.2-5.4 [facility] Work Phone: Blood hemoglobin measurement (mass/volume)on 11-13-2021 Hemoglobin (Bld) [Mass/Vol] 13.2 g/dL 12.0-15.0 [facility] Work Phone: Blood platelet mean volumeon 11-13-2021 Platelet mean volume (Bld) [Entitic vol] 11.2 fL 6.2-12.0 [facility] Work Phone: Determination of erythrocyte mean corpuscular volume (MCV)on 11-13-2021 MCV (RBC) [Entitic vol] 85.2 fL 81-99 [facility] Work Phone: Hematocrit Auto (Bld) [Volum e fraction]on 11-13-2021 Hematocrit (Bld) [Volume fraction] 40.3 % 37-47 [facility] Work Phone: Laboratory - Chemistry and C hemistry - challengeon 11-13-2021 CO2 [Moles/Vol] 25.0 mmol/L 21.0-32.0 [facility] Work Phone: Urea nitrogen/Creatinine [Mass ratio] 22.4 mg/mg 10-20 [facility] Work Phone: Laboratory - Hematology and Cell countson 11-13-2021 Erythrocyte distribution width (RBC) [Entitic vol] 43.7 fL 35.1-43.9 [facility] Work Phone: Erythrocyte distribution width (RBC) [Ratio] 14.0 % 11.6-14.6 [facility] Work Phone: MCH (RBC) [Entitic mass] 27.9 pg 27.0-32.0 [facility] Work Phone: MCHC Auto (RBC) [Mass/Vol]on 11-13-2021 MCHC (RBC) [Mass/Vol] 32.8 g/dL 32-36 [facility] Work Phone: No Panel Informationon 11-13 Estimated GFR (MDRD) Amer 88 mL/min >60 [facility] Work Phone: Comment on above: GFR Calc Estimated GFR (MDRD) Non-Af Amer 73 mL/min >60 [facility] Work Phone: Comment on above: Non- GFR Calc Platelets bldon 11-13-2021 Platelets (Bld) [#/Vol] 374 10*3/uL 150-450 [facility] Work Phone: Serum or plasma calcium becki urement (mass/volume)on 11-13-2021 Calcium [Mass/Vol] 9.0 mg/dL 8.5-10.1 [facility] Work Phone: Serum or plasma creatinine m easurement (mass/volume)on 11-13-2021 Creatinine [Mass/Vol] 0.80 mg/dL 0.55-1.02 [facility] Work Phone: Comment on above: The validity of the calculated GFR & GFRAA in patients over 70 years has not been determined. Clinical correlation is essential. Serum or plasma urea nitroge n measurement (mass/volume)on 11-13-2021 Urea nitrogen [Mass/Vol] 18 mg/dL 7-18 [facility] Work Phone: Thin prep Papanicolaou smear with manual screeningon 11-13-2021 Thin prep Papanicolaou smear with manual screening 8 5-15 [facility] Work Phone: Basophil percentageon 2021 Chloride [Moles/Vol] 104 mmol/L 98-107 [facility] Work Phone: Cholesterol [Mass/Vol] 125 mg/dL <200 [facility] Work Phone: Comment on above: <200 mg/dL Desirable 200-240 mg/dL Borderline >240 mg/dL High Risk Glucose [Mass/Vol] 156 mg/dL 74-106 [facility] Work Phone: Comment on above: Fasting Glucose resu lt greater than or equal to 126 mg/dL suggests DIABETES MELLITUS per A.D.A. criteria. Potassium [Moles/Vol] 4.4 mmol/L 3.5-5.1 [facility] Work Phone: Sodium [Moles/Vol] 134 mmol/L 136-145 [facility] Work Phone: Triglyceride [Mass/Vol] 130 mg/dL [facility] Work Phone: Comment on above: The drugs N-Acetylcy steine and Metamizole may falsely depress this assay.Serum Triglycerides Reference Interval Normal <150 mg/dL Borderline high 150 - 199 mg/dL High 200 - 499 mg/dL Very High > or = 500 mg/dL WBC (Bld) [#/Vol] 9.9 10*3/uL 4.4-11.0 [facility] Work Phone: Blood erythrocytes count (nu mber/volume)on 10-17-2021 RBC (Bld) [#/Vol] 4.61 10*6/uL 4.2-5.4 [facility] Work Phone: Blood hemoglobin measurement (mass/volume)on 10-17-2021 Hemoglobin (Bld) [Mass/Vol] 13.0 g/dL 12.0-15.0 [facility] Work Phone: Blood platelet mean volumeon 10-17-2021 Platelet mean volume (Bld) [Entitic vol] 10.9 fL 6.2-12.0 [facility] Work Phone: Determination of erythrocyte mean corpuscular volume (MCV)on 10-17-2021 MCV (RBC) [Entitic vol] 85.9 fL 81-99 [facility] Work Phone: Hematocrit Auto (Bld) [Volum e fraction]on 10-17-2021 Hematocrit (Bld) [Volume fraction] 39.6 % 37-47 [facility] Work Phone: Laboratory - Chemistry and C hemistry - challengeon 10-17-2021 CO2 [Moles/Vol] 23.0 mmol/L 21.0-32.0 [facility] Work Phone: Urea nitrogen/Creatinine [Mass ratio] 21.4 mg/mg 10-20 [facility] Work Phone: Laboratory - Hematology and Cell countson 10-17-2021 Erythrocyte distribution width (RBC) [Entitic vol] 44.1 fL 35.1-43.9 [facility] Work Phone: Erythrocyte distribution width (RBC) [Ratio] 14.0 % 11.6-14.6 [facility] Work Phone: MCH (RBC) [Entitic mass] 28.2 pg 27.0-32.0 [facility] Work Phone: MCHC Auto (RBC) [Mass/Vol]on 10-17-2021 MCHC (RBC) [Mass/Vol] 32.8 g/dL 32-36 [facility] Work Phone: No Panel Informationon 10-17 Estimated GFR (MDRD) Amer 83 mL/min >60 [facility] Work Phone: Comment on above: GFR Calc Estimated GFR (MDRD) Non-Af Amer 69 mL/min >60 [facility] Work Phone: Comment on above: Non- GFR Calc Platelets bldon 10-17-2021 Platelets (Bld) [#/Vol] 359 10*3/uL 150-450 [facility] Work Phone: Serum or plasma calcium becki urement (mass/volume)on 10-17-2021 Calcium [Mass/Vol] 8.9 mg/dL 8.5-10.1 [facility] Work Phone: Serum or plasma cholesterol in HDL measurement (mass/volume)on 10-17-2021 Cholesterol in HDL [Mass/Vol] 47 mg/dL [facility] Work Phone: Comment on above: The drugs N-Acetylcy steine and Metamizole may falsely depress this assay. Reference Range HDL <40 mg/dL Low HDL Cholesterol HDL >or= 60 mg/dL High HDL Cholesterol Serum or plasma cholesterol in VLDL measurement (mass/volume)on 10-17-2021 Cholesterol in VLDL [Mass/Vol] 26 mg/dL 5-40 [facility] Work Phone: Serum or plasma creatinine m easurement (mass/volume)on 10-17-2021 Creatinine [Mass/Vol] 0.84 mg/dL 0.55-1.02 [facility] Work Phone: Comment on above: The validity of the calculated GFR & GFRAA in patients over 70 years has not been determined. Clinical correlation is essential. Serum or plasma low density lipoprotein (LDL) cholesterol measurement (mass/volume)on 10-17-2021 Cholesterol in LDL [Mass/Vol] 52 mg/dL 0-130 [facility] Work Phone: Serum or plasma urea nitroge n measurement (mass/volume)on 10-17-2021 Urea nitrogen [Mass/Vol] 18 mg/dL 7-18 [facility] Work Phone: Thin prep Papanicolaou smear with manual screeningon 10-17-2021 Thin prep Papanicolaou smear with manual screening 7 5-15 [facility] Work Phone: Whole blood hemoglobin A1c/t otal hemoglobin ratio (mass fraction)on 10-17-2021 HbA1c (Bld) [Mass fraction] 8.2 % 3.8-5.6 [facility] Work Phone: Comment on above: Normal < 5.7 % Predi abetic 5.7 - 6.4 % Diabetic >or= 6.5 % Please note range changes. Laboratory - Microbiology an d Antimicrobial susceptibilityon 09-25-2021 SARS-CoV-2 (COVID-19) RNA BIBIANA+probe Ql (Unsp spec) Not detected Not Detect [facility] Work Phone: Comment on above: Normal Reference Ran ge: Not DetectedMethod:(RT-PCR) real-time reverse transcriptase PCRLuminex CHICHI Instrument*The Food and Drug Administration (FDA) has issued an Emergency Use Authorization (EAU) for the CHICHI SARS-CoV-2 Assay for the rapid detection of the virus that causes COVID-19. This test has been validated, but the [facility] independent review of this validation is pending.*Negative [...] percentageon 2021 Chloride [Moles/Vol] 98 mmol/L 98-107 [facility] Work Phone: Glucose [Mass/Vol] 287 mg/dL 74-106 [facility] Work Phone: Comment on above: Glucose result great er than or equal to 200 mg/dLsuggests DIABETES MELLITUS per A.D.A. criteria. Potassium [Moles/Vol] 4.4 mmol/L 3.5-5.1 [facility] Work Phone: Sodium [Moles/Vol] 132 mmol/L 136-145 [facility] Work Phone: WBC (Bld) [#/Vol] 11.4 10*3/uL 4.4-11.0 [facility] Work Phone: Blood erythrocytes count (nu mber/volume)on 09-20-2021 RBC (Bld) [#/Vol] 4.59 10*6/uL 4.2-5.4 [facility] Work Phone: Blood hemoglobin measurement (mass/volume)on 09-20-2021 Hemoglobin (Bld) [Mass/Vol] 12.6 g/dL 12.0-15.0 [facility] Work Phone: Blood platelet mean volumeon 09-20-2021 Platelet mean volume (Bld) [Entitic vol] 11.1 fL 6.2-12.0 [facility] Work Phone: Determination of erythrocyte mean corpuscular volume (MCV)on 01-19-2022 MCV (RBC) [Entitic vol] 85.4 fL 81-99 [facility] Work Phone: Hematocrit Auto (Bld) [Volum e fraction]on 09-20-2021 Hematocrit (Bld) [Volume fraction] 39.2 % 37-47 [facility] Work Phone: Laboratory - Chemistry and C hemistry - challengeon 09-20-2021 CO2 [Moles/Vol] 24.0 mmol/L 21.0-32.0 [facility] Work Phone: Urea nitrogen/Creatinine [Mass ratio] 15.5 mg/mg 10-20 [facility] Work Phone: Laboratory - Hematology and Cell countson 09-20-2021 Erythrocyte distribution width (RBC) [Entitic vol] 43.0 fL 35.1-43.9 [facility] Work Phone: Erythrocyte distribution width (RBC) [Ratio] 13.8 % 11.6-14.6 [facility] Work Phone: MCH (RBC) [Entitic mass] 27.5 pg 27.0-32.0 [facility] Work Phone: MCHC Auto (RBC) [Mass/Vol]on 09-20-2021 MCHC (RBC) [Mass/Vol] 32.1 g/dL 32-36 [facility] Work Phone: No Panel Informationon 09-20 Estimated GFR (MDRD) Amer 61 mL/min >60 [facility] Work Phone: Comment on above: GFR Calc Estimated GFR (MDRD) Non-Af Amer 51 mL/min >60 [facility] Work Phone: Comment on above: Non- GFR Calc Platelets bldon 09-20-2021 Platelets (Bld) [#/Vol] 370 10*3/uL 150-450 [facility] Work Phone: Serum or plasma calcium becki urement (mass/volume)on 09-20-2021 Calcium [Mass/Vol] 9.0 mg/dL 8.5-10.1 [facility] Work Phone: Serum or plasma creatinine m easurement (mass/volume)on 09-20-2021 Creatinine [Mass/Vol] 1.10 mg/dL 0.55-1.02 [facility] Work Phone: Comment on above: The validity of the calculated GFR & GFRAA in patients over 70 years has not been determined. Clinical correlation is essential. Serum or plasma urea nitroge n measurement (mass/volume)on 09-20-2021 Urea nitrogen [Mass/Vol] 17 mg/dL 7-18 [facility] Work Phone: Thin prep Papanicolaou smear with manual screeningon 09-20-2021 Thin prep Papanicolaou smear with manual screening 10 5-15 [facility] Work Phone: Office Visiton 04-03-2017 Documentation of current medications (procedure) Done Invalid Interpretation Code [facility] Work Phone: Tobacco use CPHS Never smoker Invalid Interpretation Code [facility] Work Phone: Office Visiton 03-06-2017 Documentation of current medications (procedure) Done Invalid Interpretation Code [facility] Work Phone: Tobacco use CPHS Never smoker Invalid Interpretation Code [facility] Work Phone: Lab Report: CBC-Complete Blo od Cnt No Diffon 02-19-2017 Erythrocyte distribution width Ratio (RBC) 43.5 fL 35.1-43.9 [facility] Work Phone: Erythrocyte distribution width Ratio (RBC) 13.6 % 11.6-14.6 [facility] Work Phone: Erythrocytes (RBC) 3.32 10*6/uL Low 4.2-5.4 [facility] Work Phone: Hematocrit (HCT) 29.7 % Low 37-47 [facility] Work Phone: Hematocrit Volume Fraction (Bld) 29.7 % Low 37-47 [facility] Work Phone: Hemoglobin mass conc (Bld) 9.9 g/dL Low 12.0-15.0 [facility] Work Phone: MCH 29.8 pg Invalid Interpretation Code 27.0-32.0 [facility] Work Phone: MCH Entitic mass (RBC) 29.8 pg 27.0-32.0 [facility] Work Phone: MCHC 33.3 G/GL Invalid Interpretation Code 32-36 [facility] Work Phone: MCHC mass conc (RBC) 33.3 G/GL 32-36 [facility] Work Phone: MCV 89.5 fL Invalid Interpretation Code 81-99 [facility] Work Phone: MCV Entitic volume (RBC) 89.5 fL 81-99 [facility] Work Phone: Platelet mean volume Entitic volume (Bld) 10.8 fL 6.2-12.0 [facility] Work Phone: Platelets 186 10*3/mm3 Invalid Interpretation Code 150-450 [facility] Work Phone: Platelets #/vol (Bld) 186 10*3/mm3 150-450 [facility] Work Phone: PMV by Radha 10.8 fL Invalid Interpretation Code 6.2-12.0 [facility] Work Phone: RBC #/vol (Bld) 3.32 10*6/uL Low 4.2-5.4 [facility] Work Phone: RDW-CA 13.6 % Invalid Interpretation Code 11.6-14.6 [facility] Work Phone: red blood cell distribution width, size density 43.5 fL Invalid Interpretation Code 35.1-43.9 [facility] Work Phone: WBC #/vol (Bld) 12.5 10*3/uL High 4.4-11.0 [facility] Work Phone: WBC (Leukocytes) 12.5 10*3/uL High 4.4-11.0 [facility] [place] Work Phone: Office Visiton 05-12-2015 Documentation of current medications (procedure) Done Invalid Interpretation Code [facility] Work Phone: Protein mass conc Done [facility] Work Phone: Tobacco smoking status NHIS Never smoker [facility] Work Phone: Tobacco use CPHS Never smoker Invalid Interpretation Code [facility] Work Phone: Lab Report: Bedside Glucoseo n 03-17-2015 Glucose 264 mg/dL High 70-110 [facility] Work Phone: Glucose mass conc 264 mg/dL High 70-110 [facility] Work Phone: Lab Report: Hemoglobin A1con 03-16-2015 Hemoglobin A1c/Hemoglobin.total mass fraction (Bld) 7.3 % High 4.2-6.3 [facility] Work Phone: Culture, urine Bacteria identified Cx Nom (U) Klebsiella pneumoniae sp pneum [facility] Work Phone: Vital Signs Date Time Vital Sign Value Performing Clinician Rm camacho 03-14-2015 09:05-0400 Height 165.1 cm Carl Majano [facility] Work Phone: 03-14-2015 09:05-0400 Weight 68.95 kg Carl Majano [facility] Work Phone: Encounters Encounter Date Encounter Type Care Provider Facility Start: 05-11-2025 End: 05-11-2025 ambulatory Jake Waddell Facility:[facility] Start: 04-16-2025 ambulatory Jaek RUST Facil ity:[facility] Start: 02-22-2025 Registered Referred Jake Waddell MD [facility] Start: 02-22-2025 End: 02-22-2025 ambulatory Jake RUST Facility:[facility] Start: 01-14-2025 End: 01-14-[address] Jake Waddell MD Work Phone: [facility] Start: 01-14-2025 End: 01-14-2025 Departed Referred Jake Waddell MD Start: 01-14-2025 End: 01-14-2025 ambulatory Jake Waddell Facility:[facility] Start: 10-16-2024 ambulatory Jake Waddell Facility: [facility] Start: 08-21-2024 End: 08-21-2024 ambulatory Jake RUST Facility:[facility] Start: 07-16-2024 End: 07-16-2024 ambulatory Jake RUST Facility:[facility] Start: 07-14-2024 End: 07-14-2024 ambulatory Jake RUST Facility:[facility] Start: 10-17-2023 End: 10-17-[address] [facility] Work Phone: Start: 10-17-2023 End: 10-17-2023 Departed Referred [facility] Start: 04-15-2023 End: 04-15-[address] [facility] Work Phone: Start: 04-15-2023 End: 04-15-2023 Departed Referred [facility] Start: 10-17-2022 End: 10-17-[address] [facility] Work Phone: Start: 10-17-2022 End: 10-17-2022 Departed Referred [facility] Start: 09-17-2022 End: 09-17-2022 ambulatory [facility] Work Phone: Start: 09-17-2022 End: 09-17-2022 Departed Referred [facility] Start: 08-15-2022 End: 08-15-[address] [facility] Work Phone: Start: 08-15-2022 End: 08-15-2022 Departed Referred [facility] Start: 07-16-2022 End: 07-16-[address] [facility] Work Phone: Start: 07-16-2022 End: 07-16-2022 Departed Referred [facility] Start: 06-29-2022 End: 06-29-[address] [facility] Work Phone: Start: 06-29-2022 End: 06-29-2022 Departed Referred [facility] Start: 06-29-2022 Registered Referred [facility] Start: 06-15-2022 End: 06-15-[address] [facility] Work Phone: Start: 06-15-2022 End: 06-15-2022 Departed Referred [facility] Start: 05-16-2022 End: 05-16-[address] [facility] Work Phone: Start: 05-16-2022 End: 05-16-2022 Departed Referred [facility] Start: 05-08-2022 End: 05-08-2022 ambulatory [facility] Work Phone: Start: 05-08-2022 End: 05-08-2022 Departed Referred [facility] Start: 04-16-2022 End: 04-16-2022 Departed Referred [facility] Start: 03-14-2022 End: 03-14-2022 Departed Referred [facility] Start: 02-14-2022 End: 02-14-2022 Departed Referred [facility] Start: 01-15-2022 End: 01-15-2022 Departed Referred [facility] Start: 12-14-2021 End: 12-14-2021 Departed Referred [facility] Start: 12-14-2021 Registered Referred [facility] Start: 11-13-2021 End: 11-13-2021 Departed Referred [facility] Start: 11-13-2021 Registered Referred [facility] Start: 10-17-2021 End: 10-17-2021 Departed Referred [facility] Start: 10-17-2021 Registered Referred [facility] Start: 09-26-2021 End: 09-26-[address] [facility] Start: 09-25-2021 End: 09-25-2021 Departed Referred [facility] Start: 09-20-2021 End: 09-20-2021 Departed Referred [facility] Start: 09-20-2021 Registered Referred [facility] Procedures Date Procedure Procedure Detail Performing Clinician Start: 09-26-2021 Screening mammography Start: 04-13-2015 End: 02-28-2017 X-ray exam of elbow Carl Majano Work Phone: Start: 03-14-2015 End: 03-16-2015 Documentation of current medications Aubree E Frase Urine culture Plan of Treatment Date Care Activity Detail Author Start: 05-22-2017 End: 05-22-2017 Appointment Appointment [facility] Work Phone: Start: 04-03-2017 End: 04-03-2017 Appointment Appointment [facility] Work Phone: Start: 04-03-2017 End: 04-03-2017 X-Ray, Hip Unilateral X-Ray, Hip Unilateral [facility] Work Phone: Start: 03-06-2017 End: 03-06-2017 Appointment Appointment [facility] Work Phone: Start: 03-06-2017 End: 03-06-2017 Appointment Appointment [facility] Work Phone: Start: 03-06-2017 End: 03-06-2017 X-Ray, Hip, unilateral, with pelvis; 2-3 views X-Ray, Hip, unilateral, with pelvis; 2-3 views [facility] Work Phone: Start: 04-25-2015 End: 05-04-2015 Ct upper extremity w/o dye CT Upper Extremity [facility] Work Phone: Start: 04-25-2015 End: 05-10-2015 Postop follow-up visit Post Operative Visit [facility] Work Phone: Start: 04-25-2015 End: 04-25-2015 X-ray exam of elbow X-Ray, Elbow [facility] Work Phone: Start: 04-13-2015 End: 04-13-2015 Occupational Therapy General Occupational Therapy [facility], [address] [place] [address], [id number] [facility] Work Phone: Start: 04-13-2015 End: 02-28-2017 X-ray exam of elbow X-Ray, Elbow [facility] Work Phone: Start: 03-28-2015 End: 04-04-2015 Postop follow-up visit Post Operative Visit [facility] Work Phone: Start: 03-28-2015 End: 03-28-2015 X-ray exam of elbow X-Ray, Elbow [facility] Work Phone: Patient Education ELBOW%20FRACTU RE%20IN%2 0ADULTS [facility] Work Phone: Immunizations Immunization Date Immunization Notes Care Provider Tati boudreaux 06-28-2014 Influenza virus vaccine [facility] Payers Date Payer Category Payer Self-pay [id number] 2024 Unknown [id number] 2017 Medicaid [id number] 65 [id number] 1975 Medicare [id number] 196 [id number] Unknown [id number] Unknown [id number] 2.16.8 [id number] Unknown [id number] 2.16.8 [id number] Unknown [id number] 2.16.8 [id number] Unknown [id number] 2.16.8 [id number] Unknown [id number] 2.16.8 [id number] Unknown [id number] 2.16.8 [id number] Unknown [id number] 2.16.8 [id number] Unknown [id number] 2.16.8 [id number] Social History Date Type Detail Facility Start: 07-01-2021 End: 07-02-2021 Tobacco smoking status NHIS Unknown if ever smoked [facility] Start: 04-17-2019 None [facility] 1940 Sex Assigned At Female [facility] Start: 03-13-2024 Tobacco smoking stat us NHIS Never smoked tobacco (finding) [facility] Evaluation note Note Date & Type Note Facility Evaluation note No assessment information availa ble [facility] Work Phone: Reason for referral (narrative) Note Date & Type Note Facility Reason for referral (narrative) No reason for referral information available [facility] Work Phone: Chief Complaint and Reason for Visit Chief Complaint [facility] SCREENING [facility] Chief Complaint [facility] SCREENING [facility] LABWORK Chief Complaint [facility] LABWORK [facility] Chief Complaint LABWORK F[facility] WORK [facility] WORK [facility] WORK Chief Complaint LABWORK F[facility] WORK [facility] WORK [facility] WORK [facility] WORK Chief Complaint [facility] LAB WOR K [facility] WORK [facility] WORK [facility] WORK [facility] LAB WORK Chief Complaint F[facility] LAB WOR K [facility] WORK [facility] WORK [facility] LAB WORK [facility] LAB WORK [facility] LABWORK Chief Complaint F[facility] LAB WOR K [facility] WORK [facility] WORK [facility] LAB WORK [facility] LABWORK [facility] WORK Chief Complaint F[facility] LAB WOR K [facility] WORK [facility]WORK [facility] WORK [facility] WORK Chief Complaint F[facility] WOR K [facility] WORK [facility] WORK [facility] Chief Complaint [facility] WOR K [facility] Chief Complaint [facility] WOR K Chief Complaint Admit Date [facility] January 14, 2025 5:0 0am [facility] February 22, 2025 4: 00am Advance Directives No Advanced Directives Records Found Advance Directive Response Recorded Date/ Time Advance Directives Yes March 16 3:27pm Living Will Yes July 01 11:19pm Power of Button Facing Machine Operator No July 01, 2021 11:19pm Advance Directive Response Recorded Date/ Time Advance Directives Yes March 16 2:27pm Living Will Yes July 01 10:19pm Power of Button Facing Machine Operator No July 01, 2021 10:19pm Advance Directive [...] ized section and content) DATE CREATED AUTHOR 07/03/2025 [facility] FOR RECORDS PERTAINING TO PATIENTS WHO [...] BE BASED ON THE PRIMARY CLINICAL RECORDS. [facility]. provides no warranty or guarantee of the accuracy or completeness of information in this document.
[2025-08-23 08:39] LABS: Valproic Acid (Depakene) Level 43 ug/mL (50-100)
== END ==
LOC: OLS.WCC 05:00
PROVIDERS: PCP Family Medicine; Visit Provider Family Medicine
DX: Z79.899 Other long term (current) drug therapy (principal); F60.0 Paranoid personality disorder
CPT/HCPCS: 36415; 80164